=== PATIENT | female | born 1950 | race Caucasian/White ===

== ENCOUNTER → 2018-01-22 13:45 | Outpatient (CLI) | payer MEDICARE, MEDICAID, SELFPAY | PROVIDERS: PCP Student in an Organized Health Care Education/Training Program; Visit Provider Student in an Organized Health Care Education/Training Program | DX: M65.331 Trigger finger, right middle finger (principal); M11.232 Other chondrocalcinosis, left wrist | CPT/HCPCS: 20600; 20605; 99214; J1030; J1040; L3908 ==

== ENCOUNTER → 2018-03-05 14:17 | Outpatient (BNVA) | payer MEDICARE, MEDICAID, SELFPAY | PROVIDERS: PCP Student in an Organized Health Care Education/Training Program; Visit Provider Student in an Organized Health Care Education/Training Program | DX: M65.4 Radial styloid tenosynovitis [de Quervain] (principal); M65.331 Trigger finger, right middle finger; Z98.890 Other specified postprocedural states | CPT/HCPCS: 99213; 99214 ==

== ENCOUNTER 2018-03-22 08:45 | Day surgery (SDC) | payer MEDICARE, MEDICAID, SELFPAY ==
[2018-03-22 09:02] VITALS: BP 122/62; PULSE 73; RESP 18; TEMP 37.2; O2SAT 99
[2018-03-22] MEDS: Bupivacaine 0.25% Pres-Free 10 ML VIAL 20 ML (09:49)
--- NOTE | 2018-03-22 09:57 | W.PM.DSUDISC ---
Discharge Plan Disposition Patient Disposition: HOME Condition: Good Discharge Details Attending Provider: Chan Salas Primary Care Provider: Brigette Eli Home Meds and New Rx's Prescriptions: Continue gabapentin 300 MG capsule 300 mg PO TID PRNQty: 90 RF: 0 sumatriptan succinate 50 MG tablet 50 mg PO BID PRNQty: 9 RF: 5 ranitidine HCl 150 MG capsule 150 mg PO BID PRNQty: 60 RF: 6 magnesium oxide 400 MG tablet 800 mg PO BID Qty: 360 RF: 3 cholecalciferol (vitamin D3) [Vitamin D3] 1,000 UNIT capsule 2,000 unit PO DAILY Qty: 100 RF: 6 tramadol 50 MG tablet 50 mg PO PRN Qty: 15 RF: 0 cyclobenzaprine 10 MG tablet 10 mg PO Q6H PRN PRN (Reason: Spasms) Qty: 15 RF: 0 mirtazapine [Remeron] 15 MG tablet 15 mg PO HS PRNRF: 0 ibuprofen 600 MG tablet 600 mg PO TID PRNRF: 0 Discharge Instructions Stand Alone Forms: Maritza Bloom, Casie Chapman (DSU) Print Language: Sinhala Activity:: Elevate Remove Dressings/Wound Care:: 48 hours Shower/Bathe:: 48 hours Diet:: Normal Diet Discharge Orders Discharge Orders: Discharge Order (Routine); Ordered 03/22/18 Ordered By: Chan Salas DS: Diagnosis Discharge Diagnosis (1) Trigger finger, right middle finger: Status: Acute
--- NOTE | 2018-03-22 10:36 | ROE_ITS ---
Date of service: 03/22/18 Time of Service: 10:34 Operative Note DATE OF PROCEDURE: 03/22/18 PRE-OP DIAGNOSIS: Trigger Finger - Right Middle Finger POST-OP DIAGNOSIS: same PROCEDURE: Trigger Finger Release - Right Middle Finger SURGEON: Chan Salas ANESTHESIA: local PATHOLOGY: none sent COMPLICATIONS: None Patient was transported to: same day Patient's condition: stable Indications: I have seen Shauna in clinic for symptoms of a trigger finger. The catching, clicking, locking, and pain limited function. The diagnosis of trigger finger was evident. The symptoms had not responded to conservative measures. I discussed trigger finger release with the patient. I reviewed the risks of the procedure to include, but not limited to, bleeding, infection, pain , stiffness, incomplete release, damage to nerves or vessels, continued catching , recurrence. Despite these risks, the patient elected to proceed. Findings: There was a tightened A1 sumi which was released. The flexor tendons were inspected and the patient was able to move the finger without any catching, clicking, or locking. Procedure Description: Shauna was greeted in the preoperative holding area where the correct side was identified and marked. The consent was reviewed with the patient and signed. All questions were answered. Shauna was taken back to the operating room. The patient was placed into the supine position on the operating room table with the right arm on an arm board. All bony prominences were well padded. No prophylactic antibiotics were administered since this was a clean, elective hand surgical case. The right arm was then prepped with Chloraprep and draped in a standard fashion with stockinette and extremity drape. A timeout to confirm correct identity, side and site, procedure, allergies, anesthesia, and medical concerns was performed. The surgical site was marked as a longitudinal incision directly over the A1 sumi of the involved digit. This was confirmed with palpation during finger flexion. This area, overlying the metacarpal head, was then anesthetized with 1 % Lidocaine. The patient tolerated this well and once the anesthetic had setup , the procedure began. A longitudinal incision was made through skin only, approximately 1cm. The deep tissues were dissected bluntly. Once the A1 sumi and flexor tendons were identified the soft tissue including neurovascular structures were retracted medially and laterally. There were no crossing structures over the A1 sumi. The proximal edge of the sumi was identified and the sumi was incised with tenotomy scissors. There was a release of the tendons once this was fully released. The tendons were then removed from the wound and inspected. Excess synovium was resected. The tendons were then returned and the patient was asked to move the finger into deep flexion and back to extension. There was no recreation of the pre- operative symptoms. The hand was then once more inspected for any A0 sumi or area of possible constriction. The wound was then irrigated and the skin was closed with a 4-0 Nylon. This was dressed with gauze and a Conform dressing. The patient tolerated the procedure well and was returned to the Same Day Surgery area in a stable condition suffering no known complication.
== END 2018-03-22 10:10 | disposition home or self-care (01) ==
PROVIDERS: PCP Student in an Organized Health Care Education/Training Program; Visit Provider Student in an Organized Health Care Education/Training Program
PROC: (CPT 26055; principal; 2018-03-22 10:30)
DX: M65.331 Trigger finger, right middle finger (principal)
CPT/HCPCS: 26055

== ENCOUNTER → 2018-04-02 12:56 | Outpatient (BNVA) | payer MEDICARE, MEDICAID, SELFPAY | PROVIDERS: PCP Student in an Organized Health Care Education/Training Program; Referring Provider Student in an Organized Health Care Education/Training Program; Visit Provider Student in an Organized Health Care Education/Training Program | DX: Z47.89 Encounter for other orthopedic aftercare (principal); M65.331 Trigger finger, right middle finger ==

== ENCOUNTER 2018-08-08 16:43 | Outpatient (CLI) | payer MEDICARE, MEDICAID, SELFPAY ==
--- NOTE | 2018-08-08 14:45 | DI.RAD_ITS ---
SYMPTOM/DIAGNOSIS: LT LOW BACK PAIN, M25.552, WITH TENDERNESS ON EXAM, RADICULOPATHY, M54.17, LT HIP PAIN LUMBAR SPINE: AP, lateral and bilateral oblique views. There are five lumbar type vertebral bodies. There is grade I pseudospondylolisthesis of L 4 on L 5. No acute fractures or subluxations are seen. There is disc space narrowing at L 3-4, L 4-5 and L 5-S 1. Degenerative changes of the facets are seen in the lower lumbar spine. There are surgical clips in the lower abdomen and pelvis. IMPRESSION: Degenerative changes in the lumbar spine. LEFT HIP AND PELVIS: The left hip is well maintained. The bones are intact and normally mineralized. Mild degenerative changes are seen at the sacroiliac joints. The symphysis pubis is intact. Degenerative changes are seen in the lower lumbar spine. Surgical clips are seen in the pelvis. IMPRESSION: 1. Negative left hip. 2. Degenerative changes in the lumbar spine.
== END 2018-08-08 17:03 ==
PROVIDERS: PCP Student in an Organized Health Care Education/Training Program; Visit Provider Student in an Organized Health Care Education/Training Program
DX: M25.552 Pain in left hip (principal); M54.17 Radiculopathy, lumbosacral region; M54.5 Low back pain; M47.27 Other spondylosis with radiculopathy, lumbosacral region
CPT/HCPCS: 72110; 73502

== ENCOUNTER 2018-11-20 14:28 | Emergency (ER) | payer MEDICARE, MEDICAID, SELFPAY ==
[2018-11-20] VITALS (43 sets, daily range): BP systolic 102–120; BP diastolic 55–64; PULSE 66–80; RESP 10–21; TEMP 37.1; O2SAT 88–100
--- NOTE | 2018-11-20 14:46 | DI.RAD_ITS ---
SYMPTOM/DIAGNOSIS: CHEST PAIN FRONTAL AND LATERAL CHEST: Comparison is made with 03/04/15. Heart size and pulmonary vasculature are within normal limits. No focal consolidating infiltrates, effusions or pneumothoraces are identified. There is left apical scarring which appears stable. The bones appear intact. IMPRESSION: No acute pulmonary process.
--- NOTE | 2018-11-20 15:08 | ED.GENADUL_ITS ---
Discharge Plan Disposition Patient Disposition: HOME Condition: Fair Discharge Details Chief Complaint: Chest Pain Clinical Impression: Chest pain, Heart palpitations, History of atrial fibrillation Primary Care Provider: Brigette Eli ED Provider: Barbara Blount Home Meds and New Rx's Prescriptions: Continued magnesium oxide 400 mg (241.3 mg magnesium) tablet 800 mg PO BID Qty: 360 RF: 3 ranitidine HCl 150 mg capsule 150 mg PO BID Qty: 60 RF: 3 cholecalciferol (vitamin D3) [Vitamin D3] 2,000 unit Capsule RF: 0 Discharge Instructions Instructions: Chest Pain (ED), Palpitations (ED) Additional Instructions: Your work-up is reassuring today. Your history is most consistent with recurrent atrial fibrillation. 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 Please call tomorrow to schedule appointments. Please begin daily aspirin. Encourage hydration. If you develop chest pain, shortness of breath, difficulty breathing or other new/worsening symptoms please seek care urgently once again. Referrals: Brigette Eli DO [Primary Care Provider] - Discharge Data Discharge Date/Time-TO BE ENTERED AT DEPARTURE: 11/20/18 19:30 Medical Decision Making <Douglas Leblanc NP - Last Filed: 11/21/18 08:30> Patient presenting to the emergency department for chief complaint of chest pain. Patient states that this started at approximately 1 AM and she also felt rapid heart rate. Patient states that she has had episodes of this in the past and she had near syncope when trying to walk during the event. It lasted approximately 2 hours and has improved but she has had continued chest pressure. Patient states that she attempted to call the cardiology office and they referred her to the emergency department. Patient states mild chest pressure currently with some dyspnea on exertion but otherwise denies cough, fever chills, return of palpitations. Physical exam is unremarkable nondiagnostic with clear lung sounds, regular rate and rhythm cardiac exam no pedal edema. Plan to do labs, EKG. Previous records were reviewed and do show episodes of atrial fibrillation with conversion in the emergency department. I feel that there is a high suspicion of this being what occurred. Review of initial labs show negative troponin, unremarkable CBC, and CMP showing slightly elevated BUN otherwise nondiagnostic. <Pancho Comer DO - Last Filed: 11/20/18 15:26> EKG at 14: 36 Rate 70, intervals normal, sinus rhythm, no significant ST elevations or depressions, questionable Q waves in lead III. Inverted T wave in V1. No other significant abnormalities <HARSH Ware - Last Filed: 11/20/18 22:50> Care transition to myself from Rex Leblanc NP with repeat troponin pending. I discussed the symptoms further with the patient. She is currently asymptomatic. She reports that for 2 hours this morning starting 0100, she reports that she had chest pain, palpitations and lightheadedness. She reports that she has had these episodes few times a month for the past 3 years but that typically they resolve quite quickly do not last this long. She reports that after the initial 2-hour episode, she had this fairly frequently intermittently throughout the course of the morning. She has been asymptomatic since being here. Patient has a known history of atrial fibrillation reports that this feels quite similar. Patient last for Holter monitor approximately year and half ago per patient's report, reports that she last had a stress and an echo approximately 2 years ago. 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 Patient is not on any anticoagulation, she is not on any antiarrhythmic. Given the patient's history, this is likely associated with her atrial fibrillation. I would like to have the patient wear a Holter monitor but I am hesitant to place her on this here secondary to insurance constraints. Will obtain repeat troponin and reassess. Repeat troponin remains at less than 0.02. Patient and I had a discussion at length. She will follow-up with her primary care and classroom instructional aide, she will call them tomorrow to make follow-up appointment within the next week. She is given strict return precautions. Patient reports that she has been taking aspirin daily, encouraged to continue with this. All of her questions and concerns were addressed and she is in agreement this plan. HPI <Douglas Leblanc NP - Last Filed: 11/21/18 08:30> General Mode of arrival: ambulatory . Date/Time Provider Initiated Documentation: 11/20/18 14:39 . Limitations to Documentation: no limitations . Information obtained by: patient and RN notes reviewed . History of Present Illness 67 year old F presents to the emergency department with the chief complaint of Chest pain and rapid heart rate, described as severe and similar to prior episodes, with intensity rated at 10. Quality is described as sharp, and is localized to the chest and left. Patient extremity (Left arm). Patient started experiencing this hour(s) (14) and it has been constant (But improved). No relieving factors improve symptom(s), No exacerbating factors reported . Patient did receive the following treatments prior to arrival, Aspirin (81mg) Related Data Home Medications Medication Instructions Recorded Confirmed magnesium oxide 400 mg (241.3 mg 800 mg PO BID #360 tab 08/30/18 magnesium) tablet ranitidine 150 mg capsule 150 mg PO BID #60 tab-cap 08/30/18 cholecalciferol (vitamin D3) 11/20/18 [Vitamin D3] Previous Rx's Medication Instructions Recorded magnesium oxide 400 mg (241.3 mg 800 mg PO BID #360 tab 08/30/18 magnesium) tablet ranitidine 150 mg capsule 150 mg PO BID #60 tab-cap 08/30/18 Allergies Allergy/AdvReac Type Severity Reaction Status Date / Time morphine Allergy Intermediate Itching Verified 11/05/18 15:29 codeine AdvReac Intermediate Other (See Verified 11/05/18 15:29 Comment) oxycodone HCl [From Percocet] AdvReac Other (See Verified 11/05/18 15:29 Comment) General Stated Complaint: Chest Pain AJITH: 3 Review of Systems <Douglas Leblanc NP - Last Filed: 11/21/18 08:30> Constitutional Denies chills, Denies fever(s) and Denies malaise Cardiovascular Reports as per HPI, Reports chest pain, Denies chest pain with activity, Reports diaphoresis, Denies syncope, Denies irregular heart rhythm, Reports lightheadedness, Reports palpitations and Reports dyspnea Respiratory Denies cough, Denies hemoptysis and Reports dyspnea Gastrointestinal Denies abdominal pain, Reports nausea and Denies vomiting Musculoskeletal Reports tingling (left arm) Neurologic Denies syncope and Reports tingling (left arm) Psychiatric Denies anxiety Endocrine Reports palpitations [facility] <Douglas Leblanc NP - Last Filed: 11/21/18 08:30> Surgical History Arthroplasty (06/21/13) Bariatric Surgery (06/16/00) Cholecystectomy (06/16/00) Colonoscopy - MAC (04/07/17) Repair of umbilical hernia (05/31/17) Trigger Finger release (11/26/13) pannus removal (04/02/03) Social History Smoking/Tobacco Use Status: Former Tobacco Use Alcohol Intake: never Drug use: Never Substance use type: does not use Do you feel safe at home: Yes Do you feel safe in your relationship?: Yes Exam <Douglas Leblanc NP - Last Filed: 11/21/18 08:30> Const General: cooperative, healthy appearing, comfortable, no acute distress, not diaphoretic and not ill appearing Nutritional Appearance: average body habitus Orientation: alert, awake and oriented x3 Limitations: mental status not altered Neck Neck: normal visual inspection, full ROM, trachea midline, supple and no ante rior neck swelling Thyroid: thyroid normal Carotids: normal carotid upstroke and no bruits Chest Chest: normal inspection of the chest Resp Effort & Inspection: normal respiratory effort and able to speak in complete sentences Auscultation: clear to auscultation bilaterally Cardio Jugular venous pressure: no JVD Palpation: normal PMI Rate: regular rate Rhythm: regular rhythm Heart Sounds: S1 normal, S2 normal, no click, no gallops, no murmurs and no rubs Bruits: no abdominal aortic bruits and no carotid bruits Pulses: radial pulses present bilaterally 2+ and dorsalis pedis pulses present bilaterally GI Inspection: normal to inspection Palpation: soft, no aortic enlargement, no pulsatile masses and nontender Auscultation: normal bowel sounds Skin General skin exam: no rashes or lesions noted Neuro General: alert, awake, oriented x3, tone normal and moves all extremities Extrem General: normal capillary refill, no clubbing, cyanosis or edema and no pedal edema Course <Douglas Leblanc NP - Last Filed: 11/21/18 08:30> Vital Signs Temperature 37.1 C 11/20/18 14:36 Pulse 69 11/20/18 14:36 Respiratory Rate 16 11/20/18 14:36 Blood Pressure 120/62 11/20/18 14:36 Pulse Oximetry 99 11/20/18 14:36 Temperature 37.1 C 11/20/18 14:36 Temperature Source Tympanic 11/20/18 14:36 Pulse 69 11/20/18 14:36 Respiratory Rate 16 11/20/18 14:36 Respiratory Effort 11/20/18 14:44 Blood Pressure 120/62 11/20/18 14:36 Pulse Oximetry 99 11/20/18 14:36 Oxygen Delivery Method Room Air 11/20/18 14:36 Oxygen Flow Rate 0 11/20/18 14:36 Pain Level 10 11/20/18 14:36 Sign Out <Douglas Leblanc NP - Last Filed: 11/21/18 08:30> Sign Out Data: Sign Out Comment: Pending 3-hour troponin patient signed out to HARSH Auguste for any further treatment, stabilization, disposition. Last updated by Douglas Leblanc NP at 11/20/18 16:02
[2018-11-20 15:14] LABS: Abs Immature Grans 0.01 k/cumm (0.0-0.09); Absolute Basophil Count 0.04 k/cumm (0.0-0.2); Absolute Eosinophil Count 0.19 k/cumm (0.0-0.7); Absolute Lymphocyte Count 2.39 k/cumm (1.2-3.4); Absolute Neutrophil Count 3.24 k/cumm (1.2-6.7); Basophils % 0.6; Eosinophils % 2.9; HCT 40.4 % (36.0-46.0); HGB 13.6 g/dL (12.0-15.5); Immature Grans % 0.2; Lymphocytes % 36.4; Mean Corp. HGB Concentration 33.7 g/dL (32.0-36.0); Mean Corpuscular Hemoglobin 30.9 pg (27.0-33.0); Mean Corpuscular Volume 91.8 fL (80-95); Mean Platelet Volume 10.8 fL (8.0-11.0); Monocytes % 10.7; Neutrophils % 49.2; Platelet Count 180 x1000/uL (130-400); White Blood Cell Count 6.57 k/cumm (4.4-10.8)
[2018-11-20 15:39] LABS: ALT 17 U/L (12-78); AST 12 U/L (15-37); Albumin 3.4 g/dL (3.4-5.0); Alkaline Phosphatase 89 U/L (46-116); Anion Gap 7.5 mmol/L (3-11); BUN 25 mg/dL (7-18); Bilirubin, Total 0.3 mg/dL (0.2-1.0); CO2 26.5 mmol/L (21.0-32.0); CREATININE 0.94 mg/dL (0.55-1.02); Calcium 8.8 mg/dL (8.5-10.1); Chloride 104 mmol/L (98-107); Glucose 89 mg/dL (70-100); Magnesium 1.8 mg/dL (1.8-2.4); Potassium 3.8 mmol/L (3.5-5.1); Sodium 138 mmol/L (136-145); Total Protein 6.7 g/dL (6.4-8.2)
[2018-11-20 15:41] LABS: Troponin I < 0.02 ng/mL (0.00-0.06)
[2018-11-20] MEDS: Aspirin 81 MG CHEW 243 MG CH (16:03)
--- NOTE | 2018-11-20 16:18 | DI.VRAD_ITS ---
EXAM: XR Chest, 2 Views EXAM DATE/TIME: 11/20/2018 3:58 PM CLINICAL HISTORY: 67 years old, female; Chest pain; Type not specified TECHNIQUE: Imaging protocol: XR of the chest, 2 views. COMPARISON: CR CHEST 2 VIEWS PA,LAT 03/04/2015 9:18 AM FINDINGS: Lungs: Unremarkable. No consolidation. Pleural space: Unremarkable. No pleural effusion. No pneumothorax. Heart/Mediastinum: Unremarkable. No cardiomegaly. Bones/joints: Degenerative changes in the spine. IMPRESSION: No acute finding. Dictated and Authenticated by: Myriam Harrington MD. Ordering:JENNIFER Cole MD
[2018-11-20 18:06] LABS: Troponin I < 0.02 ng/mL (0.00-0.06)
== END 2018-11-20 19:30 | disposition home or self-care (01) ==
PROVIDERS: Nurse Practitioner Family; Emergency Provider Physician Assistant; PCP Student in an Organized Health Care Education/Training Program
DX: R07.9 Chest pain, unspecified (principal); R00.2 Palpitations; I48.91 Unspecified atrial fibrillation
CPT/HCPCS: 36415; 80053; 93005; 99285; 71046; 83735; 84484; 85025; 93010

== ENCOUNTER → 2018-11-29 09:59 | Outpatient (BNVA) | payer MEDICARE, MEDICAID, SELFPAY | PROVIDERS: PCP Student in an Organized Health Care Education/Training Program; Visit Provider Internal Medicine Cardiovascular Disease | DX: I48.0 Paroxysmal atrial fibrillation (principal); E66.9 Obesity, unspecified; E78.5 Hyperlipidemia, unspecified; Z86.711 Personal history of pulmonary embolism; Z98.84 Bariatric surgery status; I10 Essential (primary) hypertension | CPT/HCPCS: 99214 ==

== ENCOUNTER 2018-12-04 00:47 | Outpatient (CLI) | payer MEDICARE, MEDICAID, SELFPAY ==
--- NOTE | 2018-12-04 06:57 | DI.US_ITS ---
SYMPTOM/DIAGNOSIS: KNOWN AAA, I 71.4, F/U, NEED MEASUREMENTS ULTRASOUND ABDOMINAL AORTA: The maximal diameter of the aorta is 3.4 cm transverse distally. Calcification is noted along the wall of the aorta. No significant mural thrombus is seen. The iliac arteries appear normal in diameter. IMPRESSION: Stable abdominal aortic aneurysm measuring 3.4 cm transverse.
== END 2018-12-04 01:07 ==
PROVIDERS: PCP Student in an Organized Health Care Education/Training Program; Visit Provider Student in an Organized Health Care Education/Training Program
DX: I71.4 Abdominal aortic aneurysm, without rupture (principal)
CPT/HCPCS: 76775

== ENCOUNTER 2019-02-28 14:30 | Outpatient (CLI) | payer MEDICARE, MEDICAID, SELFPAY | END 2019-02-28 14:50 | PROVIDERS: PCP Student in an Organized Health Care Education/Training Program; Visit Provider Internal Medicine Cardiovascular Disease | DX: I48.0 Paroxysmal atrial fibrillation (principal); E66.9 Obesity, unspecified; E78.5 Hyperlipidemia, unspecified; Z86.711 Personal history of pulmonary embolism; Z98.84 Bariatric surgery status; I10 Essential (primary) hypertension; Z87.891 Personal history of nicotine dependence | CPT/HCPCS: 99213 ==

== ENCOUNTER 2020-05-12 03:27 | Outpatient (CLI) | payer MEDICARE, MEDICAID, SELFPAY ==
[2020-05-12 14:54] LABS: ALT 18 U/L (14-59); AST 15 U/L (15-37); Albumin 3.9 g/dL (3.4-5.0); Alkaline Phosphatase 83 U/L (46-116); Anion Gap 7.2 mmol/L (3-11); BUN 19 mg/dL (7-18); Bilirubin, Total 0.4 mg/dL (0.2-1.0); CO2 27.8 mmol/L (21.0-32.0); CREATININE 1.06 mg/dL (0.55-1.02); Calcium 8.5 mg/dL (8.5-10.1); Calculated LDL 108 mg/dL (<100); Chloride 107 mmol/L (98-107); Cholesterol 210 mg/dL (<200); Glucose 97 mg/dL (74-106); HDL Cholesterol 86 mg/dL (40-60); Sodium 142 mmol/L (136-145); Total Protein 6.6 g/dL (6.4-8.2); Triglyceride 82 mg/dL (<150)
[2020-05-12 15:01] LABS: TSH (W/Ref FT4) 2.22 uIU/mL (0.36-3.74)
== END 2020-05-12 03:47 ==
PROVIDERS: PCP Student in an Organized Health Care Education/Training Program; Visit Provider Student in an Organized Health Care Education/Training Program
DX: I10 Essential (primary) hypertension (principal); E66.01 Morbid (severe) obesity due to excess calories; Z79.1 Long term (current) use of non-steroidal anti-inflammatories (NSAID); Z83.3 Family history of diabetes mellitus
CPT/HCPCS: 36415; 80053; 80061; 84443

== ENCOUNTER 2020-07-17 08:54 | Outpatient (CLI) | payer MEDICARE, MEDICAID, SELFPAY ==
[2020-07-18 13:08] LABS: COVID-19 RT-PCR UVMMC Result Negative (Negative)
== END 2020-07-17 09:14 ==
PROVIDERS: PCP Student in an Organized Health Care Education/Training Program; Visit Provider Student in an Organized Health Care Education/Training Program
DX: Z20.822 Contact with and (suspected) exposure to COVID-19 (principal)
CPT/HCPCS: U0003

== ENCOUNTER 2020-08-20 02:55 | Outpatient (CLI) | payer MEDICARE, MEDICAID, SELFPAY ==
--- NOTE | 2020-08-20 07:45 | DI.US_ITS ---
EXAM: US AAA DIAGNOSTIC CLINICAL HISTORY: F/U AAA, 10mm growth per year,I71.4 COMPARISON: US US AAA diagnostic from 12/04/2018 FINDINGS: Abdominal Aorta: Proximal: 3.1 x 3.1 cm Mid: 2.3 x 2.6 cm Distal: 3.2 x 3.2 cm Iliac's: Right: 1.5 x 1.7 cm Left: 1.3 x 1.4 cm Atherosclerosis is present. IMPRESSION: 3.2 cm distal abdominal aortic aneurysm. This compares with 3.4 on the prior examination. No interv al increase in size of the abdominal aortic aneurysm. DATA REPOSITORY:
== END 2020-08-20 03:15 ==
PROVIDERS: PCP Student in an Organized Health Care Education/Training Program; Visit Provider Student in an Organized Health Care Education/Training Program
DX: I71.4 Abdominal aortic aneurysm, without rupture (principal)
CPT/HCPCS: 76775

== ENCOUNTER 2021-03-03 02:57 | Outpatient (CLI) | payer MEDICARE, MEDICAID, SELFPAY ==
[2021-03-03 12:15] LABS: Anion Gap 9.4 mmol/L (3-11); BUN 22 mg/dL (7-18); CO2 26.6 mmol/L (21.0-32.0); CREATININE 1.1 mg/dL (0.55-1.02); Calcium 8.3 mg/dL (8.5-10.1); Chloride 107 mmol/L (98-107); Glucose 96 mg/dL (74-106); Potassium 4.1 mmol/L (3.5-5.1); Sodium 143 mmol/L (136-145)
[2021-03-04 00:52] LABS: Vitamin D 25 Total 40.3 ng/mL (30-100)
== END 2021-03-03 02:58 | disposition home or self-care (01) ==
LOC: LBO 02:57
PROVIDERS: PCP Student in an Organized Health Care Education/Training Program; Visit Provider Student in an Organized Health Care Education/Training Program
DX: E66.01 Morbid (severe) obesity due to excess calories; R79.89 Other specified abnormal findings of blood chemistry
CPT/HCPCS: 36415; 80048; 82306

== ENCOUNTER 2021-04-02 00:17 | Outpatient (CLI) | payer MEDICARE, MEDICAID, SELFPAY ==
--- NOTE | 2021-04-02 06:30 | DI.US_ITS ---
Exam(s) US AAA DIAGNOSTIC EXAM: US AAA DIAGNOSTIC CLINICAL HISTORY: evaluate for change,F/U AAA,I71.4 COMPARISON: No exams were available for comparison FINDINGS: Abdominal Aorta: Proximal: 3.0 cm Mid: 2.5 cm Distal: 3.3 cm Iliacs: Right: 1.6 cm Left: 1.5 cm Calcific atherosclerotic disease is seen. IMPRESSION: Stable 3.3 centimeter distal abdominal aortic aneurysm.. DATA REPOSITORY:
== END 2021-04-02 00:37 ==
PROVIDERS: PCP Student in an Organized Health Care Education/Training Program; Visit Provider Student in an Organized Health Care Education/Training Program
DX: I71.4 Abdominal aortic aneurysm, without rupture (principal)
CPT/HCPCS: 76775

== ENCOUNTER 2021-05-07 02:05 | Outpatient (CLI) | payer MEDICARE, MEDICAID, SELFPAY ==
--- NOTE | 2021-05-07 08:15 | DI.DEXA_ITS ---
Exam(s) XR DEXA BONE DENSITY W/WO ARYA EXAM: XR DEXA BONE DENSITY W/WO ARYA CLINICAL HISTORY: evaluate osteoporosis, M81.0 TECHNIQUE: [email or web address] C densitometer COMPARISON: 2008 FINDINGS: Lateral view of the thoracic and lumbar spine shows no evidence of compression fractures. Bone mineral density measurements of the lumbar spine correspond to a total T-score of 0.2, in the n ormal range. This represents a 2.9 percent decrease in spine bone density when compared with 2008. Bone mineral density measurements of the left hip correspond to a total T-score of negative 0.4. Th e femoral neck T-score is -1.4, in the osteopenic range. This represents a 4.7 percent decrease in total hip bone density from 2008. The left forearm bone mineral density measurements correspond to a T-score of the distal 3rd of -4.8, in the osteo parotic range. The forearm was not analyzed on the previous exam. . IMPRESSION: Normal bone mineral density of the lumbar spine and left hip. Osteoporosis of the left forearm.
== END 2021-05-07 02:25 ==
PROVIDERS: PCP Student in an Organized Health Care Education/Training Program; Visit Provider Student in an Organized Health Care Education/Training Program
DX: M81.0 Age-related osteoporosis without current pathological fracture (principal); M85.88 Other specified disorders of bone density and structure, other site
CPT/HCPCS: 77080

== ENCOUNTER 2021-09-13 03:38 | Outpatient (CLI) | payer MEDICARE, MEDICAID, SELFPAY ==
[2021-09-13 13:47] LABS: Anion Gap 7.4 mmol/L (3-11); BUN 25 mg/dL (7-18); CO2 26.6 mmol/L (21.0-32.0); CREATININE 1.1 mg/dL (0.55-1.02); Calcium 8.9 mg/dL (8.5-10.1); Chloride 105 mmol/L (98-107); Glucose 220 mg/dL (74-106); Sodium 139 mmol/L (136-145)
== END 2021-09-13 03:39 | disposition home or self-care (01) ==
LOC: LBO 03:38
PROVIDERS: PCP Student in an Organized Health Care Education/Training Program; Visit Provider Student in an Organized Health Care Education/Training Program
DX: R60.0 Localized edema (principal); T50.2X5A Adverse effect of carbonic-anhydrase inhibitors, benzothiadiazides and other diuretics, initial encounter
CPT/HCPCS: 36415; 80048

== ENCOUNTER 2021-09-27 09:34 | Emergency (ER) | payer MEDICARE, MEDICAID, SELFPAY ==
[2021-09-27] VITALS (35 sets, daily range): BP systolic 104–133; BP diastolic 47–70; PULSE 61–79; RESP 8–24; TEMP 36.6; O2SAT 94–100
--- NOTE | 2021-09-27 09:30 | RT.EKG_ITS ---
APPROVED REPORT Exam: Resting ECG Reason for Exam: chest pain Patient Location: E HR:64 bpm ECG Measurements Heart Rate 64 AXIS WY 175 P 59 QRSd 93 QRS 13 QT 400 T 43 QTc 414 Conclusion Sinus rhythm...normal P axis, V-rate 60- 99 no STEMI, non-diagnostic EKG I have reviewed and interpreted ECG and agree with software generated interpretation.
[2021-09-27 10:02] LABS: Abs Immature Grans 0.01 10^3/uL (0.0-0.06); Absolute Basophil Count 0.06 10^3/uL (0.0-0.2); Absolute Lymphocyte Count 1.96 10^3/uL (1.2-3.4); Absolute Monocyte Count 0.66 10^3/uL (0.1-0.8); Absolute Neutrophil Count 4.35 10^3/uL (1.2-6.7); Basophils % 0.8; Eosinophils % 2.8; HCT 38.7 % (36.0-46.0); HGB 12.9 g/dL (11.2-15.7); Immature Grans % 0.1; Lymphocytes % 27.1; MCH 31.2 pg (27.0-33.0); MCHC 33.3 % (32.0-36.0); MCV 93.7 fL (80-95); MPV 10.7 fL (8.0-11.0); Monocytes % 9.1; Neutrophils % 60.1; Nucleated RBC 0 %; Platelet Count 181 10^3/uL (130-400); RBC 4.13 10^6/uL (3.93-5.22); RDW 13.1 % (11.7-14.6); RDW-SD 45.1 fL; WBC 7.24 10^3/uL (4.4-10.8)
[2021-09-27 10:16] LABS: ALT 19 U/L (14-59); AST 16 U/L (15-37); Albumin 3.6 g/dL (3.4-5.0); Alkaline Phosphatase 98 U/L (46-116); BUN 29 mg/dL (7-18); Bilirubin, Total 0.3 mg/dL (0.2-1.0); Chloride 104 mmol/L (98-107); Estimated GFR 54.81 (mL/min/1.73m2); Glucose 128 mg/dL (74-106); Magnesium 1.8 mg/dL (1.8-2.4); Potassium 4.1 mmol/L (3.5-5.1); Sodium 140 mmol/L (136-145); Total Protein 7.3 g/dL (6.4-8.2); Troponin I < 50 ng/L (<or=60)
[2021-09-27] MEDS: HYDROmorphone 2 MG/ML VIAL 0.5 MG IVP ×2 (10:25→11:25)
--- NOTE | 2021-09-27 11:04 | DI.CT_ITS ---
Exam(s) CT THORAX ABD/PEL CTA EXAM: CT THORAX ABD/PEL CTA CLINICAL HISTORY: chest pain, HX AAA. TECHNIQUE: Imaging Protocol: Axial CT angiography was performed with multi-slice acquisition and m ulti-planar and MIP reconstructions. CONTRAST MATERIAL: Intravenous: Omnipaque 350 Contrast volume:100 ml Oral: no COMPARISON: US PELVIS TRANSVAG from 07/29/2015 CR XR CHEST 2V PA LATERAL from 11/20/2018 US US AAA diagnostic from 12/04/2018 US US AAA DIAGNOSTIC from 04/02/2021 FINDINGS: CHEST: Pulmonary Arteries: No evidence of filling defect to suggest pulmonary emboli. Tracheobronchial tree: Patent where visualized. Mediastinum and Doris: No dominant adenopathy or fluid collection. Pulmonary parenchyma: No consolidation or dominant measurable mass. No architectural distortion. Pleura: No effusion or pneumothorax. Heart: The heart is not dilated. No coronary artery calcifications are seen. Aorta: Thoracic aorta non-dilated. Mild atherosclerotic changes. Bones: Degenerative disc changes. Hemangioma T6 ABDOMEN AND PELVIS: Abdomen: Celiac axis/mesenteric arteries: No evidence of occlusion or significant stenosis. Renal Arteries: No evidence of occlusion or significant stenosis. There is a single renal artery per fusing each kidney. Aorta: [id number] atherosclerotic changes. No evidence of occlusion or significant stenosis. No dissection. Maximal 0 diameter 3.3 cm, unchanged from prior ultrasound. Pelvis: Iliac Arteries: No evidence of occlusion or significant stenosis. Mild to moderate atherosclerotic changes. Common Femoral Arteries: No evidence of occlusion or significant stenosis. ABDOMEN: Liver: Normal density. No measurable mass. Portal, Superior Mesenteric, and Splenic Veins: Unremarkable. Gallbladder and Biliary Tract: Status post cholecystectomy. No radiodense calculus or dilation. Pancreas: Normal density, no abnormal calcifications or inflammatory process. Suture material near fundus of stomach. Spleen: Normal. Adrenals: No masses seen. Kidneys: Normal size, contour and axis. No radiodense stones or obstructive uropathy. No masses seen. Bilateral parapelvic cysts. Bowel: Sigmoid diverticulosis. No evidence of diverticulitis. No obstruction or bowel wall thickeni ng. Appendix is not seen. Peritoneal Cavity: No ascites, collection or mesenteric inflammatory response. Lymph Nodes: Within normal limits. Bones: Degenerative disc changes and facet degenerative changes greatest at L4-5 and L5-S1. Soft Tissues: Unremarkable. PELVIS: Bladder: Symmetric distention, no gross wall thickening. Reproductive Organs: Bilateral simple appearing ovarian cysts. Lymph Nodes: Within normal limits. Bones: Within normal limits. IMPRESSION: 3.3 centimeter infrarenal abdominal aortic aneurysm. No evidence of dissection or other acute abnor mality. RADIATION DOSE DELIVERED: 1,365.39mGy.cm Total DLP DATA REPOSITORY: All CT scans at this facility are submitted to the National Radiology Data Registry (NRDR) Dose Index Registry (DIR) with the [employer] (A[employer]). RADIATION OPTIMIZATION: All CT scans at this facility use at least one of these dose optimization te chniques: automated exposure control; mA and/or kV adjustment per patient size (includes targeted exa ms where dose is matched to clinical indication); or iterative reconstruction.
[2021-09-27] MEDS: Omnipaque 350 MG/ML 100 ML BTL IJ (11:16)
[2021-09-27] MEDS: HYDROmorphone 2 MG/ML VIAL 1 MG IVP (12:04)
--- NOTE | 2021-09-27 12:15 | RT.EKG_ITS ---
APPROVED REPORT Exam: Resting ECG Reason for Exam: chest pain Patient Location: E HR:68 bpm ECG Measurements Heart Rate 68 AXIS MI 172 P 148 QRSd 100 QRS -20 QT 412 T 127 QTc 440 Conclusion Sinus or ectopic atrial rhythm...P axis (-45,135) Left atrial enlargement...P, P'>60mS, <-0.15mV V1 Inferior infarct, old...Q >35mS, II III aVF Nonspecific T abnormalities, lateral leads...T <-0.10mV, I aVL V5 V6 no STEMI, non-diagnostic EKG I have reviewed and interpreted ECG and agree with software generated interpretation.
--- NOTE | 2021-09-27 12:44 | W.ED.GENAD ---
Discharge Plan Disposition Patient Disposition: HOME Condition: Improving Discharge Details Clinical Impression: Esophagitis with gastritis Primary Care Provider: Brigette Eli ED Provider: Douglas Leblanc Home Meds and New Rx's Prescriptions: New omeprazole 20 mg capsule,delayed release(DR/EC) 20 mg PO DAILY Qty: 14 0RF Continued magnesium oxide 400 mg (241.3 mg magnesium) tablet 800 mg PO BID Qty: 360 3RF Rx Instructions: replace magnesium cholecalciferol (vitamin D3) [Vitamin D3] 50 mcg (2,000 unit) capsule 2,000 unit PO DAILY Qty: 90 3RF aspirin 81 mg tablet,chewable 81 mg PO DAILY 0RF cyclobenzaprine 10 mg tablet 10 mg PO HS PRN (Reason: muscle spasm) Qty: 20 1RF Rx Instructions: Trial for muscle spasm pain furosemide 20 mg tablet See Rx Instructions PO DAILY Qty: 90 3RF Rx Instructions: 20mg daily, may add (1) tab in afternoon 2' weight gain > 5 lbs or severe edema PO daily; sumatriptan succinate 50 mg tablet See Rx Instructions PO .COMPLEX Qty: 9 3RF Rx Instructions: take 1 tab at onset of headache; if no relief may repeat 1 tab after at least 2 hrs; max = 4 tabs/24 hr PO metoprolol succinate 25 mg tablet extended release 24 hr See Rx Instructions .ROUTE .COMPLEX Qty: 90 3RF Dose Instruction: TAKE 1 TABLET BY MOUTH DAILY Rx Instructions: TAKE 1 TABLET BY MOUTH DAILY Discontinued ibuprofen 600 mg tablet 600 mg PO BID Qty: 30 1RF Rx Instructions: For anti-inflammation of arm/hip; take with food. ibuprofen 800 mg tablet 800 mg PO TID Qty: 90 3RF Discharge Instructions Instructions: Gastritis (ED) Additional Instructions: It is important that you take your medications as prescribed and please stop usage of ibuprofen as this may be contributing to your symptoms. It is recommended to take [id number] acetaminophen/Tylenol and take as directed on packaging. You are also being placed on a daily medication to reduce your stomach acid and take as directed. It will be important that you follow-up with your primary care provider for reassessment and to ensure that you are improving in symptoms. If you have any new or significant worsening of symptoms feel free to return to the emergency department for reassessment and further evaluation. Referrals: Brigette Eli, [Primary Care Provider] - 1 week (For reassessment of your epigastric pain) Discharge Data Discharge Date/Time-TO BE ENTERED AT DEPARTURE: 09/27/21 13:36 Medical Decision Making Patient presenting to the emergency department with chief complaint of chest/epigastric pain and discomfort. Patient reports that this started yesterday after attempting to swallow pill. She states since then pain is gotten worse and she has now having abdominal pain radiating into her back. Patient does state some lightheadedness when she stands up but no syncope, no diaphoresis, no vomiting. Physical exam shows exquisite tenderness to palpation of the epigastrium but no pulsatile mass, otherwise normal cardiac and respiratory exam. Patient does have history of abdominal aortic aneurysm approximately 3 cm in size. Given patient's history and significant amount of pain we will plan on performing standard cardiac work-up including CTA of thorax abdomen pelvis for evaluation of patient's AAA. Will give patient more phone pending results. Vital signs otherwise stable, patient is not tachycardic, hypo or hypertensive, and otherwise stable. Please see physician interpretation of EKG. Patient is in sinus rhythm with no signs of STEMI. . Review of labs show a unremarkable CBC, CMP does show slightly elevated BUN at 29 with a GFR of 54 and glucose of 128 otherwise nondiagnostic CMP. Troponin is less than 50. Review of CTA with radiologist shows stable AAA with no significant change in size otherwise no other acute abnormality is noted. Patient reassessed and continues to have epigastric discomfort. Will give patient more hydromorphone along with GI cocktail pending second EKG and troponin. Second EKG performed and please see physician interpretation of EKG. Patient is in sinus rhythm with no signs of acute STEMI. Second troponin is also nondetectable. Given that all of patient's symptoms started with swallowing of pill and otherwise benign work-up, I suspect gastritis versus esophagitis. Further discussed this with patient and she does state history of gastritis and has been using ibuprofen to treat pain. Discussed with patient use of Maalox and acetaminophen to help control pain and informed her that NSAIDs will worsen her symptoms. Patient placed on primary care follow-up list with preferred follow-up later this week given her history and to ensure that she is improving. After discussion of diagnosis and plan of care patient has no further needs, questions, or concerns and states clear understanding to return to the emergency department for any worsening symptoms. Medical Records Medical records reviewed: Yes I reviewed the patient's medical records. Imaging Data Radiologic Study: Imaging: CT Scan Radiologist's impression: IMPRESSION: 3.3 centimeter infrarenal abdominal aortic aneurysm. No evidence of dissection or other acute abnormality. HPI General Mode of arrival: ambulatory. Date/Time Provider Initiated Documentation: 09/27/21 09:34. Limitations to Documentation: no limitations. Information obtained by: patient. History of Present Illness 70 year old F presents to the emergency department with the chief complaint of chest /epigastric pain, described as moderate, with intensity rated at 8. Quality is described as aching and sharp, and is localized to the chest and abdomen. Patient reports radiation to back. Patient started experiencing this day(s) (1) and it has been constant. improves with No relieving factors improve symptom(s), Eating worsens symptoms . Patient notes loss of appetite and malaise; denies cough and diaphoresis. Patient did receive the following treatments prior to arrival, none Related Data Home Medications Medication Instructions Recorded Confirmed aspirin 81 mg chewable tablet 81 mg PO DAILY 11/21/18 09/27/21 sumatriptan succinate 50 mg tablet See Rx Instructions PO .COMPLEX #9 08/08/20 09/27/21 tab cholecalciferol (vitamin D3) 50 2,000 unit PO DAILY #90 cap 02/26/21 09/27/21 mcg (2,000 unit) capsule (Vitamin D3) magnesium oxide 400 mg (241.3 mg 800 mg PO BID #360 tab 02/26/21 09/27/21 magnesium) tablet metoprolol succinate 25 mg See Rx Instructions .ROUTE 07/31/21 09/27/21 tablet,extended release 24 hr .COMPLEX #90 tab cyclobenzaprine 10 mg tablet 10 mg PO HS PRN #20 tab 08/27/21 09/27/21 furosemide 20 mg tablet See Rx Instructions PO DAILY #90 08/27/21 09/27/21 tab omeprazole 20 mg capsule,delayed 20 mg PO DAILY #14 cap 09/27/21 release Previous Rx's Medication Instructions Recorded sumatriptan succinate 50 mg tablet See Rx Instructions PO .COMPLEX #9 08/08/20 tab cholecalciferol (vitamin D3) 50 2,000 unit PO DAILY #90 cap 02/26/21 mcg (2,000 unit) capsule (Vitamin D3) magnesium oxide 400 mg (241.3 mg 800 mg PO BID #360 tab 02/26/21 magnesium) tablet metoprolol succinate 25 mg See Rx Instructions .ROUTE 07/31/21 tablet,extended release 24 hr .COMPLEX #90 tab cyclobenzaprine 10 mg tablet 10 mg PO HS PRN #20 tab 08/27/21 furosemide 20 mg tablet See Rx Instructions PO DAILY #90 08/27/21 tab omeprazole 20 mg capsule,delayed 20 mg PO DAILY #14 cap 09/27/21 release Allergies Allergy/AdvReac Type Severity Reaction Status Date / Time morphine Allergy Intermediate Itching Verified 09/27/21 09:54 codeine AdvReac Intermediate muscle Verified 09/27/21 09:59 spasms oxycodone HCl [From Percocet] AdvReac Intermediate muscle Verified 09/27/21 09:59 spasms, hard on stomach General Stated Complaint: Chest Pain AJITH: 2 Review of Systems Constitutional Constitutional: Denies chills, Denies fever(s) and Denies malaise ENT Ears, Nose, Mouth, and Throat: Reports odynophagia Cardiovascular Cardiovascular: Reports as per HPI, Reports chest pain, Denies chest pain with activity, Denies syncope, Denies irregular heart rhythm, Reports lightheadedness (with standing), Denies palpitations and Denies dyspnea Respiratory Respiratory: Denies cough, Denies hemoptysis and Denies dyspnea Gastrointestinal Gastrointestinal: Denies abdominal pain, Reports bloating, Reports nausea, Reports odynophagia and Denies vomiting Neurologic Neurologic: Denies syncope Psychiatric Psychiatric: Denies anxiety Endocrine Endocrine: Denies cold intolerance, Denies heat intolerance and Denies palpitations PFSH All Active Problems (Updated 09/27/21 @ 13:32 by Douglas Leblanc NP) Esophagitis with gastritis (Acute) Piriformis syndrome of right side (Acute) Right upper extremity numbness (Acute) Pain and Tenderness, possible nerve entrapment with numbness .. 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 Acute on chronic Rt sided, 08/2021. ik Chest heaviness (Acute 07/15/16) Hyperlipidemia (Acute 02/21/13) Joint pain (Acute 02/21/13) Nephrotic syndrome (Acute 06/17/85) Palpitations (Acute 07/15/16) Transient arthropathy (Acute 02/21/13) Chest pain at rest (Acute) Awakened with heaviness, waited x hours (has had it before), but finally went to ED .. 11/20/18 Pain of left hip (Chronic 05/2018) Onset while stretching in bed, suddenly felt sharp pain ... hasn't gone away. Surprising left paraspinal tenderness along lumbar spine @ exam, 08/08/18. Vitamin D deficiency (Acute 12/23/16) rx 50,000/wk x ten wk, then 2000 IU daily TMJ (temporomandibular joint disorder) (Acute 01/25/16) Sleep disturbances (Acute 03/01/13) Seasonal allergic rhinitis (Acute 02/21/13) Pseudogout of left wrist (Acute 01/22/18) Periumbilical abdominal pain (Acute 04/14/17) ? umbilical hernia vs adhesions PAF (paroxysmal atrial fibrillation) (Chronic 05/08/15) only one confirmed episode 02/2015; ZIO patch neg; prefers not anticoagulate until A Fib recurs Osteoarthritis (Chronic 03/05/13) recurrent R thumb (h/o Catrina inj 10/2012; h/o surg L hand 06/2006) Obesity (BMI 30-39.9) (Acute 08/11/11) Muscle cramp, nocturnal (Acute 12/27/13) gabapentin 100 prn effective Morbid obesity (Acute 08/20/15) BMI 42, even after bariatric surg Migraine (Acute 02/21/13) Left foot pain (Acute 01/27/17) r/o Posteriur Tarsal Tunnel Syn; dr Velasquez, Dr. Aldana History of pulmonary embolism (Acute 01/01/16) History of bariatric surgery (Acute 05/19/00) Dr. Greene, [facility] Generalized osteoarthrosis (Chronic 02/21/13) Gastroesophageal reflux disease (Chronic 02/21/13) Arm pain, right (Acute 09/20/13) rotator cuff pain, persistent trigger finger R; neck pain; trapezious spasm; impingement syndrome Adenoma of large intestine (Acute 05/19/11) 05/2011 Kris Coffey colonoscopy, +tubular adenoma and +family h/o colon cancer (F); again adenoma 02/21/13 04/07/17 - tubulovillous adenoma, ascending colon, Dr Kaye Acute pain of left shoulder (Acute 10/18/17) No specific injury/trauma, pain with movement, abdiel ext rot/supination. Triceps tenderness. Intermittent fingertip numbness. Abdominal pain (Acute 04/22/13) not diverticulitis per CT 07/28/14; lower abd 07/2015 Abdominal aortic aneurysm 30 to 34 mm in diameter (Chronic 07/19/14) 06/2014 3.14 cm, confirmed on CT; 07/2015 3.2cm US 04/21/17 stable 3.3 cm US. 11/2018 [Stable, 3.4CM]. Nephrolithiasis (Acute 05/07/14) a. First episode - right side b. Right 3 mm ureterovesical junction stone Morbid obesity (Chronic) a. Gastric bypass 1999 b. Multiple nutritional deficiencies, on supplements. c. S/p pannus excision H/O surgical procedure (Chronic) a. Gastric bypass 1999 b. Pannus excision c. Excision of Samson neuroma d. Cholecystectomy e. appendectomy f. right oophorectomy g. Hemorrhoidectomy Hypertension (Chronic) Osteoarthrosis, hand (Chronic) History of tobacco use (Chronic) a. quit in 1998, after roughly 30 pack years GERD (gastroesophageal reflux disease) (Chronic) Reactive airway disease (Chronic) a. worse in the spring Migraines (Chronic) Pain in joint, shoulder region (Chronic) a. rotator cuff pain Diverticulosis (Chronic) a. No diverticulitis Spondylolisthesis of lumbosacral region (Chronic) A. L4-5 B. L5-S1 Latest XR (07/2018) states pseudospondylolisthesis, no acute Fx/Sublux. Monitoring pain. DJD, spine (Chronic) Reconfirmed on 07/2018 XR. Osteoporosis (Chronic) Ca and Vit D suppl. Bisphosphonate Hx TBD. De Quervain's tenosynovitis, right (Acute) Trigger finger, right middle finger (Acute) Surgical History Arthroplasty (06/21/13) R thumb Dreisbach Bariatric Surgery (06/16/00) Brenda-En-Y gastroplasty with cholecystectomy, KARISHMA Juárez Cholecystectomy (06/16/00) KARISHMA Vo, along with Bariatric procedure Colonoscopy - MAC (04/07/17) pannus removal (04/02/03) [facility], 3 yr after bariatric surg Repair of umbilical hernia (05/31/17) Dr Kaye Trigger Finger release (11/26/13) A-1 sumi Rt ring finger Family History Father Lung cancer Mother Colon cancer Social History Smoking/Tobacco Use Status: Former Tobacco Use Quit Date: 06/19/98 Smoking risk assessment performed?: Yes Alcohol Intake: never Drug use: Never Substance use type: does not use Caregiver/Support person: No Household members: spouse and children Number of Children: 5 Communication Needs: None Current gender identity: female What is your relationship status?: Panel score (0-1 are the most socially isolated patients): 1 What type of physical activity do you participate in: sedentary lifestyle Duration: < 15 minutes/day Frequency: 3-4 times per week Seatbelt use: always Do you feel safe at home: Yes Do you feel safe in your relationship?: Yes Exam Const General: cooperative, healthy appearing, comfortable, no acute distress, not diaphoretic and not ill appearing Nutritional Appearance: average body habitus Orientation: alert, awake and oriented x3 Limitations: mental status not altered Neck Neck: normal visual inspection, full ROM, trachea midline, supple and no anterior neck swelling Carotids: normal carotid upstroke and no bruits Resp Effort & Inspection: normal respiratory effort and able to speak in complete sentences Auscultation: clear to auscultation bilaterally Cardio Jugular venous pressure: no JVD Palpation: normal PMI Rate: regular rate Rhythm: regular rhythm Heart Sounds: S1 normal, S2 normal, no click, no gallops, no murmurs and no rubs Bruits: no abdominal aortic bruits and no carotid bruits Pulses: radial pulses present bilaterally 2+ GI Palpation: soft, no aortic enlargement, no pulsatile masses and tender in the epigastrum Auscultation: normal bowel sounds Skin General skin exam: no rashes or lesions noted Neuro General: patient alert, patient awake, patient oriented x3, tone normal and moves all extremities Course Vital Signs Vital signs: Vital Signs Pulse 62 09/27/21 09:43 Respiratory Rate 15 09/27/21 09:43 Blood Pressure 129/64 09/27/21 09:43 Pulse Oximetry 100 09/27/21 09:43 Temperature 36.6 C 09/27/21 09:47 Temperature Source Temporal Artery Scan 09/27/21 09:47 Pulse 72 09/27/21 11:47 Pulse 73 09/27/21 11:47 Respiratory Rate 16 09/27/21 11:47 Respiratory Effort Non-Labored 09/27/21 09:59 Respiratory Depth Normal 09/27/21 09:59 Respiratory Pattern Normal 09/27/21 09:59 Blood Pressure 133/69 09/27/21 11:47 Blood Pressure Mean 84 09/27/21 11:47 Blood Pressure Position Supine 09/27/21 09:47 Pulse Oximetry 97 09/27/21 11:47 Oxygen Delivery Method Room Air 09/27/21 09:47 Oxygen Flow Rate 0 09/27/21 09:47 Pain Level 9 09/27/21 12:04 Lab/Test Results Lab/Test Results: Laboratory Tests Range/Units 09/27/21 09/27/21 09:53 09:53 WBC (4.4-10.8) 10^3/uL 7.24 RBC (3.93-5.22) 10^6/uL 4.13 Hgb (11.2-15.7) g/dL 12.9 Hct (36.0-46.0) % 38.7 MCV (80-95) fL 93.7 MCH (27.0-33.0) pg 31.2 MCHC (32.0-36.0) % 33.3 RDW (11.7-14.6) % 13.1 Plt Count (130-400) 10^3/uL 181 MPV (8.0-11.0) fL 10.7 Immature Gran % 0.1 Neutrophils % 60.1 Lymphocytes % 27.1 Monocytes % 9.1 Eosinophils % 2.8 Basophils % 0.8 Nucleated RBC % % 0 Absolute Neutrophils (1.2-6.7) 10^3/uL 4.35 Absolute Lymphocytes (1.2-3.4) 10^3/uL 1.96 Absolute Monocytes (0.1-0.8) 10^3/uL 0.66 Absolute Eosinophils (0.0-0.7) 10^3/uL 0.20 Absolute Basophils (0.0-0.2) 10^3/uL 0.06 Sodium (136-145) mmol/L 140 Potassium (3.5-5.1) mmol/L 4.1 Chloride (98-107) mmol/L 104 Carbon Dioxide (21.0-32.0) mmol/L 29.0 Anion Gap (3-11) mmol/L 7.0 BUN (7-18) mg/dL 29 H Creatinine (0.55-1.02) mg/dL 1.0 Estimated GFR/1.73 m2 (mL/min/1.73m2) 54.81 Glucose (74-106) mg/dL 128 H Calcium (8.5-10.1) mg/dL 9.0 Magnesium (1.8-2.4) mg/dL 1.8 Total Bilirubin (0.2-1.0) mg/dL 0.3 AST (15-37) U/L 16 ALT (14-59) U/L 19 Alkaline Phosphatase (46-116) U/L 98 Troponin I (<or=60) ng/L < 50 Total Protein (6.4-8.2) g/dL 7.3 Albumin (3.4-5.0) g/dL 3.6
--- NOTE | 2021-09-27 12:45 | RT.EKG_ITS ---
APPROVED REPORT Exam: Resting ECG Reason for Exam: chest pain Patient Location: E HR:70 bpm ECG Measurements Heart Rate 70 AXIS PA 173 P 56 QRSd 95 QRS -7 QT 411 T 34 QTc 443 Conclusion Sinus rhythm...normal P axis, V-rate 60- 99 Probable left atrial enlargement...P >50mS, <-0.10mV V1 no STEMI, non-diagnostic EKG I have reviewed and interpreted ECG and agree with software generated interpretation.
[2021-09-27 13:12] LABS: Troponin I < 50 ng/L (<or=60)
--- NOTE | 2021-09-27 14:06 | NUR.NOTE ---
referral for PCP needed to f/u ED visit.within 1 week
== END 2021-09-27 13:36 | disposition home or self-care (01) ==
PROVIDERS: Emergency Provider Nurse Practitioner Family; PCP Student in an Organized Health Care Education/Training Program
DX: K20.90 Esophagitis, unspecified without bleeding (principal); K29.00 Acute gastritis without bleeding; R07.9 Chest pain, unspecified; I71.4 Abdominal aortic aneurysm, without rupture
CPT/HCPCS: 36415; 74177; 80053; 93005; 96374; 96376; 99285; 83735; 84484; 85025; 93010; 99284; J3490

== ENCOUNTER → 2021-10-06 01:36 | Outpatient (CLI) | payer MEDICARE, MEDICAID, SELFPAY ==
--- NOTE | 2021-10-06 12:52 | DI.MAMMO_ITS ---
Exam(s) MAMMO SCREENING EXAM: MAMMO SCREENING CLINICAL HISTORY: screening, z12.39 TECHNIQUE: Mammograms were interpreted according to the usual protocol including computer analysis w [employer] CAD system, tomosynthesis and C-view imaging. COMPARISON: FINDINGS: The breasts are of moderate density with fairly symmetrical distribution of fibroglandular tissue. N o dominant mass or clumped microcalcification is identified in either breast. Current examination is compared with previous examinations including February 2017 and there has been no gross interval ch oscar in appearance in comparison with prior studies. IMPRESSION: No specific evidence of malignancy at this time. Routine screening examinations are suggested at yea rly intervals in this age group according to the ACS ACR guidelines. BI-RADS Category 1 - Negative Breast Density - Category B - Scattered areas of fibroglandular density
== END ==
PROVIDERS: PCP Student in an Organized Health Care Education/Training Program; Visit Provider Student in an Organized Health Care Education/Training Program
DX: Z12.31 Encounter for screening mammogram for malignant neoplasm of breast (principal)
CPT/HCPCS: 77063; 77067

== ENCOUNTER 2021-10-18 02:52 | Outpatient (CLI) | payer MEDICARE, MEDICAID, SELFPAY | END 2021-10-18 02:53 | disposition home or self-care (01) | LOC: RT 02:52 | PROVIDERS: PCP Student in an Organized Health Care Education/Training Program; Visit Provider Student in an Organized Health Care Education/Training Program ==

== ENCOUNTER → 2021-10-19 09:47 | Outpatient (BNVA) | payer MEDICARE, MEDICAID, SELFPAY | PROVIDERS: PCP Student in an Organized Health Care Education/Training Program; Referring Provider Student in an Organized Health Care Education/Training Program; Visit Provider Surgery | DX: L98.9 Disorder of the skin and subcutaneous tissue, unspecified (principal); D22.5 Melanocytic nevi of trunk | CPT/HCPCS: 11406; 99214 ==

== ENCOUNTER 2021-10-19 11:16 | Outpatient (REF) | payer MEDICARE, MEDICAID, SELFPAY ==
--- NOTE | 2021-10-19 10:25 | SKI_PTH ---
PATIENT: Shauna Loja LOC: [facility] U#:[id number] AGE/SX: 70/F ROOM: RE10/19/[address]: HARSH Martinez : 1950 BED: DIS: 10/19/2021 SPEC #: [id number] RECD: 10/19/21 14:48 STATUS: ADRIANA REJade #: [id number] BRIANNE: 10/19/21 10:[address]: Emilia Bowles DEPT: Surgical Specimen RECD BY: Morgan Hairston ENTERED: 10/19/21 14:49 SP TYPE: ODILIA RODAS DR: Shauna Florian MD Tissues: 1 - SKIN BIOPSY(SHAVE/PUNCH) 2 - SKIN BIOPSY(SHAVE/PUNCH) Procedures: SKIN LEVEL 4 Comments: [id number]
== END 2021-10-19 11:17 | disposition home or self-care (01) ==
LOC: LBN 11:16
PROVIDERS: PCP Student in an Organized Health Care Education/Training Program; Visit Provider Physical Therapy Assistant
DX: L98.8 Other specified disorders of the skin and subcutaneous tissue (principal)
CPT/HCPCS: 88305

== ENCOUNTER 2021-10-22 02:02 | Outpatient (CLI) | payer MEDICARE, MEDICAID, SELFPAY | END 2021-10-22 02:03 | disposition home or self-care (01) | PROVIDERS: PCP Student in an Organized Health Care Education/Training Program; Visit Provider Student in an Organized Health Care Education/Training Program ==

== ENCOUNTER → 2021-10-25 09:51 | Outpatient (BNVA) | payer MEDICARE, MEDICAID, SELFPAY | PROVIDERS: PCP Student in an Organized Health Care Education/Training Program; Referring Provider Student in an Organized Health Care Education/Training Program; Visit Provider Nurse Practitioner Adult Health | DX: G56.01 Carpal tunnel syndrome, right upper limb (principal) | CPT/HCPCS: 95886; 95909; 99203; 99214 ==

== ENCOUNTER 2021-10-26 02:17 | Outpatient (CLI) | payer MEDICARE, MEDICAID, SELFPAY ==
--- NOTE | 2021-11-01 15:53 | W.PFT ---
Date of service: 10/27/21 Time of Service: 00:52 Pulmonary Function Test Result Indications: CHARMAINE Overnight oximetry Time analyzed: 02:37 Minutes under 88%: 0.7 HOLLIE: 8.4 Note: Insufficient time of analyzed data to assess for nocturnal oxygen needs or to make considerations about sleep apnea, pulmonary or cardiac disease. Karyn Forrest MD Pulmonary Medicine
== END 2021-10-26 02:18 | disposition home or self-care (01) ==
PROVIDERS: PCP Student in an Organized Health Care Education/Training Program; Visit Provider Student in an Organized Health Care Education/Training Program
DX: G47.30 Sleep apnea, unspecified (principal)
CPT/HCPCS: 94762

== ENCOUNTER → 2021-10-28 14:15 | Outpatient (BNVA) | payer MEDICARE, MEDICAID, SELFPAY | PROVIDERS: PCP Student in an Organized Health Care Education/Training Program; Referring Provider Student in an Organized Health Care Education/Training Program; Visit Provider Physical Therapy Assistant | DX: Z48.02 Encounter for removal of sutures (principal) ==

== ENCOUNTER → 2021-11-16 01:48 | Outpatient (CLI) | payer MEDICARE, MEDICAID, SELFPAY ==
--- NOTE | 2021-11-16 06:45 | DI.MRI_ITS ---
Exam(s) MR CERVICAL SPINE WO EXAM: MR CERVICAL SPINE WO CLINICAL HISTORY: right neck, arm, hand pain, abnL EMG,M54.12,CERVICAL RADICULOPATHY TECHNIQUE: Multiplanar multisequence MRI of the cervical spine was performed without intravenous con trast. COMPARISON: CR CERV SP.WITH OBL OR FLEX/EXT from 02/13/2017 FINDINGS: CERVICOMEDULLARY JUNCTION: Intact with no evidence of cerebellar tonsillar ectopia. No obvious abnor mality of the odontoid process. No evidence of Chiari 1 malformation. CERVICAL SPINAL CORD: There is no abnormal signal in the cervical spinal cord and no evidence of foca l cord atrophy nor focal cord swelling. OSSEOUS:There are no fractures nor listhesis. There is straightening of the cervical spine curvature . In addition, there benign-appearing intraosseous hemangiomas in the C7 and C5 vertebral bodies. INDIVIDUAL LEVELS: C2-3: No disc herniation nor central canal stenosis. No foraminal stenosis. No facet arthropathy. C3-4: This level exhibits moderate disc space narrowing. There is a left-sided disc-Luschka joint os teophyte evident on left side at this level causing an element of left-sided foraminal stenosis.There is also some facet arthropathy at this level, more so on the left side. Central canal dimensions ar e lower normal. Some degenerative changes noted in both facet joints. This is more prominent on the left side. Lesser amount of foraminal stenosis noted on the right side. C4-5: This level exhibits advanced disc space narrowing. There is central subligamentous annular bulg ing at this level. No prominent disc herniation. There is facet arthropathy at this level more prom inent on the right side. There is mild bilateral foraminal stenosis. Indentation of the anterior th ecal sac noted but no prominent central canal stenosis evident C5-6: This level exhibits chronic advanced disc space narrowing. There is annular bulging with a sup erimposed right paracentral sys disc protrusion which extends posteriorly 2 millimeters and is approx imately 4 millimeters wide. This indents the right paracentral aspect of the thecal sac. Mild centr al canal stenosis noted at this level. AP measurement of the canal at this level is 8 millimeters. There is mild degenerative change in both facets at this level. There does not appear to be prominen t foraminal stenosis on either side at this level C6-7: This level also exhibits advanced chronic disc space narrowing. There is mild annular bulging but no prominent disc protrusion at this level. Mild facet arthropathy. No central canal stenosis. Also no significant foraminal stenosis at this level. C7-T1: This level also exhibits advanced disc space narrowing. No significant focal disc herniation. No central canal stenosis. No foraminal stenosis. Facet joints at this level exhibit mild-moderat e degenerative changes. No listhesis evident. IMPRESSION: 1. Chronic multilevel degenerative disc disease. At C5-6 level there is a small right paracentral di sc protrusion superimposed upon annular bulging, this extending posteriorly 2 millimeters and approxi mately 4 millimeters wide, indenting the anterior thecal sac at this level with mild central canal st enosis. There does not appear to be prominent foraminal stenosis on either side at this level. 2. Mild bilateral foraminal stenosis at C4-5 level. 3. There is moderate multilevel facet arthropathy as described above. Benign-appearing bone lesions in the C5 and C7 vertebral bodies have the appearance of benign intraos seous hemangiomas. DATA REPOSITORY:
== END ==
PROVIDERS: PCP Student in an Organized Health Care Education/Training Program; Visit Provider Nurse Practitioner Adult Health
DX: M54.12 Radiculopathy, cervical region (principal); M50.222 Other cervical disc displacement at C5-C6 level; M50.321 Other cervical disc degeneration at C4-C5 level; M50.323 Other cervical disc degeneration at C6-C7 level
CPT/HCPCS: 72141

== ENCOUNTER 2021-11-27 09:27 | Emergency (ER) | payer MEDICARE, MEDICAID, SELFPAY ==
[2021-11-27 09:31] VITALS: BP 129/63; PULSE 67; RESP 16; TEMP 36.6; O2SAT 98
--- NOTE | 2021-11-27 09:45 | DI.RAD_ITS ---
Exam(s) XR TIB/FIB RT EXAM: XR TIB/FIB RT CLINICAL HISTORY: pain. TECHNIQUE: 2D digital imaging was performed. Two views. COMPARISON: No exams were available for comparison FINDINGS: BONES: Osteopenic. No acute fracture is present. No bony destructive lesion is seen. Visualized port ion of knee and ankle joints are unremarkable. Joints: Joint spaces well maintained. Chondrocalcinosis at the knee. SOFT TISSUE: Mild swelling. IMPRESSION: No acute abnormality. DATA REPOSITORY: RADIATION DOSE DELIVERED:
--- NOTE | 2021-11-27 09:45 | DI.RAD_ITS ---
Exam(s) XR FOOT RT COMPLETE EXAM: XR FOOT RT COMPLETE CLINICAL HISTORY: pain. TECHNIQUE: 2D digital imaging was performed. Three views. COMPARISON: CR RIGHT FOOT COMPLETE from 11/27/2012 FINDINGS: BONES: Heel spur. Bones osteopenic. No acute fracture is present. No bony destructive lesion is see n. JOINTS: No dislocation present. SOFT TISSUE: Normal. IMPRESSION: No acute abnormality. DATA REPOSITORY: RADIATION DOSE DELIVERED:
--- NOTE | 2021-11-27 09:53 | ED.GENADUL_ITS ---
Discharge Plan Disposition Patient Disposition: HOME Condition: Stable Discharge Details Clinical Impression: Pain in right leg Primary Care Provider: Brigette Eli ED Provider: Ryan Calderon Home Meds and New Rx's Prescriptions: Continued magnesium oxide 400 mg (241.3 mg magnesium) tablet 800 mg PO BID Qty: 360 3RF Rx Instructions: replace magnesium cholecalciferol (vitamin D3) [Vitamin D3] 50 mcg (2,000 unit) capsule 2,000 unit PO DAILY Qty: 90 3RF celecoxib 100 mg capsule 100 mg PO BID Qty: 20 1RF Rx Instructions: Trial for inflammation, pain. WITH FOOD. famotidine [Heartburn Relief (famotidine)] 20 mg tablet 20 mg PO BID Qty: 60 1RF Rx Instructions: Trial for gastric pain aspirin 81 mg tablet,chewable 81 mg PO DAILY cyclobenzaprine 10 mg tablet 10 mg PO HS PRN (Reason: muscle spasm) Qty: 20 1RF Rx Instructions: Trial for muscle spasm pain furosemide 20 mg tablet See Rx Instructions PO DAILY Qty: 90 3RF Rx Instructions: 20mg daily, may add (1) tab in afternoon 2' weight gain > 5 lbs or severe edema PO daily; sumatriptan succinate 50 mg tablet See Rx Instructions PO .COMPLEX Qty: 9 3RF Rx Instructions: take 1 tab at onset of headache; if no relief may repeat 1 tab after at least 2 hrs; max = 4 tabs/24 hr PO metoprolol succinate 25 mg tablet extended release 24 hr See Rx Instructions .ROUTE .COMPLEX Qty: 90 3RF Dose Instruction: TAKE 1 TABLET BY MOUTH DAILY Rx Instructions: TAKE 1 TABLET BY MOUTH DAILY Discharge Instructions Additional Instructions: Your xrays did not show any broken bones or significant abnormalities at this time continue to use tylenol as needed follow dosing instructions on packaging follow up with your primary care provider within 1 week if pain continues if you feel more ill, have severe worsening pain or fevers return to the emergency department Medical Decision Making 70 yo female comes in with right foot pain. She states she has had pain in her feet and ankles for years but for the past day her right foot has been hurting more. SHe states it started when waking up yesterday. She denies any known injuries or falls. She denies fevers, chills, rashes. She appears well and localizes the pain to the lateral foot and mid medial tibia. She has no swelling on exam, no calf tenderness, full rom of knee and ankle and normal sensation and cap refill. No warmth. Suspect arthritis but given her pain will xray to evaluate for possible stress fractures. xrays negative other than soft tissue swelling. No calf tenderness and tenderness is anterior tibia and lateral foot so doubt dvt. Suspect sprain vs p ossibly arthritis. Will have her use a walking boot as needed and continue as needed tylenol and advised to f/u with pcp and return precautions given Differential Diagnosis Differential Diagnosis: arthritis, sprain, fracture Imaging Data Radiologic Study: Attestation: I personally reviewed and interpreted this imaging study as follows: Imaging: X-Ray Radiologist's impression: PROCEDURE INFORMATION: Exam: XR Right Tibia and Fibula Exam date and time: 11/27/2021 10:11 AM Age: 70 years old Clinical indication: Pain; Lower leg; Right TECHNIQUE: Imaging protocol: XR Right tibia and fibula. Views: 2 views. COMPARISON: No relevant images were readily available for comparison purposes. FINDINGS: Bones/joints: No acute fracture or dislocation. Soft tissues: Soft tissue swelling. IMPRESSION: Soft tissue swelling without acute bony findings. Thank you for allowing us to participate in the care of your patient. Dictated and Authenticated by: Alexis Cruz DO 11/27/2021 10:30 AM Eastern Time ([place] & [place]) Radiologic Study #2: Attestation: I personally reviewed and interpreted this imaging study as follows: Imaging: X-Ray Radiologist's impression: PROCEDURE INFORMATION: Exam: XR Right Foot Exam date and time: 11/27/2021 10:13 AM Age: 70 years old Clinical indication: Pain; Lower leg; Right TECHNIQUE: Imaging protocol: XR Right foot. Views: 3 or more views. COMPARISON: CR XR TIB/FIB RT 11/27/2021 10:11 AM FINDINGS: Bones/joints: No acute fracture or dislocation. Calcaneal enthesophyte. Soft tissues: Soft tissue swelling. IMPRESSION: Soft tissue swelling without acute bony findings. HPI General Mode of arrival: wheelchair . Date/Time Provider Initiated Documentation: 11/27/21 09:34 . Limitations to Documentation: no limitations . Information obtained by: patient . History of Present Illness 70 year old F presents to the emergency department with the chief complaint of right foot pain, described as moderate, Quality is described as aching, and it has been constant. Rest improves symptom(s), Movement worsens symptoms . Patient notes no other symptoms.. Patient did receive the following treatments prior to arrival, other (tylenol last night and denies any reactions with this medicine) Related Data Home Medications Medication Instructions Recorded Confirmed aspirin 81 mg chewable tablet 81 mg PO DAILY 11/21/18 11/27/21 sumatriptan succinate 50 mg tablet See Rx Instructions PO .COMPLEX #9 08/08/20 11/27/21 tabs cholecalciferol (vitamin D3) 50 2,000 unit PO DAILY #90 caps 02/26/21 11/27/21 mcg (2,000 unit) capsule (Vitamin D3) magnesium oxide 400 mg (241.3 mg 800 mg PO BID #360 tabs 02/26/21 11/27/21 magnesium) tablet metoprolol succinate 25 mg See Rx Instructions .Route 07/31/21 11/27/21 tablet,extended release 24 hr .COMPLEX #90 tabs cyclobenzaprine 10 mg tablet 10 mg PO HS PRN muscle spasm #20 08/27/21 11/27/21 tabs furosemide 20 mg tablet See Rx Instructions PO DAILY #90 08/27/21 11/27/21 tabs celecoxib 100 mg capsule 100 mg PO BID #20 caps 10/02/21 11/27/21 famotidine 20 mg tablet (Heartburn 20 mg PO BID #60 tabs 10/02/21 11/27/21 Relief (famotidine)) Previous Rx's Medication Instructions Recorded sumatriptan succinate 50 mg tablet See Rx Instructions PO .COMPLEX #9 08/08/20 tabs cholecalciferol (vitamin D3) 50 2,000 unit PO DAILY #90 caps 02/26/21 mcg (2,000 unit) capsule (Vitamin D3) magnesium oxide 400 mg (241.3 mg 800 mg PO BID #360 tabs 02/26/21 magnesium) tablet metoprolol succinate 25 mg See Rx Instructions .Route 07/31/21 tablet,extended release 24 hr .COMPLEX #90 tabs cyclobenzaprine 10 mg tablet 10 mg PO HS PRN muscle spasm #20 08/27/21 tabs furosemide 20 mg tablet See Rx Instructions PO DAILY #90 08/27/21 tabs celecoxib 100 mg capsule 100 mg PO BID #20 caps 10/02/21 famotidine 20 mg tablet (Heartburn 20 mg PO BID #60 tabs 10/02/21 Relief (famotidine)) Allergies Allergy/AdvReac Type Severity Reaction Status Date / Time morphine Allergy Intermediate Itching Verified 11/27/21 09:35 codeine AdvReac Intermediate muscle Verified 11/27/21 09:35 spasms oxycodone HCl [From Percocet] AdvReac Intermediate muscle Verified 11/27/21 09:35 spasms, hard on stomach General Stated Complaint: Orthopedic AJITH: 4 Review of Systems All systems reviewed & are unremarkable except as noted in HPI and below Constitutional Constitutional: Denies chills and Denies fever(s) Cardiovascular Cardiovascular: Denies chest pain and Denies dyspnea Respiratory Respiratory: Denies cough and Denies dyspnea Gastrointestinal Gastrointestinal: Denies abdominal pain, Denies nausea and Denies vomiting Genitourinary Genitourinary: Denies dysuria Integumentary/Breasts Skin/Breast: Denies rash PFSH All Active Problems (Updated 11/27/21 @ 10:52 by Ryan Calderon MD) Pain in right leg (Acute) Right hand paresthesia (Acute) Right arm pain (Acute) Cervical radiculopathy (Acute) Skin lesion of back (Acute) mid-back, pruritic .. indented/suspicious.. Chest pain at rest (Acute) Awakened with heaviness, waited x hours (has had it before), but finally went to ED .. 11/20/18 PAF (paroxysmal atrial fibrillation) (Chronic 05/08/15) only one confirmed episode 02/2015; ZIO patch neg; prefers not anticoagulate until A Fib recurs Morbid obesity (Acute 08/20/15) BMI 42, even after bariatric surg History of pulmonary embolism (Acute 01/01/16) Adenoma of large intestine (Acute 05/19/11) 05/2011 [facility] colonoscopy, +tubular adenoma and +family h/o colon cancer (F); again adenoma 02/21/13 04/07/17 - tubulovillous adenoma, ascending colon, Dr Kaye Abdominal aortic aneurysm 30 to 34 mm in diameter (Chronic 07/19/14) 06/2014 3.14 cm, confirmed on CT; 07/2015 3.2cm US 04/21/17 stable 3.3 cm US. 11/2018 [Stable, 3.4CM]. Reactive airway disease (Chronic) a. worse in the spring Medical History Abdominal pain (04/22/13) not diverticulitis per CT 07/28/14; lower abd 07/2015 Acute pain of left shoulder (10/18/17) No specific injury/trauma, pain with movement, abdiel ext rot/supination. Triceps tenderness. Intermittent fingertip numbness. Arm pain, right (09/20/13) rotator cuff pain, persistent trigger finger R; neck pain; trapezious spasm; impingement syndrome At risk for osteoporosis Smoking > 10 yrs, Prednisone (high-dose), PPI, Menopause @ 34yo. (Hx blood clots.. heparin, 1998, near ) Chest heaviness (07/15/16) De Quervain's tenosynovitis, right Diverticulosis a. No diverticulitis DJD, spine Reconfirmed on 07/2018 XR. Esophagitis with gastritis Generalized osteoarthrosis (02/21/13) GERD (gastroesophageal reflux disease) History of tobacco use a. quit in 1998, after roughly 30 pack years Hydronephrosis (05/07/14) Hyperlipidemia (02/21/13) Hypertension Left foot pain (01/27/17) r/o Posteriur Tarsal Tunnel Syn; dr Velasquez, Dr. Aldana Leg edema Lumbar radiculopathy Long Hx ... Acute on chronic Rt sided, 08/2021. ik Migraine (02/21/13) Morbid obesity a. Gastric bypass 1999 b. Multiple nutritional deficiencies, on supplements. c. S/p pannus excision Muscle cramp, nocturnal (12/27/13) gabapentin 100 prn effective Nephrolithiasis (05/07/14) a. First episode - right side b. 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 Bisphosphonate Hx TBD. Pain in joint, shoulder region a. rotator cuff pain Pain of left hip (05/2018) Onset while stretching in bed, suddenly felt sharp pain ... hasn't gone away. Surprising left paraspinal tenderness along lumbar spine @ exam, 08/08/18. Palpitations (07/15/16) Periumbilical abdominal pain (04/14/17) ? umbilical hernia vs adhesions Piriformis syndrome of right side Pseudogout of left wrist (01/22/18) Pyelonephritis (05/07/14) 1. secondary to obstruction Right upper extremity numbness Pain and Tenderness, possible nerve entrapment with numbness .. 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 L4-5 B. L5-S1 Latest XR (07/2018) states pseudospondylolisthesis, no acute Fx/Sublux. Monitoring pain. TMJ (temporomandibular joint disorder) (01/25/16) Trigger finger, right middle finger (01/22/18) Vision loss, right eye Vitamin D deficiency (12/23/16) rx 50,000/wk x ten wk, then 2000 IU daily Surgical History Arthroplasty (06/21/13) Cheri Palomo Bariatric Surgery (06/16/00) Brenda-En-Y gastroplasty with cholecystectomy, Dr. Ami Greene, [facility] Cholecystectomy (06/16/00) Dr Greene, [facility], along with Bariatric procedure Colonoscopy - MAC (04/07/17) H/O surgical procedure a. Gastric bypass 1999 b. Pannus excision c. Excision of Samson neuroma d. Cholecystectomy e. appendectomy f. right oophorectomy g. Hemorrhoidectomy History of bariatric surgery (05/19/00) Dr. Greene, [facility] pannus removal (04/02/03) [facility], 3 yr after bariatric surg Repair of umbilical hernia (05/31/17) Dr Kaye S/P bariatric surgery (06/16/00) [facility], pre surg wt 311 lbs Trigger Finger release (11/26/13) A-1 sumi Rt ring finger Family History Father Lung cancer Mother Colon cancer Social History Smoking/Tobacco Use Status: Former Tobacco Use Quit Date: 06/19/98 Smoking risk assessment performed?: Yes Alcohol Intake: never Drug use: Never Substance use type: does not use Caregiver/Support person: No Household members: spouse and children Number of Children: 5 Communication Needs: None Current gender identity: female What is your relationship status?: Panel score (0-1 are the most socially isolated patients): 1 What type of physical activity do you participate in: sedentary lifestyle Duration: < 15 minutes/day Frequency: 3-4 times per week Seatbelt use: always Do you feel safe at home: Yes Do you feel safe in your relationship?: Yes Exam Const General: no acute distress Orientation: alert HENMT Head: normal to inspection Ears: external ears normal General nose exam: external nose normal Mouth: moist mucous membranes Eyes General: appearance normal, both eyes and all related structures Neck Neck: normal visual inspection Resp Effort & Inspection: normal respiratory effort and able to speak in complete sentences Cardio Rate: regular rate Skin General skin exam: no rashes or lesions noted Neuro General: patient alert and patient oriented x3 Extrem General: normal to inspection, full ROM and capillary refill normal Psych Mental Status: mental status grossly normal Course Vital Signs Vital signs: Vital Signs Temperature 36.6 C 11/27/21 09:31 Pulse 67 11/27/21 09:31 Respiratory Rate 16 11/27/21 09:31 Blood Pressure 129/63 11/27/21 09:31 Pulse Oximetry 98 11/27/21 09:31 Temperature 36.6 C 11/27/21 09:31 Pulse 67 11/27/21 09:31 Respiratory Rate 16 11/27/21 09:31 Respiratory Effort 11/27/21 09:37 Blood Pressure 129/63 11/27/21 09:31 Pulse Oximetry 98 11/27/21 09:31 Oxygen Delivery Method Room Air 11/27/21 09:31 Oxygen Flow Rate 0 11/27/21 09:31 Pain Level 9 11/27/21 09:37
--- NOTE | 2021-11-27 10:29 | DI.VRAD_ITS ---
PROCEDURE INFORMATION: Exam: XR Right Foot Exam date and time: 11/27/2021 10:13 AM Age: 70 years old Clinical indication: Pain; Lower leg; Right TECHNIQUE: Imaging protocol: XR Right foot. Views: 3 or more views. COMPARISON: CR XR TIB/FIB RT 11/27/2021 10:11 AM FINDINGS: Bones/joints: No acute fracture or dislocation. Calcaneal enthesophyte. Soft tissues: Soft tissue swelling. IMPRESSION: Soft tissue swelling without acute bony findings. Dictated and Authenticated by: Alexis Cruz MD. Ordering:DELORES Davis MD
--- NOTE | 2021-11-27 10:30 | DI.VRAD_ITS ---
PROCEDURE INFORMATION: Exam: XR Right Tibia and Fibula Exam date and time: 11/27/2021 10:11 AM Age: 70 years old Clinical indication: Pain; Lower leg; Right TECHNIQUE: Imaging protocol: XR Right tibia and fibula. Views: 2 views. COMPARISON: No relevant images were readily available for comparison purposes. FINDINGS: Bones/joints: No acute fracture or dislocation. Soft tissues: Soft tissue swelling. IMPRESSION: Soft tissue swelling without acute bony findings. Dictated and Authenticated by: Alexis Cruz MD. Ordering:DELORES Davis MD
[2021-11-27 11:34] VITALS: BP 129/63; PULSE 67; RESP 16; TEMP 36.6; O2SAT 98
== END 2021-11-27 11:32 | disposition home or self-care (01) ==
PROVIDERS: Emergency Provider Emergency Medicine; PCP Student in an Organized Health Care Education/Training Program
DX: M79.604 Pain in right leg (principal); I10 Essential (primary) hypertension
CPT/HCPCS: 99283; 73590; 73630; 99282

== ENCOUNTER 2021-12-03 20:34 | Inpatient (IN) | payer MEDICARE, MEDICAID, SELFPAY ==
--- NOTE | 2021-12-03 20:30 | RT.EKG_ITS ---
APPROVED REPORT Exam: Resting ECG Reason for Exam: Diaphoresis, Pain, Hx of Afib, AAA Patient Location: E HR:82 bpm ECG Measurements Heart Rate 82 AXIS OR 153 P 39 QRSd 103 QRS -2 QT 374 T 61 QTc 438 Conclusion Sinus rhythm...normal P axis, V-rate 60- 99 Probable left atrial enlargement...P >50mS, <-0.10mV V1. Sinus. Normal axis. No STEMI. I have reviewed and interpreted ECG and agree with software generated interpretation.
[2021-12-03 20:44] VITALS: BP 156/78; PULSE 75; RESP 18; TEMP 36.3; O2SAT 98
--- NOTE | 2021-12-03 20:57 | ED.GENADUL_ITS ---
Discharge Plan Disposition Patient Disposition: [facility] INPATIENT Condition: Stable Discharge Details Clinical Impression: Pulmonary emboli, Diverticulitis, Gastritis Admit Date/Time: 12/04/21 00:42 Admit Provider: Dustin Frank Attending Provider: Dustin Frank Primary Care Provider: Brigette Eli ED Provider: Ryan Calderon Discharge Data Discharge Date/Time-TO BE ENTERED AT DEPARTURE: 12/04/21 02:05 Medical Decision Making <Hiral Hernandez NP - Last Filed: 12/04/21 16:36> 70-year-old female presents to the ER with chief complaint of 10 out of 10 chest pain which began approximately an hour and a half ago while she was driving from [place] she reports pressure shortness of breath radiates down into her mid epigastrium. She is diaphoretic upon arrival. Vital signs are stable. She does have a past medical history of a 3.3 cm infrarenal abdominal aortic aneurysm, paroxysmal atrial fibrillation, morbid obesity, history of pulmonary embolism in 2016, reactive airway disease. She did not take aspirin this morning. Cardiac work-up ordered including serial troponins, lipase, PT, D-dimer, proBNP, 324 mg aspirin, EKG was reviewed by Melly Ramos ER attending, no STEMI old EKG available for review. Please see her official report. Differential diagnosis includes but not limited to CAD, AZ, NSTEMI, PE, AAA dissection, bowel obstruction, Due to patient's history of PE, 3.3 cm infrarenal abdominal aortic aneurysm, and chest pain will consider Chest and Abd CTA. 2204: Staff having difficulty obtaining IV access. Blood draw lab at bedside for blood draw. CTA chest abdomen pelvis ordered pending labs. 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 Breathing is eupneic. 2257: 20-gauge started by Ayala WEST CBC shows no leukocytosis, hemoglobin hematocrit within normal limits, D-dimer 1620, CMP shows BUN 24 creatinine 1.0 GFR is 34 point Glucose 119 initial troponin within normal limits, proBNP slightly elevated at 396 lipase within normal limits. 2239: Informed by staff registered nurse patient is complaining of pain. She is having generalized tenderness to all 4 quadrants of her abdomen. Fentanyl Zofran ordered. Patient remained hemodynamically stable. Awaiting official radiology report of CT. Medical Records Medical records reviewed: Yes I reviewed the patient's medical records. Lab Data Lab results reviewed: Yes I reviewed the patient's lab results. Labs: Laboratory Tests Range/Units 12/03/21 12/03/21 12/03/21 22:00 22:00 22:00 WBC (4.4-10.8) 10^3/uL RBC (3.93-5.22) 10^6/uL Hgb (11.2-15.7) g/dL Hct (36.0-46.0) % MCV (80-95) fL MCH (27.0-33.0) pg MCHC (32.0-36.0) % RDW (11.7-14.6) % Plt Count (130-400) 10^3/uL MPV (8.0-11.0) fL Immature Gran % Neutrophils % Lymphocytes % Monocytes % Eosinophils % Basophils % Nucleated RBC % (0.0-0.3) % Absolute Neutrophils (1.2-6.7) 10^3/uL Absolute Lymphocytes (1.2-3.4) 10^3/uL Absolute Monocytes (0.1-0.8) 10^3/uL Absolute Eosinophils (0.0-0.7) 10^3/uL Absolute Basophils (0.0-0.2) 10^3/uL PT (9.3-11.0) sec 9.9 INR (0.9-1.1) 1.0 D-Dimer (<500) ng/mlFEU 1620 H Sodium (136-145) mmol/L 142 Potassium (3.5-5.1) mmol/L 4.4 Chloride (98-107) mmol/L 106 Carbon Dioxide (21.0-32.0) mmol/L 28.4 Anion Gap (3-11) mmol/L 7.6 BUN (7-18) mg/dL 24 H Creatinine (0.55-1.02) mg/dL 1.0 Estimated GFR/1.73 m2 (mL/min/1.73m2) 54.81 Glucose (74-106) mg/dL 119 H Calcium (8.5-10.1) mg/dL 9.1 Magnesium (1.8-2.4) mg/dL 1.8 Total Bilirubin (0.2-1.0) mg/dL 0.4 AST (15-37) U/L 17 ALT (14-59) U/L 16 Alkaline Phosphatase (46-116) U/L 91 Troponin I (<or=60) ng/L < 50 NT-Pro-B Natriuret Pep (<300) pg/mL 396 H Total Protein (6.4-8.2) g/dL 7.6 Albumin (3.4-5.0) g/dL 3.5 Lipase (73-393) U/L 87 Range/Units 12/03/21 12/04/21 22:00 00:14 WBC (4.4-10.8) 10^3/uL 7.36 RBC (3.93-5.22) 10^6/uL 4.24 Hgb (11.2-15.7) g/dL 12.9 Hct (36.0-46.0) % 38.4 MCV (80-95) fL 91 MCH (27.0-33.0) pg 30.4 MCHC (32.0-36.0) % 33.6 RDW (11.7-14.6) % 12.2 Plt Count (130-400) 10^3/uL 222 MPV (8.0-11.0) fL 10.6 Immature Gran % 0.3 Neutrophils % 57.9 Lymphocytes % 32.2 Monocytes % 9.2 Eosinophils % 0.1 Basophils % 0.3 Nucleated RBC % (0.0-0.3) % 0.0 Absolute Neutrophils (1.2-6.7) 10^3/uL 4.26 Absolute Lymphocytes (1.2-3.4) 10^3/uL 2.37 Absolute Monocytes (0.1-0.8) 10^3/uL 0.68 Absolute Eosinophils (0.0-0.7) 10^3/uL 0.01 Absolute Basophils (0.0-0.2) 10^3/uL 0.02 PT (9.3-11.0) sec INR (0.9-1.1) D-Dimer (<500) ng/mlFEU Sodium (136-145) mmol/L Potassium (3.5-5.1) mmol/L Chloride (98-107) mmol/L Carbon Dioxide (21.0-32.0) mmol/L Anion Gap (3-11) mmol/L BUN (7-18) mg/dL Creatinine (0.55-1.02) mg/dL Estimated GFR/1.73 m2 (mL/min/1.73m2) Glucose (74-106) mg/dL Calcium (8.5-10.1) mg/dL Magnesium (1.8-2.4) mg/dL Total Bilirubin (0.2-1.0) mg/dL AST (15-37) U/L ALT (14-59) U/L Alkaline Phosphatase (46-116) U/L Troponin I (<or=60) ng/L < 50 NT-Pro-B Natriuret Pep (<300) pg/mL Total Protein (6.4-8.2) g/dL Albumin (3.4-5.0) g/dL Lipase (73-393) U/L <Ryan Calderon MD - Last Filed: 12/04/21 00:45> 70-year-old female presents to the ER with chief complaint of 10 out of 10 chest pain which began approximately an hour and a half ago [place] [facility] [place] she reports pressure shortness of breath radiates down into her mid epigastrium. She is diaphoretic upon arrival. Vital signs are stable. She does have a past medical history of a 3.3 cm infrarenal abdominal aortic aneurysm, paroxysmal atrial fibrillation, morbid obesity, history of pulmonary embolism in 2016, reactive airway disease. She did not take aspirin this morning. Cardiac work-up ordered including serial troponins, lipase, PT, D-dimer, proBNP, 324 mg aspirin, EKG was reviewed by Melly Ramos ER attending, no STEMI old EKG available for review. Please see her official report. Differential diagnosis includes but not limited to CAD, AZ, NSTEMI, PE, AAA dissection, bowel obstruction, Due to patient's history of PE, 3.3 cm infrarenal abdominal aortic aneurysm, and chest pain will consider Chest and Abd CTA. 2204: Staff having difficulty obtaining IV access. Blood draw lab at bedside for blood draw. CTA chest abdomen pelvis ordered pending labs. 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 Breathing is eupneic. 2257: 20-gauge started by Ayala WEST CBC shows no leukocytosis, hemoglobin hematocrit within normal limits, D-dimer 1620, CMP shows BUN 24 creatinine 1.0 GFR is 34 point Glucose 119 initial troponin within normal limits, proBNP slightly elevated at 396 lipase within normal limits. 2239: Informed by staff registered nurse patient is complaining of pain. She is having generalized tenderness to all 4 quadrants of her abdomen. Fentanyl Zofran ordered. Patient remained hemodynamically stable. Awaiting official radiology report of CT. CT shows small PE and did not have this on prior CT earlier this year along with gastritis and diveriticulitis. Patient still has epigastric tenderness and doesn't feel well enough to go home. Ordered zosyn, protonix and lovenox, discussed with Dr. Frank who will admit Imaging Data Radiologic Study: Attestation: I personally reviewed and interpreted this imaging study as follows: Imaging: CT Scan Radiologist's impression: IMPRESSION: 1. There is heterogeneous attenuation of the pulmonary parenchyma, consistent with air trapping from underlying small airways disease. 2. There are bilateral mild lower lobe atelectatic changes present. 3. There is a small pericardial effusion present. 4. There has been a gastric stapling and bypass. The gastric wall is thickened. There is soft tissue stranding adjacent to the stomach. There is perigastric fluid present. Acute gastritis cannot be excluded. 5. Small pulmonary emboli. Consider previous chronic pulmonary emboli versus acute non occluding pulmonary emboli. 6. Moderate diverticulosis is present in the sigmoid and descending colon.There is a segment of mild wall thickening at the junction of the sigmoid and descending colon, with associated mild inflammatory changes within the mesentery, consistent in appearance with acute mild diverticulitis. No evidence abscess or free air to suggest perforation. As an underlying colonic malignancy cannot be entirely excluded, a follow-up examination after a course of treatment is recommended if clinically warranted. HPI <Hiral Hernandez NP - Last Filed: 12/04/21 16:36> General Mode of arrival: wheelchair . Date/Time Provider Initiated Documentation: 12/03/21 20:36 . Limitations to Documentation: no limitations . Information obtained by: patient, RN notes reviewed and old records reviewed . HPI Narrative: 70-year-old female presents to the ER with chief complaint of 10 out of 10 chest pain which began approximately an hour and a half ago while she was driving from [place] she reports pressure shortness of breath radiates down into her mid epigastrium. She is diaphoretic upon arrival. Vital signs are stable. She does have a past medical history of a 3.3 cm infrarenal abdominal aortic aneurysm, paroxysmal atrial fibrillation, morbid obesity, history of pulmonary embolism in 2016, reactive airway disease. She did not take aspirin this morning. Related Data Home Medications Medication Instructions Recorded Confirmed aspirin 81 mg chewable tablet 81 mg PO DAILY 11/21/18 12/03/21 sumatriptan succinate 50 mg tablet See Rx Instructions PO .COMPLEX #9 08/08/20 12/03/21 tabs cholecalciferol (vitamin D3) 50 2,000 unit PO DAILY #90 caps 02/26/21 12/03/21 mcg (2,000 unit) capsule (Vitamin D3) magnesium oxide 400 mg (241.3 mg 800 mg PO BID #360 tabs 02/26/21 12/03/21 magnesium) tablet furosemide 20 mg tablet See Rx Instructions PO DAILY #90 08/27/21 12/03/21 tabs celecoxib 100 mg capsule 100 mg PO BID #20 caps 10/02/21 12/03/21 famotidine 20 mg tablet (Heartburn 20 mg PO BID #60 tabs 10/02/21 12/03/21 Relief (famotidine)) gabapentin 300 mg capsule 300 mg PO QHS #30 caps 11/30/21 12/03/21 prednisone 20 mg tablet 40 mg PO DAILY #20 tabs 11/30/21 12/03/21 tramadol 50 mg tablet 50 mg PO Q8H severe pain #10 tabs 11/30/21 12/03/21 metoprolol succinate 25 mg 25 mg PO DAILY 12/03/21 12/03/21 tablet,extended release 24 hr Previous Rx's Medication Instructions Recorded sumatriptan succinate 50 mg tablet See Rx Instructions PO .COMPLEX #9 08/08/20 tabs cholecalciferol (vitamin D3) 50 2,000 unit PO DAILY #90 caps 02/26/21 mcg (2,000 unit) capsule (Vitamin D3) magnesium oxide 400 mg (241.3 mg 800 mg PO BID #360 tabs 02/26/21 magnesium) tablet furosemide 20 mg tablet See Rx Instructions PO DAILY #90 08/27/21 tabs celecoxib 100 mg capsule 100 mg PO BID #20 caps 10/02/21 famotidine 20 mg tablet (Heartburn 20 mg PO BID #60 tabs 10/02/21 Relief (famotidine)) gabapentin 300 mg capsule 300 mg PO QHS #30 caps 11/30/21 prednisone 20 mg tablet 40 mg PO DAILY #20 tabs 11/30/21 tramadol 50 mg tablet 50 mg PO Q8H severe pain #10 tabs 11/30/21 Allergies Allergy/AdvReac Type Severity Reaction Status Date / Time morphine Allergy Intermediate Itching Verified 12/03/21 22:07 codeine AdvReac Intermediate muscle Verified 12/03/21 22:07 spasms oxycodone HCl [From Percocet] AdvReac Intermediate muscle Verified 12/03/21 22:07 spasms, hard on stomach General AJITH: 2 Review of Systems <Hiral Hernandez NP - Last Filed: 12/04/21 16:36> All systems reviewed & are unremarkable except as noted in HPI and below Constitutional Constitutional: Reports excessive sweating Cardiovascular Cardiovascular: Reports chest pain, Reports chest pain at rest and Reports dyspnea Respiratory Respiratory: Denies cough, Reports dyspnea, Denies stridor and Denies wheezing Gastrointestinal Gastrointestinal: Reports abdominal pain, Reports nausea and Denies vomiting Endocrine Endocrine: Reports excessive sweating Allergic/Immunologic Allergic/Immunologic: Denies wheezing PFSH <Hiral Hernandez NP - Last Filed: 12/04/21 16:36> All Active Problems (Updated 12/04/21 @ 15:38 by Atiya Mcdonald NP) Discharge planning issues (Acute) DVT prophylaxis (Acute) Pulmonary emboli (Chronic) Diverticulitis (Chronic) Gastritis (Acute) Right foot pain (Acute) instep is excruciating ,, cannot flatten Fasciitis (Acute) Tendonitis (Acute) Pain in right leg (Acute) Right hand paresthesia (Acute) Right arm pain (Acute) Cervical radiculopathy (Acute) Skin lesion of back (Acute) mid-back, pruritic .. indented/suspicious.. Chest pain at rest (Acute) Awakened with heaviness, waited x hours (has had it before), but finally went to ED .. 11/20/18 PAF (paroxysmal atrial fibrillation) (Chronic 05/08/15) only one confirmed episode 02/2015; ZIO patch neg; prefers not anticoagulate until A Fib recurs Morbid obesity (Acute 08/20/15) BMI 42, even after bariatric surg History of pulmonary embolism (Acute 01/01/16) Adenoma of large intestine (Acute 05/19/11) 05/2011 Kris Coffey colonoscopy, +tubular adenoma and +family h/o colon cancer (F); again adenoma 02/21/13 04/07/17 - tubulovillous adenoma, ascending colon, Dr Kaye Abdominal aortic aneurysm 30 to 34 mm in diameter (Chronic 07/19/14) 06/2014 3.14 cm, confirmed on CT; 07/2015 3.2cm US 04/21/17 stable 3.3 cm US. 11/2018 [Stable, 3.4CM]. Reactive airway disease (Chronic) a. worse in the spring Medical History Abdominal pain (04/22/13) not diverticulitis per CT 07/28/14; lower abd 07/2015 Acute pain of left shoulder (10/18/17) No specific injury/trauma, pain with movement, abdiel ext rot/supination. Triceps tenderness. Intermittent fingertip numbness. Arm pain, right (09/20/13) rotator cuff pain, persistent trigger finger R; neck pain; trapezious spasm; impingement syndrome At risk for osteoporosis Smoking > 10 yrs, Prednisone (high-dose), PPI, Menopause @ 34yo. (Hx blood clots.. heparin, 1998, near ) Chest heaviness (07/15/16) De Quervain's tenosynovitis, right Diverticulosis a. No diverticulitis DJD, spine Reconfirmed on 07/2018 XR. Esophagitis with gastritis Generalized osteoarthrosis (02/21/13) GERD (gastroesophageal reflux disease) History of tobacco use a. quit in 1998, after roughly 30 pack years Hydronephrosis (05/07/14) Hyperlipidemia (02/21/13) Hypertension Left foot pain (01/27/17) r/o Posteriur Tarsal Tunnel Syn; dr Velasquez, Dr. Aldana Leg edema Lumbar radiculopathy Long Hx ... Acute on chronic Rt sided, 08/2021. ik Migraine (02/21/13) Morbid obesity a. Gastric bypass 1999 b. Multiple nutritional deficiencies, on supplements. c. S/p pannus excision Muscle cramp, nocturnal (12/27/13) gabapentin 100 prn effective Nephrolithiasis (05/07/14) a. First episode - right side b. 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 Bisphosphonate Hx TBD. Pain in joint, shoulder region a. rotator cuff pain Pain of left hip (05/2018) Onset while stretching in bed, suddenly felt sharp pain ... hasn't gone away. Surprising left paraspinal tenderness along lumbar spine @ exam, 08/08/18. Palpitations (07/15/16) Periumbilical abdominal pain (04/14/17) ? umbilical hernia vs adhesions Piriformis syndrome of right side Pseudogout of left wrist (01/22/18) Pyelonephritis (05/07/14) 1. secondary to obstruction Right upper extremity numbness Pain and Tenderness, possible nerve entrapment with numbness .. 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 L4-5 B. L5-S1 Latest XR (07/2018) states pseudospondylolisthesis, no acute Fx/Sublux. Monitoring pain. TMJ (temporomandibular joint disorder) (01/25/16) Trigger finger, right middle finger (01/22/18) Vision loss, right eye Vitamin D deficiency (12/23/16) rx 50,000/wk x ten wk, then 2000 IU daily Surgical History Arthroplasty (06/21/13) R thumb [place]wey Bariatric Surgery (06/16/00) Brenda-En-Y gastroplasty with cholecystectomy, Dr. Ami Greene, [facility] Cholecystectomy (06/16/00) Dr Greene, [facility], along with Bariatric procedure Colonoscopy - MAC (04/07/17) H/O surgical procedure a. Gastric bypass 2000 b. Pannus excision c. Excision of Samson neuroma d. Cholecystectomy e. appendectomy f. right oophorectomy g. Hemorrhoidectomy History of bariatric surgery (05/19/00) Dr. Greene, [facility] pannus removal (04/02/03) [facility], 3 yr after bariatric surg Repair of umbilical hernia (05/31/17) Dr Kaye S/P bariatric surgery (06/16/00) [facility], pre surg wt 311 lbs Trigger Finger release (11/26/13) A-1 sumi Rt ring finger Family History Father Lung cancer Mother Colon cancer Social History Smoking/Tobacco Use Status: Former Tobacco Use Quit Date: 06/19/98 Smoking risk assessment performed?: Yes Alcohol Intake: never Drug use: Never Substance use type: does not use Caregiver/Support person: No Household members: spouse and children Number of Children: 5 Communication Needs: None Current gender identity: female What is your relationship status?: Panel score (0-1 are the most socially isolated patients): 1 What type of physical activity do you participate in: sedentary lifestyle Duration: < 15 minutes/day Frequency: 3-4 times per week Seatbelt use: always Do you feel safe at home: Yes Do you feel safe in your relationship?: Yes Exam <Hiral Hernandez NP - Last Filed: 12/04/21 16:36> Narrative Exam Narrative: Constitutional: Alert and oriented x3. Appears stated age. Obese body habitus. Patient appears to be in distress. Tachypneic upon arrival complaining of 10 out of 10 chest and abdominal pain which began acutely approximately 1 hour ago. Head: Normocephalic, no trauma. Eyes: Pupils PERRL, Red reflex noted, EOM's intact. Eyelids symmetrical without lesions, discharge, or swelling. ENT: Bilateral TM's WNL, External ear normal to inspection, no mastoid TTP, swelling, or erythema, Nasal turbinates WNL, no nasal discharge. Normal dentition, Posterior pharynx WNL, no exudate. Chest: RRR, Normal S1, S2, distal pulses intact. Resp: Lungs clear to auscultation bilaterally, no wheezes, rales, or rhonchi. Abdomen: Questionably distended, generalized tenderness all 4 quadrants, worse midepigastrium Musculoskeletal: Unable to assess gait, 5/5 strength to all four extremities. Skin: No suspicious rashes or lesions. Capillary refill less than 2 sec. Neurologic: Cranial nerves II-XII intact. Alert and oriented x 3. Motor: No deficits noted. Hematologic/Lymphatic: No ecchymosis, no lymphadenopathy. Sign Out <Hiral Hernandez NP - Last Filed: 12/04/21 16:36> Sign Out Data: Sign Out Comment: 70-year-old female presents with 10 out of 10 chest pain midepigastric abdominal pain which began an hour and a half prior to arrival while driving back from [place]. Patient has a past medical history of PE, 3.3 cm infrarenal AAA, obesity, proximal A. fib. Initial EKG and troponin within normal limits. Serial troponin due now, CTA chest abdomen pelvis ordered which is being read and is pending at this time. Patient did require 50 mcg of fentanyl and 4 of Zofran. She has generalized tenderness over all abdomen. Vital signs are stable. D-dimer elevated at 1600, proBNP slightly elevated at 336, Signed out pending CT result, repeat Trop and re-eval Last updated by Hiral Hernandez NP at 12/04/21 00:15
--- NOTE | 2021-12-03 21:39 | DI.CT_ITS ---
Exam(s) CT THORAX ABD/PEL CTA EXAM: CT THORAX ABD/PEL CTA CLINICAL HISTORY: R/O AAA, PE. Chest Pain Abdominal pain/swelling. TECHNIQUE: Imaging Protocol: Axial computed tomography images with coronal and sagittal reformatted images were created and reviewed CONTRAST MATERIAL: Intravenous: Omnipaque 350 Contrast volume:100 ml Oral: no COMPARISON: CT CT THORAX ABD/PEL CTA from 09/27/2021 FINDINGS: CHEST: Pulmonary arteries: No evidence of emboli. Tracheobronchial tree: Patent where visualized. Mediastinum and Doris: No dominant adenopathy or fluid collection. Pulmonary parenchyma: Expiratory changes. No consolidation or dominant measurable mass. Pleura: No effusion or pneumothorax. Lymph nodes: Within normal limits. Aorta: Thoracic portion non-dilated. Mild atherosclerotic changes. Heart: Mildly enlarged. Trace pericardial effusion. Bones: Hemangioma T6. Degenerative disc changes. No compression fractures. ABDOMEN: Liver: Normal density. No measurable mass. Gallbladder and biliary tract: Status post cholecystectomy. No radiodense calculus or dilation. Pancreas: Normal density, no abnormal calcifications or inflammatory process. Spleen: Normal. Kidneys: The bilateral cysts. Normal size, contour and axis. No radiodense stones or obstructive uro phill. No masses seen. Adrenal glands: No masses seen. Aorta: 3.5 centimeter infrarenal aneurysm question slight enlargement from prior where it was measure d at 3.3 cm. Lymph nodes: Within normal limits. Soft tissues: Unremarkable. Stomach and small bowel: Gastric bypass with suture material at stomach. Stomach not well evaluated due to under distension. There is wall thickening of the body of the stomach with some surrounding s tranding in the fat. There is no evidence of perforation. No evidence of obstruction. Soft tissues: Postsurgical changes in the anterior abdominal wall. PELVIS: Bladder: Symmetric distention, no gross wall thickening. Bowel: Colon shows diverticulosis but no evidence of diverticulitis. Bones: Degenerative disc changes and facet degenerative changes greatest at L4-5 and L5-S1. Reproductive organs: Stable appearance of ovaries with some small cysts. Iliac arteries show atheros clerotic change but no significant narrowing or evidence of aneurysm. IMPRESSION: No evidence of pulmonary emboli or aortic dissection. Small Pericardial effusion. 3.5 centimeter infrarenal abdominal aortic aneurysm. Prior gastric bypass surgery. Wall thickening of the body of the stomach with surrounding inflammati on. No abscess or perforation. RADIATION DOSE DELIVERED: 1,346.71mGy.cm Total DLP DATA REPOSITORY: All CT scans at this facility are submitted to the National Radiology Data Registry (NRDR) Dose Index Registry (DIR) with the [employer] (A[employer]). RADIATION OPTIMIZATION: All CT scans at this facility use at least one of these dose optimization te chniques: automated exposure control; mA and/or kV adjustment per patient size (includes targeted exa ms where dose is matched to clinical indication); or iterative reconstruction.
[2021-12-03] MEDS: Normal Saline Flush 10 ML SYR IVP (21:40)
[2021-12-03] MEDS: Aspirin 81 MG CHEW 324 MG CH (21:40)
[2021-12-03 22:16] LABS: Abs Immature Grans 0.02 10^3/uL (0.0-0.06); Absolute Basophil Count 0.02 10^3/uL (0.0-0.2); Absolute Eosinophil Count 0.01 10^3/uL (0.0-0.7); Absolute Lymphocyte Count 2.37 10^3/uL (1.2-3.4); Absolute Monocyte Count 0.68 10^3/uL (0.1-0.8); Absolute Neutrophil Count 4.26 10^3/uL (1.2-6.7); Basophils % 0.3; Eosinophils % 0.1; HCT 38.4 % (36.0-46.0); HGB 12.9 g/dL (11.2-15.7); Immature Grans % 0.3; Lymphocytes % 32.2; MCH 30.4 pg (27.0-33.0); MCHC 33.6 % (32.0-36.0); MCV 91 fL (80-95); MPV 10.6 fL (8.0-11.0); Monocytes % 9.2; Neutrophils % 57.9; Platelet Count 222 10^3/uL (130-400); RBC 4.24 10^6/uL (3.93-5.22); RDW 12.2 % (11.7-14.6); RDW-SD 40.2 fL; WBC 7.36 10^3/uL (4.4-10.8)
[2021-12-03 22:23] LABS: Prothrombin Time 9.9 sec (9.3-11.0)
[2021-12-03 22:30] LABS: ALT 16 U/L (14-59); AST 17 U/L (15-37); Albumin 3.5 g/dL (3.4-5.0); Alkaline Phosphatase 91 U/L (46-116); Anion Gap 7.6 mmol/L (3-11); BUN 24 mg/dL (7-18); Bilirubin, Total 0.4 mg/dL (0.2-1.0); CO2 28.4 mmol/L (21.0-32.0); Calcium 9.1 mg/dL (8.5-10.1); Chloride 106 mmol/L (98-107); Estimated GFR 54.81 (mL/min/1.73m2); Glucose 119 mg/dL (74-106); Magnesium 1.8 mg/dL (1.8-2.4); Potassium 4.4 mmol/L (3.5-5.1); Sodium 142 mmol/L (136-145); Total Protein 7.6 g/dL (6.4-8.2); Troponin I < 50 ng/L (<or=60)
[2021-12-03 22:33] LABS: Lipase 87 U/L (73-393); NT-proBNP 396 pg/mL (<300)
[2021-12-03 22:45] LABS: D-Dimer 1620 ng/mlFEU (<500)
[2021-12-03] MEDS: Omnipaque 350 MG/ML 100 ML BTL IJ (22:48)
[2021-12-03] MEDS: Ondansetron 4 MG/2 ML VIAL IVP (23:40)
[2021-12-04] VITALS (10 sets, daily range): BP systolic 96–109; BP diastolic 61–74; PULSE 73–84; RESP 14–24; TEMP 35.5–37.9; O2SAT 93–98
[2021-12-04] MEDS: fentaNYL 100 MCG/2 ML VIAL 50 MCG IVP ×5 (00:04→11:01)
--- NOTE | 2021-12-04 00:28 | DI.VRAD_ITS ---
Addendum created by Yeyo Garcia MD on 12/04/2021 12:35:25 AM EDT: THIS REPORT CONTAINS FINDINGS THAT MAY BE CRITICAL TO PATIENT CARE. The findings were verbally communicated via telephone conference with Dr. Calderon at 12:35 AM EDT on 12/04/2021. The findings were acknowledged and understood. Initial report created on 12/04/2021 12:27:42 AM EDT: I PROCEDURE INFORMATION: Exam: CTA Chest With Contrast CTA Abdomen and Pelvis With Contrast Exam date and time: 12/03/2021 10:53 PM Age: 70 years old Clinical indication: Chest pressure; Generalized; Prior surgery; Surgery date: 6+ months; Surgery type: Cholecystectomy, bariatric surgery, pannus removal, hernia repair; Patient HX: R/O aaa, pe. Chest pain abdominal pain/swelling TECHNIQUE: Imaging protocol: Computed tomographic angiography of the chest with contrast. Computed tomographic angiography of the abdomen and pelvis with contrast. 3D rendering (Not supervised by radiologist): MIP and/or 3D reconstructed images were created by the technologist. Radiation optimization: All CT scans at this facility use at least one of these dose optimization techniques: automated exposure control; mA and/or kV adjustment per patient size (includes targeted exams where dose is matched to clinical indication); or iterative reconstruction. Contrast material: OMNIPAQUE 350; Contrast volume: 100 ml; Contrast route: INTRAVENOUS (IV); COMPARISON: CT THORAX ABD/PEL CTA 09/27/2021 11:04 AM FINDINGS: VASCULATURE: Pulmonary arteries: The pulmonary arteries are not enlarged. Possible tiny filling defects within the right lower lobe and left lower lobe pulmonary arteries best demonstrated on axial image 30 series 5, image 26 series 5 and coronal image 76 series 7 and image 74 series 7. These are small and very subtle. Aorta: There is a new is small dilatation of the infrarenal abdominal aorta measuring approximately 3.5 cm. There is ectasia of the common iliac arteries bilaterally. There is mild atherosclerosis of the aorta and iliac arteries. No evidence of dissection leakage or rupture. Celiac trunk and mesenteric arteries: No occlusion or significant stenosis. Renal arteries: No occlusion or significant stenosis. Right iliac arteries: No occlusion or significant stenosis. Mild atherosclerosis. Left iliac arteries: No occlusion or significant stenosis. Mild atherosclerosis. CHEST: Thyroid: There is calcification the right thyroid lobe. Lungs: There is heterogeneous attenuation of the pulmonary parenchyma, consistent with air trapping from underlying small airways disease. There are bilateral mild lower lobe atelectatic changes present. Pleural spaces: There is no evidence of pneumothorax. There are no pleural effusions present. Heart: There is mild atherosclerotic calcification of the coronary arteries. There is a small pericardial effusion present. The right ventricular to left ventricular ratio is normal at 0.8. No evidence of reflux of contrast into the inferior vena cava or hepatic veins to suggest right heart strain or pulmonary hypertension. ABDOMEN AND PELVIS: Liver: 1 cm low-attenuation lesion at the dome of the liver likely representing a small hepatic cyst. The liver otherwise shows no evidence of masses. Liver is in the upper limits of normal in size. Inhomogeneous enhancement of the portal vein may represent admixing of opacified and non-opacified blood. Thrombus cannot be excluded. Gallbladder and bile ducts: There has been a cholecystectomy. There is mild intrahepatic and extrahepatic biliary dilatation. Pancreas: Mild pancreatic atrophy present. This involves predominantly the body and tail of the pancreas. Inhomogeneous No mass. No ductal dilation. Spleen: Small amount of perisplenic ascites present. No splenomegaly. Adrenal glands: Unremarkable. No mass. Kidneys and ureters: Large bilateral peripelvic cysts present. Bilateral simple appearing renal cortical cysts present.. No solid mass. No hydronephrosis. Stomach and bowel: There has been a gastric stapling and bypass. The gastric wall is thickened. There is soft tissue stranding adjacent to the stomach. There is perigastric fluid present. Acute gastritis cannot be excluded. Moderate diverticulosis is present in the sigmoid and descending colon.There is a segment of mild wall thickening at the junction of the sigmoid and descending colon, with associated mild inflammatory changes within the mesentery, consistent in appearance with acute mild diverticulitis. No evidence abscess or free air to suggest perforation. As an underlying colonic malignancy cannot be entirely excluded, a follow-up examination after a course of treatment is recommended if clinically warranted. Appendix: There has been an appendectomy. Intraperitoneal space: Moderate amount of fluid seen within the upper abdomen. Urinary bladder: There is nonspecific bladder wall thickening. This may be related to incomplete bladder filling. Reproductive: The uterus is normal. The ovaries are normal. Lymph nodes: Unremarkable. No enlarged lymph nodes. Bones/joints: The skeletal structures and soft tissues show no evidence of fracture or other acute processes. Soft tissues: The soft tissues of the extrathoracic region are unremarkable. IMPRESSION: 1. There is heterogeneous attenuation of the pulmonary parenchyma, consistent with air trapping from underlying small airways disease. 2. There are bilateral mild lower lobe atelectatic changes present. 3. There is a small pericardial effusion present. 4. There has been a gastric stapling and bypass. The gastric wall is thickened. There is soft tissue stranding adjacent to the stomach. There is perigastric fluid present. Acute gastritis cannot be excluded. 5. Small pulmonary emboli. Consider previous chronic pulmonary emboli versus acute non occluding pulmonary emboli. 6. Moderate diverticulosis is present in the sigmoid and descending colon.There is a segment of mild wall thickening at the junction of the sigmoid and descending colon, with associated mild inflammatory changes within the mesentery, consistent in appearance with acute mild diverticulitis. No evidence abscess or free air to suggest perforation. As an underlying colonic malignancy cannot be entirely excluded, a follow-up examination after a course of treatment is recommended if clinically warranted. Dictated and Authenticated by: Yeyo Garcia MD. Ordering:ANNABEL Blackman MD
[2021-12-04 00:38] LABS: Troponin I < 50 ng/L (<or=60)
[2021-12-04] MEDS: Enoxaparin 120 MG/0.8 ML SYR SC ×2 (01:34→11:46)
[2021-12-04] MEDS: Pantoprazole 40 MG VIAL IVP ×2 (01:36→07:48)
[2021-12-04 02:05] LABS: Source Nasal/Nares
[2021-12-04] MEDS: Normal Saline Flush 10 ML SYR IVP ×6 (02:20→21:13)
[2021-12-04] MEDS: PIPERACILLIN/TAZO 4.5 GM in Normal Saline 100 ML IVPB ×4 (02:29→19:56)
--- NOTE | 2021-12-04 02:41 | W.PM.HP.N ---
Date of service: 12/04/21 Time of Service: 02:41 Assessment and Plan Assessment and plan (1) Pulmonary emboli: Status: Chronic Assessment and plan: Previous history of emboli no longer on anticoagulation. Current findings may be small, acute and nonoccluding emboli vs residual chronic emboli. Lovenox therapeutic dose given in ED. Decision will be made after discussing with patient whether further AC will continue. (2) Diverticulitis: Status: Chronic Assessment and plan: Zosyn initiated in the ED and will be continued. Zofran prn for nausea. Fentanyl prn is working well currently for pain. (3) Gastritis: Status: Acute Assessment and plan: Pt states she was taking protonix routinely until she ran out 1 week ago. Protonix IV 40mg daily; first dose given in ED. (4) PAF (paroxysmal atrial fibrillation): Status: Chronic Assessment and plan: On metoprolol for rate control. ASA daily. Chart states she chose no anticoagulation unless afib recurs. Monitor on telemetry. (5) Hyperlipidemia: Assessment and plan: Currently not on a lipid lowering agent. (6) Hypertension: Assessment and plan: On metoprolol BP currently controlled. Monitor. History of Present Illness History of Present Illness Chief Complaint: Chest pain radiating into epigastrium Narrative: This is a 70 yo female with a PMH of PAF, pulmonary embolism (2016), 3.3 cm infrarenal AAA, morbid obesity, allergic rhinitis. She presented to the ED with c/o chest pain that radiated into the epigastric area, rated 10/10. She was driving at the time. Upon arrival she was noted to be diaphoretic. Vital signs noted to be stable. EKG showed o STEMI. Lab with normal WBC, HGB, lytes, creatinine. D-dimer 1620. NTProBNP 396; normal when age adjusted. Lipase normal. Troponin neg x2. Noted to have diffuse abd tenderness. Fentanyl and Zofran administered. CT chest/abd pelvis: small pulmonary emboli (chronic in known previous emboli vs acute non-occluding). GI findings suggestive of gastritis. Moderate diverticulosis as well as mild inflammatory changes in the mesentery consistent with acute mild diverticulitis. (Underlying colonic malignancy cannot be entirely excluded so f/u exam after course of treatment recommended). Zosyn initiated in the ED. IV Protonix initiated. Review of Systems All systems reviewed & are unremarkable except as noted in HPI and below PFSH All Active Problems (Updated 12/04/21 @ 00:45 by Ryan Calderon MD) Pulmonary emboli (Chronic) Diverticulitis (Chronic) Gastritis (Acute) Right foot pain (Acute) instep is excruciating ,, cannot flatten Fasciitis (Acute) Tendonitis (Acute) Pain in right leg (Acute) Right hand paresthesia (Acute) Right arm pain (Acute) Cervical radiculopathy (Acute) Skin lesion of back (Acute) mid-back, pruritic .. indented/suspicious.. Chest pain at rest (Acute) Awakened with heaviness, waited x hours (has had it before), but finally went to ED .. 11/20/18 PAF (paroxysmal atrial fibrillation) (Chronic 05/08/15) only one confirmed episode 02/2015; ZIO patch neg; prefers not anticoagulate until A Fib recurs Morbid obesity (Acute 08/20/15) BMI 42, even after bariatric surg History of pulmonary embolism (Acute 01/01/16) Adenoma of large intestine (Acute 05/19/11) 05/2011 [facility] colonoscopy, +tubular adenoma and +family h/o colon cancer (F); again adenoma 02/21/13 04/07/17 - tubulovillous adenoma, ascending colon, Dr Kaye Abdominal aortic aneurysm 30 to 34 mm in diameter (Chronic 07/19/14) 06/2014 3.14 cm, confirmed on CT; 07/2015 3.2cm US 04/21/17 stable 3.3 cm US. 11/2018 [Stable, 3.4CM]. Reactive airway disease (Chronic) a. worse in the spring Medical History Abdominal pain (04/22/13) not diverticulitis per CT 07/28/14; lower abd 07/2015 Acute pain of left shoulder (10/18/17) No specific injury/trauma, pain with movement, abdiel ext rot/supination. Triceps tenderness. Intermittent fingertip numbness. Arm pain, right (09/20/13) rotator cuff pain, persistent trigger finger R; neck pain; trapezious spasm; impingement syndrome At risk for osteoporosis Smoking > 10 yrs, Prednisone (high-dose), PPI, Menopause @ 34yo. (Hx blood clots.. heparin, 1998, near ) Chest heaviness (07/15/16) De Quervain's tenosynovitis, right Diverticulosis a. No diverticulitis DJD, spine Reconfirmed on 07/2018 XR. Esophagitis with gastritis Generalized osteoarthrosis (02/21/13) GERD (gastroesophageal reflux disease) History of tobacco use a. quit in 1998, after roughly 30 pack years Hydronephrosis (05/07/14) Hyperlipidemia (02/21/13) Hypertension Left foot pain (01/27/17) r/o Posteriur Tarsal Tunnel Syn; dr Velasquez, Dr. Aldana Leg edema Lumbar radiculopathy Long Hx ... Acute on chronic Rt sided, 08/2021. ik Migraine (02/21/13) Morbid obesity a. Gastric bypass 1999 b. Multiple nutritional deficiencies, on supplements. c. S/p pannus excision Muscle cramp, nocturnal (12/27/13) gabapentin 100 prn effective Nephrolithiasis (05/07/14) a. First episode - right side b. 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 Bisphosphonate Hx TBD. Pain in joint, shoulder region a. rotator cuff pain Pain of left hip (05/2018) Onset while stretching in bed, suddenly felt sharp pain ... hasn't gone away. Surprising left paraspinal tenderness along lumbar spine @ exam, 08/08/18. Palpitations (07/15/16) Periumbilical abdominal pain (04/14/17) ? umbilical hernia vs adhesions Piriformis syndrome of right side Pseudogout of left wrist (01/22/18) Pyelonephritis (05/07/14) 1. secondary to obstruction Right upper extremity numbness Pain and Tenderness, possible nerve entrapment with numbness .. 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 L4-5 B. L5-S1 Latest XR (07/2018) states pseudospondylolisthesis, no acute Fx/Sublux. Monitoring pain. TMJ (temporomandibular joint disorder) (01/25/16) Trigger finger, right middle finger (01/22/18) Vision loss, right eye Vitamin D deficiency (12/23/16) rx 50,000/wk x ten wk, then 2000 IU daily Surgical History Arthroplasty (06/21/13) Cheri Palomo Bariatric Surgery (06/16/00) Brenda-En-Y gastroplasty with cholecystectomy, Dr. Ami Greene, [facility] Cholecystectomy (06/16/00) Dr Greene, [facility], along with Bariatric procedure Colonoscopy - MAC (04/07/17) H/O surgical procedure a. Gastric bypass 1999 b. Pannus excision c. Excision of Samson neuroma d. Cholecystectomy e. appendectomy f. right oophorectomy g. Hemorrhoidectomy History of bariatric surgery (05/19/00) Dr. Greene, [facility] pannus removal (04/02/03) [facility], 3 yr after bariatric surg Repair of umbilical hernia (05/31/17) Dr Kaye S/P bariatric surgery (06/16/00) [facility], pre surg wt 311 lbs Trigger Finger release (11/26/13) A-1 sumi Rt ring finger Family History Father Lung cancer Mother Colon cancer Social History Smoking/Tobacco Use Status: Former Tobacco Use Quit Date: 06/19/98 Smoking risk assessment performed?: Yes Alcohol Intake: never Drug use: Never Substance use type: does not use Caregiver/Support person: No Household members: spouse and children Number of Children: 5 Communication Needs: None Current gender identity: female What is your relationship status?: Panel score (0-1 are the most socially isolated patients): 1 What type of physical activity do you participate in: sedentary lifestyle Duration: < 15 minutes/day Frequency: 3-4 times per week Seatbelt use: always Do you feel safe at home: Yes Do you feel safe in your relationship?: Yes Meds Allergies and Home Medications Allergies Allergy/AdvReac Type Severity Reaction Status Date / Time morphine Allergy Intermediate Itching Verified 12/03/21 22:07 codeine AdvReac Intermediate muscle Verified 12/03/21 22:07 spasms oxycodone HCl [From Percocet] AdvReac Intermediate muscle Verified 12/03/21 22:07 spasms, hard on stomach Home Medications Medication Instructions Recorded Confirmed Type aspirin 81 mg chewable tablet 81 mg PO DAILY 11/21/18 12/03/21 History sumatriptan succinate 50 mg tablet See Rx Instructions PO .COMPLEX #9 08/08/20 12/03/21 Rx tabs cholecalciferol (vitamin D3) 50 2,000 unit PO DAILY #90 caps 02/26/21 12/03/21 Rx mcg (2,000 unit) capsule (Vitamin D3) magnesium oxide 400 mg (241.3 mg 800 mg PO BID #360 tabs 02/26/21 12/03/21 Rx magnesium) tablet furosemide 20 mg tablet See Rx Instructions PO DAILY #90 08/27/21 12/03/21 Rx tabs celecoxib 100 mg capsule 100 mg PO BID #20 caps 10/02/21 12/03/21 Rx famotidine 20 mg tablet (Heartburn 20 mg PO BID #60 tabs 10/02/21 12/03/21 Rx Relief (famotidine)) gabapentin 300 mg capsule 300 mg PO QHS #30 caps 11/30/21 12/03/21 Rx prednisone 20 mg tablet 40 mg PO DAILY #20 tabs 11/30/21 12/03/21 Rx tramadol 50 mg tablet 50 mg PO Q8H severe pain #10 tabs 11/30/21 12/03/21 Rx metoprolol succinate 25 mg 25 mg PO DAILY 12/03/21 12/03/21 History tablet,extended release 24 hr Exam Narrative Exam Narrative: Pleasant 70 yo female that appears her stated age. Const General: cooperative and no acute distress Nutritional Appearance: obese Orientation: alert and oriented x3 Eyes General: appearance normal, both eyes and all related structures Sclera: sclerae normal Resp Effort & Inspection: normal respiratory effort Auscultation: clear to auscultation bilaterally Cardio Rate: regular rate Rhythm: regular rhythm Heart Sounds: S1 normal and S2 normal GI Inspection: obesity Palpation: soft and tender in the epigastrum and periumbilically Skin General skin exam: no rashes or lesions noted Extrem General: no pedal edema and no calf tenderness Psych Appearance: grossly normal Mental Status: mental status grossly normal Speech and Movement: speech and movement normal Mood: congruent mood Affect: normal affect Results Labs Result diagrams: 12/03/21 22:00 12/03/21 22:00 Labs: Laboratory Results - last 24 hr 12/03/21 12/03/21 12/03/21 22:00 22:00 22:00 WBC RBC Hgb Hct MCV MCH MCHC RDW Plt Count MPV Immature Gran % Neutrophils % Lymphocytes % Monocytes % Eosinophils % Basophils % Nucleated RBC % Absolute Neutrophils Absolute Lymphocytes Absolute Monocytes Absolute Eosinophils Absolute Basophils PT 9.9 INR 1.0 D-Dimer 1620 H Sodium 142 Potassium 4.4 Chloride 106 Carbon Dioxide 28.4 Anion Gap 7.6 BUN 24 H Creatinine 1.0 Estimated GFR/1.73 m2 54.81 Glucose 119 H Calcium 9.1 Magnesium 1.8 Total Bilirubin 0.4 AST 17 ALT 16 Alkaline Phosphatase 91 Troponin I < 50 NT-Pro-B Natriuret Pep 396 H Total Protein 7.6 Albumin 3.5 Lipase 87 COVID-19 Source 12/03/21 12/04/21 12/04/21 22:00 00:14 01:56 WBC 7.36 RBC 4.24 Hgb 12.9 Hct 38.4 MCV 91 MCH 30.4 MCHC 33.6 RDW 12.2 Plt Count 222 MPV 10.6 Immature Gran % 0.3 Neutrophils % 57.9 Lymphocytes % 32.2 Monocytes % 9.2 Eosinophils % 0.1 Basophils % 0.3 Nucleated RBC % 0.0 Absolute Neutrophils 4.26 Absolute Lymphocytes 2.37 Absolute Monocytes 0.68 Absolute Eosinophils 0.01 Absolute Basophils 0.02 PT INR D-Dimer Sodium Potassium Chloride Carbon Dioxide Anion Gap BUN Creatinine Estimated GFR/1.73 m2 Glucose Calcium Magnesium Total Bilirubin AST ALT Alkaline Phosphatase Troponin I < 50 NT-Pro-B Natriuret Pep Total Protein Albumin Lipase COVID-19 Source Nasal/Nares Last Vital Signs Temp 36.3 C L 12/03/21 20:44 Pulse 75 12/03/21 20:44 Resp 18 06/17/22 20:44 BP 156/78 H 12/03/21 20:44 Pulse Ox 98 12/03/21 20:44
[2021-12-04 02:58] LABS: COVID-19 PCR Negative (Negative)
[2021-12-04] MEDS: Gabapentin 300 MG CAP PO ×2 (03:02→21:13)
[2021-12-04 06:30] LABS: Anion Gap 10.7 mmol/L (3-11); BUN 23 mg/dL (7-18); CO2 25.3 mmol/L (21.0-32.0); Calcium 8.6 mg/dL (8.5-10.1); Chloride 107 mmol/L (98-107); Estimated GFR 54.81 (mL/min/1.73m2); Glucose 135 mg/dL (74-106); Potassium 3.7 mmol/L (3.5-5.1); Sodium 143 mmol/L (136-145)
[2021-12-04] MEDS: Cholecalciferol (Vitamin D3) 1,000 UNIT TAB 2000 UNITS PO (07:48)
[2021-12-04] MEDS: Furosemide 20 MG TAB PO (07:48)
[2021-12-04] MEDS: Aspirin 81 MG CHEW PO (07:48)
[2021-12-04] MEDS: Metoprolol CR 25 MG TABCR PO (07:48)
[2021-12-04] MEDS: Magnesium Oxide 400 MG TAB 800 MG PO ×2 (07:48→19:55)
[2021-12-04] MEDS: Acetaminophen 325 MG TAB 650 MG PO ×3 (11:47→19:56)
[2021-12-04] MEDS: Ketorolac 15 MG/ML VIAL IVP (11:47)
--- NOTE | 2021-12-04 12:31 | W.PM.PROGNOT ---
Date of Service Date of service: 12/04/21 Time of Service: 12:31 Assessment and Plan Assessment and plan (1) Pulmonary emboli: Status: Chronic Assessment and plan: Previous history of emboli no longer on anticoagulation. Lovenox therapeutic dosing. patient will need anticoagulation (2) Diverticulitis: Status: Chronic Assessment and plan: continue zosyn day 2/7 will downstep to augmentin at discharge tolerating a regular diet (3) Gastritis: Status: Acute Assessment and plan: Pt states she was taking protonix routinely until she ran out 1 week ago. cotinue protonix daily (4) PAF (paroxysmal atrial fibrillation): Status: Chronic Assessment and plan: On metoprolol for rate control. ASA daily. Monitor on telemetry. (5) Hyperlipidemia: Assessment and plan: Currently not on a lipid lowering agent. (6) Hypertension: Assessment and plan: On metoprolol BP currently controlled. Monitor. (7) DVT prophylaxis: Status: Acute Assessment and plan: fully anticoagulated (8) Discharge planning issues: Status: Acute Assessment and plan: plan to discharge to home tomorrow. no services anticipated discussed with DR Reyna Subjective Subjective Patient reports: no new complaints, pain is less, tolerating liquids well, tolerating a regular diet, voiding w/o difficulty and afebrile; denies shortness of breath Exam Const General: cooperative, comfortable, no acute distress and ill appearing Nutritional Appearance: obese Orientation: alert, awake and oriented x3 HENMT Head: normal to inspection, normocephalic and atraumatic Mouth: oral mucosae normal Chest Chest: normal inspection of the chest Resp Effort & Inspection: normal respiratory effort Auscultation: clear to auscultation bilaterally Cardio Rate: regular rate Rhythm: regular rhythm GI Inspection: normal to inspection and obesity Palpation: soft and no guarding Skin General skin exam: no rashes or lesions noted Neuro General: patient alert, patient awake, patient oriented x3 and no focal motor deficits Extrem General: normal to inspection, full ROM and no pedal edema Objective Last Vital Signs Temp 36.5 C 12/04/21 11:45 Pulse 73 12/04/21 11:45 Resp 21 12/04/21 11:45 BP 98/62 L 12/04/21 11:45 Pulse Ox 94 12/04/21 11:45 Laboratory Results - last 24 hr 0612/03/21 12/03/21 22:00 22:00 22:00 WBC RBC Hgb Hct MCV MCH MCHC RDW Plt Count MPV Immature Gran % Neutrophils % Lymphocytes % Monocytes % Eosinophils % Basophils % Nucleated RBC % Absolute Neutrophils Absolute Lymphocytes Absolute Monocytes Absolute Eosinophils Absolute Basophils PT 9.9 INR 1.0 D-Dimer 1620 H Sodium 142 Potassium 4.4 Chloride 106 Carbon Dioxide 28.4 Anion Gap 7.6 BUN 24 H Creatinine 1.0 Estimated GFR/1.73 m2 54.81 Glucose 119 H Calcium 9.1 Magnesium 1.8 Total Bilirubin 0.4 AST 17 ALT 16 Alkaline Phosphatase 91 Troponin I < 50 NT-Pro-B Natriuret Pep 396 H Total Protein 7.6 Albumin 3.5 Lipase 87 COVID-19 Source SARS-CoV-2 (PCR) 12/03/21 12/04/21 12/04/21 22:00 00:14 01:56 WBC 7.36 RBC 4.24 Hgb 12.9 Hct 38.4 MCV 91 MCH 30.4 MCHC 33.6 RDW 12.2 Plt Count 222 MPV 10.6 Immature Gran % 0.3 Neutrophils % 57.9 Lymphocytes % 32.2 Monocytes % 9.2 Eosinophils % 0.1 Basophils % 0.3 Nucleated RBC % 0.0 Absolute Neutrophils 4.26 Absolute Lymphocytes 2.37 Absolute Monocytes 0.68 Absolute Eosinophils 0.01 Absolute Basophils 0.02 PT INR D-Dimer Sodium Potassium Chloride Carbon Dioxide Anion Gap BUN Creatinine Estimated GFR/1.73 m2 Glucose Calcium Magnesium Total Bilirubin AST ALT Alkaline Phosphatase Troponin I < 50 NT-Pro-B Natriuret Pep Total Protein Albumin Lipase COVID-19 Source Nasal/Nares SARS-CoV-2 (PCR) Negative 12/04/21 05:48 WBC RBC Hgb Hct MCV MCH MCHC RDW Plt Count MPV Immature Gran % Neutrophils % Lymphocytes % Monocytes % Eosinophils % Basophils % Nucleated RBC % Absolute Neutrophils Absolute Lymphocytes Absolute Monocytes Absolute Eosinophils Absolute Basophils PT INR D-Dimer Sodium 143 Potassium 3.7 Chloride 107 Carbon Dioxide 25.3 Anion Gap 10.7 BUN 23 H Creatinine 1.0 Estimated GFR/1.73 m2 54.81 Glucose 135 H Calcium 8.6 Magnesium Total Bilirubin AST ALT Alkaline Phosphatase Troponin I NT-Pro-B Natriuret Pep Total Protein Albumin Lipase COVID-19 Source SARS-CoV-2 (PCR)
--- NOTE | 2021-12-04 13:27 | INITIAL_ITS ---
- If Service Date Differs Date of service: 12/04/21 Time of Service: 13:27 Care Management Initial Assess REASON FOR HOSPITALIZATION:: Diverticulitis, pulmonary embolism PAST MEDICAL HISTORY/PAST SURGICAL HISTORY:: All Active Problems. Pulmonary emboli (Chronic). Diverticulitis (Chronic). Gastritis (Acute). Right foot pain (Acute). instep is excruciating ,, cannot flatten. Fasciitis (Acute). Tendonitis (Acute). Pain in right leg (Acute). Right hand paresthesia (Acute). Right arm pain (Acute). Cervical radiculopathy (Acute). Skin lesion of back (Acute). mid-back, pruritic .. indented/suspicious.. Chest pain at rest (Acute). Awakened with heaviness, waited x hours (has had it before), but finally went to ED .. 11/20/18. PAF (paroxysmal atrial fibrillation) (Chronic 05/08/15). only one confirmed episode 02/2015; ZIO patch neg; prefers not anticoagulate until A Fib recurs. Morbid obesity (Acute 08/20/15). BMI 42, even after bariatric surg. History of pulmonary embolism (Acute 01/01/16). Adenoma of large intestine (Acute 05/19/11). 05/2011 Kris Coffey colonoscopy, +tubular adenoma and +family h/o colon cancer (F); again adenoma 02/21/13. 04/07/17 - tubulovillous adenoma, ascending colon, Dr Kaye. Abdominal aortic aneurysm 30 to 34 mm in diameter (Chronic 07/19/14). 06/2014 3.14 cm, confirmed on CT; 07/2015 3.2cm US. 04/21/17 stable 3.3 cm US. 11/2018 [Stable, 3.4CM]. Reactive airway disease (Chronic). a. worse in the spring. Medical History. Abdominal pain (04/22/13). not diverticulitis per CT 07/28/14; lower abd 07/2015. Acute pain of left shoulder (10/18/17). No specific injury/trauma, pain with movement, abdiel ext rot/supination. Triceps tenderness. Intermittent fingertip numbness. Arm pain, right (09/20/13). rotator cuff pain, persistent trigger finger R; neck pain; trapezious spasm; impingement syndrome. At risk for osteoporosis. Smoking > 10 yrs, Prednisone (high-dose), PPI, Menopause @ 34yo. (Hx blood clots.. heparin, 1998, near ). Chest heaviness (07/15/16). De Quervain's tenosynovitis, right. Diverticulosis. a. No diverticulitis. DJD, spine. Reconfirmed on 07/2018 XR. Esophagitis with gastritis. Generalized osteoarthrosis (02/21/13). GERD (gastroesophageal reflux disease). History of tobacco use. a. quit in 1998, after roughly 30 pack years. Hydronephrosis (05/07/14). Hyperlipidemia (02/21/13). Hypertension. Left foot pain (01/27/17). r/o Posteriur Tarsal Tunnel Syn; dr Velasquez, Dr. Aldana. Leg edema. Lumbar radiculopathy. Long Hx ... Acute on chronic Rt sided, 08/2021. ik. Migraine (02/21/13). Morbid obesity. a. Gastric bypass 1999. b. Multiple nutritional deficiencies, on supplements. c. S/p pannus excision. Muscle cramp, nocturnal (12/27/13). gabapentin 100 prn effective. Nephrolithiasis (05/07/14). a. First episode - right side. b. Right 3 mm ureterovesical junction stone. Nephrotic syndrome (06/17/85). Obesity (BMI 30- 39.9) (08/11/11). Osteoarthritis (03/05/13). recurrent R thumb (h/o Catrina inj 10/2012; h/o surg L hand 06/2006). Osteoarthrosis, hand. Osteoporosis. Ca and Vit D suppl. Bisphosphonate Hx TBD. Pain in joint, shoulder region. a. rotator cuff pain. Pain of left hip (05/2018). Onset while stretching in bed, suddenly felt sharp pain ... hasn't gone away. Surprising left paraspinal tenderness along lumbar spine @ exam, 08/08/18. Palpitations (07/15/16). Periumbilical abdominal pain (04/14/17). ? umbilical hernia vs adhesions. Piriformis syndrome of right side. Pseudogout of left wrist (01/22/18). Pyelonephritis (05/07/14). 1. secondary to obstruction. Right upper extremity numbness. Pain and Tenderness, possible nerve entrapment with numbness .. 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 Right upper limb pain. Pain and Tenderness, possible nerve entrapment with numbness .. 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 Seasonal allergic rhinitis (02/21/13). Sleep disturbances (03/01/13). Spondylolisthesis of lumbosacral region. A. L4-5 B. L5-S1 Latest XR (07/2018) states pseudospondylolisthesis, no acute Fx/Sublux. Monitoring pain. TMJ (temporomandibular joint disorder) (01/25/16). Trigger finger, right middle fin neil (01/22/18). Vision loss, right eye. Vitamin D deficiency (12/23/16). rx 50,000/wk x ten wk, then 2000 IU daily. Surgical History. Arthroplasty (06/21/13). [facility]. Bariatric Surgery (06/16/00). Brenda-En-Y gastroplasty with cholecystectomy, Dr. Ami Greene [facility]. Cholecystectomy (06/16/00). Dr Greene, [facility], along with Bariatric procedure. Colonoscopy - MAC (04/07/17). H/O surgical procedure. a. Gastric bypass 1999. b. Pannus excision. c. Excision of Samson neuroma. d. Cholecystectomy. e. appendectomy. f. right oophorectomy. g. Hemorrhoidectomy. History of bariatric surgery (05/19/00). Dr. Greene, [facility]. pannus removal (04/02/03). [facility], 3 yr after bariatric surg. Repair of umbilical hernia (05/31/17). Dr Kaye. S/P bariatric surgery (06/16/00). [facility], pre surg wt 311 lbs. Trigger Finger release (11/26/13). A-1 sumi Rt ring finger PREVIOUS FUNCTIONAL STATUS/SOCIAL/FAMILY SUPPORTS:: Shauna lives in [facility] with her , Jose. They have four adult children, who are local and supportive. 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 She has been disabled since 1995. She is indepedent at baseline. CURRENT FUNCTIONAL STATUS:: Shauna was sitting up in bed when CM met with her. Her daughter was in the room visiting. Shauna stated that she is not feeling well today. She stated that per provider, she may be ready to discharge tomorrow, if she is feeling better. Per report, she is currently on IV abx, and will change to oral abx upon discharge. She is on room air, and is being transitioned to oral pain medication. CM will continue to follow. ADVANCE DIRECTIVES:: Not on file. Has patient been provided with info about the portal/API?: Yes Did the patient sign up for the portal?: No CODE STATUS:: Full Code INSURANCE COVERAGE / FINANCIAL ISSUES:: [facility]/ [facility] CURRENT HOME/COMMUNITY SERVICES/EQUIPMENT:: No current services or equipment. PRIMARY CARE PHYSICIAN:: Brigette Eli POTENTIAL DISCHARGE NEEDS:: Evaluations for further needs, follow up appointments. PATIENT/FAMILY EDUCATION NEEDS:: Review discharge instructions and limitations, discussion of self care needs including ask me three. ANTICIPATED BARRIERS TO DISCHARGE:: None identified. TRANSPORTATION:: Via private vehicle by family. PLAN:: Anticipate Shauna will return home once medically cleared. Her family will drive her home via private vehicle. She will follow up with her PCP and discharge plan of care. CM will continue to follow.
[2021-12-04] MEDS: SUMAtriptan 50 MG TAB PO (14:33)
[2021-12-04] MEDS: Ondansetron 4 MG/2 ML VIAL IVP (16:48)
[2021-12-04] MEDS: Apixaban 5 MG TAB 10 MG PO (19:55)
[2021-12-05] VITALS (17 sets, daily range): BP systolic 91–116; BP diastolic 58–73; PULSE 61–178; RESP 16–21; TEMP 37.4–39.3; O2SAT 92–98; BMI 40.8
[2021-12-05] MEDS: Normal Saline Flush 10 ML SYR IVP ×6 (02:39→21:13)
[2021-12-05] MEDS: PIPERACILLIN/TAZO 4.5 GM in Normal Saline 100 ML IVPB ×3 (02:40→15:30)
[2021-12-05] MEDS: Acetaminophen 325 MG TAB 650 MG PO ×2 (04:43→15:53)
[2021-12-05] MEDS: Polyethylene Glycol 3350 17 GM PACKET PO (06:13)
[2021-12-05 07:02] LABS: Abs Immature Grans 0.07 10^3/uL (0.0-0.06); Absolute Basophil Count 0.05 10^3/uL (0.0-0.2); Absolute Eosinophil Count 0.04 10^3/uL (0.0-0.7); Absolute Lymphocyte Count 1.41 10^3/uL (1.2-3.4); Absolute Monocyte Count 1.06 10^3/uL (0.1-0.8); Basophils % 0.4; Eosinophils % 0.3; HCT 35.6 % (36.0-46.0); HGB 11.9 g/dL (11.2-15.7); Immature Grans % 0.5; Lymphocytes % 10.6; MCH 30.1 pg (27.0-33.0); MCHC 33.4 % (32.0-36.0); MCV 90 fL (80-95); MPV 10.4 fL (8.0-11.0); Neutrophils % 80.2; Platelet Count 195 10^3/uL (130-400); RBC 3.95 10^6/uL (3.93-5.22); RDW 12.3 % (11.7-14.6); RDW-SD 40.5 fL; WBC 13.31 10^3/uL (4.4-10.8)
[2021-12-05 07:05] LABS: Absolute Neutrophil Count 10.67 10^3/uL (1.2-6.7)
[2021-12-05 07:22] LABS: ALT 94 U/L (14-59); AST 81 U/L (15-37); Albumin 2.6 g/dL (3.4-5.0); Alkaline Phosphatase 96 U/L (46-116); Anion Gap 12.6 mmol/L (3-11); BUN 24 mg/dL (7-18); Bilirubin, Total 0.9 mg/dL (0.2-1.0); CO2 23.4 mmol/L (21.0-32.0); CREATININE 1.2 mg/dL (0.55-1.02); Calcium 8.4 mg/dL (8.5-10.1); Chloride 105 mmol/L (98-107); Estimated GFR 44.41 (mL/min/1.73m2); Glucose 163 mg/dL (74-106); Potassium 3.1 mmol/L (3.5-5.1); Sodium 141 mmol/L (136-145); Total Protein 6.3 g/dL (6.4-8.2)
[2021-12-05 08:03] LABS: Lab Add On Test DONE
[2021-12-05 08:11] LABS: Magnesium 1.7 mg/dL (1.8-2.4)
[2021-12-05] MEDS: Potassium Chloride 20 MEQ TABCR 40 MEQ PO (08:58)
[2021-12-05] MEDS: Metoprolol CR 25 MG TABCR PO (08:58)
[2021-12-05] MEDS: Magnesium Oxide 400 MG TAB 800 MG PO ×2 (08:58→19:51)
[2021-12-05] MEDS: Apixaban 5 MG TAB 10 MG PO ×2 (08:59→19:52)
[2021-12-05] MEDS: Pantoprazole 40 MG VIAL IVP (08:59)
[2021-12-05] MEDS: Furosemide 20 MG TAB PO (08:59)
[2021-12-05] MEDS: Cholecalciferol (Vitamin D3) 1,000 UNIT TAB 2000 UNITS PO (08:59)
--- NOTE | 2021-12-05 09:42 | W.PM.PROGNOT ---
Date of Service Date of service: 12/05/21 Time of Service: 09:42 Assessment and Plan Assessment and plan (1) Pulmonary emboli: Status: Ruled-out Assessment and plan: Previous history of emboli no longer on anticoagulation. eliquis started (2) Diverticulitis: Status: Ruled-out Assessment and plan: continue zosyn day 3/7 will downstep to augmentin at discharge, pharmacy to check dosing. is tolerating a regular diet but has ongoing abdominal pain fever overnight with elevated transaminitis today. should obtain blood cultures add hepatitis panel, crp (3) Gastritis: Status: Acute Assessment and plan: Pt states she was taking protonix routinely until she ran out 1 week ago. cotinue protonix daily (4) PAF (paroxysmal atrial fibrillation): Status: Chronic Assessment and plan: On metoprolol for rate control. ASA daily. Monitor on telemetry. (5) Hyperlipidemia: Assessment and plan: Currently not on a lipid lowering agent. (6) Hypertension: Assessment and plan: On metoprolol BP currently controlled. Monitor. (7) DVT prophylaxis: Status: Acute Assessment and plan: fully anticoagulated (8) Discharge planning issues: Status: Acute Assessment and plan: plan to discharge to home tomorrow. no services anticipated discussed with DR Reyna Subjective Subjective Patient reports: still having pain, voiding w/o difficulty and fever (max temp overnight 39.3) Exam Const General: cooperative, frail appearing and ill appearing acutely Nutritional Appearance: obese Orientation: alert, awake and oriented x3 HENMT Head: normal to inspection, normocephalic and atraumatic Mouth: oral mucosae normal Chest Chest: normal inspection of the chest Resp Effort & Inspection: normal respiratory effort Auscultation: clear to auscultation bilaterally Cardio Rate: regular rate Rhythm: regular rhythm GI Inspection: normal to inspection and obesity Palpation: soft, no guarding and tender in the epigastrum, in the LUQ and in the RUQ Auscultation: normal bowel sounds Skin General skin exam: no rashes or lesions noted Neuro General: patient alert, patient awake, patient oriented x3 and no focal motor deficits Extrem General: normal to inspection, full ROM and no pedal edema Objective Last Vital Signs Temp 37.7 C H 12/05/21 07:50 Pulse 94 H 12/05/21 07:50 Resp 21 12/05/21 07:50 BP 107/68 12/05/21 07:50 Pulse Ox 94 12/05/21 07:50 Laboratory Results - last 24 hr 12/05/21 12/05/21 12/05/21 06:44 06:44 06:44 WBC 13.31 H RBC 3.95 Hgb 11.9 Hct 35.6 L MCV 90 MCH 30.1 MCHC 33.4 RDW 12.3 Plt Count 195 MPV 10.4 Immature Gran % 0.5 Neutrophils % 80.2 Lymphocytes % 10.6 Monocytes % 8.0 Eosinophils % 0.3 Basophils % 0.4 Nucleated RBC % 0.0 Absolute Neutrophils 10.67 H Absolute Lymphocytes 1.41 Absolute Monocytes 1.06 H Absolute Eosinophils 0.04 Absolute Basophils 0.05 Sodium 141 Potassium 3.1 L Chloride 105 Carbon Dioxide 23.4 Anion Gap 12.6 H BUN 24 H Creatinine 1.2 H Estimated GFR/1.73 m2 44.41 Glucose 163 H Calcium 8.4 L Magnesium Total Bilirubin 0.9 AST 81 H ALT 94 H Alkaline Phosphatase 96 Total Protein 6.3 L Albumin 2.6 L Add-On Test Request DONE 12/05/21 06:44 WBC RBC Hgb Hct MCV MCH MCHC RDW Plt Count MPV Immature Gran % Neutrophils % Lymphocytes % Monocytes % Eosinophils % Basophils % Nucleated RBC % Absolute Neutrophils Absolute Lymphocytes Absolute Monocytes Absolute Eosinophils Absolute Basophils Sodium Potassium Chloride Carbon Dioxide Anion Gap BUN Creatinine Estimated GFR/1.73 m2 Glucose Calcium Magnesium 1.7 L Total Bilirubin AST ALT Alkaline Phosphatase Total Protein Albumin Add-On Test Request
[2021-12-05] MEDS: Normal Saline 1,000 ML 75 ML IV (10:36)
[2021-12-05] MEDS: Magnesium Oxide 400 MG TAB PO (10:37)
[2021-12-05 10:56] LABS: INR 1.3 (0.9-1.1); Prothrombin Time 12.6 sec (9.3-11.0)
[2021-12-05 11:03] LABS: Lipase 63 U/L (73-393); Potassium 3.5 mmol/L (3.5-5.1)
[2021-12-05 11:16] LABS: C-Reactive Protein > 25.00 mg/dL (0.0-0.3)
--- NOTE | 2021-12-05 20:18 | W.SURGCON ---
Date of service: 12/05/21 Time of Service: 20:15 Assessment and Plan Assessment and plan (1) Obstruction concurrent with and due to internal hernia of abdomen: Status: Acute Assessment and plan: 70-year-old woman with history of Brenda-en-Y gastric bypass almost 25 years ago with acute and sudden onset of abdominal pain that has slowly worsened and she now has peritoneal signs in the epigastrium on physical exam. I am concerned about an internal hernia through Frost's defect. The patient is not overtly toxic in appearance but her white count has gone up, her creatinine is climbing, her pain is slowly worsening and her abdominal exam is extremely concerning. Part of the differential diagnosis includes a gastroenteritis as well as gastritis and/or marginal ulcer disease because she is off of her PPI. Typically marginal ulcers could cause subjective pain but not such significant objective pain on examination that is consistent with peritoneal inflammation. The patient's clinical exam warrants immediate operative exploration. Delayed diagnosis of the internal hernia as well as other possible etiologies of the bariatric surgical patient also carries significant morbidity and urgent surgical exploration is crucial. Unfortunately the patient has been started on Eliquis for the possibility of pulmonary emboli seen on the CTA. This does give her increased risk for bleeding. The patient understands this increased risk but also understands the emergent indication for the procedure. She signed consent for blood transfusion as needed and is crossmatched for 2 units. Overall plan/recommendations: Diagnostic laparoscopy, possible EGD, possible bowel resection The patient is currently on steroids which can also cause surgical complications. The patient understands the risks, but also be indications and the need for urgent surgical exploration History of Present Illness Narrative: I was asked to see the patient in consultation to rule out ascending cholangitis in a patient who is reportedly hypotensive and having significant abdominal pain. The patient is a 70-year-old woman who reports 2 days of severe abdominal pain. She says she has never had pain like this ever before in her life. It was sudden onset on Monday evening while she was simply changing sheets on the bed. It has not gotten better and has actually worsened slowly during this time. She describes it as constant and all over her upper abdomen. It does not move and it does not radiate. She has not vomited but says that she felt close to it multiple times. She says her abdomen got very bloated and distended. She had not passed gas for couple of days but today she says she has had 2 bowel movements. She does take omeprazole, 20 mg every day. She ran out of omeprazole 1 week ago because of issues at the pharmacy. She does not think this is related. She has a history of Brenda-en-Y gastric bypass. This was about 22-25 years ago and done open. Since then she has had a panniculectomy, appendectomy, cholecystectomy as well as a umbilical/ventral hernia repair with mesh. She has a history of PE/DVT but is not currently on any blood thinning medications. She continues to be morbidly obese and has a stable AAA. She denies active smoking but smoked extensively in the past. She denies a history of marginal ulcers and says that she is compliant with staying off of caffeine and avoids soda. Consults Consult date: 12/05/21 PFSH All Active Problems (Updated 12/05/21 @ 21:20 by Jose Jacobs MD) Obstruction concurrent with and due to internal hernia of abdomen (Acute) Discharge planning issues (Acute) DVT prophylaxis (Acute) Pulmonary emboli (Chronic) Diverticulitis (Chronic) Gastritis (Acute) Right foot pain (Acute) instep is excruciating ,, cannot flatten Fasciitis (Acute) Tendonitis (Acute) Pain in right leg (Acute) Right hand paresthesia (Acute) Right arm pain (Acute) Cervical radiculopathy (Acute) Skin lesion of back (Acute) mid-back, pruritic .. indented/suspicious.. Chest pain at rest (Acute) Awakened with heaviness, waited x hours (has had it before), but finally went to ED .. 11/20/18 PAF (paroxysmal atrial fibrillation) (Chronic 05/08/15) only one confirmed episode 02/2015; ZIO patch neg; prefers not anticoagulate until A Fib recurs Morbid obesity (Acute 08/20/15) BMI 42, even after bariatric surg History of pulmonary embolism (Acute 01/01/16) Adenoma of large intestine (Acute 05/19/11) 05/2011 [facility] colonoscopy, +tubular adenoma and +family h/o colon cancer (F); again adenoma 02/21/13 04/07/17 - tubulovillous adenoma, ascending colon, Dr Kaye Abdominal aortic aneurysm 30 to 34 mm in diameter (Chronic 07/19/14) 06/2014 3.14 cm, confirmed on CT; 07/2015 3.2cm US 04/21/17 stable 3.3 cm US. 11/2018 [Stable, 3.4CM]. Reactive airway disease (Chronic) a. worse in the spring Medical History Abdominal pain (04/22/13) not diverticulitis per CT 07/28/14; lower abd 07/2015 Acute pain of left shoulder (10/18/17) No specific injury/trauma, pain with movement, abdiel ext rot/supination. Triceps tenderness. Intermittent fingertip numbness. Arm pain, right (09/20/13) rotator cuff pain, persistent trigger finger R; neck pain; trapezious spasm; impingement syndrome At risk for osteoporosis Smoking > 10 yrs, Prednisone (high-dose), PPI, Menopause @ 34yo. (Hx blood clots.. heparin, 1998, near ) Chest heaviness (07/15/16) De Quervain's tenosynovitis, right Diverticulosis a. No diverticulitis DJD, spine Reconfirmed on 07/2018 XR. Esophagitis with gastritis Generalized osteoarthrosis (02/21/13) GERD (gastroesophageal reflux disease) History of tobacco use a. quit in 1998, after roughly 30 pack years Hydronephrosis (05/07/14) Hyperlipidemia (02/21/13) Hypertension Left foot pain (01/27/17) r/o Posteriur Tarsal Tunnel Syn; dr Velasquez, Dr. Aldana Leg edema Lumbar radiculopathy Long Hx ... Acute on chronic Rt sided, 08/2021. ik Migraine (02/21/13) Morbid obesity a. Gastric bypass 1999 b. Multiple nutritional deficiencies, on supplements. c. S/p pannus excision Muscle cramp, nocturnal (12/27/13) gabapentin 100 prn effective Nephrolithiasis (05/07/14) a. First episode - right side b. 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 Bisphosphonate Hx TBD. Pain in joint, shoulder region a. rotator cuff pain Pain of left hip (05/2018) Onset while stretching in bed, suddenly felt sharp pain ... hasn't gone away. Surprising left paraspinal tenderness along lumbar spine @ exam, 08/08/18. Palpitations (07/15/16) Periumbilical abdominal pain (04/14/17) ? umbilical hernia vs adhesions Piriformis syndrome of right side Pseudogout of left wrist (01/22/18) Pyelonephritis (05/07/14) 1. secondary to obstruction Right upper extremity numbness Pain and Tenderness, possible nerve entrapment with numbness .. 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 L4-5 B. L5-S1 Latest XR (07/2018) states pseudospondylolisthesis, no acute Fx/Sublux. Monitoring pain. TMJ (temporomandibular joint disorder) (01/25/16) Trigger finger, right middle finger (01/22/18) Vision loss, right eye Vitamin D deficiency (12/23/16) rx 50,000/wk x ten wk, then 2000 IU daily Surgical History Arthroplasty (06/21/13) [facility] Palomo Bariatric Surgery (06/16/00) Brenda-En-Y gastroplasty with cholecystectomy, Dr. Ami Greene, [facility] Cholecystectomy (06/16/00) Dr Greene [facility], along with Bariatric procedure Colonoscopy - MAC (04/07/17) H/O surgical procedure a. Gastric bypass 1999 b. Pannus excision c. Excision of Samson neuroma d. Cholecystectomy e. appendectomy f. right oophorectomy g. Hemorrhoidectomy History of bariatric surgery (05/19/00) Dr. Greene, [facility] pannus removal (04/02/03) [facility], 3 yr after bariatric surg Repair of umbilical hernia (05/31/17) Dr Kaye S/P bariatric surgery (06/16/00) [facility], pre surg wt 311 lbs Trigger Finger release (11/26/13) A-1 sumi Rt ring finger Family History Father Lung cancer Mother Colon cancer Social History Smoking/Tobacco Use Status: Former Tobacco Use Quit Date: 06/19/98 Smoking risk assessment performed?: Yes Alcohol Intake: never Drug use: Never Substance use type: does not use Caregiver/Support person: No Household members: spouse and children Number of Children: 5 Communication Needs: None Current gender identity: female What is your relationship status?: Panel score (0-1 are the most socially isolated patients): 1 What type of physical activity do you participate in: sedentary lifestyle Duration: < 15 minutes/day Frequency: 3-4 times per week Seatbelt use: always Do you feel safe at home: Yes Do you feel safe in your relationship?: Yes Exam Narrative Exam Narrative: General: Nontoxic and interactive but uncomfortable Neuro: Alert and oriented x3 Psych: Appropriate mood and affect, good insight and understanding into her condition Abdomen: Soft, obese, mildly distended, peritoneal signs in the bilateral upper quadrants with tap tenderness present. The bilateral lower quadrants are nontender. Results Last Vital Signs Temp 99.3 F 12/05/21 19:40 Pulse 79 12/05/21 19:40 Resp 20 12/05/21 19:40 BP 91/58 L 12/05/21 19:40 Pulse Ox 95 12/05/21 19:40 Labs Result diagrams: 12/05/21 06:44 12/05/21 10:20 Labs: Laboratory Results - last 24 hr 12/05/21 12/05/21 12/05/21 06:44 06:44 06:44 WBC 13.31 H RBC 3.95 Hgb 11.9 Hct 35.6 L MCV 90 MCH 30.1 MCHC 33.4 RDW 12.3 Plt Count 195 MPV 10.4 Immature Gran % 0.5 Neutrophils % 80.2 Lymphocytes % 10.6 Monocytes % 8.0 Eosinophils % 0.3 Basophils % 0.4 Nucleated RBC % 0.0 Absolute Neutrophils 10.67 H Absolute Lymphocytes 1.41 Absolute Monocytes 1.06 H Absolute Eosinophils 0.04 Absolute Basophils 0.05 PT INR Sodium 141 Potassium 3.1 L Chloride 105 Carbon Dioxide 23.4 Anion Gap 12.6 H BUN 24 H Creatinine 1.2 H Estimated GFR/1.73 m2 44.41 Glucose 163 H Calcium 8.4 L Magnesium Total Bilirubin 0.9 Conjugated Bilirubin AST 81 H ALT 94 H Alkaline Phosphatase 96 C-Reactive Protein Total Protein 6.3 L Albumin 2.6 L Lipase Add-On Test Request DONE 12/05/21 12/05/21 12/05/21 06:44 09:38 10:20 WBC RBC Hgb Hct MCV MCH MCHC RDW Plt Count MPV Immature Gran % Neutrophils % Lymphocytes % Monocytes % Eosinophils % Basophils % Nucleated RBC % Absolute Neutrophils Absolute Lymphocytes Absolute Monocytes Absolute Eosinophils Absolute Basophils PT INR Sodium Potassium Cancelled Chloride Carbon Dioxide Anion Gap BUN Creatinine Estimated GFR/1.73 m2 Glucose Calcium Magnesium 1.7 L Total Bilirubin Cancelled Conjugated Bilirubin Cancelled AST Cancelled ALT Cancelled Alkaline Phosphatase Cancelled C-Reactive Protein Total Protein Cancelled Albumin Cancelled Lipase Add-On Test Request 12/05/21 12/05/21 12/05/21 10:20 10:20 10:20 WBC RBC Hgb Hct MCV MCH MCHC RDW Plt Count MPV Immature Gran % Neutrophils % Lymphocytes % Monocytes % Eosinophils % Basophils % Nucleated RBC % Absolute Neutrophils Absolute Lymphocytes Absolute Monocytes Absolute Eosinophils Absolute Basophils PT 12.6 H INR 1.3 H Sodium Potassium 3.5 Chloride Carbon Dioxide Anion Gap BUN Creatinine Estimated GFR/1.73 m2 Glucose Calcium Magnesium Total Bilirubin Conjugated Bilirubin AST ALT Alkaline Phosphatase C-Reactive Protein Cancelled > 25.00 H Total Protein Albumin Lipase 63 Add-On Test Request
--- NOTE | 2021-12-05 21:10 | W.ANESPRE ---
General Info Date of Service Date Performed: 12/05/21 Height: 5 ft 7 in Weight: 118.5 kg Body Mass Index (BMI): 40.8 Surgical Procedure: Operation Date: 12/05/21 23:55 Proposed Procedure Side Surgeon p Exploratory Laparoscopy Jose Jacobs MD Meds Allergies and Home Medications Allergies Allergy/AdvReac Type Severity Reaction Status Date / Time morphine Allergy Intermediate Itching Verified 12/03/21 22:07 codeine AdvReac Intermediate muscle Verified 12/03/21 22:07 spasms oxycodone HCl [From Percocet] AdvReac Intermediate muscle Verified 12/03/21 22:07 spasms, hard on stomach Home Medication Medication Instructions Recorded aspirin 81 mg chewable tablet 81 mg PO DAILY 11/21/18 sumatriptan succinate 50 mg tablet See Rx Instructions PO .COMPLEX #9 08/08/20 tabs cholecalciferol (vitamin D3) 50 2,000 unit PO DAILY #90 caps 02/26/21 mcg (2,000 unit) capsule (Vitamin D3) magnesium oxide 400 mg (241.3 mg 800 mg PO BID #360 tabs 02/26/21 magnesium) tablet furosemide 20 mg tablet See Rx Instructions PO DAILY #90 08/27/21 tabs celecoxib 100 mg capsule 100 mg PO BID #20 caps 10/02/21 famotidine 20 mg tablet (Heartburn 20 mg PO BID #60 tabs 10/02/21 Relief (famotidine)) gabapentin 300 mg capsule 300 mg PO QHS #30 caps 11/30/21 prednisone 20 mg tablet 40 mg PO DAILY #20 tabs 11/30/21 tramadol 50 mg tablet 50 mg PO Q8H severe pain #10 tabs 11/30/21 metoprolol succinate 25 mg 25 mg PO DAILY 12/03/21 tablet,extended release 24 hr Current Visit Medications: Current Medications Generic Name Dose Route Start Last Admin Trade Name Freq PRN Reason Stop Dose Admin Acetaminophen 650 mg 12/05/21 04:33 12/05/21 15:53 Acetaminophen 325 Mg Tab PO 650 mg Q6H PRN PRN Administration Apixaban 10 mg 12/04/21 20:00 12/05/21 19:52 Apixaban 5 Mg Tab PO 12/11/21 08:31 10 mg BID REINIER Administration Cholecalciferol 2,000 units 12/04/21 08:30 12/05/21 08:59 Cholecalciferol (Vitamin D3) 1,000 Unit Tab PO 2,000 units DAILY REINIER Administration Dimethicone/Zinc Oxide 0 gm 12/04/21 00:42 Marco Protect Cream 142 Gm Tube TP PRN PRN Furosemide 20 mg 12/04/21 02:16 Furosemide 20 Mg Tab PO DAILY PRN PRN Gabapentin 300 mg 12/04/21 02:00 12/04/21 21:13 Gabapentin 300 Mg Cap PO 300 mg HS REINIER Administration Sodium Chloride 500 mls @ 0 mls/hr 12/03/21 20:53 Saline 500ml Bag IV PRN PRN As Directed Sodium Chloride 1,000 mls @ 75 mls/hr 12/05/21 09:45 12/05/21 10:36 Saline 1000ml Bag IV 12/05/21 23:04 75 mls/hr INFUSION REINIER Administration Meropenem 1 gm/ Sodium 100 mls @ 200 mls/hr 12/05/21 18:00 Chloride IVPB Q8H REINIER Protocol IV Miscellaneous Supplies 1 each 12/03/21 21:00 Iv Access IV DIRECTED REINIER Magnesium Oxide 800 mg 12/04/21 08:30 12/05/21 19:51 Magnesium Oxide 400 Mg Tab PO 800 mg BID REINIER Administration Metoprolol Succinate 25 mg 12/04/21 08:30 12/05/21 08:58 Metoprolol Cr 25 Mg Tabcr PO 25 mg DAILY REINIER Administration Mometasone Furoate 0 gm 12/04/21 08:30 12/05/21 09:02 Mometasone Nasal 17 Gm Btl NS 2 spray DAILY REINIER Administration Ondansetron HCl 4 mg 12/04/21 00:53 12/04/21 16:48 Ondansetron 4 Mg/2 Ml Vial IVP 4 mg Q4H PRN PRN Administration Pantoprazole Sodium 40 mg 12/04/21 08:30 12/05/21 08:59 Pantoprazole 40 Mg Vial IVP 40 mg DAILY REINIER Administration Polyethylene Glycol 17 gm 12/04/21 00:47 12/05/21 06:13 Polyethylene Glycol 3350 17 Gm Packet PO 17 gm DAILY PRN PRN Administration Constipation Sodium Chloride 0 ml 12/03/21 20:53 12/05/21 15:31 Normal Saline Flush 10 Ml Syr IVP 10 ml PRN PRN Administration Sumatriptan Succinate 0 mg 12/04/21 01:00 12/04/21 14:33 Sumatriptan 50 Mg Tab PO 50 mg PRN PRN Administration Tramadol HCl 50 mg 12/04/21 00:44 Tramadol 50 Mg Tab PO Q6H PRN PRN PFSH Active Problems Active Problems: Problem Status Onset Code Discharge planning issues Z02.9 DVT prophylaxis Z29.9 Pulmonary emboli I26.99 Diverticulitis K57.92 Gastritis K29.70 Right foot pain M79.671 Fasciitis M72.9 Tendonitis M77.9 Pain in right leg M79.604 Right hand paresthesia R20.2 Right arm pain M79.601 Cervical radiculopathy M54.12 Skin lesion of back L98.9 Chest pain at rest R07.9 PAF (paroxysmal atrial fibrillation) 05/08/15 I48.0 Morbid obesity 08/20/15 E66.01 History of pulmonary embolism 01/01/16 Z86.711 Adenoma of large intestine 05/19/11 D12.6 Abdominal aortic aneurysm 30 to 34 mm in diameter 07/19/14 I71.4 Reactive airway disease J45.909 Medical History Medical History Abdominal pain (04/22/13) not diverticulitis per CT 07/28/14; lower abd 07/2015 Acute pain of left shoulder (10/18/17) No specific injury/trauma, pain with movement, abdiel ext rot/supination. Triceps tenderness. Intermittent fingertip numbness. Arm pain, right (09/20/13) rotator cuff pain, persistent trigger finger R; neck pain; trapezious spasm; impingement syndrome At risk for osteoporosis Smoking > 10 yrs, Prednisone (high-dose), PPI, Menopause @ 34yo. (Hx blood clots.. heparin, 1998, near ) Chest heaviness (07/15/16) De Quervain's tenosynovitis, right Diverticulosis a. No diverticulitis DJD, spine Reconfirmed on 07/2018 XR. Esophagitis with gastritis Generalized osteoarthrosis (02/21/13) GERD (gastroesophageal reflux disease) History of tobacco use a. quit in 1998, after roughly 30 pack years Hydronephrosis (05/07/14) Hyperlipidemia (02/21/13) Hypertension Left foot pain (01/27/17) r/o Posteriur Tarsal Tunnel Syn; dr Velasquez, Dr. Aldana Leg edema Lumbar radiculopathy Long Hx ... Acute on chronic Rt sided, 08/2021. ik Migraine (02/21/13) Morbid obesity a. Gastric bypass 1999 b. Multiple nutritional deficiencies, on supplements. c. S/p pannus excision Muscle cramp, nocturnal (12/27/13) gabapentin 100 prn effective Nephrolithiasis (05/07/14) a. First episode - right side b. 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 Bisphosphonate Hx TBD. Pain in joint, shoulder region a. rotator cuff pain Pain of left hip (05/2018) Onset while stretching in bed, suddenly felt sharp pain ... hasn't gone away. Surprising left paraspinal tenderness along lumbar spine @ exam, 08/08/18. Palpitations (07/15/16) Periumbilical abdominal pain (04/14/17) ? umbilical hernia vs adhesions Piriformis syndrome of right side Pseudogout of left wrist (01/22/18) Pyelonephritis (05/07/14) 1. secondary to obstruction Right upper extremity numbness Pain and Tenderness, possible nerve entrapment with numbness .. 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 L4-5 B. L5-S1 Latest XR (07/2018) states pseudospondylolisthesis, no acute Fx/Sublux. Monitoring pain. TMJ (temporomandibular joint disorder) (01/25/16) Trigger finger, right middle finger (01/22/18) Vision loss, right eye Vitamin D deficiency (12/23/16) rx 50,000/wk x ten wk, then 2000 IU daily Surgical History Surgical History Arthroplasty (06/21/13) [facility] Palomo Bariatric Surgery (06/16/00) Brenda-En-Y gastroplasty with cholecystectomy, Dr. Ami Greene, [facility] Cholecystectomy (06/16/00) Dr Greene, [facility], along with Bariatric procedure Colonoscopy - MAC (04/07/17) H/O surgical procedure a. Gastric bypass 1999 b. Pannus excision c. Excision of Samson neuroma d. Cholecystectomy e. appendectomy f. right oophorectomy g. Hemorrhoidectomy History of bariatric surgery (05/19/00) Dr. Greene, [facility] pannus removal (04/02/03) [facility], 3 yr after bariatric surg Repair of umbilical hernia (05/31/17) Dr Kaye S/P bariatric surgery (06/16/00) [facility], pre surg wt 311 lbs Trigger Finger release (11/26/13) A-1 sumi Rt ring finger Tobacco Smoking/Tobacco Use Status: Former Tobacco Use Alcohol Alcohol Intake: never Substance Use Substance use: Never Substance use type: does not use Vital Signs and Lab Results Vital Signs Most Recent Vital Signs in EMR: Most Recent Vital Signs Temp Pulse Resp BP Pulse Ox 37.4 C 79 20 110/62 95 12/05/21 19:40 12/05/21 19:40 12/05/21 19:40 12/05/21 21:07 12/05/21 19:40 Lab Results Result Diagrams: 12/05/21 06:44 12/05/21 10:20 Blood Type / Crossmatch: Patient ABO/Rh Pending 12/05/21 Crossmatch See Detail 12/05/21 Complete Blood Count: White Blood Count 13.31 10^3/uL (4.4-10.8) H 12/05/21 06:44 Red Blood Count 3.95 10^6/uL (3.93-5.22) 12/05/21 06:44 Hemoglobin 11.9 g/dL (11.2-15.7) 12/05/21 06:44 Hematocrit 35.6 % (36.0-46.0) L 12/05/21 06:44 Platelet Count 195 10^3/uL (130-400) 12/05/21 06:44 Complete Metabolic Panel: Sodium Level 141 mmol/L (136-145) 12/05/21 06:44 Potassium Level 3.5 mmol/L (3.5-5.1) 12/05/21 10:20 Chloride Level 105 mmol/L (98-107) 12/05/21 06:44 Carbon Dioxide Level 23.4 mmol/L (21.0-32.0) 12/05/21 06:44 Blood Urea Nitrogen 24 mg/dL (7-18) H 12/05/21 06:44 Creatinine 1.2 mg/dL (0.55-1.02) H 12/05/21 06:44 Estimated GFR/1.73 m2 44.41 (mL/min/1.73m2) 12/05/21 06:44 Magnesium Level 1.7 mg/dL (1.8-2.4) L 12/05/21 06:44 Calcium Level 8.4 mg/dL (8.5-10.1) L 12/05/21 06:44 Albumin 2.6 g/dL (3.4-5.0) L 12/05/21 06:44 Glucose Level 163 mg/dL (74-106) H 12/05/21 06:44 C-Reactive Protein > 25.00 mg/dL (0.0-0.3) H 12/05/21 10:20 Liver Function Panel: Alanine Aminotransferase (ALT/SGPT) 94 U/L (14-59) H 12/05/21 06:44 Aspartate Amino Transf (AST/SGOT) 81 U/L (15-37) H 12/05/21 06:44 Coagulation Panel: INR International Normalized Ratio 1.3 (0.9-1.1) H 12/05/21 10:20 Prothrombin Time 12.6 sec (9.3-11.0) H 12/05/21 10:20 D-Dimer 1620 ng/mlFEU (<500) H 12/03/21 22:00 Cardiac Panel: Troponin I < 50 ng/L (<or=60) 12/04/21 GW-Ucp-[id number]-Type Natriuretic Peptide 396 pg/mL (<300) H 12/03/21 Arterial Blood Gas: No Data to Display Venous Blood Gas: No Data to Display Pancreas Panel: Lipase 63 U/L (73-393) 12/05/21 10:20 Thyroid Panel: No Data to Display Infectious Disease: Coronavirus (COVID-19)(PCR) Negative (Negative) 12/04/21 01:56 Coronavirus 2019 Source Nasal/Nares 12/04/21 01:56 Hepatitis B Surface Antigen Pending 12/05/21 10:20 Hepatitis C Antibody Pending 12/05/21 10:20 Blood Cultures: No Data to Display Toxicology Panel: No Data to Display Imaging and Studies Imaging and Studies Study information below may be from another EMR and interpreted by another provider. Please see original notes in EMR for more complete details. EKG Summary: Conclusion Sinus rhythm...normal P axis, V-rate 60- 99 Probable left atrial enlargement...P >50mS, <-0.10mV V1. Sinus. Normal axis. No STEMI. Stress Test Summary: Impressions: Normal perfusion by [id number] Sestamibi Imaging. Summary: 1. Myocardial perfusion imaging: There is a moderate sized, moderately intense, fixed defect involving the inferior wall(s). This resolves with attenuation correction. C/W diaphragmatic artifact. 2. The calculated left ventricular ejection fraction after stress: 71%. Echocardiogram Summary: SUMMARY: Normal biventricular size and function. No valvular dysfunction. No pericardial effusion. Pulmonary Function Summary: Time analyzed: 02:37 Minutes under 88%: 0.7 HOLLIE: 8.4 Note: Insufficient time of analyzed data to assess for nocturnal oxygen needs or to make considerations about sleep apnea, pulmonary or cardiac disease. Anesthesia Assessment and Plan Anesthesia History Personal History: No History of Anesthesia Complications Family History: No Family History of Anesthesia Complications Exercise Tolerance Exercise Tolerance: Metabolic Equivalents>4 Pertinent Negatives Pertinent Negatives: No History of CVA/TIA Cardiac & Pulmonary Exam Cardiac Exam: Normal S1/S2 Heart Sounds Pulmonary Exam: Clear Bilateral Breath Sounds Implantable Cardiac Device Does patient have a Pacemaker or an ICD?: No Airway Exam Known Difficult Airway: No Mallampati Class: 2 Mouth Opening: Normal (> 3cm) Thyromental Distance: Greater than 3 cm Neck Range of Motion: Full ROM Neck Circumference: Normal Teeth Condition: Removable Dentures/Plates Upper and Edentulous ASA Classification ASA Score: ASA 3 Emergency Case?: Yes NPO Status NPO Status: Full Stomach (Also prior gastric bypass) Anesthesia Plan Resuscitation Status: Full Code Anesthesia Technique: General Anesthesia Airway Planned: Endotracheal Tube Monitors Used: Standard Monitors Preoperative Comments:: Emergent per General Surgeon. Patient last dose elequis this evening. 50% of dinner eaten around 1700. Sips with pills around 2100. Significant GERD. Plan RSI glide intubation.
[2021-12-05] MEDS: MEROPENEM 1 GM in Normal Saline 100 ML IVPB (21:13)
[2021-12-05] MEDS: Gabapentin 300 MG CAP PO (21:14)
--- NOTE | 2021-12-05 23:26 | NUR.NOTE ---
partial plate removed and placed in denture cup in pt room at the bedside in Room 230. Son Keith updated that pt would be going to the or tonight. Nursing Note:
[2021-12-06] VITALS (16 sets, daily range): BP systolic 101–119; BP diastolic 46–73; PULSE 64–85; RESP 14–27; TEMP 36.2–37.2; O2SAT 90–96
[2021-12-06] MEDS: Lactated Ringers 1,000 ML 30 ML IV ×2 (00:13→16:01)
--- NOTE | 2021-12-06 02:01 | W.PM.OP ---
Date of service: 12/06/21 Time of Service: 02:01 Operative Note Operative Note PRE-OP DIAGNOSIS: peritonitis, internal hernia POST-OP DIAGNOSIS: other (Perforated marginal ulcer) PROCEDURE: Diagnostic laparoscopy, EGD, laparoscopic washout and drain placement SURGEON: Jose Jacobs Refer to Anesthesia Record ESTIMATED BLOOD LOSS: 10 COMPLICATIONS: None Indications: 70-year-old woman with acute onset of abdominal pain 48 hours prior. Found to have peritonitis at consultation and surgical exploration was recommended. Findings: Intra-abdominal purulent fluid as well as visible peritonitis. Omentum densely adhered to the transverse colon and left upper quadrant gastrojejunostomy. Omentum was taken down exposing a large cavity containing fluid from a perforated viscus. Once drained, no further fluid was found to be leaking. Presumed perforated ulcer spontaneously sealed by omentum. EGD confirmed a marginal ulceration at the gastrojejunostomy. There was no evidence of ongoing perforation and it was nicely sealed. 19 [place] drain left in the cavity. Procedure Description: Written consent was obtained from the patient who was in agreement with the risks, potential benefits and the indications for the procedure. She was taken to the operating room and laid supine on the operating table and anesthesia was administered which she tolerated well. A Hernandez catheter was placed. She was already on antibiotics. (Meropenem) She is fully anticoagulated. The abdomen was prepped and draped in standard fashion and a timeout was performed. When we are all in agreement I started the procedure. In the right upper quadrant, away from the clinical site of her most intense pain, a Veress needle was used to insufflate the abdomen. An Optiview 5 mm trocar was used to enter the abdominal cavity. 2 other trochars were placed along the right lateral sidewall under direct visualization. Upon entering the abdominal cavity, purulent fluid is noted in both upper quadrants and omentum was densely adhered to the transverse colon and the anterior abdominal wall. Visible peritonitis was also seen but no obvious source. The source was presumed to be underneath the densely adhered omentum which had a very reactive and inflamed appearance to it. I carefully examined all of the mid bowel and distal bowel as well as the ascending and descending colons as well as the pelvis. All of the bowel in those regions appeared completely normal, noninflamed and there was no internal hernia. I was able to lift up a large flap of omentum and was able to visualize at least the anterior portion of the transverse colon and this also appeared normal. On the superior portion, I made a window into the lesser sac through the omentum and in this region found evidence of perforation with free fluid and purulence as well as inflamed omentum. A contaminated fluid did not have the appearance of nadeen stool and was not bilious. It did have a hemorrhagic appearance to it. Using a laparoscopic irrigation and suction device I carefully irrigated and looked around for an obvious hole and was not able to find any. However, I was unable to actually directly visualize the stomach or the gastrojejunostomy. Fearing that I might dislodge the naturally-sealed omental plug, I elected to perform an EGD knowing that I would not be able to visualize the duodenum. I scrubbed out and performed upper endoscopy. The proximal and mid and distal esophagus were all normal in appearance. The patient has a moderate?size type I sliding hiatal hernia. Directly beneath this the gastrojejunostomy was visualized easily and along the medial aspect of it was a nadeen ulceration consistent with a perforated marginal ulcer that had been sealed. There is no bubbling seen on the laparoscope nor was there any evidence of air was leaking out from the ulcer. I advanced deep into the jejunum and found the jejunojejunostomy which appeared normal. Bilious contents were encountered, and no evidence of any issue upstream from there. I then removed the endoscope. I scrubbed back in and verified hemostasis using a LigaSure. Because of the widespread contamination I washed out all 4 quadrants copiously and then suctioned the fluid out. I left a 19 [place] drain curled up in the omental cavity were the perforation had been contained. The 5 mm trocar sites were removed. The counts were correct. The patient tolerated the procedure well. Despite being fully anticoagulated, hemostasis was excellent. She was thus woken up and taken to the PACU in hemodynamically stable condition.
[2021-12-06] MEDS: fentaNYL 100 MCG/2 ML VIAL IVP ×2 (02:44→02:51)
--- NOTE | 2021-12-06 03:26 | W.ANESPOSTOP ---
Postoperative Evaluation Date, Time and Location Date Performed: 12/06/21 Time Performed: 03:26 Patient Location: Med/Surg Vital Signs Most Recent Imported Vital Signs: Most Recent Vital Signs Temp Pulse Resp BP Pulse Ox 36.7 C 80 20 111/65 95 12/06/21 02:58 12/06/21 02:58 12/06/21 02:58 12/06/21 02:58 12/06/21 02:58 Pain Score Most Recent Pain Score: Most Recent Pain Score Pain Level [Bilateral Abdomen] 8 12/04/21 07:37 Pain Level 0 12/06/21 02:58 Assessment Mental Status: Awake (Alert & Oriented to Patient Baseline) Airway and Respiratory Function: Patent airway with normal (patient baseline) respiratory exam Cardiovascular Function: Hemodynamically Stable Hydration Status: Adequately Hydrated Nausea & Vomiting: No Nausea or Vomiting Pain: Pain is tolerable per patient Peripheral Nerve Block: Patient did not receive a nerve block
[2021-12-06] MEDS: MEROPENEM 1 GM in Normal Saline 100 ML IVPB ×3 (03:34→20:00)
[2021-12-06] MEDS: Acetaminophen 500 MG TAB 1000 MG PO ×3 (03:57→17:24)
[2021-12-06] MEDS: Sucralfate 1 GM TAB PO ×4 (03:58→20:01)
[2021-12-06] MEDS: Normal Saline Flush 10 ML SYR IVP ×3 (04:49→20:00)
[2021-12-06] MEDS: Normal Saline 500 ML IV (04:50)
[2021-12-06 06:25] LABS: Abs Immature Grans 0.09 10^3/uL (0.0-0.06); Absolute Basophil Count 0.03 10^3/uL (0.0-0.2); Absolute Lymphocyte Count 0.93 10^3/uL (1.2-3.4); Absolute Monocyte Count 0.94 10^3/uL (0.1-0.8); Absolute Neutrophil Count 12.77 10^3/uL (1.2-6.7); Basophils % 0.2; HCT 34.5 % (36.0-46.0); HGB 11.4 g/dL (11.2-15.7); Immature Grans % 0.6; Lymphocytes % 6.3; MCH 29.9 pg (27.0-33.0); MCV 91 fL (80-95); MPV 10.4 fL (8.0-11.0); Monocytes % 6.4; Neutrophils % 86.5; Platelet Count 187 10^3/uL (130-400); RBC 3.81 10^6/uL (3.93-5.22); RDW 12.5 % (11.7-14.6); RDW-SD 41.1 fL; WBC 14.76 10^3/uL (4.4-10.8)
[2021-12-06 06:43] LABS: ALT 54 U/L (14-59); AST 20 U/L (15-37); Albumin 2.2 g/dL (3.4-5.0); Alkaline Phosphatase 87 U/L (46-116); Anion Gap 7.2 mmol/L (3-11); BUN 22 mg/dL (7-18); Bilirubin, Total 0.4 mg/dL (0.2-1.0); CO2 25.8 mmol/L (21.0-32.0); CREATININE 0.9 mg/dL (0.55-1.02); Calcium 8.3 mg/dL (8.5-10.1); Chloride 103 mmol/L (98-107); Glucose 162 mg/dL (74-106); Potassium 3.4 mmol/L (3.5-5.1); Sodium 136 mmol/L (136-145)
[2021-12-06] MEDS: Pantoprazole 40 MG VIAL IVP ×2 (07:44→19:59)
[2021-12-06] MEDS: MAGNESIUM SULFATE 8.12 MEQ, MULTIVITAMIN 10 ML, THIAMINE 100 MG, FOLIC ACID 1 MG in Nor... 168.867 MG IV (07:44)
[2021-12-06] MEDS: Metoprolol CR 25 MG TABCR PO (07:45)
[2021-12-06] MEDS: Magnesium Oxide 400 MG TAB 800 MG PO (07:45)
[2021-12-06] MEDS: Cholecalciferol (Vitamin D3) 1,000 UNIT TAB 2000 UNITS PO (07:45)
--- NOTE | 2021-12-06 10:26 | PGE_ITS ---
Date of Service Date of service: 12/06/21 Time of Service: 10:26 Assessment and Plan Assessment and plan (1) Perforated abdominal viscus: Status: Acute Assessment and plan: POD #1 status post laparoscopic washout and placement of drain for treatment of perforated marginal ulcer of gastrojejunostomy. I will asked surgery to take over primary management in this case since this is a primary surgical problem. We will continue to follow on a medical consult basis as needed for her other medical issues. (2) Peritonitis: Status: Acute Assessment and plan: Secondary to perforation of marginal ulcer of gastro jejunostomy anastamosis. Continue meropenem. Professional time spent interviewing and examining patient, discussion of goals of care with hospital team (care management, nursing and consulting professionals) was 20 minutes. (3) PAF (paroxysmal atrial fibrillation): Status: Chronic Assessment and plan: Patient has remote history of PAF. Not chronically anticoagulated. Patient was put on Eliquis for questionable bilateral small peripheral pulmonary emboli which was not confirmed on a second reading by our in-house radiologist. During this hospitalization she has had a brief run of PSVT for which was asymptomatic. This was associated with her acute peritonitis. Rhythm overnight has remained sinus rhythm to sinus tachycardia with no runs of PSVT or PAF. At this point I am going to discontinue telemetry monitoring. In light of her recent laparotomy and gastric ulcer perforation she should remain off anticoagulation at this point. We will provide SCD to her legs for DVT prophylaxis. (4) DVT prophylaxis: Status: Acute Assessment and plan: SCD and ROB julian. (5) Discharge planning issues: Status: Acute Assessment and plan: Once she recovers from her operative repair of her gastrojejunal marginal ulcer she may or may not need further rehabilitation in a SNF. We will get physical therapy to work with her in house to evaluate and treat her for generalized weakness secondary to her acute illness. Subjective Subjective Interval history since last seen: Patient is postop day #1 laparoscopic Washout and drain placement for peritonitis secondary to perforated marginal ulceration of gastrojejunal anastam osis of prior gastric bypass. Patient is feeling markedly better. Pain is under much improved control. She is passing flatus but no bowel movements yet. She is tolerating ice chips and popsicles. Exam Narrative Exam Narrative: Clinic sitting up in a chair talking with her family on the phone. She is alert and oriented x3. Lungs are clear to auscultation Heart is regular rate and rhythm Abdomen is slightly distended but softer with no peritoneal signs. Bowel sounds are hypoactive. KIERSTEN drain on the right side is draining sanguinous fluid. Objective Last Vital Signs Temp 36.4 C L 12/06/21 08:14 Pulse 67 12/06/21 08:14 Resp 17 12/06/21 08:14 BP 119/57 L 12/06/21 08:14 Pulse Ox 90 L 12/06/21 08:14 Laboratory Results - last 24 hr 12/05/21 12/05/21 12/05/21 10:20 10:20 10:20 WBC RBC Hgb Hct MCV MCH MCHC RDW Plt Count MPV Immature Gran % Neutrophils % Lymphocytes % Monocytes % Eosinophils % Basophils % Nucleated RBC % Absolute Neutrophils Absolute Lymphocytes Absolute Monocytes Absolute Eosinophils Absolute Basophils PT 12.6 H INR 1.3 H Sodium Potassium Cancelled Chloride Carbon Dioxide Anion Gap BUN Creatinine Estimated GFR/1.73 m2 Glucose Calcium Total Bilirubin AST ALT Alkaline Phosphatase C-Reactive Protein Cancelled Total Protein Albumin Lipase Patient ABO/Rh Antibody Screen Crossmatch 12/05/21 12/05/21 12/06/21 10:20 23:08 05:57 WBC RBC Hgb Hct MCV MCH MCHC RDW Plt Count MPV Immature Gran % Neutrophils % Lymphocytes % Monocytes % Eosinophils % Basophils % Nucleated RBC % Absolute Neutrophils Absolute Lymphocytes Absolute Monocytes Absolute Eosinophils Absolute Basophils PT INR Sodium 136 Potassium 3.5 3.4 L Chloride 103 Carbon Dioxide 25.8 Anion Gap 7.2 BUN 22 H Creatinine 0.9 Estimated GFR/1.73 m2 >= 60.00 Glucose 162 H Calcium 8.3 L Total Bilirubin 0.4 AST 20 ALT 54 Alkaline Phosphatase 87 C-Reactive Protein > 25.00 H Total Protein 6.0 L Albumin 2.2 L Lipase 63 Patient ABO/Rh A Positive Antibody Screen NEGATIVE Crossmatch See Detail 12/06/21 05:57 WBC 14.76 H RBC 3.81 L Hgb 11.4 Hct 34.5 L MCV 91 MCH 29.9 MCHC 33.0 RDW 12.5 Plt Count 187 MPV 10.4 Immature Gran % 0.6 Neutrophils % 86.5 Lymphocytes % 6.3 Monocytes % 6.4 Eosinophils % 0.0 Basophils % 0.2 Nucleated RBC % 0.0 Absolute Neutrophils 12.77 H Absolute Lymphocytes 0.93 L Absolute Monocytes 0.94 H Absolute Eosinophils 0.00 Absolute Basophils 0.03 PT INR Sodium Potassium Chloride Carbon Dioxide Anion Gap BUN Creatinine Estimated GFR/1.73 m2 Glucose Calcium Total Bilirubin AST ALT Alkaline Phosphatase C-Reactive Protein Total Protein Albumin Lipase Patient ABO/Rh Antibody Screen Crossmatch
--- NOTE | 2021-12-06 11:21 | W.PM.PROGNOT ---
Date of Service Date of service: 12/06/21 Time of Service: 11:30 Assessment and Plan Assessment and plan (1) Peritonitis: Status: Acute Assessment and plan: PPOD #1 s/p diagnostic laparoscopy, EGD and laparoscopic washout and drain placement. Patient is feeling significantly improved postoperatively. N.p.o. Encourage activities out of bed including sitting in the chair and ambulation. Continue IV antifungals Continue IV meropenem KIERSTEN drain has black-colored drainage. This is very thin consistency, which most likely represents remaining fluid from washout. We will continue to monitor closely. -Patient seen and examined agree with above. -Patient has been on prednisone and NSAIDs for chronic different musculoskeletal pain issues and most recently plantar fasciitis. -She has had a gastric bypass with B1 anastomosis which is a ulcerogenic procedure. -What is coming out of her KIERSTEN is old blood. She was fully anticoagulated with Eliquis at the time of her surgery. -Patient told me she was on prednisone for glomerularnephritis. But after reading Dr. 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 She is currently on IV Protonix 40 mg twice daily and Carafate every 6. -Her last colonoscopy was in 2017 and she did have a tubulovillous adenoma. She has never had a follow-up colonoscopy. And this will need to be addressed within 6 weeks time. 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 And she is on prednisone for this. Patient is a very poor historian and it is difficult to get a good history on her. I am going to reach out to Dr. Eli This is the only history that I could find that mentions pulmonary embolus. I think the PE may have occurred after her gastric bypass surgery in 1999 at [facility]. These records would not be available. Cardiology Office Visit Mazin Littlejohn M.D. DATE OF ADMIT:? ? 02/28/19 Assessment & Plan (1) PAF (paroxysmal atrial fibrillation): ? ? ? 67-year-old woman with severe obesity, status post gastric bypass surgery, hyperlipidemia, hypertension and is here for pulmonary embolism.? Initial diagnosis of paroxysmal atrial fibrillation in 02/2015, not anticoagulated.? Follow-up EKG monitoring showed no recurrence of atrial fibrillation but brief SVT spells.? Repeat Holter 03/2016 with similar results.? She continues doing well overall and is currently not interested to repeat diagnostic evaluations for occasional palpitations.? Based on her description it could be atrial fibrillation or narrow complex regular SVT.? In view of her negative stress test in 2017, it is unlikely that her chest discomfort represents significant coronary disease.? Remains uninterested to switch to oral anticoagulations or try other meds. Continue current other medications.? Recommended follow-up in 6 months, she would like [place] [facility] [place] ?Total time spent 15 minutes, more than 50% of time discussing therapeutic options for atrial fibrillation and apnea. An hour is spent reviewing her chart today -CT with oral contrast on postop day #3. To make sure there is no further leak from the stomach and to see if there is any communication between the stomach and the colon. Patient does have a history of tubulovillous adenoma of the ascending colon in 2017. She has not had a follow-up colonoscopy. At least this was not done in the [employer] system. Patient is a very poor historian. (2) Perforated abdominal viscus: Status: Acute Subjective Subjective Interval history since last seen: Patient reports that she is feeling significantly better this morning postoperatively. She states her pain is currently well controlled. She denies any nausea or vomiting. Exam Const General: cooperative and comfortable Orientation: alert and oriented x3 Resp Effort & Inspection: normal respiratory effort, no audible wheezes and no cough GI Inspection: normal to inspection Palpation: soft, no guarding and tender Other: KIERSTEN drain in place-thin, watery black drainage noted. Surgical sites are dressed. Some shadowing noted on the dressings. Objective Last Vital Signs Temp 36.4 C L 12/06/21 08:14 Pulse 67 12/06/21 08:14 Resp 17 12/06/21 08:14 BP 119/57 L 12/06/21 08:14 Pulse Ox 90 L 12/06/21 08:14 Laboratory Results - last 24 hr 12/05/21 12/06/21 12/06/21 23:08 05:57 05:57 WBC 14.76 H RBC 3.81 L Hgb 11.4 Hct 34.5 L MCV 91 MCH 29.9 MCHC 33.0 RDW 12.5 Plt Count 187 MPV 10.4 Immature Gran % 0.6 Neutrophils % 86.5 Lymphocytes % 6.3 Monocytes % 6.4 Eosinophils % 0.0 Basophils % 0.2 Nucleated RBC % 0.0 Absolute Neutrophils 12.77 H Absolute Lymphocytes 0.93 L Absolute Monocytes 0.94 H Absolute Eosinophils 0.00 Absolute Basophils 0.03 Sodium 136 Potassium 3.4 L Chloride 103 Carbon Dioxide 25.8 Anion Gap 7.2 BUN 22 H Creatinine 0.9 Estimated GFR/1.73 m2 >= 60.00 Glucose 162 H Calcium 8.3 L Total Bilirubin 0.4 AST 20 ALT 54 Alkaline Phosphatase 87 Total Protein 6.0 L Albumin 2.2 L Patient ABO/Rh A Positive Antibody Screen NEGATIVE Crossmatch See Detail
[2021-12-06 11:27] LABS: Hepatitis A Antibody IgM Negative (Negative); Hepatitis B Core Antibody Negative (Negative); Hepatitis B surface Ag Negative (Negative); Hepatitis C Ab w Rflx HCV PCR Negative (Negative)
--- NOTE | 2021-12-06 17:35 | CMPROGNOTE_ITS ---
- If Service Date Differs Date of service: 12/06/21 Time of Service: 17:35 Care Management Progress Note S/O: Shauna was sitting up in a chair when CM met with her. She had family in the room visiting. Per report, she was taken to the OR last night for a perforated ulcer. Her care has been transitioned to the surgical team. Per report, she is encouraged to ambulate post surgically, and is on IV antifungals. She has a KIERSTEN drain in place. CM discussed HH services, and she is agreeable to having support at home upon discharge. She will be closely monitored post operatively. CM will continue to follow. A: Shauna is a 70 year old female admitted to [facility] on 12/04/21 with diverticulitis, PE. P: Shuana was taken to the OR last night and is being closely monitored post surgically. She will return home once she is medically cleared with new orders for HH RN. She will be driven home via private vehicle by family. She will follow up with her PCP and discharge plan of care. CM will continue to follow.
[2021-12-06] MEDS: Gabapentin 300 MG CAP PO (21:16)
[2021-12-07 03:05] VITALS: BP 114/64; PULSE 71; RESP 17; TEMP 36.1; O2SAT 95
[2021-12-07] MEDS: MEROPENEM 1 GM in Normal Saline 100 ML IVPB ×3 (04:00→19:30)
[2021-12-07] MEDS: Metoprolol CR 25 MG TABCR PO (08:11)
[2021-12-07] MEDS: Pantoprazole 40 MG VIAL IVP ×2 (08:11→19:30)
[2021-12-07] MEDS: Sucralfate 1 GM TAB PO ×3 (08:11→19:30)
[2021-12-07 08:16] VITALS: BP 113/73; PULSE 74; RESP 16; TEMP 36; O2SAT 95
--- NOTE | 2021-12-07 08:38 | CMPROGNOTE_ITS ---
- If Service Date Differs Date of service: 12/07/21 Time of Service: 08:38 Care Management Progress Note S/O: Shauna was sitting up in her chair when CM met with her. She is alert, oriented and easy to engage in conversation. She is reportedly feeling better and denies abdominal pain, other than slight left abdominal soreness. Shauna is 1 day s/p diagnostic laparoscopy, EGD and lap washout and drain placement. She is on IV Fluconozole and Meropenem. She is agreeable to New [facility] RN services following discharge, if needed. A: Shauna is a 70 year old female admitted to [facility] on 12/04/21 with diverticulitis, PE. P: Shauna is being closely monitored post surgically, she is 1 day s/p diagnostic laparoscopy, EGD and lap washout and drain placement. She will return home once she is medically cleared with new orders for RN. She will be driven home via private vehicle by family. She will follow up with her PCP and discharge plan of care. CM will continue to follow.
[2021-12-07 09:11] LABS: Anion Gap 6.7 mmol/L (3-11); BUN 19 mg/dL (7-18); CO2 28.3 mmol/L (21.0-32.0); CREATININE 0.9 mg/dL (0.55-1.02); Calcium 8.9 mg/dL (8.5-10.1); Chloride 104 mmol/L (98-107); Glucose 123 mg/dL (74-106); Magnesium 1.8 mg/dL (1.8-2.4); Potassium 3.9 mmol/L (3.5-5.1); Sodium 139 mmol/L (136-145)
--- NOTE | 2021-12-07 09:27 | W.PM.PROGNOT ---
Date of Service Date of service: 12/07/21 Time of Service: 08:01 Assessment and Plan Assessment and plan (1) Peritonitis: Status: Acute Assessment and plan: POD #1 s/p diagnostic laparoscopy, EGD and laparoscopic washout and drain placement. Patient expresses feeling improvement in her symptoms. independent with transfers OOB Will trial clear liquid diet today Encourage activities out of bed including sitting in the chair and ambulation. Continue IV antifungals Continue IV meropenem KIERSTEN drain has what appears to be old blood in the bulb. Same this evening pt seen and examined. agree w/ above tolerating clears and would like to try food. d/c mujica (2) Perforated abdominal viscus: Status: Acute Subjective Subjective Interval history since last seen: Arrive with patient transferring OOB. She states she is feeling even better now that the mujica has been d/c. She states she is getting cleaned up before breakfast. She denies any abdominal pain, nausea or vomiting. Exam Resp Effort & Inspection: normal respiratory effort, no audible wheezes and no cough GI Other: KIERSTEN drain in place- With dark red/brown sanginous drainage in bulb. Objective Last Vital Signs Temp 36 C L 12/07/21 08:16 Pulse 74 12/07/21 08:16 Resp 16 12/07/21 08:16 BP 113/73 12/07/21 08:16 Pulse Ox 95 12/07/21 08:16 Laboratory Results - last 24 hr 12/05/21 12/07/21 10:20 08:40 Sodium 139 Potassium 3.9 Chloride 104 Carbon Dioxide 28.3 Anion Gap 6.7 BUN 19 H Creatinine 0.9 Estimated GFR/1.73 m2 >= 60.00 Glucose 123 H Calcium 8.9 Magnesium 1.8 Hepatitis A IgM Ab Negative Hep Bs Antigen Negative Hep B Core Total Ab Negative Hepatitis C Antibody Negative
[2021-12-07] MEDS: Acetaminophen 500 MG TAB 1000 MG PO ×2 (10:17→17:10)
[2021-12-07 11:23] VITALS: BP 107/71; PULSE 63; RESP 17; TEMP 36.3; O2SAT 98
[2021-12-07] MEDS: Normal Saline Flush 10 ML SYR IVP ×2 (11:47→19:30)
[2021-12-07] MEDS: SUMAtriptan 50 MG TAB PO (14:48)
[2021-12-07 15:02] VITALS: BP 113/67; PULSE 84; RESP 17; TEMP 36; O2SAT 99
[2021-12-07 19:15] VITALS: BP 106/71; PULSE 72; RESP 17; TEMP 36.5; O2SAT 97
[2021-12-07] MEDS: Gabapentin 300 MG CAP PO (21:40)
[2021-12-07 23:00] VITALS: BP 101/65; PULSE 72; RESP 17; TEMP 36; O2SAT 96
[2021-12-08 03:20] VITALS: BP 102/69; PULSE 73; RESP 17; TEMP 36.1; O2SAT 95
[2021-12-08] MEDS: MEROPENEM 1 GM in Normal Saline 100 ML IVPB ×3 (03:47→20:22)
[2021-12-08 06:41] LABS: Abs Immature Grans 0.05 10^3/uL (0.0-0.06); Absolute Basophil Count 0.01 10^3/uL (0.0-0.2); Absolute Eosinophil Count 0.29 10^3/uL (0.0-0.7); Absolute Lymphocyte Count 2.16 10^3/uL (1.2-3.4); Absolute Monocyte Count 0.63 10^3/uL (0.1-0.8); Absolute Neutrophil Count 4.97 10^3/uL (1.2-6.7); Basophils % 0.1; Eosinophils % 3.6; HCT 33.2 % (36.0-46.0); HGB 10.8 g/dL (11.2-15.7); Immature Grans % 0.6; Lymphocytes % 26.6; MCH 29.8 pg (27.0-33.0); MCHC 32.5 % (32.0-36.0); MCV 92 fL (80-95); MPV 10.8 fL (8.0-11.0); Monocytes % 7.8; Neutrophils % 61.3; Platelet Count 233 10^3/uL (130-400); RBC 3.63 10^6/uL (3.93-5.22); RDW 12.6 % (11.7-14.6); RDW-SD 41.9 fL; WBC 8.11 10^3/uL (4.4-10.8)
[2021-12-08 07:00] LABS: Anion Gap 4.3 mmol/L (3-11); BUN 20 mg/dL (7-18); C-Reactive Protein 10.52 mg/dL (0.0-0.3); CO2 30.7 mmol/L (21.0-32.0); CREATININE 0.9 mg/dL (0.55-1.02); Calcium 8.6 mg/dL (8.5-10.1); Chloride 105 mmol/L (98-107); Glucose 100 mg/dL (74-106); Magnesium 1.7 mg/dL (1.8-2.4); Potassium 3.4 mmol/L (3.5-5.1); Sodium 140 mmol/L (136-145)
[2021-12-08] MEDS: Metoprolol CR 25 MG TABCR PO (07:44)
[2021-12-08] MEDS: Sucralfate 1 GM TAB PO ×3 (07:44→20:14)
[2021-12-08] MEDS: Polyethylene Glycol 3350 17 GM PACKET PO (07:44)
[2021-12-08 08:33] VITALS: BP 96/61; PULSE 83; RESP 17; TEMP 36.2; O2SAT 98
--- NOTE | 2021-12-08 08:47 | CMPROGNOTE_ITS ---
- If Service Date Differs Date of service: 12/08/21 Time of Service: 08:47 Care Management Progress Note S/O: Shauna is day #2 s/p diagnostic laparoscopy, EGD and lap washout and drain placement. She is on IV Fluconozole and Meropenem. She is agreeable to New [facility] RN services following discharge, if needed. Shauna c/o bruising and soreness in her right Arm, approx. 2 in. below a lab draw site. No obvious bleeding, swelling or warmth. CM notified RN Coordinator. A: Shauna is a 70 year old female admitted to [facility] on 12/04/21 with diverticulitis, PE. P: Shauna is being closely monitored post surgically, she is 1 day s/p diagnostic laparoscopy, EGD and lap washout and drain placement. She will return home once she is medically cleared with new orders for RN. She will be driven home via private vehicle by family. She will follow up with her PCP and discharge plan of care. CM will continue to follow.
[2021-12-08] MEDS: Normal Saline Flush 10 ML SYR IVP ×3 (09:18→20:15)
[2021-12-08] MEDS: Pantoprazole 40 MG VIAL IVP ×2 (09:18→20:15)
[2021-12-08] MEDS: Acetaminophen 500 MG TAB 1000 MG PO ×2 (10:58→18:07)
[2021-12-08 11:38] VITALS: BP 91/61; PULSE 69; RESP 18; TEMP 36.6; O2SAT 99
--- NOTE | 2021-12-08 12:57 | W.PM.PROGNOT ---
Date of Service Date of service: 12/08/21 Time of Service: 12:57 Assessment and Plan Assessment and plan (1) Peritonitis: Status: Acute Assessment and plan: POD #2 s/p diagnostic laparoscopy, EGD and laparoscopic washout and drain placement. Patient expresses feeling improvement in her symptoms. independent with transfers OOB Tolerating post-op diet Encouraged activities out of bed including sitting in the chair and ambulation. Continue IV antifungals Continue IV meropenem KIERSTEN drain has what appears to be old blood in the bulb. (2) Perforated abdominal viscus: Status: Acute Subjective Subjective Interval history since last seen: Arrived with patient sitting up in the chair. She reports she is feeling very well and denies having any abdominal pain. She states this is fully resolved. She denies any nausea, vomiting, fevers chills or night sweats. She states she has been able to get cleaned up and do activities within her room without assistance. Exam Const General: cooperative, healthy appearing and comfortable Orientation: alert and oriented x3 Resp Effort & Inspection: normal respiratory effort, no audible wheezes and no cough GI Inspection: normal to inspection and non-distended Palpation: soft, no guarding and tender Objective Last Vital Signs Temp 36.6 C 12/08/21 11:38 Pulse 69 12/08/21 11:38 Resp 18 12/08/21 11:38 BP 91/61 L 12/08/21 11:38 Pulse Ox 99 12/08/21 11:38 Laboratory Results - last 24 hr 12/08/21 12/08/21 06:00 06:00 WBC 8.11 RBC 3.63 L Hgb 10.8 L Hct 33.2 L MCV 92 MCH 29.8 MCHC 32.5 RDW 12.6 Plt Count 233 MPV 10.8 Immature Gran % 0.6 Neutrophils % 61.3 Lymphocytes % 26.6 Monocytes % 7.8 Eosinophils % 3.6 Basophils % 0.1 Nucleated RBC % 0.0 Absolute Neutrophils 4.97 Absolute Lymphocytes 2.16 Absolute Monocytes 0.63 Absolute Eosinophils 0.29 Absolute Basophils 0.01 Sodium 140 Potassium 3.4 L Chloride 105 Carbon Dioxide 30.7 Anion Gap 4.3 BUN 20 H Creatinine 0.9 Estimated GFR/1.73 m2 >= 60.00 Glucose 100 Calcium 8.6 Magnesium 1.7 L C-Reactive Protein 10.52 H
[2021-12-08 14:47] VITALS: BP 103/64; PULSE 68; RESP 19; TEMP 36.5; O2SAT 98
[2021-12-08] MEDS: MAGNESIUM SULFATE 2 GM/50 ML BAG IVPB (18:07)
[2021-12-08 19:25] VITALS: BP 109/62; PULSE 61; RESP 18; TEMP 36.8; O2SAT 94
[2021-12-08] MEDS: Gabapentin 300 MG CAP PO (21:31)
[2021-12-08 22:47] VITALS: BP 100/65; PULSE 69; RESP 18; TEMP 36.4; O2SAT 100
[2021-12-09] MEDS: Acetaminophen 500 MG TAB 1000 MG PO ×2 (03:01→09:16)
[2021-12-09] MEDS: Normal Saline Flush 10 ML SYR IVP ×3 (03:02→08:40)
[2021-12-09] MEDS: Sucralfate 1 GM TAB PO ×2 (03:02→08:40)
[2021-12-09] MEDS: MEROPENEM 1 GM in Normal Saline 100 ML IVPB ×2 (03:03→11:37)
[2021-12-09 03:12] VITALS: BP 111/61; PULSE 70; RESP 17; TEMP 36.5; O2SAT 95
[2021-12-09 06:20] LABS: Abs Immature Grans 0.05 10^3/uL (0.0-0.06); Absolute Basophil Count 0.05 10^3/uL (0.0-0.2); Absolute Eosinophil Count 0.41 10^3/uL (0.0-0.7); Absolute Lymphocyte Count 2.17 10^3/uL (1.2-3.4); Absolute Monocyte Count 0.77 10^3/uL (0.1-0.8); Absolute Neutrophil Count 2.97 10^3/uL (1.2-6.7); Basophils % 0.8; Eosinophils % 6.4; HCT 30.6 % (36.0-46.0); HGB 10.3 g/dL (11.2-15.7); Immature Grans % 0.8; Lymphocytes % 33.8; MCH 30.4 pg (27.0-33.0); MCHC 33.7 % (32.0-36.0); MCV 90 fL (80-95); MPV 10.5 fL (8.0-11.0); Neutrophils % 46.2; Platelet Count 211 10^3/uL (130-400); RBC 3.39 10^6/uL (3.93-5.22); RDW 12.8 % (11.7-14.6); RDW-SD 42.3 fL; WBC 6.42 10^3/uL (4.4-10.8)
[2021-12-09 06:40] LABS: C-Reactive Protein 4.97 mg/dL (0.0-0.3)
[2021-12-09 07:45] VITALS: BP 123/68; PULSE 66; RESP 18; TEMP 36.2; O2SAT 97
--- NOTE | 2021-12-09 07:46 | CHAPLAIN ---
Shauna had two visitors (daughters?) with her when I stopped in. They were assisting her with paperwork. Shauna asked me for more pillows, so I got those. Shauna seemed very well attended to by her visitors.
[2021-12-09] MEDS: Polyethylene Glycol 3350 17 GM PACKET PO (08:39)
[2021-12-09] MEDS: Pantoprazole 40 MG VIAL IVP (08:39)
[2021-12-09] MEDS: Metoprolol CR 25 MG TABCR PO (08:40)
--- NOTE | 2021-12-09 09:03 | PDOC.HHF2F ---
Home Health Certification Home Health Certification: 1. Encounter Date and Reason I certify that Shauna Loja was seen by Gia Huynh on 12/09/21 and that I had a [id number] encounter with this patient that meets the physician face to face encounter requirements. 2. Clinical Findings Supporting Skilled Need and Homebound Status I certify that home health services are medically necessary, include either intermittent group home and/or physical/speech therapy, and that this patient is homebound in that absences from the home require considerable and taxing effort and are infrequent or of short duration, or are attributable to the need to receive medical care. [X] (a) Attached documentation from encounter provides clinical findings supporting skilled need and homebound status (including what assistance patient requires to leave the home). The encounter with the patient was in whole, or in part, for the following medical condition, which is the primary reason for home health care: Diverticulitis, Pulmonary Embolism Residential: for drain care Physical Therapy: Speech Therapy: Homebound:yes 3. Certification and Authentication I certify that I composed the above information based on my clinical judgement relating to this patient's medical condition and, if applicable, clinical findings communicated to me by the NPP or inpatient physician who performed the Home Health Referral. All further orders will be obtained through [facility] (Community Based Physician - PCP)
--- NOTE | 2021-12-09 09:11 | CMDISCH_ITS ---
- If Service Date Differs Date of service: 12/09/21 Time of Service: 09:11 LACE Index Scoring Tool - Questions: Length of Stay (in days): 3 Acuity (Admit via E.D.?): Yes E.D. Visits: 1 - Answers: Total Score: 7 Risk of Readmission: Low Risk Care Management Discharge Reason for Hospitalization: Diverticulitis, pulmonary embolism Discharge Plan: Discharge home with PO ABX and New [facility] RN services for drain management. Shauna transported via private vehicle with family. RX's were transmitted to [facility]. Shauna will follow up with the Surgical Clinic on 12/13/21 @3605, as scheduled. Shauna is also planning on following up with her PCP on 12/31/21, as previously scheduled. Patient/Family Education Needs: Review discharge instructions, limitations, medications and plan to follow up with community providers. Ask Me Three. Services Needed at Discharge: Home Health Care Services ([facility] RN, CM notified [facility] and faxed [id number])
--- NOTE | 2021-12-09 09:11 | W.PM.PROGNOT ---
Date of Service Date of service: 12/09/21 Time of Service: 09:11 Assessment and Plan Assessment and plan (1) Peritonitis: Status: Acute Assessment and plan: POD #3 s/p diagnostic laparoscopy, EGD and laparoscopic washout and drain placement. Patient reports her abdominal pain has completely resolved. She is very eager to be discharged home. independent with transfers OOB Tolerating post-op diet Encouraged activities out of bed including sitting in the chair and ambulation. Continue IV antifungals Continue IV meropenem KIERSTEN drain has what appears to be old blood in the bulb. Discharge home later today with home health services for KIERSTEN drain management. Patient seen and examined. Agree with above. She will go home with her drain in place. Discharged home on Augmentin for total of 7 days. We discussed wound care diet activity and warning signs. She will follow-up with Irena in clinic next Monday. She will have home health for drain. She needs to stay on a PPI lifelong and Carafate for 12 weeks. All of patient's questions are answered today. If she has any increased pain, vomiting, fever or chills, etc., return to ED. See discharge summary (2) Perforated abdominal viscus: Status: Acute Subjective Subjective Interval history since last seen: Arrived with patient eating breakfast this morning. She denies any abdominal pain, nausea or vomiting. She expressed that she is very eager to be discharged home today. She denies any fevers, chills or night sweats. Exam Const General: cooperative, healthy appearing and comfortable Orientation: alert and oriented x3 Resp Effort & Inspection: normal respiratory effort, no audible wheezes and no cough GI Palpation: soft, no guarding and nontender Other: KIERSTEN drain- Dark brown, liquid drainage. Old blood appearence Dressings in place over wounds. Objective Last Vital Signs Temp 36.2 C L 12/09/21 07:45 Pulse 66 12/09/21 07:45 Resp 18 12/09/21 07:45 BP 123/68 12/09/21 07:45 Pulse Ox 97 12/09/21 07:45 Laboratory Results - last 24 hr 12/09/21 12/09/21 06:06 06:06 WBC 6.42 RBC 3.39 L Hgb 10.3 L Hct 30.6 L MCV 90 MCH 30.4 MCHC 33.7 D RDW 12.8 Plt Count 211 MPV 10.5 Immature Gran % 0.8 Neutrophils % 46.2 Lymphocytes % 33.8 Monocytes % 12.0 Eosinophils % 6.4 Basophils % 0.8 Nucleated RBC % 0.0 Absolute Neutrophils 2.97 Absolute Lymphocytes 2.17 Absolute Monocytes 0.77 Absolute Eosinophils 0.41 Absolute Basophils 0.05 C-Reactive Protein 4.97 H
--- NOTE | 2021-12-09 09:13 | DSE_ITS ---
Date of service: 12/09/21 Time of Service: 09:14 DS: Diagnosis Discharge Diagnosis (1) Peritonitis: Status: Acute (2) Perforated abdominal viscus: Status: Acute Discharge Plan Disposition Patient Disposition: HOME Condition: Stable Discharge Details Reason For Visit: perforated abdominal viscus Admit Date/Time: 12/06/21 10:00 Admit Provider: Dustin Frank Attending Provider: Cheri Osborn Primary Care Provider: Brigette Eli Hospital Course Hospital Course: 71-year-old female with a history of gastritis, paroxysmal atrial fibrillation was admitted for further evaluation of chest pain which is radiating into her epigastrium. Patient started having peritonitis and was evaluated by general surgery. It was determined that patient required further evaluation through diagnostic laparoscopy. Patient underwent diagnostic laparoscopy, EGD and laparoscopic washout and drain placement for question of perforated viscus. Patient was treated with IV antifungals and meropenem. Patient's pain was well controlled postoperatively. Patient was slowly progressed onto postop diet and advanced as tolerated. She did not have any nausea or vomiting postoperatively. KIERSTEN drain remains in place and has been draining dark old blood appearing material. Patient has not had any fevers, chills or night sweats. Patient will be discharged on p.o. antibiotics. Patient will be discharged home with home health services for drain management. She will need to follow-up on Thursday 12/[address] Osborn. Home Meds and New Rx's Prescriptions: New amoxicillin-pot clavulanate [Augmentin] 500-125 mg tablet 1 tab PO BID 10 Days Qty: 20 0RF Bio-K plus 50 billion cell capsule,delayed release(DR/EC) 1 cap PO DAILY Qty: 30 0RF Continued magnesium oxide 400 mg (241.3 mg magnesium) tablet 800 mg PO BID Qty: 360 3RF Rx Instructions: replace magnesium cholecalciferol (vitamin D3) [Vitamin D3] 50 mcg (2,000 unit) capsule 2,000 unit PO DAILY Qty: 90 3RF celecoxib 100 mg capsule 100 mg PO BID Qty: 20 1RF Label Comments: Pt has been only using HSPRN instead of BID, states Provider aware 12/03/21 CJ Rx Instructions: Trial for inflammation, pain. WITH FOOD. famotidine [Heartburn Relief (famotidine)] 20 mg tablet 20 mg PO BID Qty: 60 1RF Label Comments: Has been having issues with pharmacy 12/03/21 Rx Instructions: Trial for gastric pain furosemide 20 mg tablet See Rx Instructions PO DAILY Qty: 90 3RF Rx Instructions: 20mg daily, may add (1) tab in afternoon 2' weight gain > 5 lbs or severe edema PO daily; tramadol 50 mg tablet 50 mg PO Q8H MDD 150mg Qty: 10 0RF Rx Instructions: Trial for leg pain; may take 2nd tab if pain continues after on hour gabapentin 300 mg capsule 300 mg PO QHS Qty: 30 1RF sumatriptan succinate 50 mg tablet See Rx Instructions PO .COMPLEX Qty: 9 3RF Rx Instructions: take 1 tab at onset of headache; if no relief may repeat 1 tab after at least 2 hrs; max = 4 tabs/24 hr PO metoprolol succinate 25 mg tablet extended release 24 hr 25 mg PO DAILY Discontinued aspirin 81 mg tablet,chewable 81 mg PO DAILY Label Comments: Pt hasn't been taking, is planning to restart prednisone 20 mg tablet 40 mg PO DAILY Qty: 20 0RF Rx Instructions: Trial x 5 days (may need to repeat) Discharge Instructions Stand Alone Forms: Nursing Discharge Form Referrals: Cheri Osborn MD [ [facility] STAFF PHYSICIAN] - 12/13/21 11:45 am Activity:: Activity as Tolerated Equipment/Supplies:: No Equipment Needed Diet:: Normal Diet DS: Summary Time Spent with Patient providing and/or coordinating discharge services: Less than 30 minutes Status at Discharge Functional status at discharge: independent ambulation Overall status at discharge: patient is back to baseline Mental Status: mental status grossly normal Speech and Movement: speech and movement normal Mood: congruent mood Affect: normal affect Exam Psych Mental Status: mental status grossly normal Speech and Movement: speech and movement normal Mood: congruent mood Affect: normal affect DS: Data Vitals/I&O Vitals and I&O: Vital Signs Temperature 36.2 C L 12/09/21 07:45 Temperature Source Tympanic 12/09/21 07:45 Pulse 66 12/09/21 07:45 Pulse Rhythm Regular 12/09/21 08:44 Respiratory Rate 18 12/09/21 07:45 Respiratory Effort 12/09/21 08:44 Respiratory Depth Normal 12/09/21 08:44 Respiratory Pattern Normal 12/09/21 08:44 Blood Pressure 123/68 12/09/21 07:45 Blood Pressure Position Supine 12/03/21 20:44 Pulse Oximetry 97 12/09/21 07:45 Respiratory End-tidal CO2 17 12/06/21 02:58 Oxygen Delivery Method Room Air 12/09/21 07:45 Oxygen Flow Rate 0 12/09/21 07:45 Pain Level 0 12/09/21 07:45 Comment 12/08/21 11:38 Intake & Output 12/08/21 12/09/21 12/09/21 18:59 06:59 18:59 Intake Total 900 / 1150 250 / 1150 Output Total 55 / 115 60 / 115 Balance 845 / 1035 190 / 1035 Weight 122.8 kg Intake: IV 300 / 550 250 / 550 Oral 600 / 600 Output: Drainage 55 / 115 60 / 115 Right Mid Abdomen 55 / 115 60 / 115 Other: Comment pT uses the bathroom independently. pt voiding independently Stool Size Moderate Stool Characteristics Soft Formed Voiding Methods Toilet Toilet Data Completed and Pending Labs on day of discharge: Labs from last 24 hours 12/09/21 12/09/21 06:06 06:06 WBC 6.42 RBC 3.39 L Hgb 10.3 L Hct 30.6 L MCV 90 MCH 30.4 MCHC 33.7 D RDW 12.8 Plt Count 211 MPV 10.5 Immature Gran % 0.8 Neutrophils % 46.2 Lymphocytes % 33.8 Monocytes % 12.0 Eosinophils % 6.4 Basophils % 0.8 Nucleated RBC % 0.0 Absolute Neutrophils 2.97 Absolute Lymphocytes 2.17 Absolute Monocytes 0.77 Absolute Eosinophils 0.41 Absolute Basophils 0.05 C-Reactive Protein 4.97 H Preliminary micro results at discharge 12/05/21 10:30 Blood Culture - Preliminary Blood NO GROWTH 72 HOURS 12/05/21 10:20 Blood Culture - Preliminary Blood NO GROWTH 72 HOURS PFSH All Active Problems (Updated 12/06/21 @ 10:39 by Jeremy Reyna MD) Peritonitis (Acute) Perforated abdominal viscus (Acute) Discharge planning issues (Acute) DVT prophylaxis (Acute) Gastritis (Acute) Right foot pain (Acute) instep is excruciating ,, cannot flatten Fasciitis (Acute) Tendonitis (Acute) Pain in right leg (Acute) Right hand paresthesia (Acute) Right arm pain (Acute) Cervical radiculopathy (Acute) Skin lesion of back (Acute) mid-back, pruritic .. indented/suspicious.. Chest pain at rest (Acute) Awakened with heaviness, waited x hours (has had it before), but finally went to ED .. 11/20/18 PAF (paroxysmal atrial fibrillation) (Chronic 05/08/15) only one confirmed episode 02/2015; ZIO patch neg; prefers not anticoagulate until A Fib recurs Morbid obesity (Acute 08/20/15) BMI 42, even after bariatric surg History of pulmonary embolism (Acute 01/01/16) Adenoma of large intestine (Acute 05/19/11) 05/2011 Kris Coffey colonoscopy, +tubular adenoma and +family h/o colon cancer (F); again adenoma 02/21/13 04/07/17 - tubulovillous adenoma, ascending colon, Dr Kaye Abdominal aortic aneurysm 30 to 34 mm in diameter (Chronic 07/19/14) 06/2014 3.14 cm, confirmed on CT; 07/2015 3.2cm US 04/21/17 stable 3.3 cm US. 11/2018 [Stable, 3.4CM]. Reactive airway disease (Chronic) a. worse in the spring Medical History Abdominal pain (04/22/13) not diverticulitis per CT 07/28/14; lower abd 07/2015 Acute pain of left shoulder (10/18/17) No specific injury/trauma, pain with movement, abdiel ext rot/supination. Triceps tenderness. Intermittent fingertip numbness. Arm pain, right (09/20/13) rotator cuff pain, persistent trigger finger R; neck pain; trapezious spasm; impingement syndrome At risk for osteoporosis Smoking > 10 yrs, Prednisone (high-dose), PPI, Menopause @ 34yo. (Hx blood clots.. heparin, 1998, near ) Chest heaviness (07/15/16) De Quervain's tenosynovitis, right Diverticulosis a. No diverticulitis DJD, spine Reconfirmed on 07/2018 XR. Esophagitis with gastritis Generalized osteoarthrosis (02/21/13) GERD (gastroesophageal reflux disease) History of tobacco use a. quit in 1998, after roughly 30 pack years Hydronephrosis (05/07/14) Hyperlipidemia (02/21/13) Hypertension Left foot pain (01/27/17) r/o Posteriur Tarsal Tunnel Syn; dr Velasquez, Dr. Aldana Leg edema Lumbar radiculopathy Long Hx ... Acute on chronic Rt sided, 08/2021. ik Migraine (02/21/13) Morbid obesity a. Gastric bypass 1999 b. Multiple nutritional deficiencies, on supplements. c. S/p pannus excision Muscle cramp, nocturnal (12/27/13) gabapentin 100 prn effective Nephrolithiasis (05/07/14) a. First episode - right side b. 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 Bisphosphonate Hx TBD. Pain in joint, shoulder region a. rotator cuff pain Pain of left hip (05/2018) Onset while stretching in bed, suddenly felt sharp pain ... hasn't gone away. Surprising left paraspinal tenderness along lumbar spine @ exam, 08/08/18. Palpitations (07/15/16) Periumbilical abdominal pain (04/14/17) ? umbilical hernia vs adhesions Piriformis syndrome of right side Pseudogout of left wrist (01/22/18) Pyelonephritis (05/07/14) 1. secondary to obstruction Right upper extremity numbness Pain and Tenderness, possible nerve entrapment with numbness .. 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 L4-5 B. L5-S1 Latest XR (07/2018) states pseudospondylolisthesis, no acute Fx/Sublux. Monitoring pain. TMJ (temporomandibular joint disorder) (01/25/16) Trigger finger, right middle finger (01/22/18) Vision loss, right eye Vitamin D deficiency (12/23/16) rx 50,000/wk x ten wk, then 2000 IU daily Surgical History Arthroplasty (06/21/13) [facility]ri Palomo Bariatric Surgery (06/16/00) Brenda-En-Y gastroplasty with cholecystectomy, Dr. Ami Greene, [facility] Cholecystectomy (06/16/00) Dr Greene, [facility], along with Bariatric procedure Colonoscopy - MAC (04/07/17) H/O surgical procedure a. Gastric bypass 1999 b. Pannus excision c. Excision of Samson neuroma d. Cholecystectomy e. appendectomy f. right oophorectomy g. Hemorrhoidectomy History of bariatric surgery (05/19/00) Dr. Greene, [place] pannus removal (04/02/03) [facility], 3 yr after bariatric surg Repair of umbilical hernia (05/31/17) Dr Kaye S/P bariatric surgery (06/16/00) [facility], pre surg wt 311 lbs Trigger Finger release (11/26/13) A-1 sumi Rt ring finger Family History Father Lung cancer Mother Colon cancer Social History Smoking/Tobacco Use Status: Former Tobacco Use Quit Date: 06/19/98 Smoking risk assessment performed?: Yes Alcohol Intake: never Drug use: Never Substance use type: does not use Caregiver/Support person: No Household members: spouse and children Number of Children: 5 Communication Needs: None Current gender identity: female What is your relationship status?: Panel score (0-1 are the most socially isolated patients): 1 What type of physical activity do you participate in: sedentary lifestyle Duration: < 15 minutes/day Frequency: 3-4 times per week Seatbelt use: always Do you feel safe at home: Yes Do you feel safe in your relationship?: Yes
[2021-12-09 11:16] VITALS: BP 100/63; PULSE 65; RESP 19; TEMP 36.5; O2SAT 98
== END 2021-12-09 14:05 | disposition home or self-care (01) | DRG 380 ==
LOC: ER 12-04 00:45 → MS 12-04 05:42
PROVIDERS: Internal Medicine; Nurse Practitioner Acute Care; Registered Nurse Emergency; Student in an Organized Health Care Education/Training Program; Surgery; Admitting Provider Family Medicine; Emergency Provider Emergency Medicine; PCP Student in an Organized Health Care Education/Training Program; Visit Provider Surgery
PROC: (CPT 49320; principal; 2021-12-05 23:55)
DX: K28.5 Chronic or unspecified gastrojejunal ulcer with perforation (principal); K65.0 Generalized (acute) peritonitis; Z68.41 Body mass index [BMI] 40.0-44.9, adult; K29.00 Acute gastritis without bleeding; E78.5 Hyperlipidemia, unspecified; I10 Essential (primary) hypertension; M72.2 Plantar fascial fibromatosis; I71.4 Abdominal aortic aneurysm, without rupture; I48.0 Paroxysmal atrial fibrillation; E66.01 Morbid (severe) obesity due to excess calories; M54.12 Radiculopathy, cervical region; M79.671 Pain in right foot; M79.604 Pain in right leg; R20.2 Paresthesia of skin; J45.909 Unspecified asthma, uncomplicated; Z86.010 Personal history of colon polyps; Z80.0 Family history of malignant neoplasm of digestive organs; Z87.891 Personal history of nicotine dependence; Z98.84 Bariatric surgery status; Z79.899 Other long term (current) drug therapy; Z86.711 Personal history of pulmonary embolism; Z86.718 Personal history of other venous thrombosis and embolism; K44.9 Diaphragmatic hernia without obstruction or gangrene
CPT/HCPCS: 49084; 43235; 49320; 36410; 36415; 71275; 80048; 80053; 80076; 83690; 86704; 86709; 86803; 86850; 86900; 86901; 86920; 87040; 87340; 87635; 93005; 99223; 74174; 83735; 83880; 84132; 84484; 85025; 85379; 85610; 86140; 93010; 99232; 99233; J1100; J1450; J1650; J1885; J2370; J2405; J2543; J2704; J3010; J3490

== ENCOUNTER → 2021-12-13 11:35 | Outpatient (BNVA) | payer MEDICARE, MEDICAID, SELFPAY | PROVIDERS: PCP Student in an Organized Health Care Education/Training Program; Referring Provider Student in an Organized Health Care Education/Training Program; Visit Provider Surgery | DX: K25.5 Chronic or unspecified gastric ulcer with perforation (principal); D62 Acute posthemorrhagic anemia; D12.6 Benign neoplasm of colon, unspecified; I48.0 Paroxysmal atrial fibrillation; K57.90 Diverticulosis of intestine, part unspecified, without perforation or abscess without bleeding ==

== ENCOUNTER 2021-12-20 05:39 | Emergency (ER) | payer MEDICARE, MEDICAID, SELFPAY ==
[2021-12-20 05:52] VITALS: BP 156/74; PULSE 76; RESP 16; TEMP 36.6; O2SAT 97
--- NOTE | 2021-12-20 05:54 | ED.GENADUL_ITS ---
Discharge Plan Disposition Patient Disposition: HOME Condition: Improving Discharge Details Clinical Impression: Sciatica Primary Care Provider: Brigette Eli ED Provider: Dustin Morrison Home Meds and New Rx's Prescriptions: New lidocaine [Lidoderm] 5 % adhesive patch,medicated 1 patch topical DAILY Qty: 5 0RF Rx Instructions: leave on most painful area for up to 12 hrs cyclobenzaprine 10 mg tablet 10 mg PO ONCE PRN (Reason: muscle spasm) Qty: 5 0RF Rx Instructions: once daily prn No Action magnesium oxide 400 mg (241.3 mg magnesium) tablet 800 mg PO BID Qty: 360 3RF Rx Instructions: replace magnesium cholecalciferol (vitamin D3) [Vitamin D3] 50 mcg (2,000 unit) capsule 2,000 unit PO DAILY Qty: 90 3RF celecoxib 100 mg capsule 100 mg PO BID Qty: 20 1RF Label Comments: Pt has been only using HSPRN instead of BID, states Provider aware 12/03/21 CJ Rx Instructions: Trial for inflammation, pain. WITH FOOD. famotidine [Heartburn Relief (famotidine)] 20 mg tablet 20 mg PO BID Qty: 60 1RF Label Comments: Has been having issues with pharmacy 12/03/21 Rx Instructions: Trial for gastric pain furosemide 20 mg tablet See Rx Instructions PO DAILY Qty: 90 3RF Rx Instructions: 20mg daily, may add (1) tab in afternoon 2' weight gain > 5 lbs or severe edema PO daily; tramadol 50 mg tablet 50 mg PO Q8H MDD 150mg Qty: 10 0RF Rx Instructions: Trial for leg pain; may take 2nd tab if pain continues after on hour gabapentin 300 mg capsule 300 mg PO QHS Qty: 30 1RF sumatriptan succinate 50 mg tablet See Rx Instructions PO .COMPLEX Qty: 9 3RF Rx Instructions: take 1 tab at onset of headache; if no relief may repeat 1 tab after at least 2 hrs; max = 4 tabs/24 hr PO metoprolol succinate 25 mg tablet extended release 24 hr 25 mg PO DAILY Bio-K plus 50 billion cell capsule,delayed release(DR/EC) 1 cap PO DAILY Qty: 30 0RF Discharge Instructions Instructions: Sciatica (ED) Additional Instructions: Please take medications as prescribed. Ice and heat as needed. Please return to the emergency department you have any worsening symptoms specifically falls weakness numbness bowel or bladder issues or other neurologic symptomatology. Medical Decision Making 71-year-old female history of recurrent lower back pain presents with atraumatic left low back pain radiating down left leg, no midline spinal tenderness, patient is ambulatory, full strength and sensation lower extremities, no bowel or bladder issues. Hemodynamically stable. Afebrile nontoxic no surgical spinal history. Clinical exam and history consistent with sciatica. Low suspicion for kidney stone UTI pyelonephritis intra-abdominal infection or vascular complication. Trial of analgesia anti-inflammatory and muscle relaxant. Will perform UA. Disposition pending reassessment of symptomatology 8: 03 some improvement after meds. Ambulatory. Given strict return precautions home care instructions. Family is here to pick her up HPI General Date/Time Provider Initiated Documentation: 12/20/21 05:42 . HPI Narrative: 71-year-old female presents with atraumatic left low back pain rating down the left leg since last night. Denies bowel or bladder issues. Denies falls. Denies history of spinal surgery. Related Data Home Medications Medication Instructions Recorded Confirmed cholecalciferol (vitamin D3) 50 2,000 unit PO DAILY #90 caps 02/26/21 12/20/21 mcg (2,000 unit) capsule (Vitamin D3) magnesium oxide 400 mg (241.3 mg 800 mg PO BID #360 tabs 02/26/21 12/20/21 magnesium) tablet furosemide 20 mg tablet See Rx Instructions PO DAILY #90 08/27/21 12/20/21 tabs celecoxib 100 mg capsule 100 mg PO BID #20 caps 10/02/21 12/20/21 famotidine 20 mg tablet (Heartburn 20 mg PO BID #60 tabs 10/02/21 12/20/21 Relief (famotidine)) gabapentin 300 mg capsule 300 mg PO QHS #30 caps 11/30/21 12/20/21 tramadol 50 mg tablet 50 mg PO Q8H severe pain #10 tabs 11/30/21 12/20/21 metoprolol succinate 25 mg 25 mg PO DAILY 12/03/21 12/20/21 tablet,extended release 24 hr L. acidophilus,casei,rhamnosus 50 1 cap PO DAILY #30 caps 12/09/21 12/20/21 billion cell capsule,delayed release (Bio-K plus) sumatriptan succinate 50 mg tablet See Rx Instructions PO .COMPLEX #9 22 12/20/21 tabs cyclobenzaprine 10 mg tablet 10 mg PO ONCE PRN muscle spasm #5 12/20/21 tabs lidocaine 5 % topical patch 1 patch topical DAILY #5 ea 12/20/21 (Lidoderm) Previous Rx's Medication Instructions Recorded cholecalciferol (vitamin D3) 50 2,000 unit PO DAILY #90 caps 02/26/21 mcg (2,000 unit) capsule (Vitamin D3) magnesium oxide 400 mg (241.3 mg 800 mg PO BID #360 tabs 02/26/21 magnesium) tablet furosemide 20 mg tablet See Rx Instructions PO DAILY #90 08/27/21 tabs celecoxib 100 mg capsule 100 mg PO BID #20 caps 10/02/21 famotidine 20 mg tablet (Heartburn 20 mg PO BID #60 tabs 10/02/21 Relief (famotidine)) gabapentin 300 mg capsule 300 mg PO QHS #30 caps 11/30/21 tramadol 50 mg tablet 50 mg PO Q8H severe pain #10 tabs 11/30/21 L. acidophilus,casei,rhamnosus 50 1 cap PO DAILY #30 caps 12/09/21 billion cell capsule,delayed release (Bio-K plus) sumatriptan succinate 50 mg tablet See Rx Instructions PO .COMPLEX #9 12/17/21 tabs cyclobenzaprine 10 mg tablet 10 mg PO ONCE PRN muscle spasm #5 12/20/21 tabs lidocaine 5 % topical patch 1 patch topical DAILY #5 ea 12/20/21 (Lidoderm) Allergies Allergy/AdvReac Type Severity Reaction Status Date / Time morphine Allergy Intermediate Itching Verified 12/20/21 05:55 codeine AdvReac Intermediate muscle Verified 12/20/21 05:55 spasms oxycodone HCl [From Percocet] AdvReac Intermediate muscle Verified 12/20/21 05:55 spasms, hard on stomach General AJITH: 2 Review of Systems Narrative: Review of Systems Constitutional: negative Eyes: negative ENT: negative Cardiovascular: negative Respiratory: negative Gastrointestinal: negative : negative Musculoskeletal: Back pain Skin: negative Neurologic: negative Psych: negative PFSH All Active Problems (Updated 12/20/21 @ 08:03 by Dustin Morrison MD) Sciatica (Acute) Anemia (Chronic) Acute on chronic blood loss anemia (Acute) Perforated gastric ulcer (Acute) Gastritis (Acute) Right foot pain (Acute) instep is excruciating ,, cannot flatten Fasciitis (Acute) Tendonitis (Acute) Pain in right leg (Acute) Right hand paresthesia (Acute) Right arm pain (Acute) Cervical radiculopathy (Acute) Skin lesion of back (Acute) mid-back, pruritic .. indented/suspicious.. Chest pain at rest (Acute) Awakened with heaviness, waited x hours (has had it before), but finally went to ED .. 11/20/18 PAF (paroxysmal atrial fibrillation) (Chronic 05/08/15) only one confirmed episode 02/2015; ZIO patch neg; prefers not anticoagulate until A Fib recurs Morbid obesity (Acute 08/20/15) BMI 42, even after bariatric surg History of pulmonary embolism (Acute 01/01/16) Adenoma of large intestine (Acute 05/19/11) 05/2011 Kris Coffey colonoscopy, +tubular adenoma and +family h/o colon cancer (F); again adenoma 02/21/13 04/07/17 - tubulovillous adenoma, ascending colon, Dr Kaye Abdominal aortic aneurysm 30 to 34 mm in diameter (Chronic 07/19/14) 06/2014 3.14 cm, confirmed on CT; 07/2015 3.2cm US 04/21/17 stable 3.3 cm US. 11/2018 [Stable, 3.4CM]. Reactive airway disease (Chronic) a. worse in the spring Medical History Abdominal pain (04/22/13) not diverticulitis per CT 07/28/14; lower abd 07/2015 Acute pain of left shoulder (10/18/17) No specific injury/trauma, pain with movement, abdiel ext rot/supination. Triceps tenderness. Intermittent fingertip numbness. Arm pain, right (09/20/13) rotator cuff pain, persistent trigger finger R; neck pain; trapezious spasm; impingement syndrome At risk for osteoporosis Smoking > 10 yrs, Prednisone (high-dose), PPI, Menopause @ 34yo. (Hx blood clots.. heparin, 1998, near ) Chest heaviness (07/15/16) De Quervain's tenosynovitis, right Diverticulosis a. No diverticulitis DJD, spine Reconfirmed on 07/2018 XR. Esophagitis with gastritis Generalized osteoarthrosis (02/21/13) GERD (gastroesophageal reflux disease) History of tobacco use a. quit in 1998, after roughly 30 pack years Hydronephrosis (05/07/14) Hyperlipidemia (02/21/13) Hypertension Left foot pain (01/27/17) r/o Posteriur Tarsal Tunnel Syn; dr Velasquez, Dr. Aldana Leg edema Lumbar radiculopathy Long Hx ... Acute on chronic Rt sided, 08/2021. ik Migraine (02/21/13) Morbid obesity a. Gastric bypass 1999 b. Multiple nutritional deficiencies, on supplements. c. S/p pannus excision Muscle cramp, nocturnal (12/27/13) gabapentin 100 prn effective Nephrolithiasis (05/07/14) a. First episode - right side b. 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 Bisphosphonate Hx TBD. Pain in joint, shoulder region a. rotator cuff pain Pain of left hip (05/2018) Onset while stretching in bed, suddenly felt sharp pain ... hasn't gone away. Surprising left paraspinal tenderness along lumbar spine @ exam, 08/08/18. Palpitations (07/15/16) Periumbilical abdominal pain (04/14/17) ? umbilical hernia vs adhesions Piriformis syndrome of right side Pseudogout of left wrist (01/22/18) Pyelonephritis (05/07/14) 1. secondary to obstruction Right upper extremity numbness Pain and Tenderness, possible nerve entrapment with numbness .. 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 L4-5 B. L5-S1 Latest XR (07/2018) states pseudospondylolisthesis, no acute Fx/Sublux. Monitoring pain. TMJ (temporomandibular joint disorder) (01/25/16) Trigger finger, right middle finger (01/22/18) Vision loss, right eye Vitamin D deficiency (12/23/16) rx 50,000/wk x ten wk, then 2000 IU daily Surgical History Arthroplasty (06/21/13) [facility] Palomo Bariatric Surgery (06/16/00) Brenda-En-Y gastroplasty with cholecystectomy, Dr. Ami Greene, [facility] Cholecystectomy (06/16/00) Dr Greene, [facility], along with Bariatric procedure Colonoscopy - MAC (04/07/17) H/O surgical procedure a. Gastric bypass 1999 b. Pannus excision c. Excision of Samson neuroma d. Cholecystectomy e. appendectomy f. right oophorectomy g. Hemorrhoidectomy History of bariatric surgery (05/19/00) Dr. Greene, [place] pannus removal (04/02/03) [facility], 3 yr after bariatric surg Repair of umbilical hernia (05/31/17) Dr Kaye S/P bariatric surgery (06/16/00) [facility], pre surg wt 311 lbs Trigger Finger release (11/26/13) A-1 sumi Rt ring finger Family History Father Lung cancer Mother Colon cancer Social History Smoking/Tobacco Use Status: Former Tobacco Use Quit Date: 06/19/98 Smoking risk assessment performed?: Yes Alcohol Intake: never Drug use: Never Substance use type: does not use Caregiver/Support person: No Household members: spouse and children Number of Children: 5 Communication Needs: None Current gender identity: female What is your relationship status?: Panel score (0-1 are the most socially isolated patients): 1 What type of physical activity do you participate in: sedentary lifestyle Duration: < 15 minutes/day Frequency: 3-4 times per week Seatbelt use: always Do you feel safe at home: Yes Do you feel safe in your relationship?: Yes Exam Narrative Exam Narrative: Physical Examination General: alert, awake, cooperative, resting comfortably, no acute distress HEENT: normocephalic, atraumatic; PERRL, EOM intact, conjunctiva normal; no nasal discharge; moist mucous membranes, oral and pharyngeal mucosa normal, tolerating secretions Neck: supple, trachea midline; full ROM Chest: normal to inspection Respiratory: normal respiratory effort, speaking in full sentences, clear to auscultation, no wheezing, rales or rhonchi Cardiac: regular rate, regular rhythm, S1S2 intact, no murmurs rubs or gallops GI: abdomen soft, non-tender, non-distended; no palpable mass or hepatosplenomegaly Back: No midline spinal tenderness, crepitus or deformity Skin: no lesions, rashes or trauma appreciated Neuro: AAOx3, normal speech, moving all extremities; full strength and sensation upper and lower extremities. Ambulatory Extremities: Able to stand and ambulate without issue, no evidence of trauma Psych: Appropriate mood and affect
[2021-12-20 05:56] LABS: Bilirubin Negative (Negative); Blood Trace-intact (Negative); Clarity Sl Cloudy (Clear); Glucose Negative (Negative); Ketones Negative (Negative); Leukocyte Esterase Small (Negative); Nitrite Negative (Negative); Urobilinogen 0.2 EU/dL (Up TO 0.2); pH 6.5 (5-8)
[2021-12-20] MEDS: Cyclobenzaprine 10 MG TAB PO (06:05)
[2021-12-20] MEDS: Lidocaine 5% Patch 1 PATCH TP (06:05)
[2021-12-20] MEDS: Ketorolac 15 MG/ML VIAL IM (06:06)
[2021-12-20 06:07] LABS: Bacteria Few HPF (Negative); C & S Indicated? No/Sq. Contamination; Casts Negative LPF (Negative); Crystals Negative HPF (Negative); Epithelial Cells Moderate HPF (Negative); Mucus Trace (Negative); RBC 0-2 HPF (0-2)
[2021-12-20] MEDS: Dexamethasone 10 MG/ML VIAL IM (07:16)
[2021-12-20] MEDS: LORazepam 1 MG TAB PO (07:17)
[2021-12-20 08:40] VITALS: PULSE 93; RESP 18; O2SAT 99
== END 2021-12-20 08:43 | disposition home or self-care (01) ==
PROVIDERS: Emergency Provider Emergency Medicine; PCP Student in an Organized Health Care Education/Training Program
DX: M54.42 Lumbago with sciatica, left side (principal); I10 Essential (primary) hypertension; Z87.891 Personal history of nicotine dependence
CPT/HCPCS: 96372; 99284; 81003; 81015; J1100; J1885

== ENCOUNTER → 2021-12-21 14:12 | Outpatient (BNVA) | payer MEDICARE, MEDICAID, SELFPAY | PROVIDERS: PCP Student in an Organized Health Care Education/Training Program; Referring Provider Student in an Organized Health Care Education/Training Program; Visit Provider Surgery | DX: Z48.815 Encounter for surgical aftercare following surgery on the digestive system (principal) ==

== ENCOUNTER → 2021-12-22 11:20 | Outpatient (BNVA) | payer MEDICARE, MEDICAID, SELFPAY | PROVIDERS: PCP Student in an Organized Health Care Education/Training Program; Referring Provider Student in an Organized Health Care Education/Training Program; Visit Provider Psychiatry & Neurology Neurology | DX: M79.601 Pain in right arm (principal); R20.2 Paresthesia of skin; M54.32 Sciatica, left side; I10 Essential (primary) hypertension | CPT/HCPCS: 99213 ==

== ENCOUNTER → 2021-12-23 02:00 | Outpatient (CLI) | payer MEDICARE, MEDICAID, SELFPAY ==
--- NOTE | 2021-12-23 07:30 | DI.CT_ITS ---
Exam(s) CT ABDOMEN PELVIS W EXAM: CT ABDOMEN PELVIS W CLINICAL HISTORY: f/u from perforated ulcer,ACUTE ON CHRONIC ANEMIA,K25.5. TECHNIQUE: Imaging Protocol: Axial computed tomography images with coronal and sagittal reformatted images were created and reviewed CONTRAST MATERIAL: Intravenous: Omnipaque 100cc Oral: None COMPARISON: CT CT THORAX ABD/PEL CTA from 12/03/2021 FINDINGS: VISUALIZED LUNG BASES: No nodules nor pleural effusions evident. There is a pericardial effusion aga in noted, similar size. Maximum thickness approximately 11 millimeters. ABDOMEN: There has been interval surgery and placement of what appear to be Tiffany drains. There is a small fl uid collection anterior to the blank drains measuring 2.7 x 1.7 cm. There is evidence of previous ba riatric surgery. The Brenda limb but is retro colic. No obstruction of the Brenda limb nor more distal bowel obstruction at this time. No free air. LIVER: Small benign cyst noted in the upper aspect of the right hepatic lobe, as previously evident. GALLBLADDER/BILIARY: Is not seen and presumed to be surgically absent. CBD is not dilated. PANCREAS: No evidence of pancreatic mass nor dilatation of the pancreatic duct. SPLEEN: Spleen is not enlarged. No obvious intrasplenic lesions. Splenic and portal veins are paten t. There is no thrombosis of the superior mesenteric vein in this patient has had prior bariatric lopez rgery. ADRENALS: There are no significant adrenal masses. KIDNEYS:Cysts again noted in both kidneys. On the left side there appears to be extrarenal pelvis ve rsus or parapelvic cysts.. ABDOMINAL AORTA: Fusiform infrarenal abdominal aortic aneurysm again noted which exhibits external di ameter 4 cm, unchanged. Mild arterial megaly of both common iliac arteries. LYMPH NODES:There is no retroperitoneal nor paraaortic adenopathy. ABDOMINAL WALL: Anterior abdominal hernia mesh. No active anterior abdominal hernia at this time. GI: There is no evidence of bowel obstruction, free air, nor abscess. PELVIS: GI: No evidence of appendicitis.Sigmoid diverticuli. No obvious acute diverticulitis. No free fluid in the aspect of the pelvis. LYMPH NODES: There is no intrapelvic nor inguinal adenopathy. REPRODUCTIVE: Uterus unremarkable. Both ovaries are again noted be slightly prominent for this age g roup. There right ovary is slightly larger than the left. It measures 3.5 by 3.1 cm. No extraovari an adnexal masses. No free fluid in the pelvis. URINARY BLADDER: No calculi nor obvious masses evident OSSEOUS: Degenerative anterolisthesis L4 upon L5 and disc space narrowing at this level noted, simila r to previous. No fractures. No significant osseous lesions. IMPRESSION: 1. Compared to the CT scan of 12/03/2021 there is again evidence of prior bariatric surgery with no e vidence of obstruction of the Brenda limb nor more distal small bowel obstruction. Blank drains are no w noted. There is no abnormal fluid collection in the pelvis. In the anterior aspect of the abdomen there is a small collection anterior to the tiffany drain measuring 2.7 x 1.7 cm. Possibly an abscess . There is no free intraperitoneal air. 2. Pericardial effusion again noted. Thickness is 11 millimeter. Requires appropriate follow-up. 3. Gallbladder surgically absent. The biliary tree is not dilated. 4. Bilateral kidney cysts. On the left side there is what is either a prominent extrarenal pelvis ve rsus or parapelvic cysts. Difficult to differentiate on a single run study. Unchanged 4 cm abdominal aortic aneurysm. Sigmoid diverticulosis. No obvious acute diverticulitis. Somewhat prominent ovaries for this age group again noted. Right ovary measures 35 x 31 millimeters. Left ovary is slightly smaller. Other findings as above RADIATION DOSE DELIVERED: 1,448.08mGy.cm Total DLP DATA REPOSITORY: All CT scans at this facility are submitted to the National Radiology Data Registry (NRDR) Dose Index Registry (DIR) with the [employer] ([employer]). RADIATION OPTIMIZATION: All CT scans at this facility use at least one of these dose optimization te chniques: automated exposure control; mA and/or kV adjustment per patient size (includes targeted exa ms where dose is matched to clinical indication); or iterative reconstruction.
[2021-12-23] MEDS: Breeza Beverage 473 ML BTL PO (09:02)
[2021-12-23] MEDS: Omnipaque 350 MG/ML 100 ML BTL IJ (10:26)
== END ==
PROVIDERS: PCP Student in an Organized Health Care Education/Training Program; Visit Provider Surgery
DX: D62 Acute posthemorrhagic anemia (principal); K25.5 Chronic or unspecified gastric ulcer with perforation; I31.3 Pericardial effusion (noninflammatory); N28.1 Cyst of kidney, acquired; I71.4 Abdominal aortic aneurysm, without rupture; K57.30 Diverticulosis of large intestine without perforation or abscess without bleeding; Z90.49 Acquired absence of other specified parts of digestive tract
CPT/HCPCS: 74177; J3490

== ENCOUNTER → 2021-12-24 11:41 | Outpatient (BNVA) | payer MEDICARE, MEDICAID, SELFPAY | PROVIDERS: PCP Student in an Organized Health Care Education/Training Program; Referring Provider Student in an Organized Health Care Education/Training Program; Visit Provider Physical Therapy Assistant | DX: Z48.815 Encounter for surgical aftercare following surgery on the digestive system (principal) | CPT/HCPCS: 99212 ==

== ENCOUNTER 2021-12-27 16:32 | Outpatient (CLI) | payer MEDICARE, MEDICAID, SELFPAY ==
[2021-12-27 12:49] LABS: Abs Immature Grans 0.03 10^3/uL (0.0-0.06); Absolute Basophil Count 0.05 10^3/uL (0.0-0.2); Absolute Eosinophil Count 0.14 10^3/uL (0.0-0.7); Absolute Lymphocyte Count 1.63 10^3/uL (1.2-3.4); Absolute Monocyte Count 0.96 10^3/uL (0.1-0.8); Absolute Neutrophil Count 6.38 10^3/uL (1.2-6.7); Basophils % 0.5; Eosinophils % 1.5; HCT 35.8 % (36.0-46.0); HGB 11.7 g/dL (11.2-15.7); Immature Grans % 0.3; Lymphocytes % 17.7; MCH 29.8 pg (27.0-33.0); MCHC 32.7 % (32.0-36.0); MCV 91 fL (80-95); MPV 10.2 fL (8.0-11.0); Monocytes % 10.4; Neutrophils % 69.6; Platelet Count 228 10^3/uL (130-400); RBC 3.93 10^6/uL (3.93-5.22); RDW 12.5 % (11.7-14.6); RDW-SD 41.3 fL; WBC 9.19 10^3/uL (4.4-10.8)
[2021-12-27 13:20] LABS: ALT 15 U/L (14-59); AST 11 U/L (15-37); Albumin 3.1 g/dL (3.4-5.0); Alkaline Phosphatase 90 U/L (46-116); Anion Gap 8.5 mmol/L (3-11); BUN 15 mg/dL (7-18); Bilirubin, Total 0.5 mg/dL (0.2-1.0); CO2 30.5 mmol/L (21.0-32.0); CREATININE 0.9 mg/dL (0.55-1.02); Calcium 8.7 mg/dL (8.5-10.1); Calculated LDL 135 mg/dL (<100); Chloride 100 mmol/L (98-107); Cholesterol 217 mg/dL (<200); Ferritin 244 ng/mL (8-252); Glucose 104 mg/dL (74-106); HDL Cholesterol 66 mg/dL (40-60); Potassium 3.8 mmol/L (3.5-5.1); Sodium 139 mmol/L (136-145); TSH (W/Ref FT4) 0.29 uIU/mL (0.36-3.74); Total Protein 7.1 g/dL (6.4-8.2); Triglyceride 81 mg/dL (<150)
[2021-12-27 13:21] LABS: Iron 26 ug/dL (50-170); Total Iron Binding Capacity 259 ug/dL (250-450); Transferrin Sat 10 % (15-50)
[2021-12-27 13:45] LABS: FREE T4 1.26 ng/dL (0.76-1.46)
[2021-12-27 14:11] LABS: Vitamin D 25 Total 50.3 ng/mL (30-100)
== END 2021-12-27 16:33 | disposition home or self-care (01) ==
LOC: LBO 16:34
PROVIDERS: PCP Student in an Organized Health Care Education/Training Program; Visit Provider Surgery
DX: M81.0 Age-related osteoporosis without current pathological fracture (principal); R20.2 Paresthesia of skin; D62 Acute posthemorrhagic anemia; K25.5 Chronic or unspecified gastric ulcer with perforation; I71.4 Abdominal aortic aneurysm, without rupture; I10 Essential (primary) hypertension; E78.5 Hyperlipidemia, unspecified
CPT/HCPCS: 36415; 80053; 80061; 82306; 85027; 99214; 82728; 83540; 83550; 84439; 84443; 85025; 86140

== ENCOUNTER 2021-12-29 09:52 | Emergency (ER) | payer MEDICARE, MEDICAID, SELFPAY ==
--- NOTE | 2021-12-29 10:00 | RT.EKG_ITS ---
APPROVED REPORT Exam: Resting ECG Reason for Exam: chest pain Patient Location: E HR:78 bpm ECG Measurements Heart Rate [address] 152 P 59 QRSd 96 QRS -11 QT 368 T 35 QTc 419 Conclusion Sinus rhythm...normal P axis, V-rate 60- 99 Pyhysician: no stemi
[2021-12-29 10:03] VITALS: BP 117/53; PULSE 93; RESP 21; TEMP 36.5; O2SAT 99
--- NOTE | 2021-12-29 10:07 | DI.CT_ITS ---
Exam(s) CT CHEST PE ABD PELVIS W EXAM: CT CHEST PE ABD PELVIS W CLINICAL HISTORY: right chest/back pain, abd drain, AAA. TECHNIQUE: Imaging Protocol: Axial CT angiography was performed with multi-slice acquisition and m ulti-planar and/or 3D reconstructions. CONTRAST MATERIAL: Intravenous: Omnipaque 350 Contrast volume:100 ml Oral: None COMPARISON: CT CT ABDOMEN PELVIS W from 12/23/2021 FINDINGS: CHEST: PULMONARY ARTERIES: There are thin linear intraluminal filling defects on the right side right lower lobe and right middle lobe vessels. Possibly thin strand like emboli versus webs from prior emboli. No vessel cutoff sign. LUNGS: Mild infiltrate in both lung bases. Tiny amount of pleural fluid.. There are no large pleura l effusions. MEDIASTINUM: There is no hilar nor mediastinal adenopathy. Visualized thyroid unremarkable. CARDIAC: Heart size normal. There is a small pericardial effusion with 8-9 millimeter thickness.Jackson nguyễn of the thoracic aorta is within normal limits. OSSEOUS: Intraosseous hemangiomas noted in the thoracic vertebral bodies. No lytic osseous lesions.. ABDOMEN: There is a right sided percutaneous Shashi drain in place. No ascites. No abscess. LIVER: Small cyst in the superior aspect of the right hepatic lobe. No other significant focal hepat ic findings. GALLBLADDER/BILIARY: Gallbladder is surgically absent. CBD is not dilated. PANCREAS: No evidence of pancreatic mass nor dilatation of the pancreatic duct. SPLEEN: Spleen is not enlarged. There are no intrasplenic lesions. Splenic and portal veins are bingham nt. ADRENALS: There are no significant adrenal masses. KIDNEYS:There is an exophytic cyst off the superior pole of the left kidney. There is also a cyst on the medial aspect of the right kidney measuring 2.8 x 2.8 cm. Parapelvic cysts in the left kidney n oted. No calculi nor hydronephrosis. No solid renal masses. ABDOMINAL AORTA: Fusiform infrarenal abdominal aortic aneurysm with maximum external diameter 4 cm ag ain noted. Arterial megaly continues into the common iliac arteries which both exhibit diameters of 1.5 cm LYMPH NODES: There is no retroperitoneal or para-aortic adenopathy. ABDOMINAL WALL/GI: No evidence of significant anterior abdominal wall hernia. No bowel obstruction. Evidence of previous bariatric surgery. No bowel obstruction PELVIS: LYMPH NODES: There is no intrapelvic nor inguinal adenopathy. GI: Appendix is surgically absent.There is sigmoid diverticuli but no evidence of diverticulitis. URINARY BLADDER: No calculi nor masses evident REPRODUCTIVE: Uterus is surgically absent. Both ovaries are slightly generous size for this age grou p measuring up to 4.3 cm. No ominous ovarian masses evident. OSSEOUS: No significant osseous lesions. IMPRESSION: 1. Thin web-like filling defects in right pulmonary arteries right lower lobe and right middle lobe, either thin strand like acute emboli or webs from prior emboli. There is some mild infiltrate in the lung bases. Tiny pleural effusions. 2. Small pericardial effusion. 3. Right percutaneous plate drain in the abdomen. Evidence of prior Brenda bariatric surgery. 4. Benign renal cysts. No solid renal masses. 5. Abdominal aortic aneurysm 4 cm diameter again noted. Previous appendectomy, cholecystectomy, and hysterectomy. However, both ovaries are still in and fela ears slightly generous in size for this age group. No free fluid. RADIATION DOSE DELIVERED: 2,296.85mGy.cm Total DLP DATA REPOSITORY: All CT scans at this facility are submitted to the National Radiology Data Registry (NRDR) Dose Index Registry (DIR) with the [employer] ([employer]). RADIATION OPTIMIZATION: All CT scans at this facility use at least one of these dose optimization te chniques: automated exposure control; mA and/or kV adjustment per patient size (includes targeted exa ms where dose is matched to clinical indication); or iterative reconstruction.
--- NOTE | 2021-12-29 10:33 | ED.GENADUL_ITS ---
Discharge Plan Disposition Patient Disposition: HOME Condition: Good Discharge Details Clinical Impression: Pulmonary embolism, Right-sided chest pain Primary Care Provider: Brigette Eli ED Provider: Pancho Comer Home Meds and New Rx's Prescriptions: New rivaroxaban 15 mg tablet 15 mg PO BID 21 Days Qty: 42 0RF Rx Instructions: must administer with evening meal lidocaine [Lidoderm] 5 % adhesive patch,medicated 1 patch Topical Q24H Qty: 15 0RF No Action magnesium oxide 400 mg (241.3 mg magnesium) tablet 800 mg PO BID Qty: 360 3RF Rx Instructions: replace magnesium cholecalciferol (vitamin D3) [Vitamin D3] 50 mcg (2,000 unit) capsule 2,000 unit PO DAILY Qty: 90 3RF celecoxib 100 mg capsule 100 mg PO BID Qty: 20 1RF Label Comments: Pt has been only using HSPRN instead of BID, states Provider aware 12/03/21 Rx Instructions: Trial for inflammation, pain. WITH FOOD. famotidine [Heartburn Relief (famotidine)] 20 mg tablet 20 mg PO BID Qty: 60 1RF Label Comments: Has been having issues with pharmacy 12/03/21 Rx Instructions: Trial for gastric pain amoxicillin-pot clavulanate 875-125 mg tablet 1 tab PO BID Qty: 14 0RF furosemide 20 mg tablet See Rx Instructions PO DAILY Qty: 90 3RF Rx Instructions: 20mg daily, may add (1) tab in afternoon 2' weight gain > 5 lbs or severe edema PO daily; tramadol 50 mg tablet 50 mg PO Q8H MDD 150mg Qty: 10 0RF Rx Instructions: Trial for leg pain; may take 2nd tab if pain continues after on hour gabapentin 300 mg capsule 300 mg PO QHS Qty: 30 1RF sumatriptan succinate 50 mg tablet See Rx Instructions PO .COMPLEX Qty: 9 3RF Rx Instructions: take 1 tab at onset of headache; if no relief may repeat 1 tab after at least 2 hrs; max = 4 tabs/24 hr PO lidocaine [Lidoderm] 5 % adhesive patch,medicated 1 patch topical DAILY Qty: 15 1RF Rx Instructions: leave on most painful area for up to 12 hrs metoprolol succinate 25 mg tablet extended release 24 hr 25 mg PO DAILY Bio-K plus 50 billion cell capsule,delayed release(DR/EC) 1 cap PO DAILY Qty: 30 0RF cyclobenzaprine 10 mg tablet 10 mg PO ONCE PRN (Reason: muscle spasm) Qty: 5 0RF Rx Instructions: once daily prn Discharge Instructions Instructions: Chest Pain (ED), Pulmonary Embolism (ED) Additional Instructions: At this time there is concern that you may have a very small pulmonary embolus/blood clot in your right lungs. Because of this and your history of blood clots and your recent surgical procedure recommend that you take the anticoagulant as directed. Take 1 pill twice daily as prescribed. Please follow-up closely with your primary care provider next week for reassessment and discussion of continuation of anticoagulant. Please use a heating pad on your back to help with the muscle spasm. Please take Tylenol as needed for pain. Please stop taking Celebrex/celecoxib as this can cause bleeding in your stomach. If you notice any worsening of your symptoms, or any new symptoms such as vomiting, diarrhea, fever, chills, shortness of breath, chest pain, numbness, weakness, or fainting , please return immediately to the emergency department for reevaluation. Please follow up with your primary care provider as soon as possible for reassessment and reevaluation. As always, it was a pleasure participating in your medical care today. Referrals: Brigette Eli DO [Primary Care Provider] - Medical Decision Making 71-year-old female with a past medical history of paroxysmal A. fib not on blood thinners, previous pulmonary embolism not on blood thinners, AAA, gastritis with recent suspected viscus/gastric ulcer perforation 3 weeks ago. She was admitted at that time and started on meropenem and IV antifungals. She progressed well, KIERSTEN drain remained in place at time of discharge. She has been doing very well until about 2 to 3 days ago where she again developed right back and shoulder pain which radiated to the epigastrium. She also developed fevers, mild pain and swelling in her right arm, and mild achiness in her left lower extremity. She continues to have slow very mild steady discharge into her KIERSTEN drain, without any significant change. Color of the discharge is greenish. She denies any blood. She denies any lower abdominal pain. She does admit to a m ild cough, and states that it hurts when she agrees in the right back. She denies any syncope. She admits to nausea but no vomiting. She states she has been able to continue to tolerate p.o. liquids. She denies any other complaints at this time. No other modifying factors. Physical exam demonstrates tenderness on percussion of the right chest, mild splinting on exam. No evidence of pneumothorax. Small trace pleural effusion on bedside ultrasound, B-lines and mild consolidation in the right lower and middle lobe of the lungs. Left lung unremarkable. Limited bedside ultrasound of the right upper and left lower extremities demonstrate no clear evidence of blood clot. Differential includes PE, pneumonia, redemonstration of intra- abdominal abscess after previous perforation. EKG is unremarkable. Cardiac etiology less likely but potential. We will evaluate for these, give Ofirmev for her pain and fever, gently rehydrate, get a CT scan to evaluate for this and reassess. 3:20 PM On reassessment patient feels slightly better. Laboratory work-up demonstrates negative troponin, EKG benign. No white count or bandemia. D-dimer is notably elevated at 3000. Electrolytes stable, renal function good, proBNP minimally elevated at 413. COVID flu and RSV are negative. CT scan of the chest demonstrates a thin weblike filling defect in the right pulmonary arteries in the right lower lobe and right middle lobe. This was also where the slight B- lines were noted on bedside ultrasound. I did contact surgery and discussed the case with Dr. Soto. He states that anticoagulation would not be contraindicated in this scenario for the patient with a KIERSTEN drain. She continues to otherwise demonstrate a notably benign abdomen, and no signs of peritoneal abdomen whatsoever. We are still pending ultrasound of the right upper extremity and left lower extremity. 3:19 PM Ultrasound negative for acute process for the upper and lower extremity. Suspect to with her notable risk of previous PEs, recent surgery and procedure, likelihood of potential PE now, it would be beneficial to anticoagulate the patient. We will start the patient on rivaroxaban, 50 mg twice daily for 21 d ays. Recommend close follow-up with her primary care provider next week for reassessment and further discussion of continued anticoagulation management if indicated. We will give Lidoderm patch, and prescription for home use. We will give a dose of rivaroxaban here prior to discharge. At this time the patient remains notably stable. Initial and delta troponins are negative. Vital signs notably stable. No evidence of hemodynamic instability requiring admission or tPA. Patient is appropriate for discharge at this time clinically. I have extensively reviewed the treatment plan and discharge instructions with the patient. I have addressed all patient concerns at this time. The patient was made aware of what symptoms to monitor for that would warrant a return to the emergency department. Discussed the plan with the patient, they demonstrate verbal understanding and agreement with our assessment and plan at this time. The documentation in this chart was dictated using [employer] dictation software. Please excuse any dictation errors. FINDINGS: CHEST: PULMONARY ARTERIES: There are thin linear intraluminal filling defects on the right side right lower lobe and right middle lobe vessels. Possibly thin strand like emboli versus webs from prior emboli. No vessel cutoff sign. LUNGS: Mild infiltrate in both lung bases. Tiny amount of pleural fluid.. There are no large pleural effusions. MEDIASTINUM: There is no hilar nor mediastinal adenopathy. Visualized thyroid unremarkable. CARDIAC: Heart size normal. There is a small pericardial effusion with 8-9 millimeter thickness.Caliber of the thoracic aorta is within normal limits. OSSEOUS: Intraosseous hemangiomas noted in the thoracic vertebral bodies. No lytic osseous lesions.. ABDOMEN: There is a right sided percutaneous Shashi drain in place. No ascites. No abscess. LIVER: Small cyst in the superior aspect of the right hepatic lobe. No other significant focal hepatic findings. GALLBLADDER/BILIARY: Gallbladder is surgically absent. CBD is not dilated. PANCREAS: No evidence of pancreatic mass nor dilatation of the pancreatic duct. SPLEEN: Spleen is not enlarged. There are no intrasplenic lesions. Splenic and portal veins are patent. ADRENALS: There are no significant adrenal masses. KIDNEYS:There is an exophytic cyst off the superior pole of the left kidney. There is also a cyst on the medial aspect of the right kidney measuring 2.8 x 2.8 cm. Parapelvic cysts in the left kidney noted. No calculi nor hydronephrosis. No solid renal masses. ABDOMINAL AORTA: Fusiform infrarenal abdominal aortic aneurysm with maximum external diameter 4 cm again noted. Arterial megaly continues into the common iliac arteries which both exhibit diameters of 1.5 cm LYMPH NODES: There is no retroperitoneal or para-aortic adenopathy. ABDOMINAL WALL/GI: No evidence of significant anterior abdominal wall hernia. No bowel obstruction. Evidence of previous bariatric surgery. No bowel obstruction PELVIS: LYMPH NODES: There is no intrapelvic nor inguinal adenopathy. GI: Appendix is surgically absent.There is sigmoid diverticuli but no evidence of diverticulitis. URINARY BLADDER: No calculi nor masses evident REPRODUCTIVE: Uterus is surgically absent. Both ovaries are slightly generous size for this age group measuring up to 4.3 cm. No ominous ovarian masses evident. OSSEOUS: No significant osseous lesions. IMPRESSION: 1. Thin web-like filling defects in right pulmonary arteries right lower lobe and right middle lobe, either thin strand like acute emboli or webs from prior emboli. There is some mild infiltrate in the lung bases. Tiny pleural effusions. 2. Small pericardial effusion. 3. Right percutaneous plate drain in the abdomen. Evidence of prior Brenda bariat gale surgery. 4. Benign renal cysts. No solid renal masses. 5. Abdominal aortic aneurysm 4 cm diameter again noted. Previous appendectomy, cholecystectomy, and hysterectomy. However, both ovaries are still in and appears slightly generous in size for this age group. No free fluid. FINDINGS: Basilic vein: Patent. Normal color-flow and normal compression and augmentation properties. Brachial vein(s):Patent. Normal color flow. Normal compression and augmentation properties. Cephalic vein:Patent. Normal color flow. Normal compression and augmentation properties. Axillary vein: Patent. Normal color flow. Normal compression and augmentation properties. Visualized subclavian vein: Patent. No obvious intraluminal thrombus. IMPRESSION: 1. No evidence of venous thrombosis in the right upper extremity. FINDINGS: There is no evidence of intraluminal thrombus and there is normal compression and augmentation demonstrated within the common femoral vein, femoral vein, and popliteal vein. In the ipsilateral calf the interrogated veins also exhibit normal compression/ augmentation properties. The ipsilateral saphenofemoral junction is patent. At the level the popliteal vein there is a nonocclusive peripheral intraluminal calcification measuring 4 by 1.5 millimeters. This is either calcification in a valve are chronic clot or combination there of. There is no obstruction of flow at this level. IMPRESSION: 1. No evidence of acute DVT in the left lower extremity. 2. Nonobstructive 4 x 1.5 millimeter popliteal vein mural base calcification, e ither calcified valve, calcified prior nonacute clot, or a combination there of. HPI General Date/Time Provider Initiated Documentation: 12/29/21 10:07 . HPI Narrative: 71-year-old female with a past medical history of paroxysmal A. fib not on blood thinners, previous pulmonary embolism not on blood thinners, AAA, gastritis with recent suspected viscus/gastric ulcer perforation 3 weeks ago. She was admitted at that time and started on meropenem and IV antifungals. She progressed well, KIERSTEN drain remained in place at time of discharge. She has been doing very well until about 2 to 3 days ago where she again developed right back and shoulder pain which radiated to the epigastrium. She also developed fevers, mild pain and swelling in her right arm, and mild achiness in her left lower extremity. She continues to have slow very mild steady discharge into her KIERSTEN drain, without any significant change. Color of the discharge is greenish. She denies any blood. She denies any lower abdominal pain. She does admit to a mild cough, and states that it hurts when she agrees in the right back. She denies any syncope. She admits to nausea but no vomiting. She states she has been able to continue to tolerate p.o. liquids. She denies any other complaints at this time. No other modifying factors. Related Data Home Medications Medication Instructions Recorded Confirmed cholecalciferol (vitamin D3) 50 2,000 unit PO DAILY #90 caps 02/26/21 12/29/21 mcg (2,000 unit) capsule (Vitamin D3) magnesium oxide 400 mg (241.3 mg 800 mg PO BID #360 tabs 02/26/21 12/29/21 magnesium) tablet furosemide 20 mg tablet See Rx Instructions PO DAILY #90 08/27/21 12/29/21 tabs celecoxib 100 mg capsule 100 mg PO BID #20 caps 10/02/21 12/29/21 famotidine 20 mg tablet (Heartburn 20 mg PO BID #60 tabs 10/02/21 12/29/21 Relief (famotidine)) gabapentin 300 mg capsule 300 mg PO QHS #30 caps 11/30/21 12/29/21 tramadol 50 mg tablet 50 mg PO Q8H severe pain #10 tabs 11/30/21 12/29/21 metoprolol succinate 25 mg 25 mg PO DAILY 12/03/21 12/29/21 tablet,extended release 24 hr L. acidophilus,casei,rhamnosus 50 1 cap PO DAILY #30 caps 12/09/21 12/29/21 billion cell capsule,delayed release (Bio-K plus) sumatriptan succinate 50 mg tablet See Rx Instructions PO .COMPLEX #9 12/17/21 12/29/21 tabs cyclobenzaprine 10 mg tablet 10 mg PO ONCE PRN muscle spasm #5 12/20/21 12/29/21 tabs lidocaine 5 % topical patch 1 patch topical DAILY #15 ea 12/23/21 12/29/21 (Lidoderm) amoxicillin 875 mg-potassium 1 tab PO BID #14 tabs 12/27/21 12/29/21 clavulanate 125 mg tablet lidocaine 5 % topical patch 1 patch topical Q24H #15 ea 12/29/21 (Lidoderm) rivaroxaban 15 mg tablet 15 mg PO BID 21 days #42 tabs 12/29/21 Previous Rx's Medication Instructions Recorded cholecalciferol (vitamin D3) 50 2,000 unit PO DAILY #90 caps 02/26/21 mcg (2,000 unit) capsule (Vitamin D3) magnesium oxide 400 mg (241.3 mg 800 mg PO BID #360 tabs 02/26/21 magnesium) tablet furosemide 20 mg tablet See Rx Instructions PO DAILY #90 08/27/21 tabs celecoxib 100 mg capsule 100 mg PO BID #20 caps 10/02/21 famotidine 20 mg tablet (Heartburn 20 mg PO BID #60 tabs 10/02/21 Relief (famotidine)) gabapentin 300 mg capsule 300 mg PO QHS #30 caps 11/30/21 tramadol 50 mg tablet 50 mg PO Q8H severe pain #10 tabs 11/30/21 L. acidophilus,casei,rhamnosus 50 1 cap PO DAILY #30 caps 12/09/21 billion cell capsule,delayed release (Bio-K plus) sumatriptan succinate 50 mg tablet See Rx Instructions PO .COMPLEX #9 12/17/21 tabs cyclobenzaprine 10 mg tablet 10 mg PO ONCE PRN muscle spasm #5 12/20/21 tabs lidocaine 5 % topical patch 1 patch topical DAILY #15 ea 12/23/21 (Lidoderm) amoxicillin 875 mg-potassium 1 tab PO BID #14 tabs 12/27/21 clavulanate 125 mg tablet lidocaine 5 % topical patch 1 patch topical Q24H #15 ea 12/29/21 (Lidoderm) rivaroxaban 15 mg tablet 15 mg PO BID 21 days #42 tabs 12/29/21 Allergies Allergy/AdvReac Type Severity Reaction Status Date / Time morphine Allergy Intermediate Itching Verified 12/29/21 10:09 codeine AdvReac Intermediate muscle Verified 12/29/21 10:09 spasms oxycodone HCl [From Percocet] AdvReac Intermediate muscle Verified 12/29/21 10:09 spasms, hard on stomach General Stated Complaint: [employer] AJITH: 3 Review of Systems All systems reviewed & are unremarkable except as noted in HPI and below PFSH All Active Problems (Updated 12/29/21 @ 15:11 by Pancho Comer DO) Pulmonary embolism (Chronic) Right-sided chest pain (Acute) Abscess (Acute) Sciatica (Acute) Anemia (Chronic) Acute on chronic blood loss anemia (Acute) Perforated gastric ulcer (Acute) Gastritis (Acute) Right foot pain (Acute) instep is excruciating ,, cannot flatten Fasciitis (Acute) Tendonitis (Acute) Right hand paresthesia (Acute) Right arm pain (Acute) Cervical radiculopathy (Acute) Skin lesion of back (Acute) mid-back, pruritic .. indented/suspicious.. Chest pain at rest (Acute) Awakened with heaviness, waited x hours (has had it before), but finally went to ED .. 11/20/18 PAF (paroxysmal atrial fibrillation) (Chronic 05/08/15) only one confirmed episode 02/2015; ZIO patch neg; prefers not anticoagulate until A Fib recurs Morbid obesity (Acute 08/20/15) BMI 42, even after bariatric surg History of pulmonary embolism (Acute 01/01/16) Adenoma of large intestine (Acute 05/19/11) 05/2011 Kris Coffey colonoscopy, +tubular adenoma and +family h/o colon cancer (F); again adenoma 02/21/13 04/07/17 - tubulovillous adenoma, ascending colon, Dr Kaye Abdominal aortic aneurysm 30 to 34 mm in diameter (Chronic 07/19/14) 06/2014 3.14 cm, confirmed on CT; 07/2015 3.2cm US 04/21/17 stable 3.3 cm US. 11/2018 [Stable, 3.4CM]. Reactive airway disease (Chronic) a. worse in the spring Medical History Abdominal pain (04/22/13) not diverticulitis per CT 07/28/14; lower abd 07/2015 Acute pain of left shoulder (10/18/17) No specific injury/trauma, pain with movement, abdiel ext rot/supination. Triceps tenderness. Intermittent fingertip numbness. Arm pain, right (09/20/13) rotator cuff pain, persistent trigger finger R; neck pain; trapezious spasm; impingement syndrome At risk for osteoporosis Smoking > 10 yrs, Prednisone (high-dose), PPI, Menopause @ 34yo. (Hx blood clots.. heparin, 1998, near ) Chest heaviness (07/15/16) De Quervain's tenosynovitis, right Diverticulosis a. No diverticulitis DJD, spine Reconfirmed on 07/2018 XR. Esophagitis with gastritis Generalized osteoarthrosis (02/21/13) GERD (gastroesophageal reflux disease) History of tobacco use a. quit in 1998, after roughly 30 pack years Hydronephrosis (05/07/14) Hyperlipidemia (02/21/13) Hypertension Left foot pain (01/27/17) r/o Posteriur Tarsal Tunnel Syn; dr Velasquez, Dr. Aldana Leg edema Lumbar radiculopathy Long Hx ... Acute on chronic Rt sided, 08/2021. ik Migraine (02/21/13) Morbid obesity a. Gastric bypass 1999 b. Multiple nutritional deficiencies, on supplements. c. S/p pannus excision Muscle cramp, nocturnal (12/27/13) gabapentin 100 prn effective Nephrolithiasis (05/07/14) a. First episode - right side b. 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 Bisphosphonate Hx TBD. Pain in joint, shoulder region a. rotator cuff pain Pain of left hip (05/2018) Onset while stretching in bed, suddenly felt sharp pain ... hasn't gone away. Surprising left paraspinal tenderness along lumbar spine @ exam, 08/08/18. Palpitations (07/15/16) Periumbilical abdominal pain (04/14/17) ? umbilical hernia vs adhesions Piriformis syndrome of right side Pseudogout of left wrist (01/22/18) Pyelonephritis (05/07/14) 1. secondary to obstruction Right upper extremity numbness Pain and Tenderness, possible nerve entrapment with numbness .. 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 L4-5 B. L5-S1 Latest XR (07/2018) states pseudospondylolisthesis, no acute Fx/Sublux. Monitoring pain. TMJ (temporomandibular joint disorder) (01/25/16) Trigger finger, right middle finger (01/22/18) Vision loss, right eye Vitamin D deficiency (12/23/16) rx 50,000/wk x ten wk, then 2000 IU daily Surgical History Arthroplasty (06/21/13) Cheri Palomo Bariatric Surgery (06/16/00) Brenda-En-Y gastroplasty with cholecystectomy, Dr. Ami Greene, [facility] Cholecystectomy (06/16/00) Dr Greene [facility], along with Bariatric procedure Colonoscopy - MAC (04/07/17) H/O surgical procedure a. Gastric bypass 1999 b. Pannus excision c. Excision of Samson neuroma d. Cholecystectomy e. appendectomy f. right oophorectomy g. Hemorrhoidectomy History of bariatric surgery (05/19/00) Dr. Greene, [facility] pannus removal (04/02/03) [facility], 3 yr after bariatric surg Repair of umbilical hernia (05/31/17) Dr Kaye S/P bariatric surgery (06/16/00) [facility], pre surg wt 311 lbs Trigger Finger release (11/26/13) A-1 sumi Rt ring finger Family History Father Lung cancer Mother Colon cancer Social History Smoking/Tobacco Use Status: Former Tobacco Use Quit Date: 06/19/98 Smoking risk assessment performed?: Yes Alcohol Intake: never Drug use: Never Substance use type: does not use Caregiver/Support person: No Household members: spouse and children Number of Children: 5 Communication Needs: None Current gender identity: female What is your relationship status?: Panel score (0-1 are the most socially isolated patients): 1 What type of physical activity do you participate in: sedentary lifestyle Duration: < 15 minutes/day Frequency: 3-4 times per week Seatbelt use: always Do you feel safe at home: Yes Do you feel safe in your relationship?: Yes Exam Narrative Exam Narrative: 1.Const: Well-nourished, Well-developed, appearing stated age 2.Eyes: PERRL, no conjunctival injection, and symmetrical lids. 3.ENT: Atraumatic external nose and ears. Moist MM. Neck: Symmetric, trachea midline, No thyromegaly. 4.CVS: +S1/S2, No murmurs or gallops. Peripheral pulses 2+ and equal in all extremities. Brisk capillary refill in all extremities. 5.RESP: Mild splinting on the right-hand side when the patient breathes, no wheezes or rhonchi's. Slightly diminished breath sounds on the right. Difficult to auscultate any crackles or rails. Mild tenderness on percussion of the right chest. No evidence of pneumothorax on bedside ultrasound. There is evidence of notable B-lines and questionable mild consolidation in the right lower and midlung ruby. Trace pleural effusion on bedside ultrasound. 6.GI: Soft, Nontender/Nondistended, No hepatosplenomegaly. No guarding or rebound. No evidence of peritonitis. KIERSTEN drain is in place, no severe redness or signs of cellulitis. No tenderness around the KIERSTEN drain. Small amount of discharge present in the KIERSTEN bulb. 7.MSK: Normocephalic/Atraumatic, Extremities w/o deformity. A very small amount of swelling on the right hand. Mild achiness throughout the entirety of the right upper extremity. No nadeen edema though. Limited bedside ultrasound shows no clear evidence of DVT in the arm. Right calf and right leg are nontender. Left calf and left leg is mildly tender with movement and palpation. No clear evidence of large DVT in the femoral vein. 8.Skin: Warm, Dry. Please see musculoskeletal 9.Neuro: cath lab radiology technician II-XII grossly intact. Sensation grossly intact, no focal neurologic deficits. 10.Psych: (AAO) x3. Appropriate mood and affect Course Vital Signs Vital signs: Vital Signs Temperature 36.5 C 12/29/21 10:03 Pulse 93 H 12/29/21 10:03 Respiratory Rate 21 12/29/21 10:03 Blood Pressure 117/53 L 12/29/21 10:03 Pulse Oximetry 99 12/29/21 10:03 Temperature 36.5 C 12/29/21 10:03 Temperature Source Temporal Artery Scan 12/29/21 10:03 Pulse 93 H 12/29/21 10:03 Respiratory Rate 21 12/29/21 10:03 Respiratory Effort 12/29/21 10:08 Blood Pressure 117/53 L 12/29/21 10:03 Blood Pressure Position Supine 12/29/21 10:03 Pulse Oximetry 99 12/29/21 10:03 Oxygen Delivery Method Room Air 12/29/21 10:03 Oxygen Flow Rate 0 12/29/21 10:03 Pain Level 10 12/29/21 10:03 Lab/Test Results Lab/Test Results: 12/29/21 10:08 Blood Blood Culture - Pending 12/29/21 10:08 Blood Blood Culture - Pending Procedures EJ/Peripheral Line Arm R: Time Out Performed: Yes Skin Cleansed in Sterile Fashion: Yes Size (gauge): 18 Patient Tolerated Procedure: well and no complications Additional Comments: Candidate vein examined with linear array probe - confirmed collapsibility, lack of pulsatility, and proper anatomic location. Using aseptic technique, IV catheter inserted with flash of blood noted, flow of venous blood confirmed. Flushes easily and without pain. No hematoma or complications noted. IV secured. Patient tolerated well.
[2021-12-29 11:04] VITALS: RESP 17
[2021-12-29 11:04] LABS: Lactate 0.9 mmol/L (0.6-1.4)
[2021-12-29] MEDS: ACETAMINOPHEN 1,000 MG/100 ML BTL 400 MG IVPB (11:04)
[2021-12-29 11:05] LABS: Abs Immature Grans 0.06 10^3/uL (0.0-0.06); Absolute Basophil Count 0.05 10^3/uL (0.0-0.2); Absolute Eosinophil Count 0.02 10^3/uL (0.0-0.7); Absolute Lymphocyte Count 1.27 10^3/uL (1.2-3.4); Absolute Monocyte Count 1.39 10^3/uL (0.1-0.8); Absolute Neutrophil Count 7.59 10^3/uL (1.2-6.7); Basophils % 0.5; Eosinophils % 0.2; HCT 33.2 % (36.0-46.0); HGB 11.3 g/dL (11.2-15.7); Immature Grans % 0.6; Lymphocytes % 12.2; MCV 88 fL (80-95); MPV 10.4 fL (8.0-11.0); Monocytes % 13.4; Neutrophils % 73.1; Platelet Count 192 10^3/uL (130-400); RBC 3.77 10^6/uL (3.93-5.22); RDW 12.8 % (11.7-14.6); RDW-SD 40.9 fL; WBC 10.38 10^3/uL (4.4-10.8)
[2021-12-29 11:08] LABS: COVID-19 PCR Negative (Negative); Influenza A PCR Negative (Negative); Influenza B PCR Negative (Negative); RSV PCR Negative (Negative)
[2021-12-29] MEDS: Normal Saline 500 ML IV (11:23)
[2021-12-29 11:29] LABS: ALT 11 U/L (14-59); AST 12 U/L (15-37); Albumin 2.6 g/dL (3.4-5.0); Alkaline Phosphatase 81 U/L (46-116); Anion Gap 7.5 mmol/L (3-11); BUN 14 mg/dL (7-18); Bilirubin, Total 0.8 mg/dL (0.2-1.0); CO2 27.5 mmol/L (21.0-32.0); CREATININE 0.9 mg/dL (0.55-1.02); Calcium 8.6 mg/dL (8.5-10.1); Chloride 98 mmol/L (98-107); Glucose 133 mg/dL (74-106); INR 1.1 (0.9-1.1); NT-proBNP 413 pg/mL (<300); PTT Activated 26.5 sec (21.0-27.5); Potassium 4.2 mmol/L (3.5-5.1); Prothrombin Time 11.1 sec (9.3-11.0); Sodium 133 mmol/L (136-145); Total Protein 6.9 g/dL (6.4-8.2); Troponin I < 50 ng/L (<or=60)
[2021-12-29 11:41] LABS: D-Dimer 3012 ng/mlFEU (<500)
[2021-12-29] MEDS: Omnipaque 350 MG/ML 100 ML BTL IJ (13:17)
[2021-12-29] MEDS: Normal Saline Flush 10 ML SYR IVP (13:19)
--- NOTE | 2021-12-29 13:45 | DI.US_ITS ---
Exam(s) US LOWER EXTREMITY VENOUS LT EXAM: US LOWER EXTREMITY VENOUS LT CLINICAL HISTORY: hx clots, recent surgery, elevated dimer, r/o clot TECHNIQUE: Grayscale, color, and doppler imaging of the deep venous system of the lower extremity w as performed. COMPARISON: No exams were available for comparison FINDINGS: There is no evidence of intraluminal thrombus and there is normal compression and augmentation demons trated within the common femoral vein, femoral vein, and popliteal vein. In the ipsilateral calf the interrogated veins also exhibit normal compression/ augmentation properti es. The ipsilateral saphenofemoral junction is patent. At the level the popliteal vein there is a nonocclusive peripheral intraluminal calcification measuri ng 4 by 1.5 millimeters. This is either calcification in a valve are chronic clot or combination the re of. There is no obstruction of flow at this level. IMPRESSION: 1. No evidence of acute DVT in the left lower extremity. 2. Nonobstructive 4 x 1.5 millimeter popliteal vein mural base calcification, either calcified valve , calcified prior nonacute clot, or a combination there of. DATA REPOSITORY:
--- NOTE | 2021-12-29 13:45 | DI.US_ITS ---
Exam(s) US UPPER EXTREMITY VENOUS RT EXAM: US UPPER EXTREMITY VENOUS RT CLINICAL HISTORY: hx clots, recent surgery, elevated dimer, r/o clot TECHNIQUE: GRAYSCALE, COLOR, DOPPLER IMAGING OF THE VENOUS SYSTEM OF THE UPPER EXTREMITY-RIGHT COMPARISON: US US LOWER EXTREMITY VENOUS LT from 12/29/2021 FINDINGS: Basilic vein: Patent. Normal color-flow and normal compression and augmentation properties. Brachial vein(s):Patent. Normal color flow. Normal compression and augmentation properties. Cephalic vein:Patent. Normal color flow. Normal compression and augmentation properties. Axillary vein: Patent. Normal color flow. Normal compression and augmentation properties. Visualized subclavian vein: Patent. No obvious intraluminal thrombus. IMPRESSION: 1. No evidence of venous thrombosis in the right upper extremity. DATA REPOSITORY:
[2021-12-29 14:32] LABS: Troponin I < 50 ng/L (<or=60)
[2021-12-29 15:16] VITALS: BP 113/77; PULSE 82; TEMP 36.5; O2SAT 97
[2021-12-29] MEDS: Lidocaine 5% Patch 1 PATCH TP (15:18)
[2021-12-29] MEDS: Rivaroxaban 15 MG TABLET PO (15:19)
--- NOTE | 2021-12-29 15:23 | NUR.NOTE ---
Nursing Note: Referral faxed to PCP for PE re-assessment;for next week.
== END 2021-12-29 15:25 | disposition home or self-care (01) ==
PROVIDERS: Emergency Provider Student in an Organized Health Care Education/Training Program; PCP Student in an Organized Health Care Education/Training Program
DX: I26.99 Other pulmonary embolism without acute cor pulmonale (principal); I10 Essential (primary) hypertension; Z87.891 Personal history of nicotine dependence; M79.662 Pain in left lower leg; M79.89 Other specified soft tissue disorders; M25.511 Pain in right shoulder
CPT/HCPCS: 36415; 71275; 74177; 80053; 87040; 87077; 87637; 93005; 96361; 96374; 99285; 83605; 83880; 84484; 85025; 85379; 85610; 85730; 93010; 93971; J0131; J3490

== ENCOUNTER 2021-12-30 11:09 | Inpatient (IN) | payer MEDICARE, MEDICAID, SELFPAY ==
[2021-12-30] VITALS (42 sets, daily range): BP systolic 87–135; BP diastolic 50–68; PULSE 75–85; RESP 16–28; TEMP 35.7–38.3; O2SAT 95–98
--- NOTE | 2021-12-30 | DI.US_ITS ---
Exam(s) US LOWER EXTREMITY VENOUS RT EXAM: US LOWER EXTREMITY VENOUS RT CLINICAL HISTORY: question of DVT/PE TECHNIQUE: Right lower extremity venous ultrasound performed using grayscale, color-flow, and spectr al Doppler analysis. COMPARISON: No exams were available for comparison FINDINGS: There is hypoechoic thrombus seen ascending from the mid right peroneal vein proximally into the popl iteal and mid and distal femoral veins. The thrombus extends 4.4 cm from the saphenofemoral junction . The posterior tibial veins are patent. The saphenofemoral junction is unremarkable. There is no evidence of a Cohen cyst. The soft tissues are unremarkable. IMPRESSION: 1. Examination positive for right lower extremity deep venous thrombus. 2. Results of this exam have been verbally communicated with provider. DATA REPOSITORY:
--- NOTE | 2021-12-30 11:15 | RT.EKG_ITS ---
APPROVED REPORT Exam: Resting ECG Reason for Exam: chest pain fever Patient Location: E HR:81 bpm ECG Measurements Heart Rate 81 AXIS AR 162 P 60 QRSd 97 QRS -9 QT 366 T 42 QTc 424 Conclusion Sinus rhythm...normal P axis, V-rate 60- 99. Sinus. No STEMI. I have reviewed and interpreted ECG and agree with software generated interpretation.
[2021-12-30] MEDS: Normal Saline 500 ML IV (11:40)
[2021-12-30 12:02] LABS: Abs Immature Grans 0.04 10^3/uL (0.0-0.06); Absolute Basophil Count 0.04 10^3/uL (0.0-0.2); Absolute Eosinophil Count 0.05 10^3/uL (0.0-0.7); Absolute Monocyte Count 1.19 10^3/uL (0.1-0.8); Basophils % 0.4; Eosinophils % 0.5; HCT 31.6 % (36.0-46.0); HGB 10.4 g/dL (11.2-15.7); Immature Grans % 0.4; MCH 29.5 pg (27.0-33.0); MCHC 32.9 % (32.0-36.0); MCV 90 fL (80-95); MPV 10.4 fL (8.0-11.0); Monocytes % 11.9; Neutrophils % 70.8; Platelet Count 187 10^3/uL (130-400); RBC 3.53 10^6/uL (3.93-5.22); RDW 12.6 % (11.7-14.6); RDW-SD 41.2 fL; WBC 10.02 10^3/uL (4.4-10.8)
[2021-12-30 12:03] LABS: Lactate 0.7 mmol/L (0.6-1.4)
--- NOTE | 2021-12-30 12:06 | DI.RAD_ITS ---
Exam(s) XR PORTABLE CHEST AP EXAM: XR PORTABLE CHEST AP CLINICAL HISTORY: fever TECHNIQUE: 2D digital imaging was performed of the chest. One image was obtained. An AP view was ob tained. COMPARISON: CR XR CHEST 2V PA LATERAL from 11/20/2018 FINDINGS: MEDIASTINUM: Normal. HEART: Normal. PULMONARY VASCULATURE: Normal. LUNGS: Faint opacities are seen in the lower lobes bilaterally. PLEURAL SPACE: No pleural effusion or pneumothorax. BONE:Within normal limits for the patient's age. OTHER FINDINGS:Normal. IMPRESSION: Bilateral basilar opacities. These are nonspecific. Pneumonia, edema or atelectasis should be consi dered. Please correlate clinically. DATA REPOSITORY: RADIATION DOSE DELIVERED:
[2021-12-30 12:22] LABS: ALT 10 U/L (14-59); AST 8 U/L (15-37); Albumin 2.3 g/dL (3.4-5.0); Alkaline Phosphatase 80 U/L (46-116); BUN 18 mg/dL (7-18); Bilirubin, Total 0.4 mg/dL (0.2-1.0); Calcium 8.5 mg/dL (8.5-10.1); Chloride 100 mmol/L (98-107); Estimated GFR 54.66 (mL/min/1.73m2); Glucose 112 mg/dL (74-106); Potassium 3.7 mmol/L (3.5-5.1); Sodium 136 mmol/L (136-145); Total Protein 6.5 g/dL (6.4-8.2); Troponin I < 50 ng/L (<or=60)
--- NOTE | 2021-12-30 13:01 | ED.GENADUL_ITS ---
Discharge Plan Disposition Patient Disposition: [facility] INPATIENT Condition: Serious Discharge Details Chief Complaint: GenMedical Clinical Impression: History of pulmonary embolism, Pneumonia Admit Date/Time: 12/30/21 13:03 Admit Provider: Tj Segundo Attending Provider: Tj Segundo Primary Care Provider: Brigette Eli ED Provider: Joan Newton Discharge Data Discharge Date/Time-TO BE ENTERED AT DEPARTURE: 12/30/21 14:36 Medical Decision Making Reviewed patient's CT chest abdomen and pelvis from yesterday Evidence of bilateral interstitial opacities, likely consistent with pneumonia, repeat x-ray with likely pneumonia COVID-negative possible pe, on xarelto, no hypoxia, no oxygen dependency, likely pneumonia given cough, fever, pain Started on cefepime, Vanco, and Levaquin secondary to recent hospitalization and current Augmentin use secondary to recent KIERSTEN drain placement with perforated viscus Patient agreeable to admission at this time for IV antibiotics Case discussed with admitting hospitalist, Dr. Shah agreeable to admission IV fluids administered Mild lactic acidosis no asthma exacerbation given that clear that metoprolol ER evaluated really resuscitated for symptoms of inhaler he radiology I think the most patient exacerbated Medical Records Medical records reviewed: Yes I reviewed the patient's medical records. Lab Data Lab results reviewed: Yes I reviewed the patient's lab results. HPI General Date/Time Provider Initiated Documentation: 12/30/21 11:15 . HPI Narrative: This 71-year-old female with right chest wall pain for the past 3 days presents status post being discharged yesterday with reported PE per current pain and shortness of breath. Denies any calf pain or swelling. Reports chills, headache, fever, body aches. T-max 101 at home. Worsening pain in her back reportedly. Denies stiff neck. Denies history of similar symptoms in the past. Single dose of Xarelto, was unable to fill her prescription secondary to insurance prerequisite. Denies any recent tick bites. Denies any history of IV drug abuse. Reports she started coughing today. Describes the pain as sharp. She reports pleuritic pain. Denies radiation. Related Data Home Medications Medication Instructions Recorded Confirmed cholecalciferol (vitamin D3) 50 2,000 unit PO DAILY #90 caps 02/26/21 12/30/21 mcg (2,000 unit) capsule (Vitamin D3) magnesium oxide 400 mg (241.3 mg 800 mg PO BID #360 tabs 02/26/21 12/30/21 magnesium) tablet furosemide 20 mg tablet See Rx Instructions PO DAILY #90 08/27/21 12/30/21 tabs celecoxib 100 mg capsule 100 mg PO BID #20 caps 10/02/21 12/30/21 famotidine 20 mg tablet (Heartburn 20 mg PO BID #60 tabs 10/02/21 12/30/21 Relief (famotidine)) gabapentin 300 mg capsule 300 mg PO QHS #30 caps 11/30/21 12/30/21 tramadol 50 mg tablet 50 mg PO Q8H severe pain #10 tabs 11/30/21 12/30/21 metoprolol succinate 25 mg 25 mg PO DAILY 12/03/21 12/30/21 tablet,extended release 24 hr L. acidophilus,casei,rhamnosus 50 1 cap PO DAILY #30 caps 12/09/21 12/30/21 billion cell capsule,delayed release (Bio-K plus) sumatriptan succinate 50 mg tablet See Rx Instructions PO .COMPLEX #9 12/17/21 12/30/21 tabs cyclobenzaprine 10 mg tablet 10 mg PO ONCE PRN muscle spasm #5 12/20/21 12/30/21 tabs lidocaine 5 % topical patch 1 patch topical DAILY #15 ea 12/23/21 12/30/21 (Lidoderm) amoxicillin 875 mg-potassium 1 tab PO BID #14 tabs 12/27/21 12/30/21 clavulanate 125 mg tablet rivaroxaban 15 mg tablet 15 mg PO BID 21 days #42 tabs 12/29/21 12/30/21 Previous Rx's Medication Instructions Recorded cholecalciferol (vitamin D3) 50 2,000 unit PO DAILY #90 caps 02/26/21 mcg (2,000 unit) capsule (Vitamin D3) magnesium oxide 400 mg (241.3 mg 800 mg PO BID #360 tabs 02/26/21 magnesium) tablet furosemide 20 mg tablet See Rx Instructions PO DAILY #90 08/27/21 tabs celecoxib 100 mg capsule 100 mg PO BID #20 caps 10/02/21 famotidine 20 mg tablet (Heartburn 20 mg PO BID #60 tabs 10/02/21 Relief (famotidine)) gabapentin 300 mg capsule 300 mg PO QHS #30 caps 11/30/21 tramadol 50 mg tablet 50 mg PO Q8H severe pain #10 tabs 11/30/21 L. acidophilus,casei,rhamnosus 50 1 cap PO DAILY #30 caps 12/09/21 billion cell capsule,delayed release (Bio-K plus) sumatriptan succinate 50 mg tablet See Rx Instructions PO .COMPLEX #9 12/17/21 tabs cyclobenzaprine 10 mg tablet 10 mg PO ONCE PRN muscle spasm #5 12/20/21 tabs lidocaine 5 % topical patch 1 patch topical DAILY #15 ea 12/23/21 (Lidoderm) amoxicillin 875 mg-potassium 1 tab PO BID #14 tabs 12/27/21 clavulanate 125 mg tablet rivaroxaban 15 mg tablet 15 mg PO BID 21 days #42 tabs 12/29/21 Allergies Allergy/AdvReac Type Severity Reaction Status Date / Time morphine Allergy Intermediate Itching Verified 12/30/21 12:24 codeine AdvReac Intermediate muscle Verified 12/30/21 12:24 spasms oxycodone HCl [From Percocet] AdvReac Intermediate muscle Verified 12/30/21 12:24 spasms, hard on stomach General Stated Complaint: GenMedical AJITH: 3 Review of Systems All systems reviewed & are unremarkable except as noted in HPI and below PFSH All Active Problems (Updated 12/31/21 @ 20:17 by HARSH Stewart) Pleuritic chest pain (Acute) Diffuse pain in right upper extremity (Acute) Right leg DVT (Acute) Discharge planning issues (Acute) DVT prophylaxis (Acute) Pneumonia (Acute) Sepsis (Acute) Pulmonary embolism (Chronic) Right-sided chest pain (Acute) Abscess (Acute) Sciatica (Acute) Anemia (Chronic) Acute on chronic blood loss anemia (Acute) Perforated gastric ulcer (Acute) Gastritis (Acute) Right foot pain (Acute) instep is excruciating ,, cannot flatten Fasciitis (Acute) Tendonitis (Acute) Right hand paresthesia (Acute) Right arm pain (Acute) Cervical radiculopathy (Acute) Skin lesion of back (Acute) mid-back, pruritic .. indented/suspicious.. Chest pain at rest (Acute) Awakened with heaviness, waited x hours (has had it before), but finally went to ED .. 11/20/18 PAF (paroxysmal atrial fibrillation) (Chronic 05/08/15) only one confirmed episode 02/2015; ZIO patch neg; prefers not anticoagulate until A Fib recurs Morbid obesity (Acute 08/20/15) BMI 42, even after bariatric surg History of pulmonary embolism (Acute 01/01/16) Adenoma of large intestine (Acute 05/19/11) 05/2011 Kris Coffey colonoscopy, +tubular adenoma and +family h/o colon cancer (F); again adenoma 02/21/13 04/07/17 - tubulovillous adenoma, ascending colon, Dr Kaye Abdominal aortic aneurysm 30 to 34 mm in diameter (Chronic 07/19/14) 06/2014 3.14 cm, confirmed on CT; 07/2015 3.2cm US 04/21/17 stable 3.3 cm US. 11/2018 [Stable, 3.4CM]. Reactive airway disease (Chronic) a. worse in the spring Medical History Abdominal pain (04/22/13) not diverticulitis per CT 07/28/14; lower abd 07/2015 Acute pain of left shoulder (10/18/17) No specific injury/trauma, pain with movement, abdiel ext rot/supination. Triceps tenderness. Intermittent fingertip numbness. Arm pain, right (09/20/13) rotator cuff pain, persistent trigger finger R; neck pain; trapezious spasm; impingement syndrome At risk for osteoporosis Smoking > 10 yrs, Prednisone (high-dose), PPI, Menopause @ 34yo. (Hx blood clots.. heparin, 1998, near ) Chest heaviness (07/15/16) De Quervain's tenosynovitis, right Diverticulosis a. No diverticulitis DJD, spine Reconfirmed on 07/2018 XR. Esophagitis with gastritis Generalized osteoarthrosis (02/21/13) GERD (gastroesophageal reflux disease) History of tobacco use a. quit in 1998, after roughly 30 pack years Hydronephrosis (05/07/14) Hyperlipidemia (02/21/13) Hypertension Left foot pain (01/27/17) r/o Posteriur Tarsal Tunnel Syn; dr Velasquez, Dr. Aldana Leg edema Lumbar radiculopathy Long Hx ... Acute on chronic Rt sided, 08/2021. ik Migraine (02/21/13) Morbid obesity a. Gastric bypass 1999 b. Multiple nutritional deficiencies, on supplements. c. S/p pannus excision Muscle cramp, nocturnal (12/27/13) gabapentin 100 prn effective Nephrolithiasis (05/07/14) a. First episode - right side b. 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 Bisphosphonate Hx TBD. Pain in joint, shoulder region a. rotator cuff pain Pain of left hip (05/2018) Onset while stretching in bed, suddenly felt sharp pain ... hasn't gone away. Surprising left paraspinal tenderness along lumbar spine @ exam, 08/08/18. Palpitations (07/15/16) Periumbilical abdominal pain (04/14/17) ? umbilical hernia vs adhesions Piriformis syndrome of right side Pseudogout of left wrist (01/22/18) Pyelonephritis (05/07/14) 1. secondary to obstruction Right upper extremity numbness Pain and Tenderness, possible nerve entrapment with numbness .. 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 L4-5 B. L5-S1 Latest XR (07/2018) states pseudospondylolisthesis, no acute Fx/Sublux. Monitoring pain. TMJ (temporomandibular joint disorder) (01/25/16) Trigger finger, right middle finger (01/22/18) Vision loss, right eye Vitamin D deficiency (12/23/16) rx 50,000/wk x ten wk, then 2000 IU daily Surgical History Arthroplasty (06/21/13) R thumb Dreisbach Bariatric Surgery (06/16/00) Brenda-En-Y gastroplasty with cholecystectomy, Dr. Ami Greene, [facility] Cholecystectomy (06/16/00) [facility]MA Vo, along with Bariatric procedure Colonoscopy - MAC (04/07/17) H/O surgical procedure a. Gastric bypass 1999 b. Pannus excision c. Excision of Samson neuroma d. Cholecystectomy e. appendectomy f. right oophorectomy g. Hemorrhoidectomy History of bariatric surgery (05/19/00) Dr. Greene, [facility] pannus removal (04/02/03) [facility], 3 yr after bariatric surg Repair of umbilical hernia (05/31/17) Dr Kaye S/P bariatric surgery (06/16/00) [facility], pre surg wt 311 lbs Trigger Finger release (11/26/13) A-1 sumi Rt ring finger Family History Father Lung cancer Mother Colon cancer Social History Smoking/Tobacco Use Status: Former Tobacco Use Quit Date: 06/19/98 Smoking risk assessment performed?: Yes Alcohol Intake: never Drug use: Never Substance use type: does not use Caregiver/Support person: No Household members: spouse and children Number of Children: 5 Communication Needs: None Current gender identity: female What is your relationship status?: Panel score (0-1 are the most socially isolated patients): 1 What type of physical activity do you participate in: sedentary lifestyle Duration: < 15 minutes/day Frequency: 3-4 times per week Seatbelt use: always Do you feel safe at home: Yes Do you feel safe in your relationship?: Yes Exam Const General: cooperative and ill appearing HENAK Head: normal to inspection Mouth: oral mucosae normal Neck Other: No meningismus Resp Effort & Inspection: able to speak in complete sentences and cough Auscultation: wheezes Other: Tachypneic Cardio Rhythm: regular rhythm GI Other: KIERSTEN drain in place, nontender abdominal exam, no erythema, no CVA tenderness Skin General skin exam: no rashes or lesions noted Neuro General: patient alert and patient oriented x3 Extrem Other: Distal pulses in tact, noSwelling or tenderness Course Vital Signs Vital signs: Vital Signs Temperature 38.3 C H 12/30/21 11:13 Pulse 83 12/30/21 11:13 Respiratory Rate 28 H 12/30/21 11:13 Blood Pressure 135/55 L 12/30/21 11:13 Pulse Oximetry 98 12/30/21 11:13 Temperature 38.3 C H 12/30/21 11:44 Temperature Source Skin 12/30/21 11:13 Pulse 78 12/30/21 12:16 Pulse 82 12/30/21 12:20 Respiratory Rate 20 12/30/21 12:20 Respiratory Effort 12/30/21 12:19 Blood Pressure 99/51 L 12/30/21 12:01 Blood Pressure Mean 57 12/30/21 12:16 Pulse Oximetry 97 12/30/21 12:20 Oxygen Delivery Method Room Air 12/30/21 11:13 Oxygen Flow Rate 0 12/30/21 11:13 Pain Level 10 12/30/21 11:44 Comment 12/30/21 11:13 Lab/Test Results Lab/Test Results: 12/30/21 11:24 Blood Blood Culture - Pending 12/30/21 11:24 Blood Blood Culture - Pending Laboratory Tests Range/Units 12/30/21 12/30/21 12/30/21 11:58 11:58 11:58 WBC (4.4-10.8) 10^3/uL 10.02 RBC (3.93-5.22) 10^6/uL 3.53 L Hgb (11.2-15.7) g/dL 10.4 L Hct (36.0-46.0) % 31.6 L MCV (80-95) fL 90 MCH (27.0-33.0) pg 29.5 MCHC (32.0-36.0) % 32.9 RDW (11.7-14.6) % 12.6 Plt Count (130-400) 10^3/uL 187 MPV (8.0-11.0) fL 10.4 Immature Gran % 0.4 Neutrophils % 70.8 Lymphocytes % 16.0 Monocytes % 11.9 Eosinophils % 0.5 Basophils % 0.4 Nucleated RBC % (0.0-0.3) % 0.0 Absolute Neutrophils (1.2-6.7) 10^3/uL 7.10 H Absolute Lymphocytes (1.2-3.4) 10^3/uL 1.60 Absolute Monocytes (0.1-0.8) 10^3/uL 1.19 H Absolute Eosinophils (0.0-0.7) 10^3/uL 0.05 Absolute Basophils (0.0-0.2) 10^3/uL 0.04 VBG Lactate (0.6-1.4) mmol/L 0.7 Sodium (136-145) mmol/L 136 Potassium (3.5-5.1) mmol/L 3.7 Chloride (98-107) mmol/L 100 Carbon Dioxide (21.0-32.0) mmol/L 29.0 Anion Gap (3-11) mmol/L 7.0 BUN (7-18) mg/dL 18 Creatinine (0.55-1.02) mg/dL 1.0 Estimated GFR/1.73 m2 (mL/min/1.73m2) 54.66 Glucose (74-106) mg/dL 112 H Calcium (8.5-10.1) mg/dL 8.5 Total Bilirubin (0.2-1.0) mg/dL 0.4 AST (15-37) U/L 8 L ALT (14-59) U/L 10 L Alkaline Phosphatase (46-116) U/L 80 Troponin I (<or=60) ng/L < 50 Total Protein (6.4-8.2) g/dL 6.5 Albumin (3.4-5.0) g/dL 2.3 L
[2021-12-30 13:14] LABS: Bilirubin Negative (Negative); Blood Small (Negative); Clarity Clear (Clear); Glucose Negative (Negative); Ketones Trace mg/dL (Negative); Leukocyte Esterase Negative (Negative); Nitrite Negative (Negative); Urobilinogen 0.2 EU/dL (Up TO 0.2); pH 5.5 (5-8)
--- NOTE | 2021-12-30 13:14 | HPE_ITS ---
Date of service: 12/30/21 Time of Service: 17:55 Assessment and Plan Assessment and plan (1) Pulmonary embolism: Status: Chronic Assessment and plan: Due to RLE DVT, which is extensive, and present on admission. Treat with heparin gtt while ruling out GI bleeding. Monitor on tele. Obtain echo. (2) Sepsis: Status: Acute Assessment and plan: Due to PNA, present on admission. Tx with vancomcyn, cefepime, flagyl - can likely d/c flagyl if C.Diff negative. (3) Right leg DVT: Status: Acute Assessment and plan: As above (4) Pneumonia: Status: Acute Assessment and plan: As above (5) Anemia: Status: Chronic Assessment and plan: Hemoccult pending. Low threshold to stop heparin gtt. (6) Perforated gastric ulcer: Status: Acute Assessment and plan: 3 weeks ago. S/p endoscopy. Change H2 yazan to PPI. Add carafate. Monitor for GI bleeding. Low threshold to stop anticoagulation. General surgery consulted. (7) Diffuse pain in right upper extremity: Status: Acute Assessment and plan: XR RUE ordered. Also consider gout. (8) Pleuritic chest pain: Status: Acute Assessment and plan: Treat with tylenol, lidocaine patches, tramadol. consider fentanyl prn. Encourage IS/acapella. (9) DVT prophylaxis: Status: Acute Assessment and plan: On therapeutic heparin gtt (10) Discharge planning issues: Status: Acute Assessment and plan: Full code as verified by my conversation with the patient. History of Present Illness History of Present Illness Chief Complaint: Sent in for an evaluation by home health nursing Narrative: Ms Loja is a 71 year old female with PMHx of prior PEs, paroxysmal Afib, previously on anticoagulation, gastritis, who is s/p Brenda-en-Y, with a recent admission for perforated viscous (ulcer of gastrojejunostomy) and acute peritonitis (s/p diagnostic laparoscopy, EGD, washout and drain placement on 12/06/[address] Jacobs and who was seen in our ED yesterday for right upper chest pain and shortness of breath, was diagnosed with a PE and a question of pneumonia, discharged home on xarelto and continuation of augmentin, who returned to [facility] ED today tachypneic, febrile, c/o cough and SOB. She states that her R-sided chest pain woke her up from sleep. She also reports back spasms and RUE pain, wrist all the way up to the shoulder, and she has erythema of her R wrist without any injury. This has been going on x 5 days. Negative for COVID-19 both yesterday and today. CXR today is c/w bilateral infiltrates. The patient was started on vancomycin, cefepime, and levofloxacin in the ED, as well as IVF as her BPs were borderline low (90/40 by home health, 99/51 in ER, now up to 119/54). Hospitalist admission was requested. Imaging of the abdomen yesterday did not reveal any acute surgical issues. General surgery feels it is safe to anticoagulate the patient. She was not able to afford xarelto prescribed to her yesterday and had not had any since yesterday. Reports dark diarrhea (not black). No nausea or abdominal pain, but poor appetite. Dr Huynh did remove her KIERSTEN drain today. Her abdominal imaging yesterday did not reveal any new collections concerning for an abscess. Review of Systems All systems reviewed & are unremarkable except as noted in HPI and below PFSH All Active Problems (Updated 12/30/21 @ 19:09 by Alexandria Shah MD) Pleuritic chest pain (Acute) Diffuse pain in right upper extremity (Acute) Right leg DVT (Acute) Discharge planning issues (Acute) DVT prophylaxis (Acute) Pneumonia (Acute) Sepsis (Acute) Pulmonary embolism (Chronic) Right-sided chest pain (Acute) Abscess (Acute) Sciatica (Acute) Anemia (Chronic) Acute on chronic blood loss anemia (Acute) Perforated gastric ulcer (Acute) Gastritis (Acute) Right foot pain (Acute) instep is excruciating ,, cannot flatten Fasciitis (Acute) Tendonitis (Acute) Right hand paresthesia (Acute) Right arm pain (Acute) Cervical radiculopathy (Acute) Skin lesion of back (Acute) mid-back, pruritic .. indented/suspicious.. Chest pain at rest (Acute) Awakened with heaviness, waited x hours (has had it before), but finally went to ED .. 11/20/18 PAF (paroxysmal atrial fibrillation) (Chronic 05/08/15) only one confirmed episode 02/2015; ZIO patch neg; prefers not anticoagulate until A Fib recurs Morbid obesity (Acute 08/20/15) BMI 42, even after bariatric surg History of pulmonary embolism (Acute 01/01/16) Adenoma of large intestine (Acute 05/19/11) 05/2011 Kris Coffey colonoscopy, +tubular adenoma and +family h/o colon cancer (F); again adenoma 02/21/13 04/07/17 - tubulovillous adenoma, ascending colon, Dr Kaye Abdominal aortic aneurysm 30 to 34 mm in diameter (Chronic 07/19/14) 06/2014 3.14 cm, confirmed on CT; 07/2015 3.2cm US 04/21/17 stable 3.3 cm US. 11/2018 [Stable, 3.4CM]. Reactive airway disease (Chronic) a. worse in the spring Medical History Abdominal pain (04/22/13) not diverticulitis per CT 07/28/14; lower abd 07/2015 Acute pain of left shoulder (10/18/17) No specific injury/trauma, pain with movement, abdiel ext rot/supination. Triceps tenderness. Intermittent fingertip numbness. Arm pain, right (09/20/13) rotator cuff pain, persistent trigger finger R; neck pain; trapezious spasm; impingement syndrome At risk for osteoporosis Smoking > 10 yrs, Prednisone (high-dose), PPI, Menopause @ 34yo. (Hx blood clots.. heparin, 1998, near ) Chest heaviness (07/15/16) De Quervain's tenosynovitis, right Diverticulosis a. No diverticulitis DJD, spine Reconfirmed on 07/2018 XR. Esophagitis with gastritis Generalized osteoarthrosis (02/21/13) GERD (gastroesophageal reflux disease) History of tobacco use a. quit in 1998, after roughly 30 pack years Hydronephrosis (05/07/14) Hyperlipidemia (02/21/13) Hypertension Left foot pain (01/27/17) r/o Posteriur Tarsal Tunnel Syn; dr Velasquez, Dr. Aldana Leg edema Lumbar radiculopathy Long Hx ... Acute on chronic Rt sided, 08/2021. ik Migraine (02/21/13) Morbid obesity a. Gastric bypass 1999 b. Multiple nutritional deficiencies, on supplements. c. S/p pannus excision Muscle cramp, nocturnal (12/27/13) gabapentin 100 prn effective Nephrolithiasis (05/07/14) a. First episode - right side b. 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 Bisphosphonate Hx TBD. Pain in joint, shoulder region a. rotator cuff pain Pain of left hip (05/2018) Onset while stretching in bed, suddenly felt sharp pain ... hasn't gone away. Surprising left paraspinal tenderness along lumbar spine @ exam, 08/08/18. Palpitations (07/15/16) Periumbilical abdominal pain (04/14/17) ? umbilical hernia vs adhesions Piriformis syndrome of right side Pseudogout of left wrist (01/22/18) Pyelonephritis (05/07/14) 1. secondary to obstruction Right upper extremity numbness Pain and Tenderness, possible nerve entrapment with numbness .. 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 L4-5 B. L5-S1 Latest XR (07/2018) states pseudospondylolisthesis, no acute Fx/Sublux. Monitoring pain. TMJ (temporomandibular joint disorder) (01/25/16) Trigger finger, right middle finger (01/22/18) Vision loss, right eye Vitamin D deficiency (12/23/16) rx 50,000/wk x ten wk, then 2000 IU daily Surgical History Arthroplasty (06/21/13) R thumb Dreisbach Bariatric Surgery (06/16/00) Brenda-En-Y gastroplasty with [facility]olecyst[facility], [facility] Cholecystectomy (06/16/00) Dr Greene, [facility], along with Bariatric procedure Colonoscopy - MAC (04/07/17) H/O surgical procedure a. Gastric bypass 2000 b. Pannus excision c. Excision of Samson neuroma d. Cholecystectomy e. appendectomy f. right oophorectomy g. Hemorrhoidectomy History of bariatric surgery (05/19/00) Dr. Greene, [facility] pannus removal (04/02/03) [facility], 3 yr after bariatric surg Repair of umbilical hernia (05/31/17) Dr Kaye S/P bariatric surgery (06/16/00) [facility], pre surg wt 311 lbs Trigger Finger release (11/26/13) A-1 sumi Rt ring finger Family History Father Lung cancer Mother Colon cancer Social History Smoking/Tobacco Use Status: Former Tobacco Use Quit Date: 06/19/98 Smoking risk assessment performed?: Yes Alcohol Intake: never Drug use: Never Substance use type: does not use Caregiver/Support person: No Household members: spouse and children Number of Children: 5 Communication Needs: None Current gender identity: female What is your relationship status?: Panel score (0-1 are the most socially isolated patients): 1 What type of physical activity do you participate in: sedentary lifestyle Duration: < 15 minutes/day Frequency: 3-4 times per week Seatbelt use: always Do you feel safe at home: Yes Do you feel safe in your relationship?: Yes Meds Allergies and Home Medications Allergies Allergy/AdvReac Type Severity Reaction Status Date / Time morphine Allergy Intermediate Itching Verified 12/30/21 12:24 codeine AdvReac Intermediate muscle Verified 12/30/21 12:24 spasms oxycodone HCl [From Percocet] AdvReac Intermediate muscle Verified 12/30/21 12:24 spasms, hard on stomach Home Medications Medication Instructions Recorded Confirmed Type cholecalciferol (vitamin D3) 50 2,000 unit PO DAILY #90 caps 02/26/21 12/30/21 Rx mcg (2,000 unit) capsule (Vitamin D3) magnesium oxide 400 mg (241.3 mg 800 mg PO BID #360 tabs 02/26/21 12/30/21 Rx magnesium) tablet furosemide 20 mg tablet See Rx Instructions PO DAILY #90 08/27/21 12/30/21 Rx tabs celecoxib 100 mg capsule 100 mg PO BID #20 caps 10/02/21 12/30/21 Rx famotidine 20 mg tablet (Heartburn 20 mg PO BID #60 tabs 10/02/21 12/30/21 Rx Relief (famotidine)) gabapentin 300 mg capsule 300 mg PO QHS #30 caps 11/30/21 12/30/21 Rx tramadol 50 mg tablet 50 mg PO Q8H severe pain #10 tabs 11/30/21 12/30/21 Rx metoprolol succinate 25 mg 25 mg PO DAILY 12/03/21 12/30/21 History tablet,extended release 24 hr L. acidophilus,casei,rhamnosus 50 1 cap PO DAILY #30 caps 12/09/21 12/30/21 Rx billion cell capsule,delayed release (Bio-K plus) sumatriptan succinate 50 mg tablet See Rx Instructions PO .COMPLEX #9 12/17/21 12/30/21 Rx tabs cyclobenzaprine 10 mg tablet 10 mg PO ONCE PRN muscle spasm #5 12/20/21 12/30/21 Rx tabs lidocaine 5 % topical patch 1 patch topical DAILY #15 ea 12/23/21 12/30/21 Rx (Lidoderm) amoxicillin 875 mg-potassium 1 tab PO BID #14 tabs 12/27/21 12/30/21 Rx clavulanate 125 mg tablet rivaroxaban 15 mg tablet 15 mg PO BID 21 days #42 tabs 12/29/21 12/30/21 Rx Exam Narrative Exam Narrative: General: Pleasant elderly female who appears uncomfortable, A&Ox3, NAD Neurological: A&Ox3, no focal deficits Psychiatric: Appropriate speech pattern/content Skin: RLQ drain site is covered with a bandaid. Trochar sites healing nicely. HEENT: Atraumatic, normocephalic, EOMI, MMM, clear oropharynx, no submandibular or cervical lymphadenopathy, no goiter or JVD Cardiovascular: RRR, nom/r/g Lungs: Crackles R lung base Gastrointestinal: soft, nontender, nondistended; see skin exam above Genitourinary: deferred Extremities: trace edema BLEs; RUE Results Imaging Additional studies: CXR: Bilateral basilar opacities.? These are nonspecific.? Pneumonia, edema or atelectasis should be considered.? Please correlate clinically.? EKG: NSR, HR 81, no acute ischemia US RLE: 1. Examination positive for right lower extremity deep venous thrombus. Labs Result diagrams: 12/30/21 18:12 12/30/21 11:58 Labs: Laboratory Results - last 24 hr 12/30/21 12/30/21 12/30/21 11:58 11:58 11:58 WBC 10.02 RBC 3.53 L Hgb 10.4 L Hct 31.6 L MCV 90 MCH 29.5 MCHC 32.9 RDW 12.6 Plt Count 187 MPV 10.4 Immature Gran % 0.4 Neutrophils % 70.8 Lymphocytes % 16.0 Monocytes % 11.9 Eosinophils % 0.5 Basophils % 0.4 Nucleated RBC % 0.0 Absolute Neutrophils 7.10 H Absolute Lymphocytes 1.60 Absolute Monocytes 1.19 H Absolute Eosinophils 0.05 Absolute Basophils 0.04 VBG Lactate 0.7 Sodium 136 Potassium 3.7 Chloride 100 Carbon Dioxide 29.0 Anion Gap 7.0 BUN 18 Creatinine 1.0 Estimated GFR/1.73 m2 54.66 Glucose 112 H Calcium 8.5 Total Bilirubin 0.4 AST 8 L ALT 10 L Alkaline Phosphatase 80 Troponin I < 50 Total Protein 6.5 Albumin 2.3 L Last Vital Signs Temp 38.3 C H 12/30/21 11:44 Pulse 78 12/30/21 12:16 Resp 20 12/30/21 12:20 BP 99/51 L 12/30/21 12:01 Pulse Ox 97 12/30/21 12:20
[2021-12-30] MEDS: levoFLOXacin 750 MG/150 ML BAG 100 MG IVPB (13:23)
[2021-12-30 13:24] LABS: Bacteria Negative HPF (Negative); C & S Indicated? No; Casts Negative LPF (Negative); Crystals Negative HPF (Negative); Epithelial Cells Few HPF (Negative); Mucus Negative (Negative); WBC Negative HPF (0-5)
[2021-12-30] MEDS: CEFEPIME 2 GM in Normal Saline 100 ML IVPB (13:24)
[2021-12-30 13:39] LABS: COVID-19 PCR Negative (Negative); Influenza A PCR Negative (Negative); Influenza B PCR Negative (Negative); RSV PCR Negative (Negative)
[2021-12-30 13:41] LABS: Source Nasopharynx
[2021-12-30 13:48] LABS: Procalcitonin 0.1 ng/mL
[2021-12-30] MEDS: Lactated Ringers 1,000 ML 150 ML IV (14:20)
--- NOTE | 2021-12-30 14:31 | SCONE_ITS ---
Date of service: 12/30/21 Time of Service: 13:00 Assessment and Plan Assessment and plan (1) Pneumonia: Status: Acute Assessment and plan: Patient has been running a low-grade temp She has no white count or left shift X-ray suggest atelectasis versus pneumonia. Possible PE on CT scan She is currently on Levaquin. She had been on Augmentin started December 27. (2) Pulmonary embolism: Status: Chronic Assessment and plan: - She is stable for anticoagulation from surgical standpoint. I did remove the drain today. (3) Right-sided chest pain: Status: Acute (4) Acute on chronic blood loss anemia: Status: Acute Assessment and plan: - Patient has chronic anemia. She did have gastric bypass. She is not on iron at home (5) Perforated gastric ulcer: Status: Acute Assessment and plan: - She needs to stay on a PPI lifelong (6) PAF (paroxysmal atrial fibrillation): Status: Chronic (7) Morbid obesity: Status: Acute (8) Reactive airway disease: Status: Chronic History of Present Illness Narrative: Shauna is in the ER today complaining of shortness of breath. She was in the ER on 12/29 complaining of shortness of breath. She had a CT of the chest that shows possibly emboli. Her history of PE is mixed. Patient is a very poor historian. It is unclear if she truly has had a PE in the past. She has had a gastric bypass. She has a history of A. fib. She is in normal sinus today. She had ultrasounds of her right arm and bilateral lower extremities that were normal/did not show any clot. She denies coughing up any mucus. She states she was been running a temperature at home. She was discharged from the hospital on 12/09. She had what was presumed to be a perforated gastric ulcer. She had a diagnostic laparoscopy but at that time the area had sealed over. She had an irrigation and a drain placement. She was discharged home with the drain in place. She had a lot of liquefied hematoma draining for quite some time. She had a CT on 12/23 that showed possible abscess and followed up with me in the office on . At that time she had some grayish seropurulent fluid. I did obtain a CBC which did not show white count or left shift. She was not running a temperature. She was not tachycardic. I did put her on Augmentin. She said she has been taking the antibiotics since Monday. She denies any diarrhea. Today on exam the drain still contains some grayish fluid. She is producing less than 10 cc in 24 hours. I did just remove the drain today. She had a CT of the abdomen pelvis on 12/29 that I did review. On the CT on 12/23, there is a question of a developing abscess. This does not appear to be the case on the CT from 12/29. She has no white count on her CBC today. She was low running a low- grade temp when she initially came into the emergency room. [facility] All Active Problems (Updated 12/30/21 @ 13:33 by Alexandria Shah MD) Discharge planning issues (Acute) DVT prophylaxis (Acute) Pneumonia (Acute) Sepsis (Acute) Pulmonary embolism (Chronic) Right-sided chest pain (Acute) Abscess (Acute) Sciatica (Acute) Anemia (Chronic) Acute on chronic blood loss anemia (Acute) Perforated gastric ulcer (Acute) Gastritis (Acute) Right foot pain (Acute) instep is excruciating ,, cannot flatten Fasciitis (Acute) Tendonitis (Acute) Right hand paresthesia (Acute) Right arm pain (Acute) Cervical radiculopathy (Acute) Skin lesion of back (Acute) mid-back, pruritic .. indented/suspicious.. Chest pain at rest (Acute) Awakened with heaviness, waited x hours (has had it before), but finally went to ED .. 11/20/18 PAF (paroxysmal atrial fibrillation) (Chronic 05/08/15) only one confirmed episode 02/2015; ZIO patch neg; prefers not anticoagulate until A Fib recurs Morbid obesity (Acute 08/20/15) BMI 42, even after bariatric surg History of pulmonary embolism (Acute 01/01/16) Adenoma of large intestine (Acute 05/19/11) 05/2011 Kris Coffey colonoscopy, +tubular adenoma and +family h/o colon cancer (F); again adenoma 02/21/13 04/07/17 - tubulovillous adenoma, ascending colon, Dr Kaye Abdominal aortic aneurysm 30 to 34 mm in diameter (Chronic 07/19/14) 06/2014 3.14 cm, confirmed on CT; 07/2015 3.2cm US 04/21/17 stable 3.3 cm US. 11/2018 [Stable, 3.4CM]. Reactive airway disease (Chronic) a. worse in the spring Medical History Abdominal pain (04/22/13) not diverticulitis per CT 07/28/14; lower abd 07/2015 Acute pain of left shoulder (10/18/17) No specific injury/trauma, pain with movement, abdiel ext rot/supination. Triceps tenderness. Intermittent fingertip numbness. Arm pain, right (09/20/13) rotator cuff pain, persistent trigger finger R; neck pain; trapezious spasm; impingement syndrome At risk for osteoporosis Smoking > 10 yrs, Prednisone (high-dose), PPI, Menopause @ 34yo. (Hx blood clots.. heparin, 1998, near ) Chest heaviness (07/15/16) De Quervain's tenosynovitis, right Diverticulosis a. No diverticulitis DJD, spine Reconfirmed on 07/2018 XR. Esophagitis with gastritis Generalized osteoarthrosis (02/21/13) GERD (gastroesophageal reflux disease) History of tobacco use a. quit in 1998, after roughly 30 pack years Hydronephrosis (05/07/14) Hyperlipidemia (02/21/13) Hypertension Left foot pain (01/27/17) r/o Posteriur Tarsal Tunnel Syn; dr Velasquez, Dr. Aldana Leg edema Lumbar radiculopathy Long Hx ... Acute on chronic Rt sided, 08/2021. ik Migraine (02/21/13) Morbid obesity a. Gastric bypass 1999 b. Multiple nutritional deficiencies, on supplements. c. S/p pannus excision Muscle cramp, nocturnal (12/27/13) gabapentin 100 prn effective Nephrolithiasis (05/07/14) a. First episode - right side b. 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 Bisphosphonate Hx TBD. Pain in joint, shoulder region a. rotator cuff pain Pain of left hip (05/2018) Onset while stretching in bed, suddenly felt sharp pain ... hasn't gone away. Surprising left paraspinal tenderness along lumbar spine @ exam, 08/08/18. Palpitations (07/15/16) Periumbilical abdominal pain (04/14/17) ? umbilical hernia vs adhesions Piriformis syndrome of right side Pseudogout of left wrist (01/22/18) Pyelonephritis (05/07/14) 1. secondary to obstruction Right upper extremity numbness Pain and Tenderness, possible nerve entrapment with numbness .. 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 L4-5 B. L5-S1 Latest XR (07/2018) states pseudospondylolisthesis, no acute Fx/Sublux. Monitoring pain. TMJ (temporomandibular joint disorder) (01/25/16) Trigger finger, right middle finger (01/22/18) Vision loss, right eye Vitamin D deficiency (12/23/16) rx 50,000/wk x ten wk, then 2000 IU daily Surgical History Arthroplasty (06/21/13) Cheri Palomo Bariatric Surgery (06/16/00) Brenda-En-Y gastroplasty with cholecystectomy, Dr. Ami Greene [facility] Cholecystectomy (06/16/00) Dr Greene [facility], along with Bariatric procedure Colonoscopy - MAC (04/07/17) H/O surgical procedure a. Gastric bypass 1999 b. Pannus excision c. Excision of Samson neuroma d. Cholecystectomy e. appendectomy f. right oophorectomy g. Hemorrhoidectomy History of bariatric surgery (05/19/00) Dr. Greene, [facility] pannus removal (04/02/03) [facility], 3 yr after bariatric surg Repair of umbilical hernia (05/31/17) Dr Kaye S/P bariatric surgery (06/16/00) [facility], pre surg wt 311 lbs Trigger Finger release (11/26/13) A-1 sumi Rt ring finger Family History Father Lung cancer Mother Colon cancer Social History Smoking/Tobacco Use Status: Former Tobacco Use Quit Date: 06/19/98 Smoking risk assessment performed?: Yes Alcohol Intake: never Drug use: Never Substance use type: does not use Caregiver/Support person: No Household members: spouse and children Number of Children: 5 Communication Needs: None Current gender identity: female What is your relationship status?: Panel score (0-1 are the most socially isolated patients): 1 What type of physical activity do you participate in: sedentary lifestyle Duration: < 15 minutes/day Frequency: 3-4 times per week Seatbelt use: always Do you feel safe at home: Yes Do you feel safe in your relationship?: Yes Results Last Vital Signs Temp 36.5 C 12/30/21 14:24 Pulse 79 12/30/21 14:01 Resp 23 12/30/21 14:01 BP 102/57 L 12/30/21 14:01 Pulse Ox 97 12/30/21 14:01 Labs Result diagrams: 12/30/21 11:58 12/30/21 11:58 Labs: Laboratory Results - last 24 hr 12/30/21 12/30/21 12/30/21 11:58 11:58 11:58 WBC 10.02 RBC 3.53 L Hgb 10.4 L Hct 31.6 L MCV 90 MCH 29.5 MCHC 32.9 RDW 12.6 Plt Count 187 MPV 10.4 Immature Gran % 0.4 Neutrophils % 70.8 Lymphocytes % 16.0 Monocytes % 11.9 Eosinophils % 0.5 Basophils % 0.4 Nucleated RBC % 0.0 Absolute Neutrophils 7.10 H Absolute Lymphocytes 1.60 Absolute Monocytes 1.19 H Absolute Eosinophils 0.05 Absolute Basophils 0.04 VBG Lactate 0.7 Sodium 136 Potassium 3.7 Chloride 100 Carbon Dioxide 29.0 Anion Gap 7.0 BUN 18 Creatinine 1.0 Estimated GFR/1.73 m2 54.66 Glucose 112 H Calcium 8.5 Total Bilirubin 0.4 AST 8 L ALT 10 L Alkaline Phosphatase 80 Troponin I < 50 Total Protein 6.5 Albumin 2.3 L Procalcitonin Urine Color Urine Clarity Urine pH Ur Specific [place] Urine Protein Urine Ketones Urine Blood Urine Nitrite Urine Bilirubin Urine Urobilinogen Ur Leukocyte Esterase Urine RBC Urine WBC Ur Epithelial Cells Urine Crystals Urine Bacteria Urine Casts Urine Mucus Ur Culture Indicated? Urine Glucose COVID-19 Source SARS-CoV-2 (PCR) Influenza Type A (PCR) Influenza Type B (PCR) RSV (PCR) 12/30/21 12/30/21 12/30/21 11:58 12:40 12:50 WBC RBC Hgb Hct MCV MCH MCHC RDW Plt Count MPV Immature Gran % Neutrophils % Lymphocytes % Monocytes % Eosinophils % Basophils % Nucleated RBC % Absolute Neutrophils Absolute Lymphocytes Absolute Monocytes Absolute Eosinophils Absolute Basophils VBG Lactate Sodium Potassium Chloride Carbon Dioxide Anion Gap BUN Creatinine Estimated GFR/1.73 m2 Glucose Calcium Total Bilirubin AST ALT Alkaline Phosphatase Troponin I Total Protein Albumin Procalcitonin 0.1 Urine Color Yellow Urine Clarity Clear Urine pH 5.5 Ur Specific [place] 1.020 Urine Protein Negative Urine Ketones Trace H Urine Blood Small H Urine Nitrite Negative Urine Bilirubin Negative Urine Urobilinogen 0.2 Ur Leukocyte Esterase Negative Urine RBC 3-5 H Urine WBC Negative Ur Epithelial Cells Few Urine Crystals Negative Urine Bacteria Negative Urine Casts Negative Urine Mucus Negative Ur Culture Indicated? No Urine Glucose Negative COVID-19 Source Nasopharynx SARS-CoV-2 (PCR) Negative Influenza Type A (PCR) Negative Influenza Type B (PCR) Negative RSV (PCR) Negative
[2021-12-30] MEDS: Acetaminophen 325 MG TAB PO (16:02)
[2021-12-30] MEDS: Normal Saline Flush 10 ML SYR IVP (16:04)
[2021-12-30] MEDS: metroNIDAZOLE 500 MG/100 ML BAG 100 MG IVPB ×2 (16:04→23:05)
[2021-12-30 16:22] LABS: Troponin I < 50 ng/L (<or=60)
[2021-12-30] MEDS: VANCOMYCIN/WATER (PEG) 2 GM/400 ML BAG IV (17:20)
[2021-12-30 17:31] LABS: PTT Activated 32.6 sec (21.0-27.5)
[2021-12-30] MEDS: Pantoprazole 40 MG VIAL IVP (17:34)
[2021-12-30 18:16] LABS: HCT 29.9 % (36.0-46.0); HGB 9.8 g/dL (11.2-15.7)
[2021-12-30] MEDS: Cyclobenzaprine 10 MG TAB PO (18:43)
--- NOTE | 2021-12-30 19:30 | DI.RAD_ITS ---
Exam(s) XR WRIST RT COMPLETE EXAM: XR WRIST RT COMPLETE CLINICAL HISTORY: WRIST PAIN. TECHNIQUE: 2D digital imaging was performed of the right wrist. Three views were obtained. PA, lat eral and oblique views were obtained. COMPARISON: No exams were available for comparison FINDINGS: BONES: No acute fracture is present. There is collapse of the trapezium which may be posttraumatic, p ostsurgical or related to AVN. There is osteopenia. JOINTS: The carpal bones are normally aligned. Degenerative changes are seen in the wrist. SOFT TISSUE: Chondrocalcinosis is present. IMPRESSION: No acute fracture or dislocation. DATA REPOSITORY: RADIATION DOSE DELIVERED:
[2021-12-30] MEDS: traMADol 50 MG TAB PO (19:40)
[2021-12-30] MEDS: Pantoprazole 40 MG TABCR PO (19:41)
[2021-12-30 20:10] LABS: Lab Add On Test DONE
--- NOTE | 2021-12-30 20:49 | DI.VRAD_ITS ---
PROCEDURE INFORMATION: Exam: XR Right Wrist Exam date and time: 12/30/2021 19:57 Age: 71 years old Clinical indication: Pain; Wrist; Right TECHNIQUE: Imaging protocol: Radiologic exam of the Right wrist. Views: 3 or more views. COMPARISON: US UPPER EXTREMITY VENOUS RT 12/29/2021 14:29 FINDINGS: Bones/joints: The bones are demineralized. Chronic appearing collapse of the trapezium suggesting posttraumatic deformity and or AVN. Alternatively could reflect partial resection. Degenerative changes in the wrist. No acute fracture or subluxation. Soft tissues: Chondrocalcinosis. Benign calcifications in the soft tissues. IMPRESSION: 1. No acute bony pathology. 2. Chronic findings as described. Dictated and Authenticated by: Kelsy Franco MD. Ordering:TESS Huerta MD
[2021-12-30 21:02] LABS: Uric Acid 3.7 mg/dL (2.6-6.0)
[2021-12-30] MEDS: Gabapentin 300 MG CAP PO (23:05)
[2021-12-30] MEDS: Sucralfate 1 GM TAB PO (23:05)
[2021-12-31] VITALS (12 sets, daily range): BP systolic 98–120; BP diastolic 66–84; PULSE 72–84; RESP 18–22; TEMP 36.4–38; O2SAT 94–98
[2021-12-31] MEDS: CEFEPIME 2 GM in Normal Saline 100 ML IVPB ×3 (00:10→17:27)
[2021-12-31 01:09] LABS: PTT Activated 74.3 sec (21.0-27.5)
[2021-12-31] MEDS: Lactated Ringers 1,000 ML 150 ML IV ×3 (01:32→19:36)
[2021-12-31] MEDS: Cyclobenzaprine 10 MG TAB PO ×2 (01:57→16:32)
[2021-12-31] MEDS: traMADol 50 MG TAB PO ×3 (03:37→19:35)
[2021-12-31] MEDS: metroNIDAZOLE 500 MG/100 ML BAG 100 MG IVPB ×2 (06:30→13:43)
[2021-12-31 07:02] LABS: Abs Immature Grans 0.03 10^3/uL (0.0-0.06); Absolute Basophil Count 0.06 10^3/uL (0.0-0.2); Absolute Eosinophil Count 0.16 10^3/uL (0.0-0.7); Absolute Lymphocyte Count 1.64 10^3/uL (1.2-3.4); Basophils % 0.7; Eosinophils % 1.9; HCT 28.2 % (36.0-46.0); HGB 9.1 g/dL (11.2-15.7); Immature Grans % 0.4; Lymphocytes % 19.8; MCHC 32.3 % (32.0-36.0); MCV 90 fL (80-95); MPV 11.2 fL (8.0-11.0); Monocytes % 10.9; Neutrophils % 66.3; Platelet Count 157 10^3/uL (130-400); RBC 3.14 10^6/uL (3.93-5.22); RDW 12.8 % (11.7-14.6); RDW-SD 41.7 fL; WBC 8.29 10^3/uL (4.4-10.8)
[2021-12-31 07:20] LABS: PTT Activated 49.6 sec (21.0-27.5)
[2021-12-31 07:24] LABS: Iron 15 ug/dL (50-170); Total Iron Binding Capacity 161 ug/dL (250-450); Transferrin Sat 9 % (15-50)
[2021-12-31 07:36] LABS: D-Dimer 2045 ng/mlFEU (<500)
[2021-12-31 07:52] LABS: Anion Gap 7.8 mmol/L (3-11); BUN 15 mg/dL (7-18); CO2 27.2 mmol/L (21.0-32.0); CREATININE 0.8 mg/dL (0.55-1.02); Chloride 102 mmol/L (98-107); Ferritin 386 ng/mL (8-252); Folate 16.1 ng/mL (8.6-20.0); Glucose 96 mg/dL (74-106); Magnesium 1.5 mg/dL (1.8-2.4); Potassium 3.7 mmol/L (3.5-5.1); Sodium 137 mmol/L (136-145); Vitamin B12 358 pg/mL (193-986)
[2021-12-31 08:17] LABS: C-Reactive Protein > 25.00 mg/dL (0.0-0.3)
[2021-12-31] MEDS: Acetaminophen 325 MG TAB PO ×3 (08:37→19:46)
[2021-12-31] MEDS: Pantoprazole 40 MG VIAL IVP (08:37)
[2021-12-31] MEDS: Lidocaine 5% Patch 1 PATCH TP (08:38)
[2021-12-31] MEDS: Sucralfate 1 GM TAB PO ×4 (08:38→22:26)
[2021-12-31] MEDS: Cholecalciferol (Vitamin D3) 1,000 UNIT TAB 2000 UNITS PO (08:38)
[2021-12-31] MEDS: Metoprolol CR 25 MG TABCR PO (08:38)
[2021-12-31] MEDS: Pantoprazole 40 MG TABCR PO ×2 (08:38→19:35)
[2021-12-31] MEDS: VANCOMYCIN/WATER (PEG) 1.25 GM/250 ML BAG IV ×2 (08:39→20:08)
[2021-12-31] MEDS: Normal Saline Flush 10 ML SYR IVP ×4 (08:47→16:33)
[2021-12-31] MEDS: Cyanocobalamin 1000 MCG/ML VIAL IM/SC (10:06)
[2021-12-31] MEDS: fentaNYL 100 MCG/2 ML VIAL 50 MCG IVP ×2 (10:29→16:33)
--- NOTE | 2021-12-31 10:34 | PT.INIE ---
Date of service: 12/31/21 Time of Service: 10:34 PT Notes Visit Reasons: Sepsis Due to Pneumonia Physical Therapy Inpatient Initial Evaluation Date: 12/31/2021 Referring Doctor: Alexandria Shah MD PT Orders: PT CONSULT: Limited ability Precautions: Fall. Standard. Activity as tolerated. Patient Profile/Admitting Diagnosis: Shauna is a 71-year-old female who presented to the ED on 12/29/2021 due to recurrent right upper back and shoulder pain that radiated to her upper abdominal area, fever, mild pain and swelling in the right arm, and mild ache in the left lower extremity. Patient is diagnosed with pulmonary embolus 7 related to a right leg DVT, sepsis from pneumonia, right L DVT, pneumonia, anemia, perforated gastric ulcer status post endoscopy, and pleuritic chest pain. PMHX: All Active Problems?(Updated 12/30/21 @ 19:09 by Alexandria Shah MD) Pleuritic chest pain (Acute) Diffuse pain in right upper extremity (Acute) Right leg DVT (Acute) Discharge planning issues (Acute) DVT prophylaxis (Acute) Pneumonia (Acute) Sepsis (Acute) Pulmonary embolism (Chronic) Right-sided chest pain (Acute) Abscess (Acute) Sciatica (Acute) Anemia (Chronic) Acute on chronic blood loss anemia (Acute) Perforated gastric ulcer (Acute) Gastritis (Acute) Right foot pain (Acute) instep is excruciating, cannot flatten Fasciitis (Acute) Tendonitis (Acute) Right hand paresthesia (Acute) Right arm pain (Acute) Cervical radiculopathy (Acute) Skin lesion of back (Acute) mid-back, pruritic .. indented/suspicious..Chest pain at rest (Acute) Awakened with heaviness, waited x hours (has had it before), but finally went to ED .. 11/20/18 PAF (paroxysmal atrial fibrillation) (Chronic 05/08/15) only one confirmed episode 02/2015; ZIO patch neg; prefers not anticoagulate until A Fib recurs Morbid obesity (Acute 08/20/15) BMI 42, even after bariatric surg History of pulmonary embolism (Acute 01/01/16) Adenoma of large intestine (Acute 05/19/11) 05/2011 Kris Coffey colonoscopy, +tubular adenoma and +family h/o colon cancer (F); again adenoma 02/21/13 04/07/17 - tubulovillous adenoma, ascending colon, Dr Kaye Abdominal aortic aneurysm 30 to 34 mm in diameter (Chronic 07/19/14) 06/2014 3.14 cm, confirmed on CT; 07/2015 3.2cm US 04/21/17 stable 3.3 cm US. 11/2018 [Stable, 3.4CM]. Reactive airway disease (Chronic) a.? worse in the spring Medical History? Abdominal pain (04/22/13) not diverticulitis per CT 07/28/14; lower abd 07/2015 Acute pain of left shoulder (10/18/17) No specific injury/trauma, pain with movement, abdiel ext rot/supination. Triceps tenderness. Intermittent fingertip numbness. Arm pain, right (09/20/13) rotator cuff pain, persistent trigger finger R; neck pain; trapezious spasm; impingement syndrome At risk for osteoporosis Smoking > 10 yrs, Prednisone (high-dose), PPI, Menopause @ 34yo. (Hx blood clots.. heparin, 1998, near ) Chest heaviness (07/15/16) De Quervain's tenosynovitis, right Diverticulosis a.? No diverticulitis DJD, spine Reconfirmed on 07/2018 XR. Esophagitis with gastritis Generalized osteoarthrosis (02/21/13) GERD (gastroesophageal reflux disease) History of tobacco use a.? quit in 1998, after roughly 30 pack years Hydronephrosis (05/07/14) Hyperlipidemia (02/21/13) Hypertension Left foot pain (01/27/17) r/o Posteriur Tarsal Tunnel Syn; dr Velasquez, Dr. Aldana Leg edema Lumbar radiculopathy Long Hx ... Acute on chronic Rt sided, 08/2021. ik Migraine (02/21/13) Morbid obesity a.? Gastric bypass 1999 b.? Multiple nutritional deficiencies, on supplements. c.? S/p pannus excisionMuscle cramp, nocturnal (12/27/13) gabapentin 100 prn effective Nephrolithiasis (05/07/14) a.? First episode - right side b.? 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 Bisphosphonate Hx TBD. Pain in joint, shoulder region a.? rotator cuff painPain of left hip (05/2018) Onset while stretching in bed, suddenly felt sharp pain ... hasn't gone away. Surprising left paraspinal tenderness along lumbar spine @ exam, 08/08/18.Palpitations (07/15/16) Periumbilical abdominal pain (04/14/17) ? umbilical hernia vs adhesions Piriformis syndrome of right side Pseudogout of left wrist (01/22/18) Pyelonephritis (05/07/14) 1.? secondary to obstructionRight upper extremity numbness Pain and Tenderness, possible nerve entrapment with numbness .. 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 possible BrachPlexus Neuropathy, following lateral cord (?) NN Study Seasonal allergic rhinitis (02/21/13) Sleep disturbances (03/01/13) Spondylolisthesis of lumbosacral region A.? L4-5? B.? L5-S1 Latest XR (07/2018) states pseudospondylolisthesis, no acute Fx/Sublux. Monitoring pain. TMJ (temporomandibular joint disorder) (01/25/16) Trigger finger, right middle finger (01/22/18) Vision loss, right eye Vitamin D deficiency (12/23/16) rx 50,000/wk x ten wk, then 2000 IU daily Surgical History? Arthroplasty (06/21/13) R thumb DreisbachBariatric Surgery (06/16/00) Brenda-En-Y gastroplasty with cholecystectomy, Dr. Ami Greene, [facility] Cholecystectomy (06/16/00) DAVID Vo, along with Bariatric procedure Colonoscopy - [facility] (04/07/17) H/O surgical procedure a.? Gastric bypass 1999 b.? Pannus excision c.? Excision of Samson neuroma d.? Cholecystectomy e.? appendectomy f.? right oophorectomy g.? HemorrhoidectomyHistory of bariatric surgery (05/19/00) Dr. Greene, [place] pannus removal (04/02/03) [facility], 3 yr after bariatric surg Repair of umbilical hernia (05/31/17) Dr Kaye S/P bariatric surgery (06/16/00) [facility], pre surg wt 311 lbs Trigger Finger release (11/26/13) A-1 sumi Rt ring finger Social History/Home Situation: Lives with in an apartment building with 22 steps to enter to their apartment. Independent with all mobility ADLs using no assistive device. Equipment Owned/DME: None Subjective: Agreeable to PT consult. Denies headache, chest pain, but reports mild lightheadedness during first attempt at standing this morning, resolved with sitting. Still reports of pain in her R shoulder and arm. Objective: General Observation: Supine in bed. Mental Status: Alert and oriented as to person, place, time, and purpose. Able to pay attention, focus, and respond appropriately. Pain: 4-510 in R arm and shoudler Vital Signs: WNL as closely monitored by nursing staff ROM: Right Upper Extremity: Shoulder Flexion only has about 25% of availble AROM. Shoulder abduction only has about 25% of availble AROM. Elbow flexion WFL. Wrist flexion WFL. Functional opening and closing of hand WFL. Left Upper Extremity: Shoulder Flexion WFL. Shoulder abduction WFL. Elbow flexion WFL. Wrist flexion WFL. Functional opening and closing of hand WFL. Right Lower Extremity: Hip flexion WFL. Hip abduction WFL. Knee flexion WFL. Ankle dorsiflexion to neutral only. Ankle plantarflexion WFL. Left Lower Extremity: Hip flexion lacks the last 25% of available AROM. Hip abduction about 20 degrees. Knee flexion 10 degrees to 90 degrees. Knee extension -10 degrees. Ankle dorsiflexion to neutral only. Ankle plantarflexion WFL. Strength: Right Upper Extremity: Shoulder flexors 3-/5. Shoulder abductors 3-/5. Elbow flexors 4-/5. Elbow extensors 4-/5. Outsole Tacker strong. Left Upper Extremity: Shoulder flexors 4/5. Shoulder abductors 4/5. Elbow flexors 4/5. Elbow extensors 4/5. Outsole Tacker strong. Right Lower Extremity: Hip flexors 4-/5. Hip abductors 4-/5. Knee flexors 4-/5. Knee extensors 4-/5. Ankle dorsiflexors 3-/5. Ankle plantarflexors 4-/5. Left Lower Extremity: Hip flexors 3-/5. Hip abductors 3-/5. Knee flexors 3-/5. Knee extensors 3-/5. Ankle dorsiflexors 3-/5. Ankle plantarflexors 3-/5. Bed Mobility/Transfers: Supine to sit minimal assist Sit to supine minimal assist Sit to stand contact-guard assist Stand to sit contact-guard assist Bed to bedside commode contact-guard assist Bed sanya commode to reclining chair contact-guard assist Gait: Instructed patient with level surface ambulation of 5 feet +15 feet requiring contact-guard assist. Gisela decreased. Balance: Static Sitting: Normal Dynamic Sitting: Normal Static Standing: Fair Dynamic Standing: Fair Special Tests: Mobility Limitations Standardized Measure [facility] AM-PAC 6 clicks [facility] Mobility Inpatient Short Form: Raw Score: 19 CMS Score: 42% deficit Informed Consent/Education: Patient was instructed in purpose of PT consult and plan of care. Agreeable to proceed with established PT POC to achieve personal goals. Assessment: Patient presents with clinical signs and symptoms consistent with current/admitting diagnoses that have resulted to mobility limitations, gait instability, generalized weakness, and overall ADL decline as demonstrated by the following impairment level findings: 1. Decreased strength to B UE/LE major muscle groups 2. Impaired sitting/standing balance 3. Impaired activity tolerance 4. Limitation of joint range of motion in R shoulder and L knee, B ankles Impairments are contributing to the following functional limitations: 1. Decline in bed mobility skills 2. Decline in transfer skills 3. Difficulty with ambulation without assistive device and physical assistance 4. Increased completion time for mobility ADL performance 5. Increased risk for falls 6. Difficulty with managing steps alone safely Patient is assessed as a 76630 moderate complexity based on the following: History: 71-year-old female with past medical history as indicated above Examination: Demonstrable impairment in strength, balance, and mobility level with underlying impairments and functional limitations as exhibited above as well as deficit score of 42% utilizing the [facility] Mobility Inpatient Short Form Presentation: Evolving Decision Makin moderate complexity Goals: Goals X1 week 1. Supine-Sit independent 2. Sit-Supine independent 3. Sit-Stand independent 4. Stand-Sit independent with no AD 5. Bed-Chair independent with no AD 6. Chair-Bed independent with no AD 7. Independent gait on level surface with use of no AD for at least 100 feet without report of pain nor dyspnea 8. Independent stair negotiation while holding onto B rails for at least 25 steps without report of pain nor dyspnea 9. Good static and dynamic standing balance/tolerance Plan of Care/Treatment Plan: 1-2x/day, 7 days/week x 1 week. Plan of care has been reviewed with the STEAM BLOCKER providing the service under Physical Therapy direction. Initiate Physical Therapy intervention for pain management as needed, strengthening, bed mobility, transfers, gait, stairs, balance training, and use of assistive device. DISCHARGE RECOMMENDATIONS: [] Home with no services [] [X] Home with services. Home when medically cleared by hospitalist. Patient will benefit from home health PT services in order to progress mobility level using least restrictive assistive ambulatory device, assess home safety, identify additional equipment needs, and establish a functional maintenance program that will increase ability of patient to remain at home. [] Home with outpatient PT [] [] SNF for continued rehabilitation [] [] [facility] [] [] SNF versus LTC based on ability to participate and progress [] TREATMENT CODE/TIME: [id number] x 20 minutes beginning at 10:34 AM. Thank you for the opportunity to participate in the care of this patient. Georgina Rdz PT, DPT, CLT [facility] [place], [place]
[2021-12-31] MEDS: Normal Saline 500 ML 30 ML IV (11:39)
[2021-12-31] MEDS: MAGNESIUM SULFATE 4 GM/100 ML BAG IVPB (11:39)
--- NOTE | 2021-12-31 12:00 | ED.FU.B_ITS ---
Follow Up Plan: I received positive blood culture from date of service 11/29/2021, culture positive for anaerobic and gram-positive cocci in clusters. Patient sub sequently was admitted to the hospitalist service on 11/30/2021. I called and spoke with Dr. Shah treating hospitalist and relayed results.
--- NOTE | 2021-12-31 12:54 | PDOC.CMIN ---
- If Service Date Differs Date of service: 12/31/21 Time of Service: 12:54 Care Management Initial Assess REASON FOR HOSPITALIZATION:: Sepsis due to pneumonia PAST MEDICAL HISTORY/PAST SURGICAL HISTORY:: All Active Problems. Pleuritic chest pain (Acute). Diffuse pain in right upper extremity (Acute). Right leg DVT (Acute). Discharge planning issues (Acute). DVT prophylaxis (Acute). Pneumonia (Acute). Sepsis (Acute). Pulmonary embolism (Chronic). Right-sided chest pain (Acute). Abscess (Acute). Sciatica (Acute). Anemia (Chronic). Acute on chronic blood loss anemia (Acute). Perforated gastric ulcer (Acute). Gastritis (Acute). Right foot pain (Acute). instep is excruciating ,, cannot flatten. Fasciitis (Acute). Tendonitis (Acute). Right hand paresthesia (Acute). Right arm pain (Acute). Cervical radiculopathy (Acute). Skin lesion of back (Acute). mid-back, pruritic .. indented/suspicious.. Chest pain at rest (Acute). Awakened with heaviness, waited x hours (has had it before), but finally went to ED .. 11/20/18. PAF (paroxysmal atrial fibrillation) (Chronic 05/08/15). only one confirmed episode 02/2015; ZIO patch neg; prefers not anticoagulate until A Fib recurs. Morbid obesity (Acute 08/20/15). BMI 42, even after bariatric surg. History of pulmonary embolism (Acute 01/01/16). Adenoma of large intestine (Acute 05/19/11). 05/2011 Kris Coffey colonoscopy, +tubular adenoma and +family h/o colon cancer (F); again adenoma 02/21/13. 04/07/17 - tubulovillous adenoma, ascending colon, Dr Kaye. Abdominal aortic aneurysm 30 to 34 mm in diameter (Chronic 07/19/14). 06/2014 3.14 cm, confirmed on CT; 07/2015 3.2cm US. 04/21/17 stable 3.3 cm US. 11/2018 [Stable, 3.4CM]. Reactive airway disease (Chronic). a. worse in the spring. Medical History. Abdominal pain (04/22/13). not diverticulitis per CT 07/28/14; lower abd 07/2015. Acute pain of left shoulder (10/18/17). No specific injury/trauma, pain with movement, abdiel ext rot/supination. Triceps tenderness. Intermittent fingertip numbness. Arm pain, right (09/20/13). rotator cuff pain, persistent trigger finger R; neck pain; trapezious spasm; impingement syndrome. At risk for osteoporosis. Smoking > 10 yrs, Prednisone (high-dose), PPI, Menopause @ 34yo. (Hx blood clots.. heparin, 1998, near ). Chest heaviness (07/15/16). De Quervain's tenosynovitis, right. Diverticulosis. a. No diverticulitis. DJD, spine. Reconfirmed on 07/2018 XR. Esophagitis with gastritis. Generalized osteoarthrosis (02/21/13). GERD (gastroesophageal reflux disease). History of tobacco use. a. quit in 1998, after roughly 30 pack years. Hydronephrosis (05/07/14). Hyperlipidemia (02/21/13). Hypertension. Left foot pain (01/27/17). r/o Posteriur Tarsal Tunnel Syn; dr Velasquez, Dr. Aldana. Leg edema. Lumbar radiculopathy. Long Hx ... Acute on chronic Rt sided, 08/2021. ik. Migraine (02/21/13). Morbid obesity. a. Gastric bypass 1999. b. Multiple nutritional deficiencies, on supplements. c. S/p pannus excision. Muscle cramp, nocturnal (12/27/13). gabapentin 100 prn effective. Nephrolithiasis (05/07/14). a. First episode - right side. b. Right 3 mm ureterovesical junction stone. Nephrotic syndrome (06/17/85). Obesity (BMI 30-39.9) (08/11/11). Osteoarthritis (03/05/13). recurrent R thumb (h/o Catrina inj 10/2012; h/o surg L hand 06/2006). Osteoarthrosis, hand. Osteoporosis. Ca and Vit D suppl. Bisphosphonate Hx TBD. Pain in joint, shoulder region. a. rotator cuff pain. Pain of left hip (05/2018). Onset while stretching in bed, suddenly felt sharp pain ... hasn't gone away. Surprising left paraspinal tenderness along lumbar spine @ exam, 08/08/18. Palpitations (07/15/16). Periumbilical abdominal pain (04/14/17). ? umbilical hernia vs adhesions. Piriformis syndrome of right side. Pseudogout of left wrist (01/22/18). Pyelonephritis (05/07/14). 1. secondary to obstruction. Right upper extremity numbness. Pain and Tenderness, possible nerve entrapment with numbness .. 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 Right upper limb pain. Pain and Tenderness, possible nerve entrapment with numbness .. 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 Seasonal allergic rhinitis (02/21/13). Sleep disturbances (03/01/13). Spondylolisthesis of lumbosacral region. A. L4-5 B. L5-S1 Latest XR (07/2018) states pseudospondylolisthesis, no acute Fx/Sublux. Monitoring pain. TMJ (temporomandibular joint disorder) (01/25/16). Trigger finger, right middle finger (01/22/18). Vision loss, right eye. Vitamin D deficiency (12/23/16). rx 50,000/wk x ten wk, then 2000 IU daily. Surgical History. Arthroplasty (06/21/13). Cheri Palomo. Bariatric Surgery (06/16/00). Brenda-En-Y gastroplasty with cholecystectomy, Dr. Ami Greene [facility]. Cholecystectomy (06/16/00). Dr Greene, [facility], along with Bariatric procedure. [place] [facility] [place] H/O surgical procedure. a. Gastric bypass 1999. b. Pannus excision. c. Excision of Samson neuroma. d. Cholecystectomy. e. appendectomy. f. right oophorectomy. g. Hemorrhoidectomy. History of bariatric surgery (05/19/00). Dr. Greene, [facility]. pannus removal (04/02/03). [facility], 3 yr after bariatric surg. Repair of umbilical hernia (05/31/17). Dr Kaye. S/P bariatric surgery (06/16/00). [facility], pre surg wt 311 lbs. Trigger Finger release (11/26/13). A-1 sumi Rt ring finger PREVIOUS FUNCTIONAL STATUS/SOCIAL/FAMILY SUPPORTS:: Shauna lives in [place] with her , Jose. They have four adult children, who are local and supportive. 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 She has been disabled since 1995. She is indepedent at baseline. CURRENT FUNCTIONAL STATUS:: Shauna was sitting up in her chair when CM met with her. She stated that she is feeling better today than when she arrived. Per report, she is on heparin for a pulmonary embolism, due to RLE DVT. She is also on IV abx for positive blood cultures. She will be seen by PT to evaluate her needs. She will likely return home with a resumption of HH RN. She reports that her family is very supportive. CM will continue to follow. ADVANCE DIRECTIVES:: On file, Jose Loja listed as agent. Has patient been provided with info about the portal/API?: Yes Did the patient sign up for the portal?: No CODE STATUS:: Full Code INSURANCE COVERAGE / FINANCIAL ISSUES:: [facility] CURRENT HOME/COMMUNITY SERVICES/EQUIPMENT:: Shauna has HH RN. PRIMARY CARE PHYSICIAN:: Brigette Eli POTENTIAL DISCHARGE NEEDS:: Resumption of HH services, follow up appointments. PATIENT/FAMILY EDUCATION NEEDS:: Review discharge instructions and limitations, discussion of self care needs including ask me three. ANTICIPATED BARRIERS TO DISCHARGE:: None. TRANSPORTATION:: Via private vehicle by family. PLAN:: Anticipate Shauna will return home once medically cleared. She will be driven home via private vehicle by family. She will follow up with her PCP and discharge plan of care. CM will continue to follow. Readmission - Within the Past 30 Days Yes or No: Y - Date of First Admission Date of 1st Admission: 12/06/21 - Date of this Admission Date of Admission: 12/30/21 This admission was: Through ED - Office Visit Since 1st Admission Have you seen your PCP in the office since discharge?: No Had an appointment Been Scheduled?: Yes Date of Scheduled Appointment: 12/30/21 - I. Interview patient and/or Family Difficulty reaching your doctor or getting an office appt?: No Have you had trouble purchasing/ or taking medication?: No How do you take your medications and set up your pills?: independently Have you had trouble with getting meals at home?: No Did you feel ready for discharge when you left the last time: Yes Were services received that you thought were set up on disch: Yes What services were received?: ADRY RN Did you call your physician beore you came to the ED?: No How do you think you became sick enough to come back?: deconditioned from hospitalization - ED visits How many ED visits in the past 12 months: 6 - Assessment for Readmission Summary of readmission circumstances, based upon interviews: Shauna reported that she felt ready for discharge on her previous admission. She had a PCP follow up, but she missed it because she had returned to the hospital. She stated that she felt weak/deconditioned from being sick for so long, although overall, she feels better today. She will work with PT on this admission, who will make recommendations for treatment upon discharge. She will likely return home with a resumption of ADRY RN.
[2021-12-31] MEDS: Gabapentin 100 MG CAP PO (13:43)
--- NOTE | 2021-12-31 16:17 | PGE_ITS ---
Date of Service Date of service: 12/31/21 Time of Service: 16:17 Assessment and Plan Assessment and plan (1) Pulmonary embolism: Status: Chronic Assessment and plan: Due to RLE DVT, which is extensive, and present on admission. Continue heparin gtt; no stools to definitively ensure that not heme positive. Echo with nml RV size and function and a trivial pericardial effusion. Continue tele. Added fentanyl IV for pain control. Encourage pulmonary toilet. We will need to work with care management on a way to afford anticoagulation on d/c. (2) Sepsis: Status: Acute Assessment and plan: Due to PNA, present on admission. 1 blood cx from 12/29/21 (prior to admission) + for GPCs in clusters (1 bottle out of 4). Await more information. Continue vancomcyn, cefepime, flagyl - can likely d/c flagyl if C.Diff negative or if no stool by tomorrow. (3) Right leg DVT: Status: Acute Assessment and plan: As above (4) Pneumonia: Status: Acute Assessment and plan: As above (5) Anemia: Status: Chronic Assessment and plan: Hemoccult pending. H/H relatively stable. Will continue to trend. Low threshold to stop heparin gtt. (6) Perforated gastric ulcer: Status: Acute Assessment and plan: 3 weeks ago. S/p endoscopy. Continue PPI + carafate. Monitor for GI bleeding. Low threshold to stop anticoagulation. General surgery consulted. (7) Diffuse pain in right upper extremity: Status: Acute Assessment and plan: XR RUE w/o acute injury, though there is a quesiton of AVN. Clinically better. OT c/s. (8) Pleuritic chest pain: Status: Acute Assessment and plan: Treat with tylenol, lidocaine patches, tramadol, prn IV fentanyl. Encourage IS/acapella. (9) DVT prophylaxis: Status: Acute Assessment and plan: On therapeutic heparin gtt (10) Discharge planning issues: Status: Acute Assessment and plan: Full code as verified by my conversation with the patient. Continues to require hospitalization. Subjective Subjective Interval history since last seen: Continues to have R-sided CP, especially on inspiration, and SOB. Cough is nonproductive. RUE is better, less red, but feels stiff. No n/v/di arrhea/abdominal pain. Blood cultures from 12/29/21 (ER) are growing GPCs in clusters in anaerobic bottle. The rest of the bottles from 12/29/21 are w/ NGTD. T max 38 in the last 24 hrs. On RA. Exam Narrative Exam Narrative: General: Pleasant elderly female who looks better, on RA, A&Ox3, NAD HEENT: EOMI, MMM Cardiovascular: RRR, nom/r/g Lungs: Diminished breath sounds B Gastrointestinal: soft, nontender, nondistended; see skin exam above Extremities: trace edema BLEs; RUE without erythema or edema today Objective Last Vital Signs Temp 37.6 C H 12/31/21 14:21 Pulse 81 12/31/21 14:21 Resp 20 12/31/21 14:21 BP 118/71 12/31/21 14:21 Pulse Ox 94 12/31/21 14:21 Laboratory Results - last 24 hr 12/30/21 12/30/21 12/30/21 15:20 15:25 15:25 WBC RBC Hgb Hct MCV MCH MCHC RDW Plt Count MPV Immature Gran % Neutrophils % Lymphocytes % Monocytes % Eosinophils % Basophils % Nucleated RBC % Absolute Neutrophils Absolute Lymphocytes Absolute Monocytes Absolute Eosinophils Absolute Basophils APTT D-Dimer Sodium Potassium Chloride Carbon Dioxide Anion Gap BUN Creatinine Estimated GFR/1.73 m2 Glucose Uric Acid 3.7 Calcium Magnesium Iron TIBC Transferrin % Sat Ferritin Troponin I < 50 C-Reactive Protein Vitamin B12 Folate Add-On Test Request DONE 12/30/21 12/30/21 12/31/21 16:51 18:12 00:50 WBC RBC Hgb 9.8 L Hct 29.9 L MCV MCH MCHC RDW Plt Count MPV Immature Gran % Neutrophils % Lymphocytes % Monocytes % Eosinophils % Basophils % Nucleated RBC % Absolute Neutrophils Absolute Lymphocytes Absolute Monocytes Absolute Eosinophils Absolute Basophils APTT 32.6 H 74.3 H D-Dimer Sodium Potassium Chloride Carbon Dioxide Anion Gap BUN Creatinine Estimated GFR/1.73 m2 Glucose Uric Acid Calcium Magnesium Iron TIBC Transferrin % Sat Ferritin Troponin I C-Reactive Protein Vitamin B12 Folate Add-On Test Request 12/31/21 12/31/21 12/31/21 06:38 06:38 06:38 WBC 8.29 RBC 3.14 L Hgb 9.1 L Hct 28.2 L MCV 90 MCH 29.0 MCHC 32.3 RDW 12.8 Plt Count 157 MPV 11.2 H Immature Gran % 0.4 Neutrophils % 66.3 Lymphocytes % 19.8 Monocytes % 10.9 Eosinophils % 1.9 Basophils % 0.7 Nucleated RBC % 0.0 Absolute Neutrophils 5.50 Absolute Lymphocytes 1.64 Absolute Monocytes 0.90 H Absolute Eosinophils 0.16 Absolute Basophils 0.06 APTT D-Dimer Sodium 137 Potassium 3.7 Chloride 102 Carbon Dioxide 27.2 Anion Gap 7.8 BUN 15 Creatinine 0.8 Estimated GFR/1.73 m2 >= 60.00 Glucose 96 Uric Acid Calcium 8.0 L Magnesium 1.5 L Iron 15 L TIBC 161 L Transferrin % Sat 9 L Ferritin 386 H Troponin I C-Reactive Protein > 25.00 H Vitamin B12 358 Folate 16.1 Add-On Test Request 12/31/21 12/31/21 06:38 06:38 WBC RBC Hgb Hct MCV MCH MCHC RDW Plt Count MPV Immature Gran % Neutrophils % Lymphocytes % Monocytes % Eosinophils % Basophils % Nucleated RBC % Absolute Neutrophils Absolute Lymphocytes Absolute Monocytes Absolute Eosinophils Absolute Basophils APTT 49.6 H D-Dimer 2045 H Sodium Potassium Chloride Carbon Dioxide Anion Gap BUN Creatinine Estimated GFR/1.73 m2 Glucose Uric Acid Calcium Magnesium Iron TIBC Transferrin % Sat Ferritin Troponin I C-Reactive Protein Vitamin B12 Folate Add-On Test Request
[2021-12-31] MEDS: Gabapentin 300 MG CAP PO (22:26)
[2021-12-31] MEDS: metroNIDAZOLE 500 MG/100 ML BAG 1000 MG IVPB (22:26)
[2022-01-01] VITALS (10 sets, daily range): BP systolic 92–122; BP diastolic 60–72; PULSE 67–87; RESP 16–18; TEMP 36.7–37.9; O2SAT 92–98
--- NOTE | 2022-01-01 | DI.RAD_ITS ---
Exam(s) XR FOOT LT COMPLETE EXAM: XR FOOT LT COMPLETE CLINICAL HISTORY: L foot pain, swelling. TECHNIQUE: 2D digital imaging was performed. COMPARISON: CR,XR XR FOOT RT COMPLETE from 11/27/2021 FINDINGS: 3 views No evidence of fracture nor diastasis of the Lisfranc joint. Moderate size inferior calcaneal spur i s noted. There is some calcification in the adjacent plantar fascia. Vascular calcification is note d. No radiographic evidence of osteomyelitis. No osseous lesions. IMPRESSION: DATA REPOSITORY: RADIATION DOSE DELIVERED:
[2022-01-01] MEDS: CEFEPIME 2 GM in Normal Saline 100 ML IVPB ×3 (02:13→17:44)
[2022-01-01] MEDS: Acetaminophen 325 MG TAB PO ×2 (02:24→18:28)
[2022-01-01] MEDS: Docusate Sodium 100 MG CAP PO ×2 (02:24→19:53)
[2022-01-01] MEDS: Cyclobenzaprine 10 MG TAB PO (02:26)
[2022-01-01] MEDS: Lactated Ringers 1,000 ML 150 ML IV (05:30)
[2022-01-01] MEDS: traMADol 50 MG TAB PO ×3 (05:30→19:54)
[2022-01-01] MEDS: metroNIDAZOLE 500 MG/100 ML BAG 100 MG IVPB ×3 (05:39→21:58)
[2022-01-01 07:29] LABS: Abs Immature Grans 0.02 10^3/uL (0.0-0.06); Absolute Basophil Count 0.06 10^3/uL (0.0-0.2); Absolute Eosinophil Count 0.28 10^3/uL (0.0-0.7); Absolute Lymphocyte Count 1.19 10^3/uL (1.2-3.4); Absolute Monocyte Count 0.75 10^3/uL (0.1-0.8); Absolute Neutrophil Count 4.56 10^3/uL (1.2-6.7); Basophils % 0.9; Eosinophils % 4.1; HCT 25.9 % (36.0-46.0); HGB 8.7 g/dL (11.2-15.7); Immature Grans % 0.3; Lymphocytes % 17.3; MCH 29.8 pg (27.0-33.0); MCHC 33.6 % (32.0-36.0); MCV 89 fL (80-95); MPV 10.5 fL (8.0-11.0); Monocytes % 10.9; Neutrophils % 66.5; Platelet Count 187 10^3/uL (130-400); RBC 2.92 10^6/uL (3.93-5.22); RDW 12.9 % (11.7-14.6); WBC 6.86 10^3/uL (4.4-10.8)
[2022-01-01 07:43] LABS: Vancomycin, Trough 16.2 ug/mL (10.0-20.0)
[2022-01-01 07:45] LABS: Anion Gap 7.8 mmol/L (3-11); BUN 15 mg/dL (7-18); CO2 24.2 mmol/L (21.0-32.0); CREATININE 0.8 mg/dL (0.55-1.02); Calcium 8.3 mg/dL (8.5-10.1); Chloride 105 mmol/L (98-107); Glucose 95 mg/dL (74-106); Magnesium 1.9 mg/dL (1.8-2.4); Potassium 3.4 mmol/L (3.5-5.1); Sodium 137 mmol/L (136-145)
[2022-01-01 07:50] LABS: PTT Activated 62.9 sec (21.0-27.5)
[2022-01-01 08:04] LABS: D-Dimer 1996 ng/mlFEU (<500)
[2022-01-01] MEDS: Cyanocobalamin 500 MCG TAB 1000 MCG PO (08:57)
[2022-01-01] MEDS: Cholecalciferol (Vitamin D3) 1,000 UNIT TAB 2000 UNITS PO (08:57)
[2022-01-01] MEDS: Pantoprazole 40 MG TABCR PO ×2 (08:57→19:53)
[2022-01-01] MEDS: VANCOMYCIN/WATER (PEG) 1.25 GM/250 ML BAG IV ×2 (08:57→19:52)
[2022-01-01] MEDS: Sucralfate 1 GM TAB PO ×4 (08:57→21:57)
[2022-01-01] MEDS: POTASSIUM CHLORIDE 20 MEQ/100 ML BAG 50 MEQ IVPB ×2 (08:58→11:55)
[2022-01-01] MEDS: Lidocaine 5% Patch 1 PATCH TP (08:58)
[2022-01-01] MEDS: Gabapentin 100 MG CAP PO ×2 (09:17→14:11)
[2022-01-01] MEDS: Normal Saline Flush 10 ML SYR IVP ×3 (10:58→18:27)
--- NOTE | 2022-01-01 12:43 | PT.INTREAT ---
Date of service: 12/31/21 PT Notes Visit Reasons: Sepsis Due to Pneumonia Inpatient Physical Therapy Treatment Note [facility] Date: 12/31/21 SUBJECTIVE: Shauna states that she is not sure that she can walk this pm due to pain in her left foot. OBJECTIVE: [] BED MOBILITY/TRANSFERS seated in recliner. Sit-stand: CGA Stand-sit: SBA GAIT Assistive Device: FWW Weight bearing:full Assist: CGA Distance: stood in place x approx 3 min THEREX: performed a global LE strengthening routine including AP, LAQ, hip abd, heel slides and SLR x 10 ea. ASSESSMENT: muscle spasms noted in back during ex. Significant pain in left foot and ankle which is red and swollen. PLAN: will progress strength and functional mobility per POC TREATMENT CODE/TIME: 20 min [id number]
--- NOTE | 2022-01-01 12:48 | PT.INTREAT ---
PT Notes Visit Reasons: Sepsis Due to Pneumonia Inpatient Physical Therapy Treatment Note [facility] Date: 12/31/21 SUBJECTIVE: Shauna still in bed late am. States that she can not bear any weight on her left leg due to pain. She refuses to get OOB this am, but agreeable to bed level ex. OBJECTIVE: [] THEREX: performed a global LE strengthening routine including AP, SAQ, hip abd, heel slides and SLR x 10 ea. ASSESSMENT: muscle spasms noted in back during ex. Constant c/o pain in left LE mostly knee and ankle. TTP jt line of knee, mild swelling noted. redness and swelling noted dorsum of foot with pain to palpation. No pain in calf, negative Homans sign. Very little increase in pain with ROM of ankle and knee which is equal to right side. PLAN: will progress strength and functional mobility per POC TREATMENT CODE/TIME: 15 min [id number]
--- NOTE | 2022-01-01 13:45 | PHACLINREV_ITS ---
Pharmacy Admission Review - Admission Clinical Review (Last Reviewed 12/29/21 @ 10:39 by Pancho Comer DO) Pleuritic chest pain (Acute) Diffuse pain in right upper extremity (Acute) Right leg DVT (Acute) Discharge planning issues (Acute) DVT prophylaxis (Acute) Pneumonia (Acute) Sepsis (Acute) Right-sided chest pain (Acute) Acute on chronic blood loss anemia (Acute) Perforated gastric ulcer (Acute) Morbid obesity (Acute 08/20/15) History of pulmonary embolism (Acute 01/01/16) morphine Allergy (Intermediate, Verified 12/30/21 12:24) Itching codeine Adverse Reaction (Intermediate, Verified 12/30/21 12:24) muscle spasms oxycodone HCl [From Percocet] Adverse Reaction (Intermediate, Verified 12/30/21 12:24) muscle spasms, hard on stomach Resuscitation Status Full Code Height 5 ft 7 in Weight 119.8 kg Sepsis from Pneumonia,PE - Comments Comments/Follow Ups: S/P recent surgery for perforated gastric ulcer, now readmitted with PE; being anticoagulated with Heparin infusion, watching for s/s GI bleed, on Pantoprazole twice daily and Sucralfate. H/H down 8.7/25.9, Did have some fevers overnight. Will need anticoagulation at discharge. Blood cultures from 12/29 & 12/30 no growth, MRSA nare negative. May be able to deescal ate IV Antibiotics if next round of cultures also negative. - Renal Dosing Renal Dosing: BUN 15 mg/dL (7-18) 01/01/22 07:00 Creatinine 0.8 mg/dL (0.55-1.02) 01/01/22 07:00 Medications needing adjustments: Intervened (Cefepime started out renally adjusted to Q12h, now SCr improved, increased to Q8h dosing, Vanco per kinetics) - Anticoagulation Anticoagulation: Hgb 8.7 g/dL (11.2-15.7) L 01/01/22 07:00 Hct 25.9 % (36.0-46.0) L 01/01/22 07:00 Plt Count 187 10^3/uL (130-400) 01/01/22 07:00 Creatinine 0.8 mg/dL (0.55-1.02) 01/01/22 07:00 Therapeutic Anticoagulation: Reviewed Medications: Heparin (Heparin infusion for recurrent PE; will need to start anticoagulation at discharge) - Opiate Usage Evaluate Pain Scale/Pains Meds: Reviewed (Fentanyl/Tramadol for pleuritic pain s/p surgergy from perforated gastric ulcer) Scheduled Bowel Reg ordered if on Opiates?: Yes (Docusate BID) - Relevant Labs Sodium 137 mmol/L (136-145) 01/01/22 07:00 Potassium 3.4 mmol/L (3.5-5.1) L 01/01/22 07:00 Chloride 105 mmol/L (98-107) 01/01/22 07:00 Magnesium 1.9 mg/dL (1.8-2.4) 01/01/22 07:00 C-Reactive Protein > 25.00 mg/dL (0.0-0.3) H 12/31/21 06:38 Electrolytes, C-Reactive P, ESR: Reviewed (KCL IV today, D-dimer down, Creactive still elevated) - DM Control DM Control: Glucose 95 mg/dL (74-106) 01/01/22 07:00 Insulin Dosing: N/A - Heart Failure/NJ Heart Failure/NJ: Troponin I < 50 ng/L (<or=60) 12/30/21 15:20 EF%, TONO's, B-Blockers, Diuretics: Reviewed (Toprol) - BP Control BP Control: Blood Pressure 110/72 Blood Pressure 100/60 Blood Pressure 92/60 Blood Pressure 106/68 If elevated: Reviewed - Qtc Review If Elevated: Reviewed (424) - IV to PO Switch IV Medications: Reviewed (Zofran/Flagyl) - Home Meds Home Med List reviewed: Reviewed Antibiotic Activity - Pharmacy Antibiotic Review Pharmacy Antibiotic Activity: C/S review (Repeat cultures pending, [id number]) - Antibiotic Information Antibiotic Review Info: Repeat BC pending, [id number] for Sepsis Pneumonia day#3
--- NOTE | 2022-01-01 17:40 | W.PM.PROGNOT ---
Date of Service Date of service: 01/01/22 Time of Service: 17:41 Assessment and Plan Assessment and plan (1) Pulmonary embolism: Status: Chronic Assessment and plan: Due to RLE DVT, which is extensive, and present on admission. Continue heparin gtt; the patient did just have a light brown BM which is heme neg. Echo with nml RV size and function and a trivial pericardial effusion. Continue tele. Continue fentanyl IV for pain control. Encourage pulmonary toilet. We will need to work with care management on a way to afford anticoagulation on d/c. (2) Sepsis: Status: Acute Assessment and plan: Due to PNA, present on admission. 1 blood cx from 12/29/21 (prior to admission) + for GPCs in clusters (1 bottle out of 4). Await more information. Continue vancomcyn, cefepime, flagyl - can likely d/c flagyl if C.Diff negative or if no stool by tomorrow. (3) Right leg DVT: Status: Acute Assessment and plan: As above (4) Left foot pain: Status: Acute Assessment and plan: Obtain XR, uric acid. Trial ice. Consider colchicine. (5) Pneumonia: Status: Acute Assessment and plan: As above (6) Anemia: Status: Chronic Assessment and plan: Hemoccult negative. H/H relatively stable. Will continue to trend. (7) Perforated gastric ulcer: Status: Resolved Assessment and plan: 3 weeks ago. S/p endoscopy. Continue PPI + carafate. Monitor for GI bleeding. Low threshold to stop anticoagulation. General surgery consulted. (8) Diffuse pain in right upper extremity: Status: Acute Assessment and plan: XR RUE w/o acute injury, though there is a quesiton of AVN. The patient has a h/o radiculopathy. Clinically better. OT c/s. (9) Pleuritic chest pain: Status: Acute Assessment and plan: Treat with tylenol, lidocaine patches, tramadol, prn IV fentanyl. Encourage IS/acapella. (10) DVT prophylaxis: Status: Acute Assessment and plan: On therapeutic heparin gtt (11) Discharge planning issues: Status: Acute Assessment and plan: Full code as verified by my conversation with the patient. Continues to require hospitalization. Will need to ensure the patient can afford anticoagulation prior to d/c. Subjective Subjective Interval history since last seen: Ms Loja states that her pain in the R chest is slowly getting better, but she is still quite tender and feels stiff in the R shoulder. She also reports L foot pain that has been going on for 2 days, to the point that it hurts to walk on it. Denies injury. Denies dizziness, shortness of breath. Was nauseated and vomited after lunch today, but feels better now and tolerated dinner. Exam Narrative Exam Narrative: General: Pleasant elderly female who looks better, but uncomfortable, on RA, A&Ox3 HEENT: EOMI, MMM Cardiovascular: RRR, nom/r/g Lungs: Diminished breath sounds B Gastrointestinal: soft, nontender, nondistended Extremities: trace edema BLEs; L foot with an area of mild erythema and induration, warm on dorsal side. Objective Last Vital Signs Temp 37.9 C H 01/01/22 15:45 Pulse 77 01/01/22 15:45 Resp 18 01/01/22 15:45 BP 122/68 01/01/22 15:45 Pulse Ox 96 01/01/22 15:45 Laboratory Results - last 24 hr 01/01/22 01/01/22 01/01/22 07:00 07:00 07:00 WBC RBC Hgb Hct MCV MCH MCHC RDW Plt Count MPV Immature Gran % Neutrophils % Lymphocytes % Monocytes % Eosinophils % Basophils % Nucleated RBC % Absolute Neutrophils Absolute Lymphocytes Absolute Monocytes Absolute Eosinophils Absolute Basophils APTT 62.9 H D-Dimer 1996 H Sodium 137 Potassium 3.4 L Chloride 105 Carbon Dioxide 24.2 Anion Gap 7.8 BUN 15 Creatinine 0.8 Estimated GFR/1.73 m2 >= 60.00 Glucose 95 Calcium 8.3 L Magnesium 1.9 Vancomycin Trough 16.2 01/01/22 07:00 WBC 6.86 RBC 2.92 L Hgb 8.7 L Hct 25.9 L MCV 89 MCH 29.8 MCHC 33.6 RDW 12.9 Plt Count 187 MPV 10.5 Immature Gran % 0.3 Neutrophils % 66.5 Lymphocytes % 17.3 Monocytes % 10.9 Eosinophils % 4.1 Basophils % 0.9 Nucleated RBC % 0.0 Absolute Neutrophils 4.56 Absolute Lymphocytes 1.19 L Absolute Monocytes 0.75 Absolute Eosinophils 0.28 Absolute Basophils 0.06 APTT D-Dimer Sodium Potassium Chloride Carbon Dioxide Anion Gap BUN Creatinine Estimated GFR/1.73 m2 Glucose Calcium Magnesium Vancomycin Trough
--- NOTE | 2022-01-01 18:43 | DI.VRAD_ITS ---
PROCEDURE INFORMATION: Exam: XR Left Foot Exam date and time: 01/01/2022 18:12 Age: 71 years old Clinical indication: Other: Left foot pain, no swelling, no known injury TECHNIQUE: Imaging protocol: Radiologic exam of the Left foot. Views: 3 or more views. COMPARISON: CR LEFT ANKLE COMPLETE 12/23/2016 15:02 FINDINGS: Bones/joints: The bones are demineralized. Mild scattered degenerative changes in the forefoot. Plantar calcaneal spur. No acute fracture or subluxation. Soft tissues: Generalized soft tissue swelling. Vasculature: Atherosclerosis. IMPRESSION: 1. No acute bony pathology. 2. Chronic findings as described. Dictated and Authenticated by: Kelsy Franco MD. Ordering:VERÓNICA Ibrahim MD
[2022-01-01] MEDS: Lactated Ringers 1,000 ML 75 ML IV (19:25)
[2022-01-01] MEDS: Gabapentin 300 MG CAP PO (21:57)
[2022-01-02] VITALS (10 sets, daily range): BP systolic 84–112; BP diastolic 58–70; PULSE 71–85; RESP 16–18; TEMP 36.6–37.3; O2SAT 96–99
--- NOTE | 2022-01-02 | DI.CT_ITS ---
Exam(s) CT LOWER EXTREMITY LT W EXAM: CT LOWER EXTREMITY LT W CLINICAL HISTORY: L foot erythema, swelling, pain. TECHNIQUE: Imaging Protocol: Axial computed tomography images with coronal and sagittal reformatted images were created and reviewed. CONTRAST MATERIAL: Intravenous: None COMPARISON: X-rays of the left foot 01/01/2022 reviewed FINDINGS: There is diffuse soft tissue swelling consistent with cellulitis. No obvious laceration. No air in the soft tissues. No radiopaque foreign body. Osseous: There is generalized osteopenia. No obvious acute fracture. Multiple small calcified jim s but no distinct fracture fragments. No evidence of osteomyelitis. IMPRESSION: Diffuse soft tissue edema/cellulitis. No fractures. No evidence of osteomyelitis. RADIATION DOSE DELIVERED: 287.29mGy.cm Total DLP DATA REPOSITORY: All CT scans at this facility are submitted to the National Radiology Data Registry (NRDR) Dose Index Registry (DIR) with the [employer] (ACR). RADIATION OPTIMIZATION: All CT scans at this facility use at least one of these dose optimization te chniques: automated exposure control; mA and/or kV adjustment per patient size (includes targeted exa ms where dose is matched to clinical indication); or iterative reconstruction.
[2022-01-02] MEDS: CEFEPIME 2 GM in Normal Saline 100 ML IVPB ×3 (01:39→17:42)
[2022-01-02] MEDS: traMADol 50 MG TAB PO ×2 (03:22→13:10)
[2022-01-02] MEDS: metroNIDAZOLE 500 MG/100 ML BAG 100 MG IVPB (05:06)
[2022-01-02 05:58] LABS: Abs Immature Grans 0.02 10^3/uL (0.0-0.06); Absolute Basophil Count 0.04 10^3/uL (0.0-0.2); Absolute Eosinophil Count 0.31 10^3/uL (0.0-0.7); Absolute Lymphocyte Count 1.61 10^3/uL (1.2-3.4); Absolute Neutrophil Count 4.09 10^3/uL (1.2-6.7); Basophils % 0.6; Eosinophils % 4.6; HCT 25.1 % (36.0-46.0); HGB 8.2 g/dL (11.2-15.7); Immature Grans % 0.3; Lymphocytes % 23.8; MCHC 32.7 % (32.0-36.0); MCV 89 fL (80-95); MPV 10.5 fL (8.0-11.0); Monocytes % 10.3; Neutrophils % 60.4; Platelet Count 198 10^3/uL (130-400); RBC 2.83 10^6/uL (3.93-5.22); RDW-SD 42.4 fL; WBC 6.77 10^3/uL (4.4-10.8)
[2022-01-02 06:16] LABS: Anion Gap 7.1 mmol/L (3-11); BUN 13 mg/dL (7-18); CO2 23.9 mmol/L (21.0-32.0); CREATININE 0.7 mg/dL (0.55-1.02); Calcium 8.2 mg/dL (8.5-10.1); Chloride 106 mmol/L (98-107); Glucose 92 mg/dL (74-106); Potassium 3.3 mmol/L (3.5-5.1); Sodium 137 mmol/L (136-145)
--- NOTE | 2022-01-02 06:21 | NUR.NOTE ---
Patient had a moment of dizziness after using bedside commode. Patient was assisted back to bed, manual blood pressure on the right arm of 92/60, patient was placed with legs elevated. Patient became tearful at this time, stating I feel like one thing gets better and then something else happens. Patient educated on orthostatic hypotension.
[2022-01-02 06:23] LABS: Magnesium 1.6 mg/dL (1.8-2.4); PTT Activated 46.8 sec (21.0-27.5); Uric Acid 3.8 mg/dL (2.6-6.0)
[2022-01-02 06:47] LABS: D-Dimer 1730 ng/mlFEU (<500)
[2022-01-02] MEDS: VANCOMYCIN/WATER (PEG) 1.25 GM/250 ML BAG IV ×2 (07:48→19:35)
[2022-01-02] MEDS: Lidocaine 5% Patch 1 PATCH TP ×2 (07:48→17:42)
[2022-01-02] MEDS: Cholecalciferol (Vitamin D3) 1,000 UNIT TAB 2000 UNITS PO (07:49)
[2022-01-02] MEDS: Docusate Sodium 100 MG CAP PO ×2 (07:49→19:35)
[2022-01-02] MEDS: Pantoprazole 40 MG TABCR PO ×2 (07:49→19:35)
[2022-01-02] MEDS: Sucralfate 1 GM TAB PO ×4 (07:49→22:05)
[2022-01-02] MEDS: Cyanocobalamin 500 MCG TAB 1000 MCG PO (07:49)
[2022-01-02] MEDS: Lactated Ringers 1,000 ML 1000 ML IV (07:49)
[2022-01-02] MEDS: Gabapentin 100 MG CAP PO ×2 (07:52→15:27)
[2022-01-02] MEDS: MAGNESIUM SULFATE 2 GM/50 ML BAG IVPB (07:52)
[2022-01-02] MEDS: Lactated Ringers 1,000 ML 75 ML IV ×2 (09:17→18:22)
[2022-01-02] MEDS: Lactated Ringers 500 ML IV (11:02)
[2022-01-02] MEDS: POTASSIUM CHLORIDE 20 MEQ/100 ML BAG 50 MEQ IVPB ×2 (11:02→13:10)
[2022-01-02 11:58] LABS: HCT 27.5 % (36.0-46.0); HGB 9.2 g/dL (11.2-15.7)
--- NOTE | 2022-01-02 12:52 | PT.INNT ---
PT Notes Visit Reasons: Sepsis Due to Pneumonia unable to participate today during 2 attempts. Very low BP in am, with c/o lightheadedness and felt like she would pass out if she stood. C/o increased left foot pain which continues to be red and swollen. I did place ice packs on foot during each of my visits. Will check in with her in am and resume PT.
--- NOTE | 2022-01-02 14:17 | W.PM.PROGNOT ---
Date of Service Date of service: 01/02/22 Time of Service: 14:17 Assessment and Plan Assessment and plan (1) Pulmonary embolism: Status: Chronic Assessment and plan: Due to RLE DVT, which is extensive, and present on admission. I am concerned that, with the persistent hypotension, the patient may have had another PE. For repeat CTA chest. Continue IVF. Check orthostatic VS. Continue heparin gtt; if she did have a recurrent PE while on heparin gtt, would discuss with [facility] [place]heme what to do next. Echo with nml RV size and function and a trivial pericardial effusion. Resume tele. Continue fentanyl IV for pain control. Encourage pulmonary toilet. We will need to work with care management on a way to afford anticoagulation on d/c. (2) Sepsis: Status: Acute Assessment and plan: Due to PNA, present on admission. 1 blood cx from 12/29/21 (prior to admission) + Staph hominis (1 bottle out of 4). This is frequently a contaminant. Repeat blood cultures on this admission are negative. Will await results of CTA - if infiltrate looks better, would d/c vanco. Continue cefepime. D/c flagyl. (3) Right leg DVT: Status: Acute Assessment and plan: As above (4) Left foot pain: Status: Acute Assessment and plan: XR w/o acute process; UA low and not c/w gout. Obtain CT of the foot. Will add lidocaine patches. Continue cold compresses. Consider ortho eval. (5) Pneumonia: Status: Acute Assessment and plan: As above (6) Anemia: Status: Chronic Assessment and plan: Hemoccult negative. H/H relatively stable - actually better on recheck at noon today and unlikely to be responsible for the hypotension. Will continue to trend. (7) Perforated gastric ulcer: Status: Resolved Assessment and plan: 3 weeks ago. S/p endoscopy. Continue PPI + carafate. Anticoagulation is ok with general surgery. Monitor for GI bleeding. H/H stable so far and heme negative. GEneral surgery saw the patient on this admission. (8) Diffuse pain in right upper extremity: Status: Resolved Assessment and plan: XR RUE w/o acute injury, though there is a quesiton of AVN. The patient has a h/o radiculopathy. Clinically better. OT c/s. Continue gabapentin. (9) Pleuritic chest pain: Status: Acute Assessment and plan: Treat with tylenol, lidocaine patches, tramadol, prn IV fentanyl; gabapentin dose increased slightly. Encourage IS/acapella. (10) DVT prophylaxis: Status: Acute Assessment and plan: On therapeutic heparin gtt (11) Discharge planning issues: Status: Acute Assessment and plan: Full code as verified by my conversation with the patient. Continues to require hospitalization. Will need to ensure the patient can afford anticoagulation prior to d/c. Subjective Subjective Interval history since last seen: Ms Loja reports extreme dizziness and palpitations when she tries to sit up or stand up. Her SBPs even when she is laying flat are in the 90s today with metoprolol being held both yesterday and today, despite IV fluid boluses and MIVF. The patient feels better when supine. CP/SOB better. No nausea today. L foot continues to hurt; ice feels good. Exam Narrative Exam Narrative: General: Pleasant elderly female who looks better, A&Ox3, NAD, actually appears to be in a good mood HEENT: EOMI, MMM Cardiovascular: RRR, nom/r/g Lungs: Diminished breath sounds B Gastrointestinal: soft, nontender, nondistended Extremities: trace edema BLEs; L foot with an area of mild erythema and induration, warm on dorsal side. Objective Last Vital Signs Temp 36.7 C 01/02/22 07:35 Pulse 71 01/02/22 07:35 Resp 16 01/02/22 07:35 BP 95/60 L 01/02/22 12:11 Pulse Ox 97 01/02/22 07:35 Laboratory Results - last 24 hr 01/02/22 01/02/22 01/02/22 05:30 05:30 05:30 WBC RBC Hgb Hct MCV MCH MCHC RDW Plt Count MPV Immature Gran % Neutrophils % Lymphocytes % Monocytes % Eosinophils % Basophils % Nucleated RBC % Absolute Neutrophils Absolute Lymphocytes Absolute Monocytes Absolute Eosinophils Absolute Basophils APTT 46.8 H D-Dimer 1730 H Sodium 137 Potassium 3.3 L Chloride 106 Carbon Dioxide 23.9 Anion Gap 7.1 BUN 13 Creatinine 0.7 Estimated GFR/1.73 m2 >= 60.00 Glucose 92 Uric Acid 3.8 Calcium 8.2 L Magnesium 1.6 L 01/02/22 01/02/22 05:39 11:55 WBC 6.77 RBC 2.83 L Hgb 8.2 L 9.2 L Hct 25.1 L 27.5 L MCV 89 MCH 29.0 MCHC 32.7 RDW 13.0 Plt Count 198 MPV 10.5 Immature Gran % 0.3 Neutrophils % 60.4 Lymphocytes % 23.8 Monocytes % 10.3 Eosinophils % 4.6 Basophils % 0.6 Nucleated RBC % 0.0 Absolute Neutrophils 4.09 Absolute Lymphocytes 1.61 Absolute Monocytes 0.70 Absolute Eosinophils 0.31 Absolute Basophils 0.04 APTT D-Dimer Sodium Potassium Chloride Carbon Dioxide Anion Gap BUN Creatinine Estimated GFR/1.73 m2 Glucose Uric Acid Calcium Magnesium
[2022-01-02] MEDS: Midodrine 2.5 MG TAB PO ×2 (14:37→19:35)
[2022-01-02] MEDS: Omnipaque 350 MG/ML 100 ML BTL IJ (14:53)
--- NOTE | 2022-01-02 15:00 | DI.CT_ITS ---
Exam(s) CT CHEST PE CTA EXAM: CT CHEST PE CTA CLINICAL HISTORY: persistent hypotension and dizziness, ?new PE. TECHNIQUE: Imaging Protocol: CT angiography of the chest was performed using pulmonary embolus hillary col. Multi planar reconstructions were performed. CONTRAST MATERIAL: Intravenous: Omnipaque 350 Contrast volume: 100 cc COMPARISON: CT CT CHEST PE ABD PELVIS W from 12/29/2021 FINDINGS: CHEST: PULMONARY ARTERIES: There are no intraluminal filling defects to suggest acute pulmonary emboli. LUNGS: No large confluent infiltrates.. Mild atelectasis in the lung bases. Small bilateral pleural effusions MEDIASTINUM: There is no hilar nor mediastinal adenopathy. Visualized thyroid unremarkable. CARDIAC: Heart size upper normal. Thin pericardial effusion noted.Caliber of the thoracic aorta is w ithin normal limits. Aorta size upper normal. No dissection. There is no significant shift of the i nterventricular septum. PARTIALLY VISUALIZED UPPERMOST ABDOMEN: No adrenal masses. Renal cysts noted OSSEOUS: No significant osseous lesions.No fractures.. IMPRESSION: 1. No evidence of acute pulmonary emboli. No evidence of pulmonary infarction.Mild atelectasis in th e lung bases. Small bilateral pleural effusions. 2. No aortic dissection. 3. Small pericardial effusion. RADIATION DOSE DELIVERED: 658.16mGy.cm Total DLP DATA REPOSITORY: All CT scans at this facility are submitted to the National Radiology Data Registry (NRDR) Dose Index Registry (DIR) with the [employer] (ACR). RADIATION OPTIMIZATION: All CT scans at this facility use at least one of these dose optimization te chniques: automated exposure control; mA and/or kV adjustment per patient size (includes targeted exa ms where dose is matched to clinical indication); or iterative reconstruction.
[2022-01-02] MEDS: Normal Saline Flush 10 ML SYR IVP ×2 (15:16→19:40)
--- NOTE | 2022-01-02 15:27 | DI.VRAD_ITS ---
PROCEDURE INFORMATION: Exam: CT Left Lower Extremity With Contrast, Foot Exam date and time: 01/02/2022 2:57 PM Age: 71 years old Clinical indication: Swelling, leg or foot; Patient HX: Swelling, erythema. Of right foot TECHNIQUE: Imaging protocol: CT of the Left lower extremity with intravenous contrast was performed. Exam focused on the foot. Radiation optimization: All CT scans at this facility use at least one of these dose optimization techniques: automated exposure control; mA and/or kV adjustment per patient size (includes targeted exams where dose is matched to clinical indication); or iterative reconstruction. Contrast material: OMNIPAQUE 350; Contrast volume: 100 ml; Contrast route: INTRAVENOUS (IV); COMPARISON: CR XR FOOT LT COMPLETE 01/01/2022 6:12 PM FINDINGS: Bones/joints: Osteopenia. No acute fractures. No bone destruction or lysis. Soft tissues: Diffuse edema/cellulitis. No gas within the soft tissues. IMPRESSION: 1. Diffuse soft tissue edema/cellulitis. 2. No evidence of osteomyelitis. Dictated and Authenticated by: Mike Person MD. Ordering:VERÓNICA Ibrahim MD
--- NOTE | 2022-01-02 15:37 | DI.VRAD_ITS ---
PROCEDURE INFORMATION: Exam: CTA Chest With Contrast Exam date and time: 01/02/2022 2:50 PM Age: 71 years old Clinical indication: Other: Persistant hypotension, and dizziness. Patient HX: Patient has a known dvt in the right leg. TECHNIQUE: Imaging protocol: Computed tomographic angiography of the chest with contrast. 3D rendering (Not supervised by radiologist): MIP and/or 3D reconstructed images were created by the technologist. Radiation optimization: All CT scans at this facility use at least one of these dose optimization techniques: automated exposure control; mA and/or kV adjustment per patient size (includes targeted exams where dose is matched to clinical indication); or iterative reconstruction. Contrast material: OMNIPAQUE 350; Contrast volume: 100 ml; Contrast route: INTRAVENOUS (IV); COMPARISON: CT CHEST PE ABD PELVIS W 12/29/2021 12:01 PM FINDINGS: Pulmonary arteries: Thin linear intraluminal filling defects on the right side are unchanged from prior study. No acute pulmonary emboli. Aorta: Unremarkable. No aortic aneurysm. No aortic dissection. Lungs: Bilateral lower lobe atelectasis. Pleural spaces: Small bilateral pleural effusions. Heart: Small pericardial effusion measuring 5 mm. Lymph nodes: Unremarkable. No enlarged lymph nodes. Kidneys and ureters: Bilateral renal cortical cysts. Largest superior cortex left kidney measuring 2.4 cm. Bones/joints: Unremarkable. No acute fracture. Soft tissues: Unremarkable. IMPRESSION: 1. No acute pulmonary emboli. 2. Bilateral lower lobe atelectasis. Dictated and Authenticated by: Mike Person MD. Ordering:VERÓNICA Ibrahim MD
[2022-01-02] MEDS: Cyclobenzaprine 10 MG TAB PO (22:05)
[2022-01-02] MEDS: Gabapentin 300 MG CAP PO (22:58)
[2022-01-03] VITALS (8 sets, daily range): BP systolic 102–128; BP diastolic 59–76; PULSE 69–100; RESP 18–20; TEMP 36.2–37.4; O2SAT 96–100
[2022-01-03] MEDS: Acetaminophen 325 MG TAB PO (01:30)
[2022-01-03] MEDS: CEFEPIME 2 GM in Normal Saline 100 ML IVPB ×3 (01:30→18:28)
[2022-01-03] MEDS: traMADol 50 MG TAB PO (01:30)
[2022-01-03] MEDS: Patch Removal 1 EACH TP (05:36)
[2022-01-03 05:49] LABS: Abs Immature Grans 0.02 10^3/uL (0.0-0.06); Absolute Basophil Count 0.05 10^3/uL (0.0-0.2); Absolute Eosinophil Count 0.35 10^3/uL (0.0-0.7); Absolute Lymphocyte Count 1.59 10^3/uL (1.2-3.4); Absolute Neutrophil Count 2.88 10^3/uL (1.2-6.7); Basophils % 0.9; Eosinophils % 6.3; HCT 24.4 % (36.0-46.0); Immature Grans % 0.4; Lymphocytes % 28.4; MCH 29.2 pg (27.0-33.0); MCHC 32.8 % (32.0-36.0); MCV 89 fL (80-95); MPV 10.4 fL (8.0-11.0); Monocytes % 12.5; Neutrophils % 51.5; Platelet Count 206 10^3/uL (130-400); RBC 2.74 10^6/uL (3.93-5.22); RDW 13.2 % (11.7-14.6); RDW-SD 43.1 fL; WBC 5.59 10^3/uL (4.4-10.8)
[2022-01-03 06:02] LABS: Anion Gap 10.7 mmol/L (3-11); BUN 14 mg/dL (7-18); CO2 21.3 mmol/L (21.0-32.0); CREATININE 0.6 mg/dL (0.55-1.02); Calcium 8.3 mg/dL (8.5-10.1); Chloride 108 mmol/L (98-107); Glucose 90 mg/dL (74-106); Magnesium 1.5 mg/dL (1.8-2.4); Potassium 3.4 mmol/L (3.5-5.1); Sodium 140 mmol/L (136-145)
[2022-01-03 06:30] LABS: Diff Comment RBC Morph Reviewed
[2022-01-03 06:31] LABS: RBC Morphology Normal
[2022-01-03 08:00] LABS: PTT Activated 52.9 sec (21.0-27.5)
[2022-01-03 08:03] LABS: Vancomycin, Trough 19.3 ug/mL (10.0-20.0)
[2022-01-03] MEDS: Magnesium Chloride 64 MG TABCR PO ×2 (08:17→20:36)
[2022-01-03] MEDS: Cholecalciferol (Vitamin D3) 1,000 UNIT TAB 2000 UNITS PO (08:17)
[2022-01-03] MEDS: Docusate Sodium 100 MG CAP PO ×2 (08:18→20:36)
[2022-01-03] MEDS: Gabapentin 100 MG CAP PO (08:18)
[2022-01-03] MEDS: Sucralfate 1 GM TAB PO ×4 (08:18→23:40)
[2022-01-03] MEDS: POTASSIUM CHLORIDE 20 MEQ/100 ML BAG 50 MEQ IVPB ×2 (08:18→11:32)
[2022-01-03] MEDS: Pantoprazole 40 MG TABCR PO ×2 (08:18→20:36)
[2022-01-03] MEDS: Cyanocobalamin 500 MCG TAB 1000 MCG PO (08:18)
[2022-01-03] MEDS: Lidocaine 5% Patch 1 PATCH TP (08:18)
--- NOTE | 2022-01-03 08:51 | PGE_ITS ---
Date of Service Date of service: 01/03/22 Time of Service: 08:57 Assessment and Plan Assessment and plan (1) Pulmonary embolism: Status: Chronic Assessment and plan: Due to RLE DVT, which is extensive, and present on admission. Recurrent PE ruled out. Is orthostatic, however, and that could very well be due to the PE. Not fluid responsive. Echo with nml RV size and function and a trivial pericardial effusion. Started on midodrine - improved. D/c IVF. Continue heparin gtt; Seems to be tolerating it without bleeding. Will discuss with care management which anticoagulant her insurance will cover. As far as pain, this is better. Will focus on the radiculopathic pain in the right neck/shoulder - will increase gabapentin, trial methocarbamol, lidocaine patches, heat, PT. Will wean fentanyl prn. Has prn tramadol. Avoid NSAIDs given recent GI bleeding. Encourage pulmonary toilet. . (2) Sepsis: Status: Acute Assessment and plan: Due to PNA, present on admission. Now the patient also has LLE cellulitis, which is improving. 1 blood cx from 12/29/21 (prior to admission) + Staph hominis (1 bottle out of 4). This is frequently a contaminant. Repeat blood cultures on this admission are negative. Continue vanco/cefepime. (3) Right leg DVT: Status: Acute Assessment and plan: As above (4) Left foot pain: Status: Acute Assessment and plan: Due to cellulitis. As above. Continue abx, cold compresses, lidocaine patches. Improving. (5) Pneumonia: Status: Acute Assessment and plan: As above (6) Anemia: Status: Chronic Assessment and plan: Hemoccult negative. No evidence of active bleeding. Tolerating anticoagulation. (7) Perforated gastric ulcer: Status: Resolved Assessment and plan: 3 weeks ago. S/p endoscopy. Continue PPI + carafate. Anticoagulation is ok with general surgery and the patient is tolerating it. Monitor for GI bleeding. H/H stable so far and heme negative. General surgery saw the patient on this admission. (8) Diffuse pain in right upper extremity: Status: Resolved Assessment and plan: XR RUE w/o acute injury, though there is a quesiton of AVN. The patient has a h/o radiculopathy. Worse today. Increase gabapentin, trial robaxin, heat, lidocaine patches, PT/OT. (9) Pleuritic chest pain: Status: Resolved Assessment and plan: as above Continue tylenol, prn tramadol. Weaning fentanyl. Encourage IS/acapella. (10) DVT prophylaxis: Status: Acute Assessment and plan: On therapeutic heparin gtt (11) Discharge planning issues: Status: Acute Assessment and plan: Full code as verified by my conversation with the patient. Anticipate discharge in 48 hrs. Will need to ensure the patient can afford anticoagulation prior to d/c. Subjective Subjective Interval history since last seen: Ms Loja does not feel as dizzy today. Her CP is actually getting better. It is her R neck and shoulder pain that are bothering her the most today. She has had chronic issues with radiculopathy there. We discussed how muscle relaxants, heat, lidocaine patches might be helpful. Her L foot pain is better. Denies shortness of breath. Exam Narrative Exam Narrative: General: Pleasant elderly female who looks better, A&Ox3, sitting on a commode when I came to see her, does not appear dizzy. HEENT: EOMI, MMM Cardiovascular: RRR, no m/r/g Lungs: Diminished breath sounds B Gastrointestinal: soft, nontender, nondistended Extremities: trace edema BLEs; L foot with a decreased area of mild erythema and induration/swelling, warm on dorsal side. Objective Last Vital Signs Temp 36.2 C L 01/03/22 08:34 Pulse 99 H 01/03/22 08:34 Resp 19 01/03/22 08:34 BP 102/65 01/03/22 08:34 Pulse Ox 98 01/03/22 08:34 Laboratory Results - last 24 hr 01/02/22 01/03/22 01/03/22 11:55 05:22 05:31 WBC 5.59 RBC 2.74 L Hgb 9.2 L 8.0 L Hct 27.5 L 24.4 L MCV 89 MCH 29.2 MCHC 32.8 RDW 13.2 Plt Count 206 MPV 10.4 Immature Gran % 0.4 Neutrophils % 51.5 Lymphocytes % 28.4 Monocytes % 12.5 Eosinophils % 6.3 Basophils % 0.9 Nucleated RBC % 0.0 Absolute Neutrophils 2.88 Absolute Lymphocytes 1.59 Absolute Monocytes 0.70 Absolute Eosinophils 0.35 Absolute Basophils 0.05 RBC Morphology Normal APTT Sodium 140 Potassium 3.4 L Chloride 108 H Carbon Dioxide 21.3 Anion Gap 10.7 BUN 14 Creatinine 0.6 Estimated GFR/1.73 m2 >= 60.00 Glucose 90 Calcium 8.3 L Magnesium 1.5 L Vancomycin Trough 01/03/22 01/03/22 07:24 07:24 WBC RBC Hgb Hct MCV MCH MCHC RDW Plt Count MPV Immature Gran % Neutrophils % Lymphocytes % Monocytes % Eosinophils % Basophils % Nucleated RBC % Absolute Neutrophils Absolute Lymphocytes Absolute Monocytes Absolute Eosinophils Absolute Basophils RBC Morphology APTT 52.9 H Sodium Potassium Chloride Carbon Dioxide Anion Gap BUN Creatinine Estimated GFR/1.73 m2 Glucose Calcium Magnesium Vancomycin Trough 19.3 Objective Narrative Objective Narrative: CTA chest 01/02/22: 1. No evidence of acute pulmonary emboli.? No evidence of pulmonary infarction.Mild atelectasis in the lung bases.? Small bilateral p leural effusions. 2. No aortic dissection. 3. Small pericardial effusion. CT L foot 01/02/22: Diffuse soft tissue edema/cellulitis.? No fractures.? No evidence of osteomyelitis.
[2022-01-03] MEDS: Midodrine 2.5 MG TAB PO ×3 (09:08→20:36)
[2022-01-03] MEDS: MAGNESIUM SULFATE 4 GM/100 ML BAG IVPB (11:33)
[2022-01-03] MEDS: Normal Saline Flush 10 ML SYR IVP ×4 (11:33→20:37)
--- NOTE | 2022-01-03 11:46 | PT.INTREAT ---
Date of service: 01/03/22 Time of Service: 11:45 PT Notes Visit Reasons: Sepsis Due to Pneumonia Inpatient Physical Therapy Treatment Note [facility] Date: 01/03/2022 PRECAUTIONS: Activity as tolerated. WBAT B LE with AD. SUBJECTIVE: Agreeable to being moved out of bed and sat onto bedside chair for lunch. Continues to report pain in the L ankle and foot at 4-5/10, much better than it started a day or two ago. States that she only has been able to go to and from bedside commode placed on the foot of her bed for the whole day yesterday and could not get out of bed last Monday due to pain. OBJECTIVE:? PAIN: L ankle and foot pain at 4-5/10 ? BED MOBILITY/TRANSFERS: Sit to supine minimal assist with cues provided to use B UE for support with report of cramping pain in the back that resolved when seated at edge of bed? Sit to stand stand by assist? Stand to sit stand by assist Bed to bedside chair stand by assist ? GAIT? Assistive Device: FWW? Weight bearing: Full Assist: SBA ? Distance:? 10 feet? Deviation: Slowed gait speed due to antalgia but no LOB ? ASSESSMENT:? New diagnosis of cellulitis on the L ankle and foot is limiting patient's mobility level. Held off on exercises as patient's lunch came in. Patient will benefit from continued functional mobility training in anticipation of discharge to home when able. PLAN: Increase ambulation distance as tolerated using AD. Continue with strength training as tolerated. DISCHARGE RECOMMENDATIONS: [] Home with no services [] [X] Home with services. Patient will benefit from jail facility placement for continued skilled physical therapy services in order to progress mobility level, strength, and balance in preparation for a safe discharge to home. [] Home with outpatient PT [] [] SNF for continued rehabilitation [] [] Group Home Care [] [] SNF versus LTC based on ability to participate and progress [] TREATMENT CODE/TIME: 61619 x 23 minutes beginning at 11:46 AM.
--- NOTE | 2022-01-03 12:19 | PDOC.CMPRO ---
- If Service Date Differs Date of service: 01/03/22 Time of Service: 12:19 Care Management Progress Note S/O: Shauna was sitting up in her chair when CM met with her. She stated that she feels much better today, and per MD she will likely remain for one or two more days. requested that CM contact her pharmacy to inquire about her copay for a new prescription for Eliquis. CM will resume HH RN, and add PT/OT upon discharge. CM will continue to follow. A: Shauna is a 71 year old female admitted to [facility] on 12/30/21 for sepsis due to pneumonia. P: Anticipate Shauna will return home once medically cleared. She will be driven home via private vehicle by family. She will follow up with her PCP and discharge plan of care. CM will continue to follow.
[2022-01-03] MEDS: VANCOMYCIN/WATER (PEG) 1 GM/200 ML BAG IV ×2 (12:57→23:40)
--- NOTE | 2022-01-03 13:00 | OT.INIE ---
Occupational Therapy Notes Inpatient Occupational Therapy Evaluation Date: Referring Doctor:Dr. Shah OT Orders: Non Urgent Precautions: Fall, standard, full PATIENT PROFILE/ADMITTING DIAGNOSIS: Pt is a 71 year old female who was admitted to [facility] with the following dx of recurrent right upper back and (R) shoulder pain. Patient is diagnosed with pulmonary embolus related to a right leg DVT, sepsis from pneumonia, pneumonia, anemia, perforated gastric ulcer status post endoscopy, and pleuritic chest pain. Past Medical History: All Active Problems?(Updated 12/30/21 @ 19:09 by Alexandria Shah MD) Pleuritic chest pain (Acute) Diffuse pain in right upper extremity (Acute) Right leg DVT (Acute) Discharge planning issues (Acute) DVT prophylaxis (Acute) Pneumonia (Acute) Sepsis (Acute) Pulmonary embolism (Chronic) Right-sided chest pain (Acute) Abscess (Acute) Sciatica (Acute) Anemia (Chronic) Acute on chronic blood loss anemia (Acute) Perforated gastric ulcer (Acute) Gastritis (Acute) Right foot pain (Acute) instep is excruciating ,, cannot flattenFasciitis (Acute) Tendonitis (Acute) Right hand paresthesia (Acute) Right arm pain (Acute) Cervical radiculopathy (Acute) Skin lesion of back (Acute) mid-back, pruritic .. indented/suspicious..Chest pain at rest (Acute) Awakened with heaviness, waited x hours (has had it before), but finally went to ED .. 11/20/18PAF (paroxysmal atrial fibrillation) (Chronic 05/08/15) only one confirmed episode 02/2015; ZIO patch neg; prefers not anticoagulate until A Fib recurs Morbid obesity (Acute 08/20/15) BMI 42, even after bariatric surg History of pulmonary embolism (Acute 01/01/16) Adenoma of large intestine (Acute 05/19/11) 05/2011 Kris Coffey colonoscopy, +tubular adenoma and +family h/o colon cancer (F); again adenoma 02/21/13 04/07/17 - tubulovillous adenoma, ascending colon, Dr Kaye Abdominal aortic aneurysm 30 to 34 mm in diameter (Chronic 07/19/14) 06/2014 3.14 cm, confirmed on CT; 07/2015 3.2cm US 04/21/17 stable 3.3 cm US. 11/2018 [Stable, 3.4CM].Reactive airway disease (Chronic) a.? worse in the spring Medical History? Abdominal pain (04/22/13) not diverticulitis per CT 07/28/14; lower abd 07/2015 Acute pain of left shoulder (10/18/17) No specific injury/trauma, pain with movement, abdiel ext rot/supination. Triceps tenderness. Intermittent fingertip numbness. Arm pain, right (09/20/13) rotator cuff pain, persistent trigger finger R; neck pain; trapezious spasm; impingement syndrome At risk for osteoporosis Smoking > 10 yrs, Prednisone (high-dose), PPI, Menopause @ 34yo. (Hx blood clots.. heparin, 1998, near )Chest heaviness (07/15/16) De Quervain's tenosynovitis, right Diverticulosis a.? No diverticulitisDJD, spine Reconfirmed on 07/2018 XR.Esophagitis with gastritis Generalized osteoarthrosis (02/21/13) GERD (gastroesophageal reflux disease) History of tobacco use a.? quit in 1998, after roughly 30 pack yearsHydronephrosis (05/07/14) Hyperlipidemia (02/21/13) Hypertension Left foot pain (01/27/17) r/o Posteriur Tarsal Tunnel Syn; dr Velasquez, Dr. Aldana Leg edema Lumbar radiculopathy Long Hx ... Acute on chronic Rt sided, 08/2021. ikMigraine (02/21/13) Morbid obesity a.? Gastric bypass 1999 b.? Multiple nutritional deficiencies, on supplements. c.? S/p pannus excisionMuscle cramp, nocturnal (12/27/13) gabapentin 100 prn effective Nephrolithiasis (05/07/14) a.? First episode - right side b.? 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 Bisphosphonate Hx TBD.Pain in joint, shoulder region a.? rotator cuff painPain of left hip (05/2018) Onset while stretching in bed, suddenly felt sharp pain ... hasn't gone away. Surprising left paraspinal tenderness along lumbar spine @ exam, 08/08/18.Palpitations (07/15/16) Periumbilical abdominal pain (04/14/17) ? umbilical hernia vs adhesions Piriformis syndrome of right side Pseudogout of left wrist (01/22/18) Pyelonephritis (05/07/14) 1.? secondary to obstructionRight upper extremity numbness Pain and Tenderness, possible nerve entrapment with numbness .. possible BrachPlexus Neuropathy, following lateral cord (?) NN StudyRight upper limb pain Pain and Tenderness, possible nerve entrapment with numbness .. possible BrachPlexus Neuropathy, following lateral cord (?) NN StudySeasonal allergic rhinitis (02/21/13) Sleep disturbances (03/01/13) Spondylolisthesis of lumbosacral region A.? L4-5? B.? L5-S1 Latest XR (07/2018) states pseudospondylolisthesis, no acute Fx/Sublux. Monitoring pain.TMJ (temporomandibular joint disorder) (01/25/16) Trigger finger, right middle finger (01/22/18) Vision loss, right eye Vitamin D deficiency (12/23/16) rx 50,000/wk x ten wk, then 2000 IU daily Surgical History? Arthroplasty (06/21/13) Cheri canales DreisbachBariatric Surgery (06/16/00) Brenda-En-Y gastroplasty with [facility]olecyst[facility], [facility] Greene, [facility], along with Bariatric procedureColonoscopy - MAC (04/07/17) H/O surgical procedure a.? Gastric bypass 1999 b.? Pannus excision c.? Excision of Samson neuroma d.? Cholecystectomy e.? appendectomy f.? right oophorectomy g.? HemorrhoidectomyHistory of bariatric surgery (05/19/00) Dr. Greene, [facility] pannus removal (04/02/03) [facility], 3 yr after bariatric surgRepair of umbilical hernia (05/31/17) Dr Garza[facility] bariatric surgery (06/16/00) [facility], pre surg wt 311 lbs Trigger Finger release (11/26/13) A-1 sumi Rt ring finger Social History/Home Situation: Pt states that she lives with her in an apartment and notes that she is (I) at her baseline level of function. She reports that she has 22 stairs to get to apartment with (B) railings. She is (I) with driving, bathing and dressing. She states that she does ask for help if she cannot accomplish the task. Equipment owned/DME: FWW, grab bars, shower seat SUBJECTIVE: Pt was sitting in bed when OT arrived. She states that her foot is really bothersome to her and that the pressure from her blanket is hurting today, OBJECTIVE: General Observation: Pleasant and agreeable to OT session, pain in (L) foot with significant edema Mental Status: A&Ox3 Pain: c/o pain in (R) shoulder and (L) foot ROM: RUE limited ROM d/t stiffness L UE WFL STRENGTH: RUE 3+/5 throughout LUE 4/5 throughout FUNCTIONAL MOBILITY/ADLS: Sit-Stand Mod (A) Stand-sit CGA BATHING sitting in bed Bathing UE (I) Bathing LE NT pt denies DRESSING sitting in bed Dressing UE Min (A) Dressing LE NT EATING pt was eating when OT arrived and from observation was (I). Pt denies any issues with chewing or swallowing. BALANCE: Static sitting Normal Dynamic Sitting Normal Static Standing Fair Dynamic Standing NT INFORMED CONSENT/EDUCATION: Pt instructed in purpose of OT Consult and plan of care. ASSESSMENT: Patient is a 71-year-old female referred to occupational therapy services with diagnosis of (L) Foot pain, pleuritic chest pain, (R) UE pain, (R) leg DVT, pneumonia, sepsis, pulmonary embolism, abscess, sciatica, anemia. Patient presents with clinical signs and symptoms consistent with dx, as demonstrated by the following impairment level findings/functional limitations: Impairments in ADL/IADL and leisure impairments, decreased functional mobility, significant edema in regards to foot, decreased LE dressing and bathing, unable to perform her ADLs at her baseline level of function. Patient is assessed as a Moderate 17293 complexity based on the following: History: see above Examination: see functional limitations as noted above Presentation: evolving Decision Making: Moderate complexity GOALS Goals x1 week 1. Transfers (I) 2. Dressing sitting in chair (I) UE, min (A) LE 3. Bathing sitting in chair (I) 4. Toileting on toilet (I) 5. Eating (I) PLAN OF CARE/TREATMENT PLAN: 1x/day, 5 days/ week x 1week Initiate Occupational Therapy Services for bathing, dressing, grooming, toileting, eating, transfer training. DISCHARGE RECOMMENDATIONS Home with services when medically cleared per MD. TREATMENT TIME/MINUTES/CODES 63888, 15 minutes (08:15) [facility] [place]
[2022-01-03] MEDS: Methocarbamol 750 MG TAB 1500 MG PO ×2 (14:40→20:36)
[2022-01-03] MEDS: Gabapentin 300 MG CAP PO ×2 (14:40→20:36)
--- NOTE | 2022-01-03 15:36 | PT.INTREAT ---
Date of service: 01/03/22 Time of Service: 14:53 PT Notes Visit Reasons: Sepsis Due to Pneumonia Inpatient Physical Therapy Treatment Note [facility] Date: 01/03/2022 PRECAUTIONS: Activity as tolerated, WBAT L SUBJECTIVE: Shauna is pleasant and agreeable to participating in PT. She reports continued pain in L LE, which limits her mobility. OBJECTIVE: PAIN: Patient reports L LE pain with gait training and ther ex BED MOBILITY/TRANSFERS Sit-stand: SBA Stand-sit: SBA GAIT Assistive Device: FWW Weight bearing: Full Assist: SBA Distance: 15' Deviation: Slow pacing, antalgic gait, pain THEREX: Patient was instructed in ankle pumps, LAQ, hip flexion and hip abduction exercises. She c/o L LE pain with ther ex completion. ASSESSMENT: Patient tolerated session with complaint of L LE pain with gait training and ther ex. Patient was able to tolerate a slight progression in gait distance with FWW support and SBA. PLAN: Continue with global strengthening and general conditioning as tolerated for continued progression toward baseline level of function. TREATMENT CODE/TIME:24 minutes; 91368, [id number] (14:53)
[2022-01-04] VITALS (9 sets, daily range): BP systolic 94–120; BP diastolic 55–76; PULSE 75–96; RESP 18–20; TEMP 36.2–36.9; O2SAT 95–100
[2022-01-04] MEDS: CEFEPIME 2 GM in Normal Saline 100 ML IVPB ×3 (02:11→17:16)
[2022-01-04] MEDS: Normal Saline Flush 10 ML SYR IVP ×8 (05:34→20:21)
[2022-01-04 06:35] LABS: Abs Immature Grans 0.02 10^3/uL (0.0-0.06); Absolute Basophil Count 0.05 10^3/uL (0.0-0.2); Absolute Lymphocyte Count 1.45 10^3/uL (1.2-3.4); Absolute Monocyte Count 0.72 10^3/uL (0.1-0.8); Absolute Neutrophil Count 3.37 10^3/uL (1.2-6.7); Basophils % 0.8; Eosinophils % 5.1; HCT 24.8 % (36.0-46.0); HGB 8.2 g/dL (11.2-15.7); Immature Grans % 0.3; Lymphocytes % 24.5; MCH 29.3 pg (27.0-33.0); MCHC 33.1 % (32.0-36.0); MCV 89 fL (80-95); MPV 10.4 fL (8.0-11.0); Monocytes % 12.2; Neutrophils % 57.1; Platelet Count 222 10^3/uL (130-400); RDW 13.2 % (11.7-14.6); RDW-SD 43.1 fL; WBC 5.91 10^3/uL (4.4-10.8)
[2022-01-04 06:47] LABS: Anion Gap 8.6 mmol/L (3-11); BUN 13 mg/dL (7-18); CO2 22.4 mmol/L (21.0-32.0); CREATININE 0.6 mg/dL (0.55-1.02); Calcium 8.2 mg/dL (8.5-10.1); Chloride 109 mmol/L (98-107); Glucose 87 mg/dL (74-106); Magnesium 1.8 mg/dL (1.8-2.4); Potassium 3.4 mmol/L (3.5-5.1); Sodium 140 mmol/L (136-145)
[2022-01-04] MEDS: Lidocaine 5% Patch 1 PATCH TP ×2 (07:36)
[2022-01-04] MEDS: Magnesium Chloride 64 MG TABCR PO ×2 (07:37→19:46)
[2022-01-04] MEDS: Cyanocobalamin 500 MCG TAB 1000 MCG PO (07:37)
[2022-01-04] MEDS: Midodrine 2.5 MG TAB PO ×3 (07:37→19:45)
[2022-01-04] MEDS: Sucralfate 1 GM TAB PO ×4 (07:37→21:46)
[2022-01-04] MEDS: Methocarbamol 750 MG TAB 1500 MG PO ×3 (07:37→19:46)
[2022-01-04] MEDS: Docusate Sodium 100 MG CAP PO ×2 (07:37→19:46)
[2022-01-04] MEDS: Pantoprazole 40 MG TABCR PO ×2 (07:37→19:45)
[2022-01-04] MEDS: Gabapentin 300 MG CAP PO ×3 (07:37→19:46)
[2022-01-04] MEDS: Cholecalciferol (Vitamin D3) 1,000 UNIT TAB 2000 UNITS PO (07:37)
[2022-01-04 08:09] LABS: PTT Activated 31.2 sec (21.0-27.5)
--- NOTE | 2022-01-04 09:38 | PT.INTREAT ---
Date of service: 01/04/22 Time of Service: 09:07 PT Notes Visit Reasons: Sepsis Due to Pneumonia Inpatient Physical Therapy Treatment Note [facility] Date: 01/04/2022 PRECAUTIONS: Activity as tolerated, WBAT L SUBJECTIVE: Shauna is pleasant and agreeable to participating in PT. She reports continued pain in L LE, although indicates it is less severe compared to yesterday. She reports that she has [address] her home. She also reports that her will be home to help her once she is discharged to home. OBJECTIVE: PAIN: Patient reports L LE pain with gait training BED MOBILITY/TRANSFERS Supine-sit: I Sit-stand: S Stand-sit: S GAIT Assistive Device: FWW Weight bearing: Full Assist: SBA Distance: 45' x2 Deviation: Slow pacing, antalgic gait, pain THEREX: Patient was instructed in heel raises, LAQ, hip flexion and hip abduction exercises x20 reps each, bilaterally. STAIRS: Up/down 3x4 and 2x6 using B rails and a step-to pattern with supervision. She requires minimal instruction for sequence for pain management. ASSESSMENT: Patient tolerated session with complaint of L LE pain with gait training, although was able to tolerate a progression in gait distance with FWW support and SBA. She also tolerates the addition of stair training, well without complaint. PLAN: Continue with global strengthening and general conditioning as tolerated for continued progression toward baseline level of function. TREATMENT CODE/TIME: 23 minutes; 61083, [id number] (09:07)
--- NOTE | 2022-01-04 10:05 | OTTR_ITS ---
Occupational Therapy Notes Occupational Therapy Inpatient Treatment Note Date: 01/04/22 PRECAUTIONS: fall, standard, full SUBJECTIVE: Pt states that she is still sore but doing better. She notes that her foot is less swollen but wheel truing machine tender. OBJECTIVE: PAIN:no c/o pain during OT session. BATHING: sitting in chair with max (A) set up/clean up Upper Body: min (I) UE , max (A) back Lower Body: Min vc mod (A) LE DRESSING: sitting in chair Upper Extremity: Min (A) don and doffing hospital gown due to IV placement. Lower Extremity: Mod (A) don and doffing (B) socks GROOMING: sitting in chair (I) with brushing hair TREATMENT CODES/TIME: 97383x3, 25 minutes Eileen Gusman OTR/[facility]
[2022-01-04] MEDS: Potassium Chloride 20 MEQ TABCR PO ×2 (12:19→19:46)
[2022-01-04] MEDS: VANCOMYCIN/WATER (PEG) 1 GM/200 ML BAG IV (12:20)
[2022-01-04] MEDS: Apixaban 5 MG TAB 10 MG PO ×2 (12:20→19:45)
--- NOTE | 2022-01-04 16:00 | CHAPLAIN ---
Shauna was up in the chair when I visited. She was friendly and easily engaged in a conversation. She asked me to pray with her and we did that. I will continue to visit.
--- NOTE | 2022-01-04 17:41 | W.PM.PROGNOT ---
Date of Service Date of service: 01/04/22 Time of Service: 17:41 Assessment and Plan Assessment and plan (1) Pulmonary embolism: Status: Chronic Assessment and plan: Due to RLE DVT, which is extensive, and present on admission. Recurrent PE ruled out. Is orthostatic, however, and that could very well be due to the PE. Not fluid responsive. Echo with nml RV size and function and a trivial pericardial effusion. Started on midodrine - improved. D/c IVF. Begin Eliquis, d/c heparin drip As far as pain, this is better. Will focus on the radiculopathic pain in the right neck/shoulder - will increase gabapentin, trial methocarbamol, lidocaine patches, heat, PT. Will wean fentanyl prn. Has prn tramadol. Avoid NSAIDs given recent GI bleeding. Encourage pulmonary toilet. . (2) Right leg DVT: Status: Acute Assessment and plan: As above (3) Cellulitis of left foot: Status: Acute (4) Left foot pain: Status: Acute Assessment and plan: Due to cellulitis. As above. Continue abx, cold compresses, lidocaine patches. Improving. (5) Anemia: Status: Chronic Assessment and plan: Hemoccult negative. No evidence of active bleeding. Tolerating anticoagulation. Stable hemoglobin/hematocrit (8.2/24.8) (6) Perforated gastric ulcer: Status: Resolved Assessment and plan: 3 weeks ago. S/p endoscopy. Continue PPI + carafate. Anticoagulation is ok with general surgery and the patient is tolerating it. Monitor for GI bleeding. H/H stable so far and heme negative. General surgery saw the patient on this admission. (7) Diffuse pain in right upper extremity: Status: Resolved Assessment and plan: XR RUE w/o acute injury, though there is a quesiton of AVN. The patient has a h/o radiculopathy. improved today w/ Increased gabapentin, trial robaxin, heat, lidocaine patches, PT/OT. (8) DVT prophylaxis: Status: Acute Assessment and plan: On therapeutic heparin gtt, change to Eliquis 10 mg bid x 10 days then 5 mg bid thereafter (9) Discharge planning issues: Status: Acute Assessment and plan: Full code as verified by my conversation with the patient. Anticipate discharge in next day. CM indicated to me that her copay for Eliquis will be only $4. Subjective Subjective Patient reports: no new complaints, feels better and tolerating a regular diet; denies shortness of breath Exam Narrative Exam Narrative: Alert and oriented x4 Neck: Supple, nontender, without thyromegaly or lymphadenopathy or JVD. Normal carotid pulses Lungs: Clear to auscultation and percussion Heart: Regular rate and rhythm without murmur rub or gallop. Normal apical impulse Abdomen: Nondistended, normal bowel sounds, nontender to palpation or percussion, no organomegaly, no bruits, no palpable masses Extremities: Normal range of motion with normal strength. No peripheral cyanosis or edema. Normal pulses. Area of cellulitis over left foot is improved; redness now fading Neurologic: Cranial nerves II through XII grossly within normal limits. Normal strength and sensation over the face trunk and extremities. Objective Last Vital Signs Temp 36.4 C L 01/04/22 12:25 Pulse 96 H 01/04/22 12:25 Resp 20 01/04/22 12:25 BP 115/64 01/04/22 12:25 Pulse Ox 100 01/04/22 12:25 Laboratory Results - last 24 hr 01/04/22 01/04/22 01/04/22 06:25 06:25 06:25 WBC 5.91 RBC 2.80 L Hgb 8.2 L Hct 24.8 L MCV 89 MCH 29.3 MCHC 33.1 RDW 13.2 Plt Count 222 MPV 10.4 Immature Gran % 0.3 Neutrophils % 57.1 Lymphocytes % 24.5 Monocytes % 12.2 Eosinophils % 5.1 Basophils % 0.8 Nucleated RBC % 0.0 Absolute Neutrophils 3.37 Absolute Lymphocytes 1.45 Absolute Monocytes 0.72 Absolute Eosinophils 0.30 Absolute Basophils 0.05 APTT Cancelled Sodium 140 Potassium 3.4 L Chloride 109 H Carbon Dioxide 22.4 Anion Gap 8.6 BUN 13 Creatinine 0.6 Estimated GFR/1.73 m2 >= 60.00 Glucose 87 Calcium 8.2 L Magnesium 1.8 01/04/22 01/04/22 07:45 14:20 WBC RBC Hgb Hct MCV MCH MCHC RDW Plt Count MPV Immature Gran % Neutrophils % Lymphocytes % Monocytes % Eosinophils % Basophils % Nucleated RBC % Absolute Neutrophils Absolute Lymphocytes Absolute Monocytes Absolute Eosinophils Absolute Basophils APTT 31.2 H Cancelled Sodium Potassium Chloride Carbon Dioxide Anion Gap BUN Creatinine Estimated GFR/1.73 m2 Glucose Calcium Magnesium Reviewed Pertinent PMH: Yes
--- NOTE | 2022-01-04 18:26 | CMPROGNOTE_ITS ---
- If Service Date Differs Date of service: 01/04/22 Time of Service: 18:26 Care Management Progress Note S/O: Shauna was sitting up in her chair when CM met with her. Her was in the room visiting. She stated that she is feeling good today. Per report, Shauna will likely be transitioned to oral medications today, and may be ready for discharge tomorrow, if she continues to improve. MARYLIN called her pharmacy today, and was informed that her copay for Eliquis will be $4/month. CM will co ntinue to follow. A: Shauna is a 71 year old female admitted to [facility] on 12/30/21 for sepsis due to pneumonia. P: Anticipate Shauna will return home once medically cleared. She will be driven home via private vehicle by family. She will follow up with her PCP and discharge plan of care. CM will continue to follow.
[2022-01-04] MEDS: Lidocaine Patch Removal 2 EACH TP (19:48)
[2022-01-05] MEDS: traMADol 50 MG TAB PO (01:38)
[2022-01-05 02:35] VITALS: BP 104/61; BP 104/66; BP 128/70; BP 94/55; PULSE 78; PULSE 80; PULSE 88; PULSE 91; RESP 18; TEMP 36.7; O2SAT 97
[2022-01-05] MEDS: Normal Saline Flush 10 ML SYR IVP ×2 (05:41→08:35)
[2022-01-05 06:23] LABS: Abs Immature Grans 0.04 10^3/uL (0.0-0.06); Absolute Basophil Count 0.05 10^3/uL (0.0-0.2); Absolute Eosinophil Count 0.25 10^3/uL (0.0-0.7); Absolute Lymphocyte Count 1.54 10^3/uL (1.2-3.4); Absolute Monocyte Count 0.72 10^3/uL (0.1-0.8); Absolute Neutrophil Count 2.89 10^3/uL (1.2-6.7); Basophils % 0.9; Eosinophils % 4.6; HCT 25.2 % (36.0-46.0); HGB 8.1 g/dL (11.2-15.7); Immature Grans % 0.7; Lymphocytes % 28.1; MCH 28.9 pg (27.0-33.0); MCHC 32.1 % (32.0-36.0); MCV 90 fL (80-95); MPV 10.4 fL (8.0-11.0); Monocytes % 13.1; Neutrophils % 52.6; Platelet Count 213 10^3/uL (130-400); RDW 13.4 % (11.7-14.6); RDW-SD 44.8 fL; WBC 5.49 10^3/uL (4.4-10.8)
[2022-01-05 06:52] LABS: Anion Gap 7.8 mmol/L (3-11); BUN 12 mg/dL (7-18); CO2 22.2 mmol/L (21.0-32.0); CREATININE 0.7 mg/dL (0.55-1.02); Calcium 8.4 mg/dL (8.5-10.1); Chloride 110 mmol/L (98-107); Glucose 81 mg/dL (74-106); Sodium 140 mmol/L (136-145)
[2022-01-05 07:01] LABS: Procalcitonin < 0.1 ng/mL
[2022-01-05 08:26] VITALS: BP 114/68; PULSE 102; RESP 17; TEMP 36.3; O2SAT 97
[2022-01-05] MEDS: Lidocaine 5% Patch 1 PATCH TP ×2 (08:34→08:35)
[2022-01-05] MEDS: Cholecalciferol (Vitamin D3) 1,000 UNIT TAB 2000 UNITS PO (08:35)
[2022-01-05] MEDS: Cyanocobalamin 500 MCG TAB 1000 MCG PO (08:35)
[2022-01-05] MEDS: Potassium Chloride 20 MEQ TABCR PO (08:35)
[2022-01-05] MEDS: Apixaban 5 MG TAB 10 MG PO (08:36)
[2022-01-05] MEDS: Midodrine 2.5 MG TAB PO ×2 (08:36→14:12)
[2022-01-05] MEDS: Magnesium Chloride 64 MG TABCR PO (08:36)
[2022-01-05] MEDS: Sucralfate 1 GM TAB PO ×2 (08:36→11:33)
[2022-01-05] MEDS: Pantoprazole 40 MG TABCR PO (08:36)
[2022-01-05] MEDS: Gabapentin 300 MG CAP PO ×2 (08:37→14:12)
[2022-01-05] MEDS: Docusate Sodium 100 MG CAP PO (08:37)
[2022-01-05] MEDS: Methocarbamol 750 MG TAB 1500 MG PO ×2 (08:37→14:12)
--- NOTE | 2022-01-05 10:09 | OT.INNT ---
Occupational Therapy Notes 01/05/22 Pt states that she performed her ADLs with nursing earlier and would like to resume services tomorrow. Eileen Gusman, OTR/L
[2022-01-05 11:20] VITALS: BP 115/73; PULSE 74; RESP 17; TEMP 36.3; O2SAT 99
--- NOTE | 2022-01-05 14:19 | PTTR_ITS ---
PT Notes Visit Reasons: Sepsis Due to Pneumonia Direct Treatment Time: [20] Total Treatment Time: [20] Treatment Units Time Duration Therapeutic Activity (30227) [1] [20] SUBJECTIVE: Pt in a very good mood, reports that she is excited to go home, 3/10 for pain with Left LE.? Agreed to participating with therapy. OBJECTIVE:? PAIN: L LE pain with weight bearing. ? BED MOBILITY/TRANSFERS? Supine-sit: I Sit-stand: I? Stand-sit: I ? GAIT? Assistive Device: FWW? Weight bearing: Full Assist: SBA ? Distance:? 50' x2 ? Deviation: Slow andrea, short steps, antalgic gait ? STAIRS: Up/down 18x4 and 12x6 using B rails and a step-to pattern with supervision.? She requires minimal instruction for sequence for pain management. ASSESSMENT:? Pt tolerated increase activity with stairs as well as increased gait distance without complaints of increased pain on L foot. PLAN: May go home this afternoon per MD and in home caregiver. Will receive home health care services at home.
[2022-01-05 14:32] VITALS: BP 123/81; PULSE 74; RESP 16; TEMP 36.5; O2SAT 99
--- NOTE | 2022-01-05 15:23 | PTTR_ITS ---
PT Notes Visit Reasons: Sepsis Due to Pneumonia Direct Treatment Time: [] Total Treatment Time: [] Treatment Units Time Duration Manual Therapy (02295) [] [] Therapeutic Procedures (22498) [] [] Neurological Re-Education (01181) [] [] Ultrasound (78215) [] [] Gait Training (79685) [] [] Therapeutic Activity (06203) [] [] Self Care Training (23256) [] [] Low IE (55508) [] [] Mod IE (17962) [] [] High IE (61015) [] []
--- NOTE | 2022-01-05 15:23 | PT.INTREAT ---
PT Notes Visit Reasons: Sepsis Due to Pneumonia Direct Treatment Time: [] Total Treatment Time: [] Treatment Units Time Duration Manual Therapy (63129) [] [] Therapeutic Procedures (56991) [] [] Neurological Re-Education (97256) [] [] Ultrasound (38614) [] [] Gait Training (94056) [] [] Therapeutic Activity (90113) [] [] Self Care Training (79275) [] [] Low IE (18030) [] [] Mod IE (79846) [] [] High IE (16599) [] []
--- NOTE | 2022-01-05 15:58 | W.PM.DS.N ---
Date of service: 01/05/22 Time of Service: 15:58 DS: Diagnosis Discharge Diagnosis (1) Pulmonary embolism: Status: Chronic (2) Right leg DVT: Status: Acute (3) Cellulitis of left foot: Status: Acute (4) Left foot pain: Status: Acute (5) Anemia: Status: Chronic (6) Perforated gastric ulcer: Status: Resolved (7) Diffuse pain in right upper extremity: Status: Resolved Discharge Plan Disposition Patient Disposition: HOME W/HOME HEALTH SERVICE Condition: Serious Discharge Details Reason For Visit: cellulitis left foot, PE, DVT Admit Date/Time: 12/30/21 13:03 Admit Provider: Alexandria Shah Attending Provider: Alexandria Shah Primary Care Provider: Brigette Eli Hospital Course Hospital Course: 71-year-old female with history of previous pulmonary embolism, PAF, previously on anticoagulation, history of gastritis, status post Brenda-en-Y who recently been admitted for perforated viscus (ulcer of her gastrojejunostomy) associated with acute peritonitis presented to the emergency department with right upper chest pain and shortness of breath and was diagnosed with PE and questionable pneumonia and discharged home on Xarelto and continuation of Augmentin return to [facility] emergency department with tachypnea fever cough and shortness of breath and right-sided pleuritic chest pain. COVID 19 PCR was negative on the day prior to admission as well as the day of admission. Chest x-ray was consistent with bilateral infiltrates the patient was started on vancomycin and cefepime and Levaquin in the ED. Abdominal images done on the day prior to admission showed no acute surgical issues. General surgery was consulted regarding safety of anticoagulating the patient. Patient apparently been unable to afford her Xarelto and had not taken any anticoagulation. Patient's KIERSTEN drain had been removed on the day of admission. Abdominal imaging did not show any new collections or concerns for abscess. Ultrasound of her leg showed a right lower extremity DVT that was quite extensive. Patient was admitted to the hospital to start anticoagulation was treated with a heparin drip and monitor on telemetry. Echocardiogram was obtained. She was treated with vancomycin and cefepime and Flagyl (unclear as to the reason why Flagyl was added). Patient's pleuritic chest pain was treated Tylenol lidocaine patches and tramadol. For her DVT and PE Heparin drip was switched to Eliquis. Echocardiogram was obtained and showed normal RV size and function with trivial pericardial effusion. Blood cultures on admission were obtained and 1 bottle grew gram-positive cocci in clusters out of 4 bottles was found to be staph hominis which was felt to be a contaminant. Repeat blood cultures on 12/30/2021 were obtained and showed no growth. MRSA screen was obtained and was negative at which point vancomycin was discontinued. Follow-up chest CT was obtained on 01/02/2022 that showed no evidence of acute pulmonary emboli and no pulmonary infarct. She had mild atelectasis in the lung bases with small bilateral pleural effusions. Throughout her hospital course she never had a fever and she never had a leukocytosis however during her hospital course she developed a left foot cellulitis which was improving on a regimen of vancomycin and cefepime. When the repeat blood cultures came back negative the vancomycin was discontinued cefepime was switched to Ancef. Patient had some orthostatic hypotension was treated with midodrine 9. Her perforated gastric ulcer was treated with combination of Carafate and Protonix. During hospitalization the patient had complaints of right upper arm pain for which x-ray showed no acute injury but there was some question of possible avascular necrosis. She also has a history of radiculopathy. Right shoulder pain is treated with gabapentin and Robaxin and lidocaine patches. Physical therapy and Occupational Therapy were consulted and work with her throughout her hospital stay see physical therapy's discharge note from 01/05/2022 at that time patient was tolerating increased activity was going up and down stairs as well as showing increased gait distance without complaints of increased pain. She was using a front wheel walker with full weightbearing with standby assistance. Physical therapist felt she could go home with continued home health services including home PT. Patient was discharged home on apixaban 10 mg twice a day for 7 days then 5 mg twice daily thereafter. She was placed on Keflex 500 mg 3 times daily to continue for 4 more days. She is to continue her Carafate and Protonix was given new prescriptions for each Protonix is 40 mg twice a day and the Carafate is 10 mL before meals and at bedtime. After discharge and follow-up from the pharmacist that the liquid Carafate was not covered and this was changed to tablets. She was prescribed methocarbamol for 1500 mg 3 times daily again This was not covered by her pharmacy and this was changed to Flexeril. At the time of discharge her vital signs are stable she was afebrile with a blood pressure 123/81 pulse was 74 respirations were nonlabored and her oxygen saturation was 99%. Her weight at discharge was 123.6 kg. She was provided with a walker by physical therapy. She is to have she is to have home health services including care home to evaluate and treat for cellulitis of her left foot and monitor her labs and response to antibiotics as well as to evaluate and treat her DVT of the right leg and monitor her response to apixaban. Home health services to include physical therapy to evaluate and treat her for her deconditioning due to her recent hospitalization. OT is to follow her in home to evaluate and treat for decreased ADL performance due to her recent diagnosis. Follow-up will be with Brigette Eli. Home Meds and New Rx's Prescriptions: New Eliquis 5 mg tablet See Rx Instructions .ROUTE .COMPLEX Qty: 74 0RF Rx Instructions: 10 mg PO BID x 7 days, then 5 mg PO BID midodrine 5 mg Tablet 2.5 mg PO TID Qty: 90 0RF sucralfate [Carafate] 100 mg/mL suspension 10 ml PO QACHS Qty: 420 0RF pantoprazole 40 mg Tablet,Delayed Release (Dr/Ec) 40 mg PO BID@0730,1999 Qty: 60 0RF methocarbamol 750 mg Tablet 1,500 mg PO TID Qty: 30 0RF cephalexin 500 mg capsule 500 mg PO TID 4 Days Qty: 12 0RF Continued magnesium oxide 400 mg (241.3 mg magnesium) tablet 800 mg PO BID Qty: 360 3RF Rx Instructions: replace magnesium cholecalciferol (vitamin D3) [Vitamin D3] 50 mcg (2,000 unit) capsule 2,000 unit PO DAILY Qty: 90 3RF famotidine [Heartburn Relief (famotidine)] 20 mg tablet 20 mg PO BID Qty: 60 1RF Label Comments: Has been having issues with pharmacy 12/03/21 Rx Instructions: Trial for gastric pain furosemide 20 mg tablet See Rx Instructions PO DAILY Qty: 90 3RF Rx Instructions: 20mg daily, may add (1) tab in afternoon 2' weight gain > 5 lbs or severe edema PO daily; tramadol 50 mg tablet 50 mg PO Q8H MDD 150mg Qty: 10 0RF Rx Instructions: Trial for leg pain; may take 2nd tab if pain continues after on hour gabapentin 300 mg capsule 300 mg PO QHS Qty: 30 1RF sumatriptan succinate 50 mg tablet See Rx Instructions PO .COMPLEX Qty: 9 3RF Rx Instructions: take 1 tab at onset of headache; if no relief may repeat 1 tab after at least 2 hrs; max = 4 tabs/24 hr PO lidocaine [Lidoderm] 5 % adhesive patch,medicated 1 patch topical DAILY Qty: 15 1RF Rx Instructions: leave on most painful area for up to 12 hrs metoprolol succinate 25 mg tablet extended release 24 hr 25 mg PO DAILY Bio-K plus 50 billion cell capsule,delayed release(DR/EC) 1 cap PO DAILY Qty: 30 0RF cyclobenzaprine 10 mg tablet 10 mg PO ONCE PRN (Reason: muscle spasm) Qty: 5 0RF Rx Instructions: once daily prn Discontinued celecoxib 100 mg capsule 100 mg PO BID Qty: 20 1RF Label Comments: Pt has been only using HSPRN instead of BID, states Provider aware 12/03/21 Rx Instructions: Trial for inflammation, pain. WITH FOOD. amoxicillin-pot clavulanate 875-125 mg tablet 1 tab PO BID Qty: 14 0RF rivaroxaban 15 mg tablet 15 mg PO BID 21 Days Qty: 42 0RF Rx Instructions: must administer with evening meal Discharge Instructions Instructions: Apixaban (By mouth), Pulmonary Embolism (DC), Cellulitis (DC), Deep Vein Thrombosis (DC), Hypotension (DC) Stand Alone Forms: Nursing Discharge Form Referrals: Brigette Eli DO [Primary Care Provider] - 01/17/22 10:30 am Activity:: Activity as Tolerated Equipment/Supplies:: Walker Diet:: Low Sodium Discharge Orders Discharge Orders: Discharge Order (Routine); Ordered 01/05/22 Ordered By: Jeremy Reyna Other Ambulatory Orders: Basic Metabolic Panel (Routine) Timeframe: 1 Week Facility: [facility] - Location: Laboratory Outpatient - [facility] Ordered By: Jeremy Reyna Discharge Data Discharge Date/Time-TO BE ENTERED AT DEPARTURE: 01/05/22 16:40 DS: Summary Time Spent with Patient providing and/or coordinating discharge services: Greater than 30 minutes Status at Discharge Functional status at discharge: uses cane/walker Overall status at discharge: patient is progressing back to baseline Mental Status: mental status grossly normal Speech and Movement: speech and movement normal Mood: congruent mood Affect: normal affect Exam Narrative Exam Narrative: Alert and oriented x4 Neck: Supple, nontender, without thyromegaly or lymphadenopathy or JVD. Normal carotid pulses Lungs: Clear to auscultation and percussion Heart: Regular rate and rhythm without murmur rub or gallop. Normal apical impulse Abdomen: Nondistended, normal bowel sounds, nontender to palpation or percussion, no organomegaly, no bruits, no palpable masses Extremities: Normal range of motion with normal strength. No peripheral cyanosis or edema. Normal pulses. Area of cellulitis over left foot is improved; redness now fading Neurologic: Cranial nerves II through XII grossly within normal limits. Normal strength and sensation over the face trunk and extremities. Psych Mental Status: mental status grossly normal Speech and Movement: speech and movement normal Mood: congruent mood Affect: normal affect DS: Data Vitals/I&O Vitals and I&O: Vital Signs Temperature 36.5 C 01/05/22 14:32 Temperature Source Tympanic 01/05/22 14:32 Pulse 74 01/05/22 14:32 Pulse Rhythm Regular 01/05/22 09:28 Pulse 84 12/30/21 14:15 Respiratory Rate 16 01/05/22 14:32 Respiratory Effort Non-Labored 01/05/22 09:28 Respiratory Depth Normal 01/05/22 09:28 Respiratory Pattern Normal 01/05/22 09:28 Blood Pressure 123/81 01/05/22 14:32 Blood Pressure Mean 75 12/30/21 14:15 Pulse Oximetry 99 01/05/22 14:32 Oxygen Delivery Method Room Air 01/05/22 14:32 Oxygen Flow Rate 0 01/05/22 14:32 Pain Level 0 01/05/22 14:32 Comment 01/01/22 23:00 Intake & Output 01/04/22 01/05/22 01/05/22 23:59 11:59 23:59 Intake Total 672.3 / 1483.809 440 / 1240 800 / 1240 Output Total 450 / 450 Balance 672.3 / 883.809 -10 / 790 800 / 790 Weight 123.6 kg Intake: IV 672.3 / 1243.809 200 / 200 Oral 240 / 1040 800 / 1040 Output: Urine 450 / 450 Other: Urine Color Yellow Yellow Dark Tana Urine Appearance Cloudy Cloudy Urine Odor Normal Comment could not measure void very tiny amounts of very loose stool Voiding Methods Bedside Commode Bedside Commode Data Completed and Pending Labs on day of discharge: Labs from last 24 hours 01/05/22 01/05/22 01/05/22 05:30 05:30 05:30 WBC 5.49 RBC 2.80 L Hgb 8.1 L Hct 25.2 L MCV 90 MCH 28.9 MCHC 32.1 RDW 13.4 Plt Count 213 MPV 10.4 Immature Gran % 0.7 Neutrophils % 52.6 Lymphocytes % 28.1 Monocytes % 13.1 Eosinophils % 4.6 Basophils % 0.9 Nucleated RBC % 0.0 Absolute Neutrophils 2.89 Absolute Lymphocytes 1.54 Absolute Monocytes 0.72 Absolute Eosinophils 0.25 Absolute Basophils 0.05 Sodium 140 Potassium 4.0 Chloride 110 H Carbon Dioxide 22.2 Anion Gap 7.8 BUN 12 Creatinine 0.7 Estimated GFR/1.73 m2 >= 60.00 Glucose 81 Calcium 8.4 L Procalcitonin < 0.1 PFSH All Active Problems (Updated 01/06/22 @ 00:09 by RUBIN BLEDSOE) Cellulitis of left foot (Acute) Left foot pain (Acute) Right leg DVT (Acute) Pulmonary embolism (Chronic) Abscess (Acute) Sciatica (Acute) Anemia (Chronic) Acute on chronic blood loss anemia (Acute) Gastritis (Acute) Right foot pain (Acute) instep is excruciating ,, cannot flatten Fasciitis (Acute) Tendonitis (Acute) Right hand paresthesia (Acute) Right arm pain (Acute) Cervical radiculopathy (Acute) Skin lesion of back (Acute) mid-back, pruritic .. indented/suspicious.. Chest pain at rest (Acute) Awakened with heaviness, waited x hours (has had it before), but finally went to ED .. 11/20/18 PAF (paroxysmal atrial fibrillation) (Chronic 05/08/15) only one confirmed episode 02/2015; ZIO patch neg; prefers not anticoagulate until A Fib recurs Morbid obesity (Acute 08/20/15) BMI 42, even after bariatric surg Adenoma of large intestine (Acute 05/19/11) 05/2011 Kris Coffey colonoscopy, +tubular adenoma and +family h/o colon cancer (F); again adenoma 02/21/13 04/07/17 - tubulovillous adenoma, ascending colon, Dr Kaye Abdominal aortic aneurysm 30 to 34 mm in diameter (Chronic 07/19/14) 06/2014 3.14 cm, confirmed on CT; 07/2015 3.2cm US 04/21/17 stable 3.3 cm US. 11/2018 [Stable, 3.4CM]. Medical History Abdominal pain (04/22/13) not diverticulitis per CT 07/28/14; lower abd 07/2015 Acute pain of left shoulder (10/18/17) No specific injury/trauma, pain with movement, abdiel ext rot/supination. Triceps tenderness. Intermittent fingertip numbness. Arm pain, right (09/20/13) rotator cuff pain, persistent trigger finger R; neck pain; trapezious spasm; impingement syndrome At risk for osteoporosis Smoking > 10 yrs, Prednisone (high-dose), PPI, Menopause @ 34yo. (Hx blood clots.. heparin, 1998, near ) Chest heaviness (07/15/16) De Quervain's tenosynovitis, right Diverticulosis a. No diverticulitis DJD, spine Reconfirmed on 07/2018 XR. Esophagitis with gastritis Generalized osteoarthrosis (02/21/13) GERD (gastroesophageal reflux disease) History of pulmonary embolism (01/01/16) History of tobacco use a. quit in 1998, after roughly 30 pack years Hydronephrosis (05/07/14) Hyperlipidemia (02/21/13) Hypertension Left foot pain (01/27/17) r/o Posteriur Tarsal Tunnel Syn; dr Velasquez, Dr. Aldana Leg edema Lumbar radiculopathy Long Hx ... Acute on chronic Rt sided, 08/2021. ik Migraine (02/21/13) Morbid obesity a. Gastric bypass 1999 b. Multiple nutritional deficiencies, on supplements. c. S/p pannus excision Muscle cramp, nocturnal (12/27/13) gabapentin 100 prn effective Nephrolithiasis (05/07/14) a. First episode - right side b. 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 Bisphosphonate Hx TBD. Pain in joint, shoulder region a. rotator cuff pain Pain of left hip (05/2018) Onset while stretching in bed, suddenly felt sharp pain ... hasn't gone away. Surprising left paraspinal tenderness along lumbar spine @ exam, 08/08/18. Palpitations (07/15/16) Periumbilical abdominal pain (04/14/17) ? umbilical hernia vs adhesions Piriformis syndrome of right side Pseudogout of left wrist (01/22/18) Pyelonephritis (05/07/14) 1. secondary to obstruction Right upper extremity numbness Pain and Tenderness, possible nerve entrapment with numbness .. 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 L4-5 B. L5-S1 Latest XR (07/2018) states pseudospondylolisthesis, no acute Fx/Sublux. Monitoring pain. TMJ (temporomandibular joint disorder) (01/25/16) Trigger finger, right middle finger (01/22/18) Vision loss, right eye Vitamin D deficiency (12/23/16) rx 50,000/wk x ten wk, then 2000 IU daily Surgical History Arthroplasty (06/21/13) R thumb Kietisbach Bariatric Surgery (06/16/00) Brenda-En-Y gastroplasty with cholecystectomy, Dr. Ami Gerene, [facility] Cholecystectomy (06/16/00) DAVID Vo, along with Bariatric procedure Colonoscopy - MAC (04/07/17) H/O surgical procedure a. Gastric bypass 1999 b. Pannus excision c. Excision of Samson neuroma d. Cholecystectomy e. appendectomy f. right oophorectomy g. Hemorrhoidectomy History of bariatric surgery (05/19/00) Dr. Greene, [place] pannus removal (04/02/03) [facility], 3 yr after bariatric surg Repair of umbilical hernia (05/31/17) Dr Kaye S/P bariatric surgery (06/16/00) [facility], pre surg wt 311 lbs Trigger Finger release (11/26/13) A-1 sumi Rt ring finger Family History Father Lung cancer Mother Colon cancer Social History Smoking/Tobacco Use Status: Former Tobacco Use Quit Date: 06/19/98 Smoking risk assessment performed?: Yes Alcohol Intake: never Drug use: Never Substance use type: does not use Caregiver/Support person: No Household members: spouse and children Number of Children: 5 Communication Needs: None Current gender identity: female What is your relationship status?: Panel score (0-1 are the most socially isolated patients): 1 What type of physical activity do you participate in: sedentary lifestyle Duration: < 15 minutes/day Frequency: 3-4 times per week Seatbelt use: always Do you feel safe at home: Yes Do you feel safe in your relationship?: Yes
--- NOTE | 2022-01-05 16:19 | PDOC.HHF2F_ITS ---
Home Health Certification Home Health Certification: 1. Encounter Date and Reason I certify that Shauna Loja was seen by Jeremy Reyna on 01/05/22 and that I had a [id number] encounter with this patient that meets the physician face to face encounter requirements. 2. Clinical Findings Supporting Skilled Need and Homebound Status I certify that home health services are medically necessary, include either intermittent group home and/or physical/speech therapy, and that this pa tient is homebound in that absences from the home require considerable and taxing effort and are infrequent or of short duration, or are attributable to the need to receive medical care. [X] (a) Attached documentation from encounter provides clinical findings supporting skilled need and homebound status (including what assistance patient requires to leave the home). The encounter with the patient was in whole, or in part, for the following medical condition, which is the primary reason for home health care: cellulitis left foot, PE, DVT Residential: nursing to evaluate and treat for cellulitis of left foot; monitor labs and response to antibiotics; evaluate and treat for DVT of right leg and pulmonary embolism, monitor response to apixaban (Eliquis) Physical Therapy: evaluate and treat for deconditioning d/t recent PE, DVT, and cellulitis; O.T. to evaluate and treat for decreased ADL peformance d/t P.E., D.V.T. and cellulitis Speech Therapy: Homebound: Resumption of home health services as listed above d/t patient recent hospitalization for DVT, PE and cellulitis. Her condition precludes her seeking medical/nursing treatment outside her home d/t risk of deterioration of her condition 3. Certification and Authentication I certify that I composed the above information based on my clinical judgement relating to this patient's medical condition and, if applicable, clinical findings communicated to me by the NPP or inpatient physician who performed the Home Health Referral. All further orders will be obtained through Brigette Norton (Community Based Physician - PCP)
[2022-01-05] MEDS: Bacitracin 1 PACKET (16:24)
--- NOTE | 2022-01-05 16:51 | CMDISCH_ITS ---
- If Service Date Differs Date of service: 01/05/22 Time of Service: 16:51 LACE Index Scoring Tool - Questions: Length of Stay (in days): 4 - 6 Acuity (Admit via E.D.?): Yes E.D. Visits: 6 - Answers: Total Score: 11 Risk of Readmission: High Risk Care Management Discharge Reason for Hospitalization: Sepsis due to pneumonia Discharge Plan: Shauna will return home today with a resumption of HH RN, and the addition of PT/OT/CABLE TELEVISION PROGRAM DIRECTOR. CM informed [facility] of the resumption of services. Her drove her home via private vehicle. She will follow up with her PCP and discharge plan of care. She is happy to be going home. Patient/Family Education Needs: Review discharge instructions and limitations, discussion of self care needs including ask me three and goals of care. Services Needed at Discharge: Home Health Care Services (HH RN, PT, OT, CABLE TELEVISION PROGRAM DIRECTOR)
--- NOTE | 2022-01-05 18:20 | PT.INDS ---
Date of service: 01/05/22 PT Notes Visit Reasons: cellulitis left foot, PE, DVT Physical Therapy Inpatient Discharge Summary Date: 01/05/2022 Dates of service: 12/31/2021 through 01/05/2022 This is a clinical summary of care provided for the duration of dates listed above. No charge was made in the completion of this documentation. Referring Doctor: Alexandria Shah MD PT Orders: PT CONSULT: Limited ability Precautions: Fall. Standard. Activity as tolerated. Patient Profile/Admitting Diagnosis:? Shauna is a 71-year-old female who presented to the ED on 12/29/2021 due to recurrent right upper back and shoulder pain that radiated to her upper abdominal area, fever, mild pain and swelling in the right arm, and mild ache in the left lower extremity.? Patient is diagnosed with pulmonary embolus 7 related to a right leg DVT, sepsis from pneumonia, right L DVT, pneumonia, anemia, perforated gastric ulcer status post endoscopy, and pleuritic chest pain. PMHX: All Active Problems?(Updated 12/30/21 @ 19:09 by Alexandria Shah MD) Pleuritic chest pain (Acute) Diffuse pain in right upper extremity (Acute) Right leg DVT (Acute) Discharge planning issues (Acute) DVT prophylaxis (Acute) Pneumonia (Acute) Sepsis (Acute) Pulmonary embolism (Chronic) Right-sided chest pain (Acute) Abscess (Acute) Sciatica (Acute) Anemia (Chronic) Acute on chronic blood loss anemia (Acute) Perforated gastric ulcer (Acute) Gastritis (Acute) Right foot pain (Acute) instep is excruciating, cannot flatten Fasciitis (Acute) Tendonitis (Acute) Right hand paresthesia (Acute) Right arm pain (Acute) Cervical radiculopathy (Acute) Skin lesion of back (Acute) mid-back, pruritic .. indented/suspicious..Chest pain at rest (Acute) Awakened with heaviness, waited x hours (has had it before), but finally went to ED .. 11/20/18 PAF (paroxysmal atrial fibrillation) (Chronic 05/08/15) only one confirmed episode 02/2015; ZIO patch neg; prefers not anticoagulate until A Fib recurs Morbid obesity (Acute 08/20/15) BMI 42, even after bariatric surg History of pulmonary embolism (Acute 01/01/16) Adenoma of large intestine (Acute 05/19/11) 05/2011 Kris Coffey colonoscopy, +tubular adenoma and +family h/o colon cancer (F); again adenoma 02/21/13 04/07/17 - tubulovillous adenoma, ascending colon, Dr Kaye Abdominal aortic aneurysm 30 to 34 mm in diameter (Chronic 07/19/14) 06/2014 3.14 cm, confirmed on CT; 07/2015 3.2cm US 04/21/17 stable 3.3 cm US. 11/2018 [Stable, 3.4CM]. Reactive airway disease (Chronic) a.? worse in the spring Medical History? Abdominal pain (04/22/13) not diverticulitis per CT 07/28/14; lower abd 07/2015 Acute pain of left shoulder (10/18/17) No specific injury/trauma, pain with movement, abdiel ext rot/supination. Triceps tenderness. Intermittent fingertip numbness. Arm pain, right (09/20/13) rotator cuff pain, persistent trigger finger R; neck pain; trapezious spasm; impingement syndrome At risk for osteoporosis Smoking > 10 yrs, Prednisone (high-dose), PPI, Menopause @ 34yo. (Hx blood clots.. heparin, 1998, near ) Chest heaviness (07/15/16) De Quervain's tenosynovitis, right Diverticulosis a.? No diverticulitis DJD, spine Reconfirmed on 07/2018 XR. Esophagitis with gastritis Generalized osteoarthrosis (02/21/13) GERD (gastroesophageal reflux disease) History of tobacco use a.? quit in 1998, after roughly 30 pack years Hydronephrosis (05/07/14) Hyperlipidemia (02/21/13) Hypertension Left foot pain (01/27/17) r/o Posteriur Tarsal Tunnel Syn; dr Velasquez, Dr. Aldana Leg edema Lumbar radiculopathy Long Hx ... Acute on chronic Rt sided, 08/2021. ik Migraine (02/21/13) Morbid obesity a.? Gastric bypass 1999 b.? Multiple nutritional deficiencies, on supplements. c.? S/p pannus excisionMuscle cramp, nocturnal (12/27/13) gabapentin 100 prn effective Nephrolithiasis (05/07/14) a.? First episode - right side b.? 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 Bisphosphonate Hx TBD. Pain in joint, shoulder region a.? rotator cuff painPain of left hip (05/2018) Onset while stretching in bed, suddenly felt sharp pain ... hasn't gone away. Surprising left paraspinal tenderness along lumbar spine @? exam, 08/08/18.Palpitations (07/15/16) Periumbilical abdominal pain (04/14/17) ? umbilical hernia vs adhesions Piriformis syndrome of right side Pseudogout of left wrist (01/22/18) Pyelonephritis (05/07/14) 1.? secondary to obstructionRight upper extremity numbness Pain and Tenderness, possible nerve entrapment with numbness .. 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 possible BrachPlexus Neuropathy, following lateral cord (?) NN Study Seasonal allergic rhinitis (02/21/13) Sleep disturbances (03/01/13) Spondylolisthesis of lumbosacral region A.? L4-5? B.? L5-S1 Latest XR (07/2018) states pseudospondylolisthesis, no acute Fx/Sublux. Monitoring pain. TMJ (temporomandibular joint disorder) (01/25/16) Trigger finger, right middle finger (01/22/18) Vision loss, right eye Vitamin D deficiency (12/23/16) rx 50,000/wk x ten wk, then 2000 IU daily Surgical History? Arthroplasty (06/21/13) R thumb DreisbachBariatric Surgery (06/16/00) Brenda-En-Y gastroplasty with cholecystectomy, Dr. Ami Greene, [facility] Cholecystectomy (06/16/00) Dr Greene [facility], along with Bariatric procedure Colonoscopy - MAC (04/07/17) H/O surgical procedure a.? Gastric bypass 2000 b.? Pannus excision c.? Excision of Samson neuroma d.? Cholecystectomy e.? appendectomy f.? right oophorectomy g.? HemorrhoidectomyHistory of bariatric surgery (05/19/00) Dr. Greene, [facility] pannus removal (04/02/03) [facility], 3 yr after bariatric surg Repair of umbilical hernia (05/31/17) Dr Kaye S/P bariatric surgery (06/16/00) [facility], pre surg wt 311 lbs Trigger Finger release (11/26/13) A-1 sumi Rt ring finger Social History/Home Situation: Lives with in an apartment building with 22 steps to enter to their apartment.? Independent with all mobility ADLs using no assistive device. Equipment Owned/DME: None Subjective: NT. See most recent AEROSPACE PHYSIOLOGICAL TECHNICIAN notes. Objective: General Observation: NT. See most recent AEROSPACE PHYSIOLOGICAL TECHNICIAN notes. Mental Status: NT. See most recent AEROSPACE PHYSIOLOGICAL TECHNICIAN notes. Pain: NT. See most recent AEROSPACE PHYSIOLOGICAL TECHNICIAN notes. Vital Signs: NT. See most recent AEROSPACE PHYSIOLOGICAL TECHNICIAN notes. ROM: Right Upper Extremity:? Shoulder Flexion only has about 25% of availble AROM. Shoulder abduction only has about 25% of availble AROM. Elbow flexion WFL. Wrist flexion WFL. Functional opening and closing of hand WFL. Left Upper Extremity:? Shoulder Flexion WFL. Shoulder abduction WFL. Elbow flexion WFL. Wrist flexion WFL. Functional opening and closing of hand WFL. Right Lower Extremity: Hip flexion WFL. Hip abduction WFL. Knee flexion WFL. Ankle dorsiflexion to neutral only. Ankle plantarflexion WFL. Left Lower Extremity: Hip flexion lacks the last 25% of available AROM. Hip abduction about 20 degrees. Knee flexion 10 degrees to 90 degrees. Knee extension -10 degrees. Ankle dorsiflexion to neutral only. Ankle plantarflexion WFL. Strength: Right Upper Extremity: Shoulder flexors 3-/5. Shoulder abductors 3-/5. Elbow flexors 4-/5. Elbow extensors 4-/5. [employer] strong. Left Upper Extremity: Shoulder flexors 4/5. Shoulder abductors 4/5. Elbow flexors 4/5. Elbow extensors 4/5. [employer] strong. Right Lower Extremity: Hip flexors 4-/5. Hip abductors 4-/5. Knee flexors 4-/5. Knee extensors 4-/5. Ankle dorsiflexors 3-/5. Ankle plantarflexors 4-/5. Left Lower Extremity: Hip flexors 3-/5. Hip abductors 3-/5. Knee flexors 3-/5. Knee extensors 3-/5. Ankle dorsiflexors 3-/5. Ankle plantarflexors 3-/5. Bed Mobility/Transfers: Supine to sit independent Sit to supine independent Sit to stand independent Stand to sit independent Gait: Instructed patient with level surface ambulation of 50 feet x 2 requiring stand by assist. Balance: Static Sitting: Normal Dynamic Sitting: Normal Static Standing: Fair Dynamic Standing: Fair Assessment: Patient presents with clinical signs and symptoms consistent with current/admitting diagnoses that have resulted to mobility limitations, gait instability, generalized weakness, and overall ADL decline as demonstrated by the following impairment level findings: 1.? Decreased strength to B UE/LE major muscle groups 2.? Impaired sitting/standing balance 3.? Impaired activity tolerance 4.? Limitation of joint range of motion in R shoulder and L knee, B ankles Impairments are contributing to the following functional limitations: 1.? Decline in bed mobility skills 2.? Decline in transfer skills 3.? Difficulty with ambulation without assistive device and physical assistance 4.? Increased completion time for mobility ADL performance 5.? Increased risk for falls 6.? Difficulty with managing steps alone safely Goals: Goals X1 week 1. Supine-Sit independent MET 2. Sit-Supine independent MET 3. Sit-Stand independent MET 4. Stand-Sit independent with no AD MET 5. Bed-Chair independent with no AD MET 6. Chair-Bed independent with no AD MET 7. Independent gait on level surface with use of no AD for at least 100 feet without report of pain nor dyspnea NOT MET 8. Independent stair negotiation while holding onto B rails for at least 25 steps without report of pain nor dyspnea NOT MET 9. Good static and dynamic standing balance/tolerance NOT MET DISCHARGE RECOMMENDATIONS: [] ? Home with no services [] [X] ? Home with services.? Home when medically cleared by hospitalist.? Patient will benefit from home health PT services in order to progress mobility level using least restrictive assistive ambulatory device, assess home safety, identify additional equipment needs, and establish a functional maintenance program that will increase ability of patient to remain at home. [] ? Home with outpatient PT [] [] ? SNF for continued rehabilitation [] [] ? [facility] [] [] ? SNF versus LTC based on ability to participate and progress [] TREATMENT CODE/TIME: NC Thank you for the opportunity to participate in the care of this patient. Georgina Rdz PT, DPT, CLT [facility] [place], [place]
== END 2022-01-05 16:40 | disposition home health service (06) | DRG 871 ==
LOC: ER 13:55 → MS 14:35
PROVIDERS: Family Medicine; Internal Medicine; Surgery; Admitting Provider Internal Medicine; Emergency Provider Physician Assistant; PCP Student in an Organized Health Care Education/Training Program; Visit Provider Internal Medicine
DX: A41.9 Sepsis, unspecified organism (principal); J18.9 Pneumonia, unspecified organism; I27.82 Chronic pulmonary embolism; I82.411 Acute embolism and thrombosis of right femoral vein; I82.451 Acute embolism and thrombosis of right peroneal vein; I82.431 Acute embolism and thrombosis of right popliteal vein; Z68.41 Body mass index [BMI] 40.0-44.9, adult; L03.116 Cellulitis of left lower limb; I48.0 Paroxysmal atrial fibrillation; R07.81 Pleurodynia; M79.601 Pain in right arm; K29.70 Gastritis, unspecified, without bleeding; M54.12 Radiculopathy, cervical region; E66.01 Morbid (severe) obesity due to excess calories; I71.4 Abdominal aortic aneurysm, without rupture; J45.909 Unspecified asthma, uncomplicated; Z98.84 Bariatric surgery status; E78.5 Hyperlipidemia, unspecified; I10 Essential (primary) hypertension; R60.0 Localized edema; D50.9 Iron deficiency anemia, unspecified; I95.1 Orthostatic hypotension; Z87.11 Personal history of peptic ulcer disease
CPT/HCPCS: 36415; 36569; 71275; 80048; 80053; 84145; 85027; 87040; 87081; 87637; 93005; 96361; 96365; 96367; 96368; 97110; 97162; 97166; 97530; 97535; 99223; 99285; 71045; 73110; 73630; 73701; 80202; 81003; 81015; 82607; 82728; 82746; 83540; 83550; 83605; 83735; 84484; 84550; 85014; 85018; 85025; 85379; 85730; 86140; 93010; 93306; 93971; 94667; 99232; 99233; 99238; J0131; J0690; J1956; J3010; J3420; J3475; J3480; J3490

== ENCOUNTER 2022-01-12 10:14 | Outpatient (REF) | payer MEDICARE, MEDICAID, SELFPAY ==
[2022-01-12 10:18] LABS: Abs Immature Grans 0.03 10^3/uL (0.0-0.06); Absolute Basophil Count 0.06 10^3/uL (0.0-0.2); Absolute Eosinophil Count 0.12 10^3/uL (0.0-0.7); Absolute Lymphocyte Count 2.05 10^3/uL (1.2-3.4); Absolute Monocyte Count 0.83 10^3/uL (0.1-0.8); Absolute Neutrophil Count 5.41 10^3/uL (1.2-6.7); Basophils % 0.7; Eosinophils % 1.4; Immature Grans % 0.4; Lymphocytes % 24.1; MCH 28.7 pg (27.0-33.0); MCHC 31.3 % (32.0-36.0); MCV 92 fL (80-95); MPV 10.2 fL (8.0-11.0); Monocytes % 9.8; Neutrophils % 63.6; Platelet Count 297 10^3/uL (130-400); RBC 3.49 10^6/uL (3.93-5.22); RDW 13.9 % (11.7-14.6); RDW-SD 46.3 fL
[2022-01-12 11:45] LABS: Anion Gap 7.9 mmol/L (3-11); BUN 17 mg/dL (7-18); CO2 28.1 mmol/L (21.0-32.0); CREATININE 0.9 mg/dL (0.55-1.02); Chloride 102 mmol/L (98-107); Glucose 124 mg/dL (74-106); Potassium 4.1 mmol/L (3.5-5.1); Sodium 138 mmol/L (136-145)
[2022-01-12 11:47] LABS: C-Reactive Protein 3.07 mg/dL (0.0-0.3)
== END 2022-01-12 10:15 | disposition home or self-care (01) ==
LOC: LBN 10:14
PROVIDERS: Internal Medicine; PCP Student in an Organized Health Care Education/Training Program; Visit Provider Surgery
DX: J45.909 Unspecified asthma, uncomplicated (principal); L02.91 Cutaneous abscess, unspecified; E87.6 Hypokalemia
CPT/HCPCS: 80048; 85025; 86140

== ENCOUNTER 2022-02-03 13:03 | Outpatient (REF) | payer MEDICARE, MEDICAID, SELFPAY ==
[2022-02-03 13:25] LABS: Abs Immature Grans 0.03 10^3/uL (0.0-0.06); Absolute Basophil Count 0.08 10^3/uL (0.0-0.2); Absolute Eosinophil Count 0.09 10^3/uL (0.0-0.7); Absolute Lymphocyte Count 1.95 10^3/uL (1.2-3.4); Absolute Monocyte Count 0.44 10^3/uL (0.1-0.8); Absolute Neutrophil Count 2.92 10^3/uL (1.2-6.7); Basophils % 1.5; Eosinophils % 1.6; HCT 35.3 % (36.0-46.0); HGB 11.1 g/dL (11.2-15.7); Immature Grans % 0.5; Lymphocytes % 35.4; MCH 27.9 pg (27.0-33.0); MCHC 31.4 % (32.0-36.0); MCV 89 fL (80-95); Platelet Count 269 10^3/uL (130-400); RBC 3.98 10^6/uL (3.93-5.22); RDW 14.3 % (11.7-14.6); RDW-SD 46.1 fL; WBC 5.51 10^3/uL (4.4-10.8)
[2022-02-03 13:42] LABS: ALT 16 U/L (14-59); AST 16 U/L (15-37); Albumin 3.3 g/dL (3.4-5.0); Alkaline Phosphatase 83 U/L (46-116); Anion Gap 8.9 mmol/L (3-11); BUN 20 mg/dL (7-18); Bilirubin, Total 0.3 mg/dL (0.2-1.0); CO2 29.1 mmol/L (21.0-32.0); CREATININE 1.4 mg/dL (0.55-1.02); Calcium 8.7 mg/dL (8.5-10.1); Chloride 102 mmol/L (98-107); Estimated GFR 37.07 (mL/min/1.73m2); Glucose 186 mg/dL (74-106); Potassium 3.2 mmol/L (3.5-5.1); Sodium 140 mmol/L (136-145); Total Protein 6.9 g/dL (6.4-8.2); Uric Acid 7.4 mg/dL (2.6-6.0)
[2022-02-03 14:32] LABS: C Diff PCR Negative (Negative)
== END 2022-02-03 13:04 | disposition home or self-care (01) ==
LOC: LBN 13:03
PROVIDERS: PCP Student in an Organized Health Care Education/Training Program; Visit Provider Student in an Organized Health Care Education/Training Program
DX: M10.9 Gout, unspecified (principal); R19.7 Diarrhea, unspecified; N28.9 Disorder of kidney and ureter, unspecified; R94.5 Abnormal results of liver function studies; Z79.899 Other long term (current) drug therapy
CPT/HCPCS: 80053; 87493; 84550; 85025

== ENCOUNTER → 2022-02-11 00:08 | Outpatient (CLI) | payer MEDICARE, MEDICAID, SELFPAY ==
--- NOTE | 2022-02-11 06:30 | DI.RAD_ITS ---
Exam(s) XR FOOT LT COMPLETE EXAM: XR FOOT LT COMPLETE CLINICAL HISTORY: r/o osteomyelitis or gout or infection,lt foot pain, cellulitis,. TECHNIQUE: 2D digital imaging was performed. COMPARISON: CR,XR XR FOOT LT COMPLETE from 01/01/2022 FINDINGS: 3 views No evidence of fracture or diastasis of the Lisfranc joint. Generalized osteopenia noted. There is mild swelling over the dorsal aspect of the foot at the metatarsal level. No metatarsal fractures ev ident. No radiographic evidence of osteomyelitis. No radiopaque foreign body. No erosions. Moderate size inferior calcaneal spur noted as well as some faint vertically orientated calcification within a somewhat thickened appearing Achilles tendon IMPRESSION: As above. I note this patient is having MRI of the foot today. Please see that separate report. DATA REPOSITORY: RADIATION DOSE DELIVERED:
--- NOTE | 2022-02-11 06:30 | DI.MRI_ITS ---
Exam(s) MR LOWER EXTREMITY LT WO/W EXAM: MR LOWER EXTREMITY LT WO/W CLINICAL HISTORY: lt foot pain,cellulitis, ? osteomyelitis,infection or gout TECHNIQUE: Multiplanar multisequence MRI of the left foot was performed on a 1.5 zuleyka unit with bot h pre and post contrast infused sequences. Contrast injected was 20 mL Dotarem.. COMPARISON: CT CT LOWER EXTREMITY LT W from 01/02/2022 CR XR FOOT LT COMPLETE from 02/11/2022 FINDINGS: SOFT TISSUES: No evidence of obvious skin ulcer. There is edema over the dorsal aspect of the foot, most prominent over the midfoot and metatarsals. There is no distinct formed fluid collection. No evidence of abscess. ARTICULATIONS: No erosions. Mild degenerative changes. No degenerative subarticular cysts. No para -articular ganglions. The main Lisfranc ligament is intact. No evidence of midfoot collapse nor Charcot-type findings. MARROW:There is bone edema at multiple sites including the medial half of navicular including the joseph icular tuberosity, the lateral and distal aspect of the cuboid bone, base of the 5th metatarsal, base of the 3rd metatarsal. There is also mild increased signal in the proximal phalanx of the 2nd toe. These exhibit high signal on STIR imaging as well as enhancement following contrast injection. With the exception of the base of the 3rd metatarsal, these bones do not exhibit confluent hypointense sig nal on non fat noninjected T1 images. In addition, there is no skin ulcer evident. MUSCLES: No tenosynovitis. No tendon tears. EXTRAMUSCULAR SOFT TISSUES: No abnormal signal, mass, or fluid collection. No evidence of obvious in termetatarsal neuroma/Samson's neuroma. GREAT TOE: No significant signal abnormality. Mild degenerative changes in the great toe metatarsoph alangeal joint. No erosions at this joint. No joint effusion at this level. No abnormal signal nor migration of the hallucal sesamoids. No evidence of plantar plate injury. IMPRESSION: 1. Soft tissue edema/ cellulitis-type pattern. 2. Multilevel intraosseous signal abnormality as described above with corresponding intraosseous enha ncement. However, no cortical disruption and no skin ulcer evident. Although these findings may impl y osteomyelitis, the lack of skin ulcer, multilevel but non contiguous osseous involvement, lack of c ortical disruption, and lack of confluent hypointense signal on non fat sat T1 weighted images are so mewhat against this diagnosis. Remote possibility might be hematogenous spread. Correlation with medi autumn history recommended. Close follow-up recommended, including repeat imaging if clinically indicate d. 3.. No evidence of Charcot-like deformities in the foot. Also no erosions evident 4. No obvious tendon tears nor significant tenosynovitis. DATA REPOSITORY:
[2022-02-11 08:04] LABS: Abs Immature Grans 0.03 10^3/uL (0.0-0.06); Absolute Basophil Count 0.04 10^3/uL (0.0-0.2); Absolute Eosinophil Count 0.09 10^3/uL (0.0-0.7); Absolute Monocyte Count 0.68 10^3/uL (0.1-0.8); Absolute Neutrophil Count 5.11 10^3/uL (1.2-6.7); Basophils % 0.4; HCT 33.1 % (36.0-46.0); HGB 10.6 g/dL (11.2-15.7); Immature Grans % 0.3; Lymphocytes % 34.3; MCH 28.4 pg (27.0-33.0); MCV 89 fL (80-95); MPV 10.8 fL (8.0-11.0); Monocytes % 7.5; Neutrophils % 56.5; Platelet Count 200 10^3/uL (130-400); RBC 3.73 10^6/uL (3.93-5.22); RDW 15.8 % (11.7-14.6); RDW-SD 51.3 fL; WBC 9.05 10^3/uL (4.4-10.8)
[2022-02-11 08:13] LABS: Anion Gap 3.5 mmol/L (3-11); BUN 26 mg/dL (7-18); CO2 31.5 mmol/L (21.0-32.0); CREATININE 0.9 mg/dL (0.55-1.02); Calcium 8.8 mg/dL (8.5-10.1); Chloride 107 mmol/L (98-107); Glucose 93 mg/dL (74-106); Potassium 4.5 mmol/L (3.5-5.1); Sodium 142 mmol/L (136-145)
[2022-02-11] MEDS: Normal Saline Flush 10 ML SYR IVP (08:43)
[2022-02-11] MEDS: Gadoterate meglumine 20 ML SYRINGE IVP (08:44)
--- NOTE | 2022-02-11 14:23 | DI.VRAD_ITS ---
PROCEDURE INFORMATION: Exam: MR Left Lower Extremity Other Than Joint Without and With Contrast; Foot Exam date and time: 02/11/2022 8:06 AM Age: 71 years old Clinical indication: Other: R/O osteomyelitis TECHNIQUE: Imaging protocol: Magnetic resonance imaging of the Left lower extremity without and with contrast. Exam focused on the foot. Contrast material: DOTAREM; Contrast volume: 20 ml; Contrast route: INTRAVENOUS (IV); COMPARISON: CT LOWER EXTREMITY LT W 01/02/2022 2:57 PM FINDINGS: Bones and cartilage: Edema present within the cuboid tarsal bone and the base of the 3rd and 5th metatarsals. Marrow signal of the adjacent metatarsals and tarsal bones is normal. There is enhancement of the base of the metatarsals and the cuboid tarsal bone. Joint spaces: Subtalar joint arthritis. LIGAMENTS: Lisfranc ligament: Unremarkable. No evidence of tear. TENDONS: Flexor tendons of foot: Unremarkable. No evidence of tear. Tibialis posterior tendon: Unremarkable as visualized. Peroneal tendons: Unremarkable as visualized. Extensor tendons of foot: Unremarkable. No evidence of tear. Tibialis anterior tendon: Unremarkable as visualized. Tarsal canal (Sinus tarsi): Unremarkable. Tarsal tunnel: Unremarkable. Soft tissues: Soft tissues subcutaneous edema/cellulitis. Plantar fascia: Unremarkable as visualized. IMPRESSION: 1. Soft tissue edema/cellulitis. No evidence of abscess. 2. Edema and enhancement base of the 3rd and 5th metatarsals and the cuboid tarsal bone. These findings could be secondary to osteomyelitis. Dictated and Authenticated by: Mike Person MD. Ordering:CINDY Machuca MD
== END ==
PROVIDERS: PCP Student in an Organized Health Care Education/Training Program; Visit Provider Student in an Organized Health Care Education/Training Program
DX: L03.116 Cellulitis of left lower limb (principal); M77.32 Calcaneal spur, left foot; L02.91 Cutaneous abscess, unspecified; E86.0 Dehydration
CPT/HCPCS: 36415; 80048; 73630; 73720; 85025

== ENCOUNTER 2022-02-25 01:45 | Outpatient (CLI) | payer MEDICARE, MEDICAID, SELFPAY ==
[2022-02-25 13:26] LABS: Abs Immature Grans 0.02 10^3/uL (0.0-0.06); Absolute Basophil Count 0.06 10^3/uL (0.0-0.2); Absolute Eosinophil Count 0.14 10^3/uL (0.0-0.7); Absolute Lymphocyte Count 1.92 10^3/uL (1.2-3.4); Absolute Monocyte Count 0.81 10^3/uL (0.1-0.8); Absolute Neutrophil Count 3.84 10^3/uL (1.2-6.7); Basophils % 0.9; Eosinophils % 2.1; HCT 33.8 % (36.0-46.0); HGB 10.7 g/dL (11.2-15.7); Immature Grans % 0.3; Lymphocytes % 28.3; MCH 27.9 pg (27.0-33.0); MCHC 31.7 % (32.0-36.0); MCV 88 fL (80-95); MPV 10.4 fL (8.0-11.0); Monocytes % 11.9; Neutrophils % 56.5; Platelet Count 197 10^3/uL (130-400); RBC 3.83 10^6/uL (3.93-5.22); RDW 16.2 % (11.7-14.6); RDW-SD 52.2 fL; WBC 6.79 10^3/uL (4.4-10.8)
[2022-02-25 13:55] LABS: ALT 14 U/L (14-59); AST 17 U/L (15-37); Alkaline Phosphatase 86 U/L (46-116); Anion Gap 7.1 mmol/L (3-11); BUN 16 mg/dL (7-18); Bilirubin, Total 0.5 mg/dL (0.2-1.0); CO2 29.9 mmol/L (21.0-32.0); Calcium 8.3 mg/dL (8.5-10.1); Chloride 101 mmol/L (98-107); Estimated GFR 60.23 (mL/min/1.73m2); Glucose 115 mg/dL (74-106); Potassium 3.4 mmol/L (3.5-5.1); Sodium 138 mmol/L (136-145); Total Protein 6.7 g/dL (6.4-8.2)
== END 2022-02-25 01:46 | disposition home or self-care (01) ==
LOC: LBO 01:45
PROVIDERS: PCP Student in an Organized Health Care Education/Training Program; Visit Provider Student in an Organized Health Care Education/Training Program
DX: N17.9 Acute kidney failure, unspecified (principal); R77.0 Abnormality of albumin; D64.9 Anemia, unspecified; K29.70 Gastritis, unspecified, without bleeding; L03.116 Cellulitis of left lower limb
CPT/HCPCS: 36415; 80053; 85025

== ENCOUNTER 2022-03-14 10:29 | Outpatient (CLI) | payer MEDICARE, MEDICAID, SELFPAY ==
[2022-03-14 10:42] LABS: ESR 8 mm/hr (0-30)
[2022-03-14 10:43] LABS: HGB 11.1 g/dL (11.2-15.7)
[2022-03-14 11:15] LABS: Anion Gap 6.8 mmol/L (3-11); BUN 26 mg/dL (7-18); CO2 29.2 mmol/L (21.0-32.0); CREATININE 1.1 mg/dL (0.55-1.02); Calcium 8.8 mg/dL (8.5-10.1); Chloride 104 mmol/L (98-107); Estimated GFR 53.72 (mL/min/1.73m2); Glucose 97 mg/dL (74-106); Potassium 3.9 mmol/L (3.5-5.1); Sodium 140 mmol/L (136-145)
[2022-03-14 17:45] LABS: CRP, High Sensitivity 0.78 mg/L (See Note)
== END 2022-03-14 10:30 | disposition home or self-care (01) ==
LOC: LBO 10:30
PROVIDERS: Podiatrist Foot & Ankle Surgery; PCP Student in an Organized Health Care Education/Training Program; Visit Provider Student in an Organized Health Care Education/Training Program
DX: D64.9 Anemia, unspecified (principal); E87.8 Other disorders of electrolyte and fluid balance, not elsewhere classified; M79.672 Pain in left foot; N28.9 Disorder of kidney and ureter, unspecified; K29.70 Gastritis, unspecified, without bleeding
CPT/HCPCS: 36415; 80048; 85652; 86141; 85018

== ENCOUNTER → 2022-04-01 11:08 | Outpatient (BNVA) | payer MEDICARE, MEDICAID, SELFPAY | PROVIDERS: PCP Student in an Organized Health Care Education/Training Program; Referring Provider Podiatrist Foot & Ankle Surgery; Visit Provider Surgery | DX: I73.9 Peripheral vascular disease, unspecified (principal) ==

== ENCOUNTER → 2022-04-12 01:46 | Outpatient (CLI) | payer MEDICARE, MEDICAID, SELFPAY ==
--- NOTE | 2022-04-12 07:33 | DI.US_ITS ---
APPROVED REPORT EXAM: Comprehensive 2D, Doppler, and color-flow Echocardiogram Patient Location: Out-Patient [facility] Vendor: Kanwal Rojo RDCS (AE) Indications: Pericardial effusion, Evaluat function post PE, Chest pain Other Information Study Quality: Adequate Conclusion Normal left ventricular wall thickness and chamber size. Estimated ejection fraction is 58%. Wall m otion is normal Normal right ventricular size and systolic function Both atria are normal in size There is no structural or hemodynamically significant valvular disease Estimated right ventricular systolic pressure is 25 mmHg Mildly dilated ascending aorta measuring 3.63 cm No significant pericardial effusion Wall motion Left Ventricle The left ventricle is normal size. The left ventricular systolic function is normal. The left ventric ular ejection fraction is within the normal range. There is normal left ventricular wall thickness. T here is normal LV segmental wall motion. There is no ventricular septal defect visualized. LVEF is 58 %. Right Ventricle The right ventricle is normal size. The right ventricular systolic function is normal. Atria The left atrium size is normal. The right atrium size is normal. The interatrial septum is intact wit h no evidence for an atrial septal defect. Aortic Valve The aortic valve is normal in structure. Aortic valve is trileaflet. There is no aortic valvular sten osis. No aortic regurgitation is present. Mitral Valve The mitral valve is normal in structure. No evidence of mitral valve stenosis. Trace to mild mitral r egurgitation. Tricuspid Valve The tricuspid valve is normal in structure. There is no tricuspid valve stenosis. Trace to mild tricu spid regurgitation. Pulmonic Valve The pulmonary valve is normal in structure. There is no pulmonic valvular stenosis. Trace pulmonic re gurgitation. Great Vessels The aortic root is normal in size. The ascending aorta is mildly dilated. Aortic arch is normal in ca liber. IVC is normal in size and collapses >50% with inspiration. Pericardium No significant pericardial effusion 2D Dimensions IVSD d PLAX 0.98 cm F: 0.6-1.0 LV Vol A2C d MOD 107.5 mL LVPW d PLAX 0.99 cm F: 0.6 - 1.0 LV Vol A4C d MOD 124.6 mL LVID d PLAX 5.21 cm F: 3.8 - 5.2 LA vol/ BSA A4C s A-L 24.3 mL/m2 LVDs 3.55 cm F: 2.2 - 3.5 LA Area A4C s MOD 18.92 cm2 Ao Root d 3.01 cm F: 2.7 - 3.3 LV EF A4C MOD 58.7 % RA Area A4C 22.01 cm2 LV EF A2C MOD 58.5 % RA Vol/ BSA A4C s A-L 29.0 mL/m2 LV EF Biplane MOD 58.0 % Ao Asc Diam d 3.63 cm F: 2.3 - 3.1 SV 67.13 mL LV EF Teichholz 59.1 % SV Index 30.35 mL/m2 LVEF (Chauhan's) 58.05 % F: 54 - 74 LV Volume 83.97 mL F: 46 - 106 LV Volume Index 37.99 mL/m2 F: 29 - 61 LV Vol Biplane MOD 115.6 mL FS 31.55 % M-Mode TAPSE 2.72 cm (M/F) >1.7 LV Diastology MV E' medial 0.109 (>0.07 m/s) E/A Ratio 0.9 LV E/e MED 5.65 (<14) MV E Vmax 0.62 (0.4-1.3 m/s) MV E' lateral 0.091 (>0.1 m/s) MV A Vmax 0.70 (0.4-1.3 m/s) LV E/e LAT 6.75 (<14) MV E/A Ratio 0.88 MV E/E' medial 5.67 MV E/E' lateral 6.79 Aortic Valve LVOT Area 3.26 cm2 AoV Area Vmax 2.97 cm2 LVOT Vmax 0.95 m/s AoV Area/ BSA (Vmax) 1.34 cm2/m2 LVOT Mean Shahbaz. 0.61 m/s ERIC Mean Shahbaz. 2.67 cm2 LVOT Peak Grad 3.6 mmHg ERIC Mean Shahbaz. Index 1.21 cm2/m2 LVOT Mean Grad 1.8 mmHg LVOT VTI 0.251 m LVOT Diam s 2.00 cm AoV Vmax 1.04 m/s Velocity Ratio 0.91 AoV Mean Shahbaz. 0.75 m/s AoV Peak Grad 4.4 mmHg LVOT SV 81.81 mL AoV Mean Grad 2.4 mmHg AoV VTI 0.290 m AoV Area VTI 2.82 cm2 AoV Area/ BSA (VTI) 1.28 cm/m2 Mitral Valve MV DT 197 (160-240 msec) MV PHT 57 msec MV Area PHT 3.85 cm2 Pulmonary Valve PV Vmax 1.00 (0.5-1.5 m/s) RVOT Peak Gr. 1.99 mmHg PV Peak Grad 4.0 mmHg RVOT Mean Gr. 1.05 mmHg PV Mean Grad 1.8 mmHg RVOT VTI 0.189 m PV VTI 0.239 m RVOT Vmax 0.71 m/s Tricuspid Valve TR Peak Grad 22.2 mmHg TR Vmax 2.36 m/s RA Pressure 3.00 mmHg RVSP (TR) 25.2 mmHg
== END ==
PROVIDERS: PCP Student in an Organized Health Care Education/Training Program; Visit Provider Student in an Organized Health Care Education/Training Program
DX: R07.9 Chest pain, unspecified (principal); I31.39 Other pericardial effusion (noninflammatory)
CPT/HCPCS: 93306

== ENCOUNTER 2022-07-01 11:08 | Day surgery (SDC) | payer MEDICARE, MEDICAID, SELFPAY ==
[2022-07-01 11:35] VITALS: BP 110/54; PULSE 57; RESP 18; TEMP 36.6; O2SAT 97
--- NOTE | 2022-07-01 11:47 | ANES.PREOP_ITS ---
General Info Date of Service Date Performed: 07/01/22 Height: 5 ft 7 in Weight: 113.3 kg Body Mass Index (BMI): 39.1 Surgical Procedure: Operation Date: 07/01/22 12:55 Proposed Procedure Side Surgeon p Cataract Extraction with IOL Implant Right Dustin Kearns MD Meds Allergies and Home Medications Allergies Allergy/AdvReac Type Severity Reaction Status Date / Time morphine Allergy Intermediate Itching Verified 07/01/22 11:28 codeine AdvReac Intermediate muscle Verified 07/01/22 11:28 spasms oxycodone HCl [From Percocet] AdvReac Intermediate muscle Verified 07/01/22 11:28 spasms, hard on stomach Home Medication Medication Instructions Recorded famotidine 20 mg tablet (Heartburn 20 mg PO BID #60 tabs 10/02/21 Relief (famotidine)) sumatriptan succinate 50 mg tablet See Rx Instructions PO .COMPLEX #9 12/17/21 tabs cyclobenzaprine 10 mg tablet 10 mg PO HS PRN muscle spasm #20 03/04/22 tabs apixaban 5 mg tablet (Eliquis) 5 mg .Route BID #180 tabs 03/31/22 cholecalciferol (vitamin D3) 50 2,000 unit PO DAILY #90 caps 03/31/22 mcg (2,000 unit) capsule (Vitamin D3) furosemide 20 mg tablet See Rx Instructions PO DAILY #90 03/31/22 tabs gabapentin 300 mg capsule 300 mg PO QHS #30 caps 03/31/22 magnesium oxide 400 mg (241.3 mg 800 mg PO BID #360 tabs 05/26/22 magnesium) tablet celecoxib 100 mg capsule (Celebrex) 100 mg PO BID 07/01/22 Current Visit Medications: Current Medications Generic Name Dose Route Start Last Admin Trade Name Freq PRN Reason Stop Dose Admin Acetaminophen 1,000 mg 07/01/22 06:00 Acetaminophen 500 Mg Tab PO Q4H PRN PRN Miscellaneous Medication 0 ml 07/01/22 06:00 Prednisolone 1%, Moxifloxacin 0.5%, Nepafenac 0.1% 5ml Btl OD DIRECTED [facility] Miscellaneous Medication 0 ml 07/01/22 06:00 Tropicam./Phenyleph. (1/2.5%) 5 Ml Btl OD DIRECTED [facility] Tetracaine HCl 0 ml 07/01/22 06:00 Tetracaine 0.5% 4 Ml Btl OD DIRECTED [facility] Active Problems Active Problems: Problem Status Onset Code Hypertension I10 Morbid obesity 08/20/15 E66.01 Lumbar radiculopathy M54.16 Leg edema R60.0 Skin lesion of back L98.9 Cervical radiculopathy M54.12 Tendonitis M77.9 Fasciitis M72.9 Right foot pain M79.671 Gastritis K29.70 Anemia D64.9 Right leg DVT I82.401 Left foot pain M79.672 Cellulitis of left foot L03.116 Claudication of lower extremity I73.9 Ischemia of extremity I99.8 Nuclear sclerotic cataract of right eye H25.11 Posterior subcapsular age-related cataract, right eye H25.041 Medical History Medical History Abdominal aortic aneurysm 30 to 34 mm in diameter (07/19/14) 06/2014 3.14 cm, confirmed on CT; 07/2015 3.2cm US 04/21/17 stable 3.3 cm US. 11/2018 [Stable, 3.4CM]. Abdominal pain (04/22/13) not diverticulitis per CT 07/28/14; lower abd 07/2015 Abscess Resolved, surgery, 12/2021 Acute pain of left shoulder (10/18/17) No specific injury/trauma, pain with movement, abdiel ext rot/supination. Triceps tenderness. Intermittent fingertip numbness. Adenoma of large intestine (05/19/11) 05/2011 Kris Coffey colonoscopy, +tubular adenoma and +family h/o colon cancer (F); again adenoma 02/21/13 04/07/17 - tubulovillous adenoma, ascending colon, Dr Kaye Arm pain, right (09/20/13) rotator cuff pain, persistent trigger finger R; neck pain; trapezious spasm; impingement syndrome At risk for osteoporosis Smoking > 10 yrs, Prednisone (high-dose), PPI, Menopause @ 34yo. (Hx blood clots.. heparin, 1998, near ) Chest heaviness (07/15/16) Per pt. states if she eats is when she feels this and is at night if she has eaten. Chest pain at rest Awakened with heaviness, waited x hours (has had it before), but finally went to ED .. 11/20/18 De Quervain's tenosynovitis, right Diverticulosis a. No diverticulitis DJD, spine Reconfirmed on 07/2018 XR. Echocardiogram findings abnormal, without diagnosis WNL LV, (EF 58%), 03/2022 ([facility]. post PE. / WNL LV size/functn (EF 55%), [place] .. s/p pericardial effusion. Esophagitis with gastritis Generalized osteoarthrosis (02/21/13) GERD (gastroesophageal reflux disease) History of pulmonary embolism (01/01/16) History of tobacco use a. quit in 1998, after roughly 30 pack years Hydronephrosis (05/07/14) Hyperlipidemia (02/21/13) Left foot pain (01/27/17) r/o Posteriur Tarsal Tunnel Syn; dr Velasquez, Dr. Aldana Migraine (02/21/13) Morbid obesity a. Gastric bypass 1999 b. Multiple nutritional deficiencies, on supplements. c. S/p pannus excision Muscle cramp, nocturnal (12/27/13) gabapentin 100 prn effective Nephrolithiasis (05/07/14) a. First episode - right side b. 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 Bisphosphonate Hx TBD. PAF (paroxysmal atrial fibrillation) (05/08/15) only one confirmed episode 02/2015; ZIO patch neg; prefers not anticoagulate until A Fib recurs Pain in joint, shoulder region a. rotator cuff pain Pain of left hip (05/2018) Onset while stretching in bed, suddenly felt sharp pain ... hasn't gone away. Surprising left paraspinal tenderness along lumbar spine @ exam, 08/08/18. Palpitations (07/15/16) Periumbilical abdominal pain (04/14/17) ? umbilical hernia vs adhesions Piriformis syndrome of right side Pseudogout of left wrist (01/22/18) Pyelonephritis (05/07/14) 1. secondary to obstruction Reactive airway disease a. worse in the spring Right arm pain Right hand paresthesia Right upper extremity numbness Pain and Tenderness, possible nerve entrapment with numbness .. 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 L4-5 B. L5-S1 Latest XR (07/2018) states pseudospondylolisthesis, no acute Fx/Sublux. Monitoring pain. TMJ (temporomandibular joint disorder) (01/25/16) Trigger finger, right middle finger (01/22/18) Vision loss, right eye Vitamin D deficiency (12/23/16) rx 50,000/wk x ten wk, then 2000 IU daily Surgical History Surgical History Arthroplasty (06/21/13) Cheri Palomo Bariatric Surgery (06/16/00) Brenda-En-Y gastroplasty with cholecystectomy, Dr. Ami Greene [facility] Cholecystectomy (06/16/00) Dr Greene [facility], along with Bariatric procedure Colonoscopy - MAC (04/07/17) H/O surgical procedure a. Gastric bypass 1999 b. Pannus excision c. Excision of Samson neuroma d. Cholecystectomy e. appendectomy f. right oophorectomy g. Hemorrhoidectomy History of bariatric surgery (05/19/00) Dr. Greene, [facility] pannus removal (04/02/03) [facility], 3 yr after bariatric surg Repair of umbilical hernia (05/31/17) Dr Kaye S/P bariatric surgery (06/16/00) [facility], pre surg wt 311 lbs Trigger Finger release (11/26/13) A-1 sumi Rt ring finger Tobacco Smoking/Tobacco Use Status: Former Tobacco Use Alcohol Alcohol Intake: never Substance Use Substance use: Never Substance use type: does not use Vital Signs and Lab Results Vital Signs Most Recent Vital Signs in EMR: Most Recent Vital Signs Temp Pulse Resp BP Pulse Ox 36.6 C 57 L 18 110/54 L 97 07/01/22 11:35 07/01/22 11:35 07/01/22 11:35 07/01/22 11:35 07/01/22 11:35 Lab Results Blood Type / Crossmatch: No Data to Display Complete Blood Count: No Data to Display Complete Metabolic Panel: No Data to Display Liver Function Panel: No Data to Display Coagulation Panel: No Data to Display Cardiac Panel: No Data to Display Arterial Blood Gas: No Data to Display Venous Blood Gas: No Data to Display Pancreas Panel: No Data to Display Thyroid Panel: No Data to Display Infectious Disease: No Data to Display Blood Cultures: No Data to Display Toxicology Panel: No Data to Display Imaging and Studies Imaging and Studies Study information below may be from another EMR and interpreted by another provider. Please see original notes in EMR for more complete details. EKG Summary: Conclusion Sinus rhythm...normal P axis, V-rate 60- 99 Probable left atrial enlargement...P >50mS, <-0.10mV V1. Sinus. Normal axis. No STEMI. Stress Test Summary: Impressions: Normal perfusion by [id number] Sestamibi Imaging. Summary: 1. Myocardial perfusion imaging: There is a moderate sized, moderately intense, fixed defect involving the inferior wall(s). This resolves with attenuation correction. C/W diaphragmatic artifact. 2. The calculated left ventricular ejection fraction after stress: 71%. Echocardiogram Summary: SUMMARY: Normal biventricular size and function. No valvular dysfunction. No pericardial effusion. Pulmonary Function Summary: Time analyzed: 02:37 Minutes under 88%: 0.7 HOLLIE: 8.4 Note: Insufficient time of analyzed data to assess for nocturnal oxygen needs or to make considerations about sleep apnea, pulmonary or cardiac disease. Anesthesia Assessment and Plan Anesthesia History Personal History: No History of Anesthesia Complications Family History: No Family History of Anesthesia Complications Exercise Tolerance Exercise Tolerance: Metabolic Equivalents>4 Pertinent Negatives Pertinent Negatives: No Symptoms of GERD ( MEd controlled) Cardiac & Pulmonary Exam Cardiac Exam: Normal S1/S2 Heart Sounds Pulmonary Exam: Clear Bilateral Breath Sounds Implantable Cardiac Device Does patient have a Pacemaker or an ICD?: No Airway Exam Known Difficult Airway: No Mallampati Class: 1 Mouth Opening: Normal (> 3cm) Thyromental Distance: Greater than 3 cm Neck Range of Motion: Full ROM Neck Circumference: Normal Teeth Condition: Removable Dentures/Plates Upper ASA Classification ASA Score: ASA 3 Emergency Case?: No NPO Status NPO Status: NPO Clears >2 hours, Solids >8 hours Anesthesia Plan Resuscitation Status: Full Code Anesthesia Technique: MAC Anesthesia Airway Planned: Natural Airway Monitors Used: Standard Monitors Preoperative Comments:: Requests mko
[2022-07-01 11:51] VITALS: BMI 39.1
[2022-07-01] MEDS: Tropicam./Phenyleph. (1/2.5%) 5 ML BTL OD ×3 (11:58→12:09)
[2022-07-01] MEDS: Tetracaine 0.5% 4 ML BTL OD (12:35)
[2022-07-01] MEDS: Lidocaine 2% Jelly 6 ML SYR (12:36)
[2022-07-01] MEDS: Duovisc Viscoelastic System EACH 1 EACH (12:43)
[2022-07-01] MEDS: Balanced Salt Soln.-PLUS 500 ML BAG (12:43)
[2022-07-01] MEDS: Lidocaine 1% Pres-Free 5 ML VIAL (12:44)
[2022-07-01] MEDS: Povidone-Iodine Ophth 30 ML BTL (12:45)
[2022-07-01 13:05] VITALS: BP 116/64; PULSE 61; RESP 16; TEMP 36.2; O2SAT 98
--- NOTE | 2022-07-01 13:07 | W.PM.DSUDISC ---
Date of service: 07/01/22 Time of Service: 13:07 Discharge Plan Disposition Patient Disposition: Home Discharge Details Attending Provider: Dustin Kearns Primary Care Provider: Brigette Eli Home Meds and New Rx's Prescriptions: No Action famotidine [Heartburn Relief (famotidine)] 20 mg tablet 20 mg PO BID Qty: 60 1RF Label Comments: Has been having issues with pharmacy 12/03/21 Rx Instructions: Trial for gastric pain cyclobenzaprine 10 mg tablet 10 mg PO HS PRN (Reason: muscle spasm ) Qty: 20 1RF Rx Instructions: Trial for lwr back muscle spasm sumatriptan succinate 50 mg tablet See Rx Instructions PO .COMPLEX Qty: 9 3RF Rx Instructions: take 1 tab at onset of headache; if no relief may repeat 1 tab after at least 2 hrs; max = 4 tabs/24 hr PO gabapentin 300 mg capsule 300 mg PO QHS Qty: 30 1RF cholecalciferol (vitamin D3) [Vitamin D3] 50 mcg (2,000 unit) capsule 2,000 unit PO DAILY Qty: 90 3RF furosemide 20 mg tablet See Rx Instructions PO DAILY Qty: 90 3RF Rx Instructions: 20mg daily, may add (1) tab in afternoon 2' weight gain > 5 lbs or severe edema PO daily; Eliquis 5 mg tablet 5 mg .ROUTE BID Qty: 180 3RF Rx Instructions: Continue at lower dose, expected for life magnesium oxide 400 mg (241.3 mg magnesium) tablet 800 mg PO BID Qty: 360 3RF Rx Instructions: replace magnesium celecoxib [Celebrex] 100 mg Capsule 100 mg PO BID Discharge Instructions Stand Alone Forms: Post-op Topical Cataract, Press Ganey (DSU) Discharge Orders Discharge Orders: Discharge Order (Routine); Ordered 07/01/22 Ordered By: Dustin Kearns DS: Diagnosis Discharge Diagnosis (1) Nuclear sclerotic cataract of right eye: Status: Resolved (2) Posterior subcapsular age-related cataract, right eye: Status: Resolved
--- NOTE | 2022-07-01 13:12 | W.PM.OP ---
Date of service: 07/01/22 Time of Service: 13:12 Operative Note Operative Note DATE OF PROCEDURE: 07/01/22 PRE-OP DIAGNOSIS: Nuclear/posterior subcapsular cataract, right eye POST-OP DIAGNOSIS: same PROCEDURE: Cataract extraction using phacoemulsification with intraocular lens implant, right eye SURGEON: Dustin Kearns ANESTHESIA TYPE: Local By Surgeon and MAC Refer to Anesthesia Record ESTIMATED BLOOD LOSS: 0 PATHOLOGY: none sent COMPLICATIONS: None Patient was transported to: same day Patient's condition: stable Implants: Jw & Jw/NIKUNJ Tecnis [id number] Indications: Progressive visual loss due to cataract, right eye Procedure Description: CATARACT SURGERY OPERATIVE REPORT PREOPERATIVE DIAGNOSIS: 1. Nuclear/posterior subcapsular cataract, right eye POSTOPERATIVE DIAGNOSIS: Same OPERATION: 1. Cataract extraction using phacoemulsification with posterior chamber intraocular lens implant, right eye. IOL: IOL Glove Operator/Model: Jw & Jw / NIKUNJ Tecnis [id number] IOL Power: + 22.5 diopters IOL Serial Number: [id number] Optic Diameter: 6.0mm Haptic/Overall Diameter: 13.0mm PHACO INFO: Vladislav ClickDeliveryurion Vision System with OZil and Active Fluidics Cumulative Dispersed Energy (CDE): 10.54 seconds SURGEON: Dustin Kearns MD, ELEAZAR ANESTHESIA: Monitored Anesthesia Care (MAC), with local sub-tenon's anesthetic infiltration COMPLICATIONS: None SPECIMENS: None INDICATIONS FOR PROCEDURE: The patient is a 71-year-old lady with history of diminished visual acuity in her right eyes secondary to the development of significant nuclear/posterior subcapsular cataract. She is significantly symptomatic that she desires cataract surgery and attempt to improve and maximize her vision. The option of cataract surgery was offered to the patient and she wished to proceed. PROCEDURE: The correct surgical eye was identified and marked as the right eye and the pupil was dilated in the preoperative area using mydriatics and cycloplegics. The dilated pupil size was 6.5 mm. Oral sedation was administered in the form of an Imprimis MKO Melt (midazolam 3mg/ketamine 25mg/ondansetron 2mg). The patient was brought to the operating room where cardiopulmonary monitoring was instituted and surgical time-out was performed, confirming the correct operative eye and IOL power. Topical anesthesia was administered and ophthalmic povidone-iodine 5% was instilled into the conjunctival fornices. Lidocaine gel was applied to the cornea and the jamar-ocular area was prepped with Betadine 10% solution and draped in the usual sterile fashion for intraocular surgery, including an aperture drape. A Tegaderm transparent film dressing was cut in half and used to cover the lashes and lid margins. Care was taken to sequester the lashes and lid margins under the Tegaderm dressing. A lid speculum was placed between the lids of the operative eye and the Vladislav LuxOR Revalia operating microscope was maneuvered into position. Cathi scissors were then used to make a conjunctival buttonhole approximately 6mm posterior to the limbus in the inferonasal quadrant. Blunt dissection was carried out to expose bare sclera, and a blunt-tipped sub-tenon?s anesthesia cannula was introduced and passed posteriorly along the globe where non-preserved plain lidocaine was injected into posterior sub-Tenon?s space. A sideport knife was used to make a paracentesis port inferotemporally. Intraocular phenylephrine/lidocaine was injected into the anterior chamber. The anterior chamber was filled with viscoelastic. A keratome knife was used to construct a 2-plane near-clear corneal tunnel extending 2.0mm into clear cornea superiortemporally. A flap was raised on the anterior capsule and capsulorhexis forceps were used to complete a continuous curvilinear capsulorhexis of 5.0 mm. Balanced salt solution was then used to perform cortical cleaving hydrodissection and nuclear hydrodelineation until the lens could be freely rotated within the capsular bag. The lens nucleus was then disassembled and removed within the capsular bag and iris plane using phacoemulsification. Residual cortical material was removed using the I/A handpiece. The posterior capsule was carefully polished to remove as much residual lens epithelial cells as safely possible. The capsular bag was then inflated and the anterior chamber deepened with viscoelastic. The lens implant described above was inserted into the capsular bag using the NIKUNJ [place] Injector. A Kuglen hook was used to dial the IOL into position. Residual viscoelastic was then removed first from posterior to the IOL, then from the anterior chamber using the I/A handpiece. The lens implant was noted to center nicely within the capsular bag. The incisions were stromally hydrated, and the anterior chamber was reformed using BSS. Then 0.5cc of moxifloxacin 1.0mg/ml were injected into the capsular bag and anterior chamber. The incisions were checked with a Weck spear and found to be secure. Several drops of ophthalmic povidone-iodine 5% were then applied to the eye followed by two drops of Imprimis combination prednisolone/moxifloxacin/nepafenac solution. The drapes were removed and a clear plastic protective eye shield was placed over the eye. The patient was then returned to Same Day Surgery in stable condition.
--- NOTE | 2022-07-01 13:32 | W.ANESPOSTOP ---
Postoperative Evaluation Date, Time and Location Date Performed: 07/01/22 Time Performed: 13:10 Patient Location: Day Surgery Unit Vital Signs Most Recent Imported Vital Signs: Most Recent Vital Signs Temp Pulse Resp BP Pulse Ox 36.2 C L 61 16 116/64 98 07/01/22 13:05 07/01/22 13:05 07/01/22 13:05 07/01/22 13:05 07/01/22 13:05 Pain Score Most Recent Pain Score: Most Recent Pain Score Pain Level 0 07/01/22 13:05 Assessment Mental Status: Awake (Alert & Oriented to Patient Baseline) Airway and Respiratory Function: Patent airway with normal (patient baseline) respiratory exam Cardiovascular Function: Hemodynamically Stable Hydration Status: Adequately Hydrated Nausea & Vomiting: No Nausea or Vomiting Pain: Pt. Denies Any Pain Peripheral Nerve Block: Patient did not receive a nerve block
[2022-07-01 13:33] VITALS: BP 107/59; PULSE 65; RESP 16; TEMP 36.6; O2SAT 100
== END 2022-07-01 13:37 | disposition home or self-care (01) ==
LOC: SUR 11:09
PROVIDERS: PCP Student in an Organized Health Care Education/Training Program; Visit Provider Ophthalmology
PROC: (CPT 66984; principal; 2022-07-01 12:45)
DX: H25.041 Posterior subcapsular polar age-related cataract, right eye (principal)
CPT/HCPCS: 66984; V2632

== ENCOUNTER 2022-07-08 01:42 | Outpatient (CLI) | payer MEDICARE, MEDICAID, SELFPAY ==
[2022-07-08 11:44] LABS: Anion Gap 7.2 mmol/L (3-11); BUN 20 mg/dL (7-18); CO2 28.8 mmol/L (21.0-32.0); CREATININE 1.1 mg/dL (0.55-1.02); Calcium 8.9 mg/dL (8.5-10.1); Chloride 105 mmol/L (98-107); Estimated GFR 53.72 (mL/min/1.73m2); Glucose 110 mg/dL (74-106); Magnesium 1.6 mg/dL (1.8-2.4); Potassium 3.7 mmol/L (3.5-5.1); Sodium 141 mmol/L (136-145)
== END 2022-07-08 01:43 | disposition home or self-care (01) ==
LOC: LBO 01:42
PROVIDERS: PCP Student in an Organized Health Care Education/Training Program; Visit Provider Student in an Organized Health Care Education/Training Program
DX: R73.9 Hyperglycemia, unspecified (principal)
CPT/HCPCS: 36415; 80048; 83735

== ENCOUNTER 2022-07-15 11:04 | Day surgery (SDC) | payer MEDICARE, MEDICAID, SELFPAY ==
[2022-07-15 11:28] VITALS: BP 113/55; PULSE 66; RESP 20; TEMP 36.8; O2SAT 97
[2022-07-15] MEDS: Tropicam./Phenyleph. (1/2.5%) 5 ML BTL OS ×3 (11:34→11:45)
--- NOTE | 2022-07-15 11:48 | W.ANESPRE ---
General Info Date of Service Date Performed: 07/15/22 Height: 5 ft 7 in Weight: 113.3 kg Body Mass Index (BMI): 39.1 Surgical Procedure: Operation Date: 07/15/22 12:55 Proposed Procedure Side Surgeon p Cataract Extraction with IOL Implant Left Dustin Kearns MD Meds Allergies and Home Medications Allergies Allergy/AdvReac Type Severity Reaction Status Date / Time morphine Allergy Intermediate Itching Verified 07/15/22 11:22 codeine AdvReac Intermediate muscle Verified 07/15/22 11:22 spasms oxycodone HCl [From Percocet] AdvReac Intermediate muscle Verified 07/15/22 11:22 spasms, hard on stomach Home Medication Medication Instructions Recorded famotidine 20 mg tablet (Heartburn 20 mg PO BID #60 tabs 10/02/21 Relief (famotidine)) sumatriptan succinate 50 mg tablet See Rx Instructions PO .COMPLEX #9 12/17/21 tabs cyclobenzaprine 10 mg tablet 10 mg PO HS PRN muscle spasm #20 03/04/22 tabs apixaban 5 mg tablet (Eliquis) 5 mg .Route BID #180 tabs 03/31/22 cholecalciferol (vitamin D3) 50 2,000 unit PO DAILY #90 caps 03/31/22 mcg (2,000 unit) capsule (Vitamin D3) furosemide 20 mg tablet See Rx Instructions PO DAILY #90 03/31/22 tabs magnesium oxide 400 mg (241.3 mg 800 mg PO BID #360 tabs 05/26/22 magnesium) tablet celecoxib 100 mg capsule (Celebrex) 100 mg PO BID 07/01/22 gabapentin 300 mg capsule 300 mg PO QHS #90 caps 07/11/22 Current Visit Medications: Current Medications Generic Name Dose Route Start Last Admin Trade Name Freq PRN Reason Stop Dose Admin Acetaminophen 1,000 mg 07/15/22 06:00 Acetaminophen 500 Mg Tab PO Q4H PRN PRN Miscellaneous Medication 0 ml 07/15/22 06:00 Prednisolone 1%, Moxifloxacin 0.5%, Nepafenac 0.1% 5ml Btl OS DIRECTED [facility] Miscellaneous Medication 0 ml 07/15/22 06:00 07/15/22 11:45 Tropicam./Phenyleph. (1/2.5%) 5 Ml Btl OS 1 drp DIRECTED [facility] Administration Tetracaine HCl 0 ml 07/15/22 06:00 Tetracaine 0.5% 4 Ml Btl OS DIRECTED [facility] PFSH Active Problems Active Problems: Problem Status Onset Code Hypertension I10 Morbid obesity 08/20/15 E66.01 Lumbar radiculopathy M54.16 Leg edema R60.0 Skin lesion of back L98.9 Cervical radiculopathy M54.12 Tendonitis M77.9 Fasciitis M72.9 Right foot pain M79.671 Gastritis K29.70 Anemia D64.9 Right leg DVT I82.401 Left foot pain M79.672 Cellulitis of left foot L03.116 Claudication of lower extremity I73.9 Ischemia of extremity I99.8 Nuclear sclerotic cataract of right eye H25.11 Posterior subcapsular age-related cataract, right eye H25.041 Medical History Medical History Abdominal aortic aneurysm 30 to 34 mm in diameter (07/19/14) 06/2014 3.14 cm, confirmed on CT; 07/2015 3.2cm US 04/21/17 stable 3.3 cm US. 11/2018 [Stable, 3.4CM]. Abdominal pain (04/22/13) not diverticulitis per CT 07/28/14; lower abd 07/2015 Abscess Resolved, surgery, 12/2021 Acute pain of left shoulder (10/18/17) No specific injury/trauma, pain with movement, abdiel ext rot/supination. Triceps tenderness. Intermittent fingertip numbness. Adenoma of large intestine (05/19/11) 05/2011 Kris Coffey colonoscopy, +tubular adenoma and +family h/o colon cancer (F); again adenoma 02/21/13 04/07/17 - tubulovillous adenoma, ascending colon, Dr Kaye Arm pain, right (09/20/13) rotator cuff pain, persistent trigger finger R; neck pain; trapezious spasm; impingement syndrome At risk for osteoporosis Smoking > 10 yrs, Prednisone (high-dose), PPI, Menopause @ 34yo. (Hx blood clots.. heparin, 1998, near ) Chest heaviness (07/15/16) Per pt. states if she eats is when she feels this and is at night if she has eaten. Chest pain at rest Awakened with heaviness, waited x hours (has had it before), but finally went to ED .. 11/20/18 De Quervain's tenosynovitis, right Diverticulosis a. No diverticulitis DJD, spine Reconfirmed on 07/2018 XR. Echocardiogram findings abnormal, without diagnosis WNL LV, (EF 58%), 03/2022 ([facility]. post PE. / WNL LV size/functn (EF 55%), 12/2021 ([facility] [place] .. s/p pericardial effusion. Esophagitis with gastritis Generalized osteoarthrosis (02/21/13) GERD (gastroesophageal reflux disease) History of pulmonary embolism (01/01/16) History of tobacco use a. quit in 1998, after roughly 30 pack years Hydronephrosis (05/07/14) Hyperlipidemia (02/21/13) Left foot pain (01/27/17) r/o Posteriur Tarsal Tunnel Syn; dr Velasquez, Dr. Aldana Migraine (02/21/13) Morbid obesity a. Gastric bypass 1999 b. Multiple nutritional deficiencies, on supplements. c. S/p pannus excision Muscle cramp, nocturnal (12/27/13) gabapentin 100 prn effective Nephrolithiasis (05/07/14) a. First episode - right side b. 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 Bisphosphonate Hx TBD. PAF (paroxysmal atrial fibrillation) (05/08/15) only one confirmed episode 02/2015; ZIO patch neg; prefers not anticoagulate until A Fib recurs Pain in joint, shoulder region a. rotator cuff pain Pain of left hip (05/2018) Onset while stretching in bed, suddenly felt sharp pain ... hasn't gone away. Surprising left paraspinal tenderness along lumbar spine @ exam, 08/08/18. Palpitations (07/15/16) Periumbilical abdominal pain (04/14/17) ? umbilical hernia vs adhesions Piriformis syndrome of right side Pseudogout of left wrist (01/22/18) Pyelonephritis (05/07/14) 1. secondary to obstruction Reactive airway disease a. worse in the spring Right arm pain Right hand paresthesia Right upper extremity numbness Pain and Tenderness, possible nerve entrapment with numbness .. 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 L4-5 B. L5-S1 Latest XR (07/2018) states pseudospondylolisthesis, no acute Fx/Sublux. Monitoring pain. TMJ (temporomandibular joint disorder) (01/25/16) Trigger finger, right middle finger (01/22/18) Vision loss, right eye Vitamin D deficiency (12/23/16) rx 50,000/wk x ten wk, then 2000 IU daily Surgical History Surgical History Arthroplasty (06/21/13) Cheri Palomo Bariatric Surgery (06/16/00) Brenda-En-Y gastroplasty with cholecystectomy, Dr. Ami Greene, [facility] Cholecystectomy (06/16/00) Dr Greene, [facility], along with Bariatric procedure Colonoscopy - MAC (04/07/17) H/O surgical procedure a. Gastric bypass 1999 b. Pannus excision c. Excision of Samson neuroma d. Cholecystectomy e. appendectomy f. right oophorectomy g. Hemorrhoidectomy History of bariatric surgery (05/19/00) Dr. Greene, [facility] History of cataract surgery pannus removal (04/02/03) [facility], 3 yr after bariatric surg Repair of umbilical hernia (05/31/17) Dr Kaye S/P bariatric surgery (06/16/00) [facility], pre surg wt 311 lbs Trigger Finger release (11/26/13) A-1 sumi Rt ring finger Tobacco Smoking/Tobacco Use Status: Former Tobacco Use Alcohol Alcohol Intake: never Substance Use Substance use: Never Substance use type: does not use Vital Signs and Lab Results Vital Signs Most Recent Vital Signs in EMR: Most Recent Vital Signs Temp Pulse Resp BP Pulse Ox 36.8 C 66 20 113/55 L 97 07/15/22 11:28 07/15/22 11:28 07/15/22 11:28 07/15/22 11:28 07/15/22 11:28 Lab Results Blood Type / Crossmatch: No Data to Display Complete Blood Count: No Data to Display Complete Metabolic Panel: Sodium 141 mmol/L (136-145) 07/08/22 11:16 Potassium 3.7 mmol/L (3.5-5.1) 07/08/22 11:16 Chloride 105 mmol/L (98-107) 07/08/22 11:16 Carbon Dioxide 28.8 mmol/L (21.0-32.0) 07/08/22 11:16 BUN 20 mg/dL (7-18) H 07/08/22 11:16 Creatinine 1.1 mg/dL (0.55-1.02) H 07/08/22 11:16 Est GFR (CKD-EPI 2020) 53.72 (mL/min/1.73m2) 07/08/22 11:16 Magnesium 1.6 mg/dL (1.8-2.4) L 07/08/22 11:16 Calcium 8.9 mg/dL (8.5-10.1) 07/08/22 11:16 Glucose 110 mg/dL (74-106) H 07/08/22 11:16 Liver Function Panel: No Data to Display Coagulation Panel: No Data to Display Cardiac Panel: No Data to Display Arterial Blood Gas: No Data to Display Venous Blood Gas: No Data to Display Pancreas Panel: No Data to Display Thyroid Panel: No Data to Display Infectious Disease: No Data to Display Blood Cultures: No Data to Display Toxicology Panel: No Data to Display Imaging and Studies Imaging and Studies Study information below may be from another EMR and interpreted by another provider. Please see original notes in EMR for more complete details. EKG Summary: Conclusion Sinus rhythm...normal P axis, V-rate 60- 99 Probable left atrial enlargement...P >50mS, <-0.10mV V1. Sinus. Normal axis. No STEMI. Stress Test Summary: Impressions: Normal perfusion by [id number] Sestamibi Imaging. Summary: 1. Myocardial perfusion imaging: There is a moderate sized, moderately intense, fixed defect involving the inferior wall(s). This resolves with attenuation correction. C/W diaphragmatic artifact. 2. The calculated left ventricular ejection fraction after stress: 71%. Echocardiogram Summary: SUMMARY: Normal biventricular size and function. No valvular dysfunction. No pericardial effusion. Pulmonary Function Summary: Time analyzed: 02:37 Minutes under 88%: 0.7 HOLLIE: 8.4 Note: Insufficient time of analyzed data to assess for nocturnal oxygen needs or to make considerations about sleep apnea, pulmonary or cardiac disease. Anesthesia Assessment and Plan Anesthesia History Personal History: No History of Anesthesia Complications Family History: No Family History of Anesthesia Complications Exercise Tolerance Exercise Tolerance: Metabolic Equivalents>4 Pertinent Negatives Pertinent Negatives: No Symptoms of GERD Cardiac & Pulmonary Exam Cardiac Exam: Normal S1/S2 Heart Sounds Pulmonary Exam: Clear Bilateral Breath Sounds Implantable Cardiac Device Does patient have a Pacemaker or an ICD?: No Airway Exam Known Difficult Airway: No Mallampati Class: 1 Mouth Opening: Normal (> 3cm) Thyromental Distance: Greater than 3 cm Neck Range of Motion: Full ROM Neck Circumference: Normal Teeth Condition: Removable Dentures/Plates Upper ASA Classification ASA Score: ASA 3 Emergency Case?: No NPO Status NPO Status: NPO Clears >2 hours, Solids >8 hours Anesthesia Plan Resuscitation Status: Full Code Anesthesia Technique: MAC Anesthesia Airway Planned: Natural Airway Monitors Used: Standard Monitors Preoperative Comments:: Wants MKO as before
[2022-07-15 11:51] VITALS: BMI 39.1
[2022-07-15] MEDS: Povidone-Iodine Ophth 30 ML BTL (12:35)
[2022-07-15] MEDS: Tetracaine 0.5% 4 ML BTL OS (12:35)
[2022-07-15] MEDS: Lidocaine 2% Jelly 6 ML SYR (12:35)
[2022-07-15] MEDS: Balanced Salt Soln.-PLUS 500 ML BAG (12:40)
[2022-07-15] MEDS: Lidocaine 1% Pres-Free 5 ML VIAL (12:40)
[2022-07-15] MEDS: Duovisc Viscoelastic System EACH 1 EACH (12:40)
[2022-07-15 12:59] VITALS: BP 102/65; PULSE 63; RESP 16; TEMP 36.7; O2SAT 100
--- NOTE | 2022-07-15 13:00 | PDOC.DSDIS_ITS ---
Date of service: 07/15/22 Time of Service: 13:00 Discharge Plan Disposition Patient Disposition: Home Discharge Details Attending Provider: Dustin Kearns Primary Care Provider: Brigette Eli [place] Meds and New Rx's Prescriptions: No Action famotidine [Heartburn Relief (famotidine)] 20 mg tablet 20 mg PO BID Qty: 60 1RF Label Comments: Has been having issues with pharmacy 12/03/21 Rx Instructions: Trial for gastric pain cyclobenzaprine 10 mg tablet 10 mg PO HS PRN (Reason: muscle spasm ) Qty: 20 1RF Rx Instructions: Trial for lwr back muscle spasm sumatriptan succinate 50 mg tablet See Rx Instructions PO .COMPLEX Qty: 9 3RF Rx Instructions: take 1 tab at onset of headache; if no relief may repeat 1 tab after at least 2 hrs; max = 4 tabs/24 hr PO cholecalciferol (vitamin D3) [Vitamin D3] 50 mcg (2,000 unit) capsule 2,000 unit PO DAILY Qty: 90 3RF furosemide 20 mg tablet See Rx Instructions PO DAILY Qty: 90 3RF Rx Instructions: 20mg daily, may add (1) tab in afternoon 2' weight gain > 5 lbs or severe edema PO daily; Eliquis 5 mg tablet 5 mg .ROUTE BID Qty: 180 3RF Rx Instructions: Continue at lower dose, expected for life magnesium oxide 400 mg (241.3 mg magnesium) tablet 800 mg PO BID Qty: 360 3RF Rx Instructions: replace magnesium gabapentin 300 mg capsule 300 mg PO QHS Qty: 90 3RF celecoxib [Celebrex] 100 mg Capsule 100 mg PO BID Discharge Instructions Stand Alone Forms: Post-op Topical Cataract, Press Ganey (DSU) Discharge Orders Discharge Orders: Discharge Order (Routine); Ordered 07/15/22 Ordered By: Dustin Kearns DS: Diagnosis Discharge Diagnosis (1) Posterior subcapsular age-related cataract of left eye: Status: Resolved (2) Nuclear sclerotic cataract of left eye: Status: Resolved
--- NOTE | 2022-07-15 13:01 | ROE_ITS ---
Date of service: 07/15/22 Time of Service: 13:01 Operative Note Operative Note DATE OF PROCEDURE: 07/15/22 PRE-OP DIAGNOSIS: Nuclear/posterior subcapsular cataract, left eye POST-OP DIAGNOSIS: same PROCEDURE: Cataract extraction using phacoemulsification with intraocular lens implant, left eye SURGEON: Dustin Kearns ANESTHESIA TYPE: Local By Surgeon and MAC Refer to Anesthesia Record PATHOLOGY: none sent COMPLICATIONS: None Patient was transported to: same day Patient's condition: stable Implants: Jw and Jw Tecnis Eyhance [id number] Indications: Progressive decreased vision due to cataract, left eye Procedure Description: CATARACT SURGERY OPERATIVE REPORT PREOPERATIVE DIAGNOSIS: 1. Nuclear/posterior subcapsular cataract, left eye POSTOPERATIVE DIAGNOSIS: Same OPERATION: 1. Cataract extraction using phacoemulsification with posterior chamber intraocular lens implant, left eye. IOL: IOL [employer] System Operator/Model: Jw & Jw Tecnis Eyhance DIB00 IOL Power: + 22.0 diopters IOL Serial Number: [id number] Optic Diameter: 6.0 mm Haptic/Overall Diameter: 13.0 mm PHACO INFO: VladislavWineDemonurion Vision System with OZil and Active Fluidics Cumulative Dispersed Energy (CDE): 11.93 seconds SURGEON: Dustin Kearns MD, ELEAZAR ANESTHESIA: Monitored A [facility] (MAC), with local sub-tenon's anesthetic infiltration COMPLICATIONS: None SPECIMENS: None INDICATIONS FOR PROCEDURE: The patient is a 71-year-old lady with history of diminished visual acuity in both eyes secondary to the development of bilateral nuclear and cortical cataract. She has already undergone cataract surgery in the right eye and is doing well postoperatively. She now presents for cataract surgery in the left eye. PROCEDURE: The correct surgical eye was identified and marked as the left eye and the pupil was dilated in the preoperative area using mydriatics and cycloplegics. The dilated pupil size was 8.0 mm. Oral sedation was administered in the form of an Imprimis MKO Melt (midazolam 3mg/ketamine 25mg/ondansetron 2mg). . The patient was brought to the operating room where cardiopulmonary monitoring was instituted and surgical time-out was performed, confirming the correct operative eye and IOL power. Topical anesthesia was administered and ophthalmic povidone-iodine 5% was instilled into the conjunctival fornices. Lidocaine gel was applied to the cornea and the jamar-ocular area was prepped with Betadine 10% solution and draped in the usual sterile fashion for intraocular surgery, including an aperture drape. A Tegaderm transparent film dressing was cut in half and used to cover the lashes and lid margins. Care was taken to sequester the lashes and lid margins under the Tegaderm dressing. A lid speculum was placed between the lids of the operative eye and the Vlaidslav LuxOR Revalia operating microscope was maneuvered into position. Cathi scissors were then used to make a conjunctival buttonhole approximately 6mm posterior to the limbus in the inferonasal quadrant. Blunt dissection was carried out to expose bare sclera, and a blunt-tipped sub-tenon?s anesthesia cannula was introduced and passed posteriorly along the globe where non- preserved plain lidocaine was injected into posterior sub-Tenon?s space. A sideport knife was used to make a paracentesis port superiorly/superiortemporally. Intraocular phenylephrine/lidocaine was injected int the anterior chamber.. The anterior chamber was filled with viscoelastic. A keratome knife was used to construct a 2-plane near-clear corneal tunnel extending 2.0mm into clear cornea temporally. A flap was raised on the anterior capsule and capsulorhexis forceps were used to complete a continuous curvilinear capsulorhexis of 5.0 mm. Balanced salt solution was then used to perform cortical cleaving hydrodissection and nuclear hydrodelineation until the lens could be freely rotated within the capsular bag. The lens nucleus was then disassembled and removed within the capsular bag and iris plane using phacoemulsification. Residual cortical material was removed using the 45-degree angled silicone I/A tip with 0.3mm port. The posterior capsule was carefully polished to remove as much residual lens epithelial cells as safely possible. The capsular bag was then inflated and the anterior chamber deepened with viscoelastic. The lens implant described above was inserted into the capsular bag using the Jw and Jw Simplicity pre-loaded injector. . A Kuglen hook was used to dial the IOL into position. Residual viscoelastic was then removed first from posterior to the IOL, then from the anterior chamber using the I/A handpiece. The lens implant was noted to center nicely within the capsular bag. The incisions were stromally hydrated, and the anterior chamber was reformed using BSS. Then 0.5cc of moxifloxacin 1.0mg/ml were injected into the capsular bag and anterior chamber. The incisions were checked with a Weck spear and found to be secure. Several drops of ophthalmic povidone-iodine 5% were then applied to the eye followed by two drops of Imprimis combination prednisolone/moxifloxacin/nepafenac solution. The drapes were removed and a clear plastic protective eye shield was placed over the eye. The patient was then returned to Same Day Surgery in stable condition.
[2022-07-15 13:24] VITALS: BP 114/73; PULSE 57; RESP 16; TEMP 36.6; O2SAT 100
--- NOTE | 2022-07-15 13:26 | W.ANESPOSTOP ---
Postoperative Evaluation Date, Time and Location Date Performed: 07/15/22 Time Performed: 13:00 Patient Location: Day Surgery Unit Vital Signs Most Recent Imported Vital Signs: Most Recent Vital Signs Temp Pulse Resp BP Pulse Ox 36.7 C 63 16 102/65 100 07/15/22 12:59 07/15/22 12:59 07/15/22 12:59 07/15/22 12:59 07/15/22 12:59 Pain Score Most Recent Pain Score: Most Recent Pain Score Pain Level 0 07/15/22 12:59 Assessment Mental Status: Awake (Alert & Oriented to Patient Baseline) Airway and Respiratory Function: Patent airway with normal (patient baseline) respiratory exam Cardiovascular Function: Hemodynamically Stable Hydration Status: Adequately Hydrated Nausea & Vomiting: No Nausea or Vomiting Pain: Pt. Denies Any Pain Peripheral Nerve Block: Patient did not receive a nerve block
== END 2022-07-15 13:25 | disposition home or self-care (01) ==
LOC: SUR 11:04
PROVIDERS: PCP Student in an Organized Health Care Education/Training Program; Visit Provider Ophthalmology
PROC: (CPT 66984; principal; 2022-07-15 12:45)
DX: H25.812 Combined forms of age-related cataract, left eye (principal)
CPT/HCPCS: 66984; V2632

== ENCOUNTER 2022-08-20 16:58 | Emergency (ER) | payer MEDICARE, MEDICAID, SELFPAY ==
[2022-08-20] VITALS (32 sets, daily range): BP systolic 119–159; BP diastolic 58–77; PULSE 66–78; RESP 18; TEMP 37.1; O2SAT 94–100
--- NOTE | 2022-08-20 17:16 | DI.CT_ITS ---
Exam(s) CT BRAIN NECK CTA EXAM: CT BRAIN NECK CTA CLINICAL HISTORY: neck and posterior pink, hx of blood clots. TECHNIQUE: Imaging Protocol: Axial CT angiography was performed with multi-slice acquisition and mu lti-planar and/or 3D reconstructions. CONTRAST MATERIAL: Intravenous: Omnipaque 350 Contrast volume:structured data in ml COMPARISON: CT CT CHEST PE CTA from 01/02/2022 FINDINGS: CTA Neck W: Aortic arch anatomy: The aortic arch anatomy is conventional and there is no significant stenosis at the origin of the great vessels off of the aortic arch. No intimal flap evident. Anterior circulation: Both common carotid arteries ascend with normal luminal diameters. At the level the carotid bulbs and proximal internal carotid arteries there is minimal plaque without hemodynamically significant stenosis evident. There is a partially calcified plaque on the lateral wall of the right carotid bifurcation. Less than 10 percent stenosis. No significant stenosis in th e proximal right ICA and the right ICA is patent in the upper neck. There is no significant plaque at the left carotid bulb and proximal left ICA and the left ICA is pat ent in the upper neck and skull base. Posterior circulation: Both vertebral arteries originate in conventional fashion off of the subclavian arteries and there is no obvious stenosis at the origin of the vertebral arteries. Both vertebral arteries exhibit normal luminal diameters within the foramen transversarium. The left vertebral artery is dominant. At the skull base the distal right vertebral artery is thin. Left vertebral artery is the main contr ibutor to formation of the basilar artery. CTA Brain W: Anterior circulation: Both internal carotid arteries are patent in the skull base-carotid canals as well as within the cave rnous sinuses. The supraclinoid aspects of the ICAs are patent. Both A1 segments are patent as are the anterior cer ebral arteries and there is no evidence of aneurysm at the level of the anterior communicating artery . Both middle cerebral arteries are patent with no evidence of significant stenosis nor intraluminal th rombus. There also no aneurysms of these vessels. Posterior circulation: The basilar artery ascends in the midline. Distally it gives off patent bilateral superior cerebella r arteries. Above this level the basilar artery terminates as patent bilateral posterior cerebral arteries. There is no evidence of aneurysm at the tip of the basilar artery nor elsewhere in the [id number] is. CT BRAIN: There is no evidence of intracranial hemorrhage, mass effect, or shift of midline structures. There are no extra-axial fluid collections. Ventricles are not enlarged or shifted. There are no ring enh ancing lesions in the brain and no abnormal meningeal enhancement. IMPRESSION: 1. Patent carotid arteries in the neck. No hemodynamically significant stenosis. 2. Patent vertebral arteries. 3. Patent intracranial arteries. 4. No acute intracranial findings. No ring enhancing lesions in the brain. If clinically indicated follow-up MRI with diffusion imaging can be performed. RADIATION DOSE DELIVERED: 2,013.23mGy.cm Total DLP DATA REPOSITORY: All CT scans at this facility are submitted to the National Radiology Data Registry (NRDR) Dose Index Registry (DIR) with the [employer] ([employer]). RADIATION OPTIMIZATION: All CT scans at this facility use at least one of these dose optimization te chniques: automated exposure control; mA and/or kV adjustment per patient size (includes targeted exa ms where dose is matched to clinical indication); or iterative reconstruction.
[2022-08-20 17:30] LABS: Abs Immature Grans 0.03 10^3/uL (0.0-0.06); Absolute Basophil Count 0.07 10^3/uL (0.0-0.2); Absolute Eosinophil Count 0.09 10^3/uL (0.0-0.7); Absolute Lymphocyte Count 2.02 10^3/uL (1.2-3.4); Absolute Monocyte Count 0.97 10^3/uL (0.1-0.8); Absolute Neutrophil Count 6.49 10^3/uL (1.2-6.7); Basophils % 0.7; Eosinophils % 0.9; HCT 40.8 % (36.0-46.0); HGB 13.4 g/dL (11.2-15.7); Immature Grans % 0.3; Lymphocytes % 20.9; MCH 29.7 pg (27.0-33.0); MCHC 32.8 % (32.0-36.0); MCV 91 fL (80-95); MPV 10.3 fL (8.0-11.0); Neutrophils % 67.2; Platelet Count 180 10^3/uL (130-400); RBC 4.51 10^6/uL (3.93-5.22); RDW 13.2 % (11.7-14.6); WBC 9.67 10^3/uL (4.4-10.8)
[2022-08-20] MEDS: ACETAMINOPHEN 1,000 MG/100 ML BTL 400 MG IVPB (17:32)
[2022-08-20] MEDS: diphenhydrAMINE 50 MG/ML VIAL 25 MG IVP (17:33)
[2022-08-20] MEDS: LORazepam 2 MG/ML VIAL 0.5 MG IVP (17:34)
--- NOTE | 2022-08-20 17:35 | W.ED.GENAD ---
Discharge Plan Discharge Details Chief Complaint: Nk/Back Pain Primary Care Provider: Brigette Eli ED Provider: Dustin Morrison Home Meds and New Rx's Prescriptions: No Action famotidine [Heartburn Relief (famotidine)] 20 mg tablet 20 mg PO BID Qty: 60 1RF Patient Comments: Has been having issues with pharmacy 12/03/21 Rx Instructions: Trial for gastric pain gabapentin 100 mg capsule 100 mg PO QHS Qty: 30 1RF Rx Instructions: Special LOW DOSE PRN Cyclobenzaprine use (holding 300mg) cyclobenzaprine 10 mg tablet 10 mg PO HS PRN (Reason: muscle spasm ) Qty: 30 1RF Rx Instructions: Continue for muscle spasm (evening) sumatriptan succinate 50 mg tablet See Rx Instructions PO .COMPLEX Qty: 9 3RF Rx Instructions: take 1 tab at onset of headache; if no relief may repeat 1 tab after at least 2 hrs; max = 4 tabs/24 hr PO cholecalciferol (vitamin D3) [Vitamin D3] 50 mcg (2,000 unit) capsule 2,000 unit PO DAILY Qty: 90 3RF furosemide 20 mg tablet See Rx Instructions PO DAILY Qty: 90 3RF Rx Instructions: 20mg daily, may add (1) tab in afternoon 2' weight gain > 5 lbs or severe edema PO daily; Eliquis 5 mg tablet 5 mg .ROUTE BID Qty: 180 3RF Rx Instructions: Continue at lower dose, expected for life magnesium oxide 400 mg (241.3 mg magnesium) tablet 800 mg PO BID Qty: 360 3RF Rx Instructions: replace magnesium gabapentin 300 mg capsule 300 mg PO QHS Qty: 90 3RF Medical Decision Making 71-year-old female history of migraines, procoagulant state on apixaban presents with atraumatic neck pain and occipital headache over the last day hemodynamically stable afebrile nontoxic holding head straight facing forward not flexing extending or doing a lateral movement with neck point tenderness over right lateral cervical region into the trapezius, consider torticollis versus tension headache versus must consider sinus venous thrombosis versus arterial dissection also consider possible occlusion of carotid or vertebral system however cranial nerves strength and sensation intact no ataxia and normal speech. Have sent patient for stat CT head and neck asked radiology team to ensure that we have some venous phase analysis if possible, trial of anti-inflammatory analgesics with acetaminophen, Benadryl and Ativan as well as topical Lidoderm patch. Disposition pending results images and response to medication 19: 24 patient feeling more comfortable after medications, range of motion still limited in neck but improving. CT CTA head neck unremarkable for any arterial occlusion or vascular dissection or intracranial hemorrhage. Will add Toradol IV reassess pain. Disposition pending reassessment HPI General Date/Time Provider Initiated Documentation: 08/20/22 17:08. HPI Narrative: 71-year-old female presents endorsing atraumatic neck pain and posterior headache over the last day denies nausea vomiting weakness or infectious symptomatology. Endorses procoagulant state currently is taking apixaban. Has a history of migraines however this is different than her prior migraines. Related Data Home Medications Medication Instructions Recorded Confirmed famotidine 20 mg tablet (Heartburn 20 mg PO BID #60 tabs 10/02/21 08/20/22 Relief (famotidine)) sumatriptan succinate 50 mg tablet See Rx Instructions PO .COMPLEX #9 12/17/21 08/20/22 tabs apixaban 5 mg tablet (Eliquis) 5 mg .Route BID #180 tabs 03/31/22 08/20/22 cholecalciferol (vitamin D3) 50 2,000 unit PO DAILY #90 caps 03/31/22 08/20/22 mcg (2,000 unit) capsule (Vitamin D3) furosemide 20 mg tablet See Rx Instructions PO DAILY #90 03/31/22 08/20/22 tabs magnesium oxide 400 mg (241.3 mg 800 mg PO BID #360 tabs 05/26/22 08/20/22 magnesium) tablet gabapentin 300 mg capsule 300 mg PO QHS #90 caps 07/11/22 08/20/22 cyclobenzaprine 10 mg tablet 10 mg PO HS PRN muscle spasm #30 08/11/22 08/20/22 tabs gabapentin 100 mg capsule 100 mg PO QHS #30 caps 08/11/22 08/20/22 Previous Rx's Medication Instructions Recorded famotidine 20 mg tablet (Heartburn 20 mg PO BID #60 tabs 10/02/21 Relief (famotidine)) sumatriptan succinate 50 mg tablet See Rx Instructions PO .COMPLEX #9 12/17/21 tabs apixaban 5 mg tablet (Eliquis) 5 mg .Route BID #180 tabs 03/31/22 cholecalciferol (vitamin D3) 50 2,000 unit PO DAILY #90 caps 03/31/22 mcg (2,000 unit) capsule (Vitamin D3) furosemide 20 mg tablet See Rx Instructions PO DAILY #90 03/31/22 tabs magnesium oxide 400 mg (241.3 mg 800 mg PO BID #360 tabs 05/26/22 magnesium) tablet gabapentin 300 mg capsule 300 mg PO QHS #90 caps 07/11/22 cyclobenzaprine 10 mg tablet 10 mg PO HS PRN muscle spasm #30 08/11/22 tabs gabapentin 100 mg capsule 100 mg PO QHS #30 caps 08/11/22 Allergies Allergy/AdvReac Type Severity Reaction Status Date / Time morphine Allergy Intermediate Itching Verified 08/20/22 17:04 codeine AdvReac Intermediate muscle Verified 08/20/22 17:04 spasms oxycodone HCl [From Percocet] AdvReac Intermediate muscle Verified 08/20/22 17:04 spasms, hard on stomach General Stated Complaint: Nk/Back Pain AJITH: 3 Review of Systems Narrative: Review of Systems Constitutional: negative Eyes: negative ENT: negative Cardiovascular: negative Respiratory: negative Gastrointestinal: negative : negative Musculoskeletal: Neck pain Skin: negative Neurologic: Headache Psych: negative PFSH All Active Problems (Updated 08/19/22 @ 22:40 by Brigette Eli DO) Traumatic hematoma of right hand (Acute) Right wrist pain (Acute) Localized swelling on right hand (Acute) Right wrist effusion (Acute) Wrist joint pain (Acute) Painful hand (Acute) Bilateral hearing loss (Acute ~07/2022) 08/09/22 Hearing Evaluation done [facility] Hip pain, right (Acute) Bruising of wrist (Acute) Hypertension (Chronic) Morbid obesity (Acute 08/20/15) BMI 42, even after bariatric surg Lumbar radiculopathy (Acute) Long Hx ... Acute on chronic Rt sided, 08/2021. ik Leg edema (Acute) Rt and later Left foot (dorsum), w/o clear etiology .. Skin lesion of back (Acute) mid-back, pruritic .. indented/suspicious.. Cervical radiculopathy (Acute) Tendonitis (Acute) Fasciitis (Acute) Right foot pain (Acute) instep is excruciating ,, cannot flatten Gastritis (Acute) Anemia (Chronic) Right leg DVT (Acute) with PE, post Hosp/Abd Surg .. Left foot pain (Acute) Cellulitis of left foot (Acute) Claudication of lower extremity (Acute) Ischemia of extremity (Acute) Medical History Abdominal aortic aneurysm 30 to 34 mm in diameter (07/19/14) 06/2014 3.14 cm, confirmed on CT; 07/2015 3.2cm US 04/21/17 stable 3.3 cm US. 11/2018 [Stable, 3.4CM]. Abdominal pain (04/22/13) not diverticulitis per CT 07/28/14; lower abd 07/2015 Abscess Resolved, surgery, 12/2021 Acute pain of left shoulder (10/18/17) No specific injury/trauma, pain with movement, abdiel ext rot/supination. Triceps tenderness. Intermittent fingertip numbness. Adenoma of large intestine (05/19/11) 05/2011 Kris Coffey colonoscopy, +tubular adenoma and +family h/o colon cancer (F); again adenoma 02/21/13 04/07/17 - tubulovillous adenoma, ascending colon, Dr Kaye Arm pain, right (09/20/13) rotator cuff pain, persistent trigger finger R; neck pain; trapezious spasm; impingement syndrome At risk for osteoporosis Smoking > 10 yrs, Prednisone (high-dose), PPI, Menopause @ 34yo. (Hx blood clots.. heparin, 1998, near ) Chest heaviness (07/15/16) Per pt. states if she eats is when she feels this and is at night if she has eaten. Chest pain at rest Awakened with heaviness, waited x hours (has had it before), but finally went to ED .. 11/20/18 De Quervain's tenosynovitis, right Diverticulosis a. No diverticulitis DJD, spine Reconfirmed on 07/2018 XR. Echocardiogram findings abnormal, without diagnosis WNL LV, (EF 58%), 03/2022 ([facility]. post PE. / WNL LV size/functn (EF 55%), 12/2021 [place] [place] .. s/p pericardial effusion. Esophagitis with gastritis Generalized osteoarthrosis (02/21/13) GERD (gastroesophageal reflux disease) History of pulmonary embolism (01/01/16) History of tobacco use a. quit in 1998, after roughly 30 pack years Hydronephrosis (05/07/14) Hyperlipidemia (02/21/13) Left foot pain (01/27/17) r/o Posteriur Tarsal Tunnel Syn; dr Velasquez, Dr. Aldana Migraine (02/21/13) Morbid obesity a. Gastric bypass 1999 b. Multiple nutritional deficiencies, on supplements. c. S/p pannus excision Muscle cramp, nocturnal (12/27/13) gabapentin 100 prn effective Nephrolithiasis (05/07/14) a. First episode - right side b. 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 Bisphosphonate Hx TBD. PAF (paroxysmal atrial fibrillation) (05/08/15) only one confirmed episode 02/2015; ZIO patch neg; prefers not anticoagulate until A Fib recurs Pain in joint, shoulder region a. rotator cuff pain Pain of left hip (05/2018) Onset while stretching in bed, suddenly felt sharp pain ... hasn't gone away. Surprising left paraspinal tenderness along lumbar spine @ exam, 08/08/18. Palpitations (07/15/16) Periumbilical abdominal pain (04/14/17) ? umbilical hernia vs adhesions Piriformis syndrome of right side Pseudogout of left wrist (01/22/18) Pyelonephritis (05/07/14) 1. secondary to obstruction Reactive airway disease a. worse in the spring Right arm pain Right hand paresthesia Right upper extremity numbness Pain and Tenderness, possible nerve entrapment with numbness .. 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 L4-5 B. L5-S1 Latest XR (07/2018) states pseudospondylolisthesis, no acute Fx/Sublux. Monitoring pain. TMJ (temporomandibular joint disorder) (01/25/16) Trigger finger, right middle finger (01/22/18) Vision loss, right eye Vitamin D deficiency (12/23/16) rx 50,000/wk x ten wk, then 2000 IU daily Surgical History Arthroplasty (06/21/13) Cheri Palomo Bariatric Surgery (06/16/00) Brenda-En-Y gastroplasty with cholecystectomy, Dr. Ami Greene, [facility] Cholecystectomy (06/16/00) Dr Greene, [facility], along with Bariatric procedure Colonoscopy - MAC (04/07/17) H/O surgical procedure a. Gastric bypass 2000 b. Pannus excision c. Excision of Samson neuroma d. Cholecystectomy e. appendectomy f. right oophorectomy g. Hemorrhoidectomy History of bariatric surgery (05/19/00) Dr. Greene, [facility] History of cataract surgery pannus removal (04/02/03) [facility], 3 yr after bariatric surg Repair of umbilical hernia (05/31/17) Dr Kaye S/P bariatric surgery (06/16/00) [facility], pre surg wt 311 lbs Trigger Finger release (11/26/13) A-1 sumi Rt ring finger Family History Father Lung cancer Mother Colon cancer Social History Smoking/Tobacco Use Status: Former Tobacco Use Quit Date: 06/19/98 Smoking risk assessment performed?: Yes Alcohol Intake: never Drug use: Never Substance use type: does not use Caregiver/Support person: No Household members: spouse and children Number of Children: 5 Communication Needs: None Current gender identity: female What is your relationship status?: Panel score (0-1 are the most socially isolated patients): 1 What type of physical activity do you participate in: sedentary lifestyle Duration: < 15 minutes/day Frequency: 3-4 times per week Seatbelt use: always Do you feel safe at home: Yes Do you feel safe in your relationship?: Yes Exam Narrative Exam Narrative: Physical Examination General: alert, awake, cooperative, moderately uncomfortable HEENT: normocephalic, atraumatic; PERRL, EOM intact, conjunctiva normal; no nasal discharge; moist mucous membranes, oral and pharyngeal mucosa normal, tolerating secretions Neck: Holding head facing forward not moving neck laterally or flexing or extending Chest: normal to inspection; tender to palpation to the right of the midline in cervical region extending down and trapezius on the right Respiratory: normal respiratory effort, speaking in full sentences, clear to auscultation, no wheezing, rales or rhonchi Cardiac: regular rate, regular rhythm, S1S2 intact, no murmurs rubs or gallops GI: abdomen soft, non-tender, non-distended; no palpable mass or hepatosplenomegaly Skin: no lesions, rashes or trauma appreciated Neuro: AAOx3, normal speech, moving all extremities; cranial nerves II through XII intact, normal speech, 5 out of 5 strength upper and lower extremities intact, ambulatory without assistance, no truncal ataxia Extremities: No signs of trauma Psych: Appropriate mood and affect Course Vital Signs Vital signs: Vital Signs Temperature 37.1 C 08/20/22 17:02 Pulse 78 08/20/22 17:02 Respiratory Rate 18 08/20/22 17:02 Blood Pressure 159/72 H 08/20/22 17:02 Pulse Oximetry 98 08/20/22 17:02 Temperature 37.1 C 08/20/22 17:02 Temperature Source Tympanic 08/20/22 17:02 Pulse 78 08/20/22 17:02 Respiratory Rate 18 08/20/22 17:02 Respiratory Effort Normal, Non-Labored 08/20/22 17:04 Blood Pressure 159/72 H 08/20/22 17:02 Pulse Oximetry 98 08/20/22 17:02 Oxygen Delivery Method Room Air 08/20/22 17:02 Oxygen Flow Rate 0 08/20/22 17:02 Lab/Test Results Lab/Test Results: Laboratory Tests Range/Units 08/20/22 17:20 WBC (4.4-10.8) 10^3/uL 9.67 RBC (3.93-5.22) 10^6/uL 4.51 Hgb (11.2-15.7) g/dL 13.4 Hct (36.0-46.0) % 40.8 MCV (80-95) fL 91 MCH (27.0-33.0) pg 29.7 MCHC (32.0-36.0) % 32.8 RDW (11.7-14.6) % 13.2 Plt Count (130-400) 10^3/uL 180 MPV (8.0-11.0) fL 10.3 Immature Gran % 0.3 Neutrophils % 67.2 Lymphocytes % 20.9 Monocytes % 10.0 Eosinophils % 0.9 Basophils % 0.7 Nucleated RBC % (0.0-0.3) % 0.0 Absolute Neutrophils (1.2-6.7) 10^3/uL 6.49 Absolute Lymphocytes (1.2-3.4) 10^3/uL 2.02 Absolute Monocytes (0.1-0.8) 10^3/uL 0.97 H Absolute Eosinophils (0.0-0.7) 10^3/uL 0.09 Absolute Basophils (0.0-0.2) 10^3/uL 0.07 Sign Out Sign Out Data: Sign Out Comment: posterior neck pain and occipital headache; negative CTA, reassess post meds for dispo Last updated by Dustin Morrison MD at 08/20/22 19:56
[2022-08-20] MEDS: Normal Saline - Diluent 50 ML VIAL IJ (17:39)
[2022-08-20] MEDS: Omnipaque 350 MG/ML 100 ML BTL IJ (17:41)
[2022-08-20 17:46] LABS: PTT Activated 26.9 sec (21.5-31.9); Prothrombin Time 10.2 sec (9.3-11.0)
[2022-08-20 17:48] LABS: ALT 14 U/L (14-59); AST 17 U/L (15-37); Albumin 3.6 g/dL (3.4-5.0); Alkaline Phosphatase 106 U/L (46-116); Anion Gap 6.8 mmol/L (3-11); BUN 16 mg/dL (7-18); Bilirubin, Total 0.5 mg/dL (0.2-1.0); CO2 30.2 mmol/L (21.0-32.0); CREATININE 0.9 mg/dL (0.55-1.02); Calcium 8.8 mg/dL (8.5-10.1); Chloride 102 mmol/L (98-107); Estimated GFR 68.35 (mL/min/1.73m2); Glucose 106 mg/dL (74-106); Potassium 3.7 mmol/L (3.5-5.1); Sodium 139 mmol/L (136-145); Total Protein 7.4 g/dL (6.4-8.2)
[2022-08-20] MEDS: Lidocaine 5% Patch 1 PATCH TP (18:14)
--- NOTE | 2022-08-20 18:17 | DI.VRAD_ITS ---
PROCEDURE INFORMATION: Exam: CTA Head Without And With Contrast, Arteriography Exam date and time: 08/20/2022 5:46 PM Age: 71 years old Clinical indication: Other: Neck and posterior HARDY, HX of blood clots TECHNIQUE: Imaging protocol: Computed tomographic angiography of the head without and with contrast. Exam focused on the arteries. 3D rendering (Not supervised by radiologist): MIP and/or 3D reconstructed images were created by the technologist. Contrast material: OMNIPAQUE 350; Contrast volume: 100 ml; Contrast route: INTRAVENOUS (IV); COMPARISON: MR CERVICAL SPINE WO 11/16/2021 8:43 AM FINDINGS: ANTERIOR CIRCULATION: Right internal carotid artery: Intracranial segment is patent with no significant stenosis or occlusion. No aneurysm. Right middle cerebral artery: No occlusion or significant stenosis. No aneurysm. Right anterior cerebral artery: No occlusion or significant stenosis. No aneurysm. Left internal carotid artery: Intracranial segment is patent with no significant stenosis. No aneurysm. Left middle cerebral artery: No occlusion or significant stenosis. No aneurysm. Left anterior cerebral artery: No occlusion or significant stenosis. No aneurysm. POSTERIOR CIRCULATION: Right vertebral artery: No occlusion or significant stenosis. No aneurysm. Left vertebral artery: No occlusion or significant stenosis. No aneurysm. Basilar artery: No occlusion or significant stenosis. No aneurysm. Right posterior cerebral artery: No occlusion or significant stenosis. No aneurysm. Left posterior cerebral artery: No occlusion or significant stenosis. No aneurysm. HEAD: Brain: Normal. No hemorrhage. Unremarkable white matter. No mass effect. Cerebral ventricles: Normal. No ventriculomegaly. Bones/joints: Unremarkable. No acute fracture. Paranasal sinuses: Visualized sinuses are normal. No fluid levels. Mastoid air cells: Visualized mastoids are normal. No mastoid effusion. Soft tissues: Unremarkable. IMPRESSION: 1. No intracranial arterial occlusion or significant stenosis. 2. No acute findings on non-contrast Head CT images. ASPECTS score 10. PROCEDURE INFORMATION: Exam: CTA Neck With Contrast Exam date and time: 08/20/2022 5:46 PM Age: 71 years old Clinical indication: Other: Neck and posterior HARDY, HX of blood clots TECHNIQUE: Imaging protocol: Computed tomographic angiography of the neck with contrast. 3D rendering (Not supervised by radiologist): MIP and/or 3D reconstructed images were created by the technologist. Contrast material: OMNIPAQUE 350; Contrast volume: 100 ml; Contrast route: INTRAVENOUS (IV); COMPARISON: MR CERVICAL SPINE WO 11/16/2021 8:43 AM FINDINGS: Right common carotid artery: No significant stenosis. No dissection or occlusion. Right internal carotid artery: Extracranial segment is patent with no significant stenosis (0% stenosis by NASCET criteria). No dissection or occlusion. Right external carotid artery: No occlusion or significant stenosis. Left common carotid artery: No significant stenosis. No dissection or occlusion. Left internal carotid artery: Extracranial segment is patent with no significant stenosis (0% stenosis by NASCET criteria). No dissection or occlusion. Left external carotid artery: No occlusion or significant stenosis. Right vertebral artery: No significant stenosis. No dissection or occlusion. Left vertebral artery: No significant stenosis. No dissection or occlusion. Soft tissues: Unremarkable. Bones/joints: No acute fracture. IMPRESSION: No occlusion or significant stenosis in the arteries of the neck. REFERENCES: NASCET CRITERIA. The degree of stenosis in the cervical segment of the internal carotid artery is based on NASCET criteria. Normal is no stenosis. Mild is less than 50% stenosis. Moderate is 50-69% stenosis. Severe is 70% to 99% stenosis. Total occlusion is no detectable patent lumen. Dictated and Authenticated by: Cullen Lambert MD. Ordering:SAMANTHA Chan MD
[2022-08-20] MEDS: Ketorolac 15 MG/ML VIAL IVP (20:09)
--- NOTE | 2022-08-20 21:48 | ED.PROG_ITS ---
Date of service: 08/20/22 Time of Service: 21:49 Medical Decision Making Patient was signed out to me by my colleague Dr. Carmelita Vegas. Please refer to his HPI, physical exam, assessment and plan. At time of signout we are awaiting reassessment. CT/CTA of the head and neck has been read as negative per radiol ogy, laboratory work-up shows no white count, bandemia or left shift. No fever to suggest meningitis. Electrolytes all normal. Symptoms appear clinically inconsistent on reassessment with meningitis, spinal epidural abscess, or fracture based on current clinical assessment. I did reassess the patient personally multiple times. At this time patient feels well, symptoms have notably improved. She states that her neck stiffness and pain has improved by over 50%. She feels well and would like to go home. I did discuss risks and benefits of potential lumbar tap procedure for further diagnostic evaluation. And at this time through shared decision-making process patient has declined this procedure and would like to go home. Symptoms at this time appear clinically consistent with a musculoskeletal spasm which is easily palpable and reproducible on exam. Patient will be discharged. Patient feels very comfortable with the plan. This was discussed with family. Will recommend continued Lidoderm patch and muscle relaxants as needed at home. I have extensively reviewed the treatment plan and discharge instructions with the patient and their family. I have addressed all patient concerns at this time. The patient and family was made aware of what symptoms to monitor for that would warrant a return to the emergency department. Discussed the plan with the patient and family, they demonstrate verbal understanding and agreement with our assessment and plan at this time. The documentation in this chart was dictated using [employer] dictation software. Please excuse any dictation errors. Sign Out Sign Out Data: Sign Out Comment: posterior neck pain and occipital headache; negative CTA, reassess post meds for dispo Last updated by Dustin Morrison MD at 08/20/22 19:56 Discharge Plan Disposition Patient Disposition: Home Discharge Details Clinical Impression: Muscle spasms of neck Primary Care Provider: Brigette Eli ED Provider: Pancho Comer Home Meds and New Rx's Prescriptions: New lidocaine [Lidoderm] 5 % adhesive patch,medicated 1 patch Topical Q24H Qty: 15 0RF cyclobenzaprine 10 mg tablet 10 mg PO TID Qty: 14 0RF Continued famotidine [Heartburn Relief (famotidine)] 20 mg tablet 20 mg PO BID Qty: 60 1RF Patient Comments: Has been having issues with pharmacy 12/03/21 Rx Instructions: Trial for gastric pain gabapentin 100 mg capsule 100 mg PO QHS Qty: 30 1RF Rx Instructions: Special LOW DOSE PRN Cyclobenzaprine use (holding 300mg) cyclobenzaprine 10 mg tablet 10 mg PO HS PRN (Reason: muscle spasm ) Qty: 30 1RF Rx Instructions: Continue for muscle spasm (evening) sumatriptan succinate 50 mg tablet See Rx Instructions PO .COMPLEX Qty: 9 3RF Rx Instructions: take 1 tab at onset of headache; if no relief may repeat 1 tab after at least 2 hrs; max = 4 tabs/24 hr PO cholecalciferol (vitamin D3) [Vitamin D3] 50 mcg (2,000 unit) capsule 2,000 unit PO DAILY Qty: 90 3RF furosemide 20 mg tablet See Rx Instructions PO DAILY Qty: 90 3RF Rx Instructions: 20mg daily, may add (1) tab in afternoon 2' weight gain > 5 lbs or severe edema PO daily; Eliquis 5 mg tablet 5 mg .ROUTE BID Qty: 180 3RF Rx Instructions: Continue at lower dose, expected for life magnesium oxide 400 mg (241.3 mg magnesium) tablet 800 mg PO BID Qty: 360 3RF Rx Instructions: replace magnesium gabapentin 300 mg capsule 300 mg PO QHS Qty: 90 3RF Discharge Instructions Instructions: Muscle Spasm (ED) Additional Instructions: At this time your symptoms appear consistent with a mild muscle spasm of your neck. Please use the Lidoderm patches as directed. Please take the muscle relaxant as directed. Please note that while on the muscle relaxant it may make you feel slightly unsteady and weaker and more dizzy than normal. Please apply a heating pad to your neck frequently. Monitor your symptoms closely. If you notice any worsening of your symptoms, or any new symptoms such as vomiting, diarrhea, fever, chills, shortness of breath, chest pain, numbness, weakness, or fainting , please return immediately to the emergency department for reevaluation. Please follow up with your primary care provider as soon as possible for reassessment and reevaluation. As always, it was a pleasure part icipating in your medical care today. Referrals: Brigette Eli DO [Primary Care Provider] -
== END 2022-08-20 21:57 | disposition home or self-care (01) ==
PROVIDERS: Emergency Medicine; Emergency Provider Student in an Organized Health Care Education/Training Program; PCP Student in an Organized Health Care Education/Training Program
DX: M62.838 Other muscle spasm (principal); J45.909 Unspecified asthma, uncomplicated; I48.91 Unspecified atrial fibrillation; Z86.711 Personal history of pulmonary embolism; Z79.01 Long term (current) use of anticoagulants
CPT/HCPCS: 70496; 70498; 80053; 96365; 96375; 99285; 85025; 85610; 85730; 99284; J0131; J1200; J1885; J2060; J3490

== ENCOUNTER 2022-09-08 03:41 | Outpatient (CLI) | payer MEDICARE, MEDICAID, SELFPAY ==
--- NOTE | 2022-09-08 07:15 | DI.US_ITS ---
Exam(s) US SOFT TISSUE EXTREMITY EXAM: US SOFT TISSUE EXTREMITY CLINICAL HISTORY: ? hematoma; atypical swelling,CONTUSION,PAIN.,M25.531,M25.431. TECHNIQUE: Ultrasound was performed using standard protocol. COMPARISON: No exams were available for comparison FINDINGS: Sonographic assessment utilizing grayscale and color Doppler imaging was performed and targeted to th e area of clinical concern. The anterior wrist was evaluated sonographically. No suspicious cystic or solid masses are seen. Th ere is a small amount of edema seen in the soft tissues. IMPRESSION: No suspicious cystic or solid mass is seen sonographically. DATA REPOSITORY:
== END 2022-09-08 04:01 ==
LOC: DI 03:41
PROVIDERS: PCP Student in an Organized Health Care Education/Training Program; Visit Provider Student in an Organized Health Care Education/Training Program
DX: M25.531 Pain in right wrist (principal); R22.31 Localized swelling, mass and lump, right upper limb
CPT/HCPCS: 76881

== ENCOUNTER 2022-09-16 08:06 | Outpatient (CLI) | payer MEDICARE, MEDICAID, SELFPAY ==
--- NOTE | 2022-09-16 07:45 | DI.MRI_ITS ---
Exam(s) MR LUMBAR SPINE WO EXAM: MR LUMBAR SPINE WO CLINICAL HISTORY: evaluate for nerve impingement,stenosis,back and hip pain,radiculopathy,djd. TECHNIQUE: Multiplanar multisequence MRI of the Lumbar spine was performed. COMPARISON: MR MRI - LUMBAR SPINE WO CONTRAST from 12/05/[address] CHEST PE ABD PELVIS W from 12/29/2021 FINDINGS: Bones: The last intervertebral disc space is designated the L5/S1 level for the numbering purpose of this examination. The vertebral body heights are well maintained. Alignment is satisfactory. The ma rrow signal characteristics are unremarkable. Cord: The conus tip ends at the T12 level. It is of normal size and signal intensity. T12-L1: No disc herniations or bulges are present. No central spinal canal or neural foraminal stenos is. L1-2: No disc herniations or bulges are present. No central spinal canal or neural foraminal stenosis . L2-3: Minimal disc bulging. No disc herniations or bulges are present. No central spinal canal or ne ural foraminal stenosis. L3-4: Mild broad-based disc bulging. Prominent facet degenerative changes and ligamentous hypertroph y cause moderate central canal stenosis. Mild right neural foraminal narrowing.Mild degenerative spo ndylolisthesis. L4-5: Mild loss of disc height. Mild concentric disc bulging. Prominent facet degenerative changes. Mild right neural foraminal narrowing. No significant central canal stenosis.Mild degenerative spo ndylolisthesis. L5-S1: Moderate loss of disc height disc bulging anteriorly. No central spinal canal or neural ashtyn inal stenosis. Mild degenerative spondylolisthesis. The visualized SI joints and sacrum are well maintained. Soft tissues: The paraspinal soft tissues are unremarkable. Bilateral renal cysts. Dilatation of th e lower abdominal aorta, partially visualized, measuring 3 cm. Not changed from prior CT. IMPRESSION: Degenerative disc changes and facet degenerative changes combine to produce moderate central canal st enosis at L3-4. DATA REPOSITORY:
== END 2022-09-16 08:26 ==
LOC: DI 08:07
PROVIDERS: PCP Student in an Organized Health Care Education/Training Program; Visit Provider Student in an Organized Health Care Education/Training Program
DX: M25.551 Pain in right hip; M79.604 Pain in right leg; M47.27 Other spondylosis with radiculopathy, lumbosacral region; M51.17 Intervertebral disc disorders with radiculopathy, lumbosacral region
CPT/HCPCS: 72148

== ENCOUNTER → 2022-12-08 09:32 | Outpatient (BNVA) | payer MEDICARE, MEDICAID, SELFPAY | PROVIDERS: PCP Student in an Organized Health Care Education/Training Program; Referring Provider Student in an Organized Health Care Education/Training Program; Visit Provider Physical Therapy Assistant | DX: Z12.11 Encounter for screening for malignant neoplasm of colon (principal); Z80.0 Family history of malignant neoplasm of digestive organs ==

== ENCOUNTER 2022-12-15 13:33 | Outpatient (CLI) | payer MEDICARE, MEDICAID, SELFPAY ==
--- NOTE | 2022-12-15 13:15 | DI.US_ITS ---
Exam(s) US UPPER EXTREMITY VENOUS LT EXAM: US UPPER EXTREMITY VENOUS LT CLINICAL HISTORY: evaluate for dvt,lt arm pain,swelling,h/o dvt,m79.602. TECHNIQUE: Ultrasound examination of the left upper extremity venous system(s) is performed using gr ayscale, color-flow, and spectral Doppler analysis. COMPARISON: No exams were available for comparison FINDINGS: The left internal jugular, axillary, subclavian, cephalic, basilic, brachial, and median cubital vein s are patent without evidence of thrombosis. IMPRESSION: No DVT. DATA REPOSITORY:
--- NOTE | 2022-12-15 13:15 | DI.US_ITS ---
Exam(s) US SOFT TISSUE EXTREMITY EXAM: US SOFT TISSUE EXTREMITY CLINICAL HISTORY: evaluate lesion, nodular mass,swelling, pain,m79.602. TECHNIQUE: Ultrasound was performed using standard protocol. COMPARISON: US US UPPER EXTREMITY VENOUS LT from 12/15/2022 FINDINGS: Sonographic assessment utilizing grayscale and color Doppler imaging was performed and targeted to th e area of clinical concern. There is no localized fluid collection. There is a 5 millimeter lymph node with normal appearing maciej tral fatty hilum. DATA REPOSITORY:
== END 2022-12-15 13:53 ==
LOC: DI 13:34
PROVIDERS: PCP Student in an Organized Health Care Education/Training Program; Visit Provider Student in an Organized Health Care Education/Training Program
DX: I82.401 Acute embolism and thrombosis of unspecified deep veins of right lower extremity (principal); M79.602 Pain in left arm; L98.9 Disorder of the skin and subcutaneous tissue, unspecified; M79.89 Other specified soft tissue disorders
CPT/HCPCS: 76881; 93971

== ENCOUNTER 2022-12-30 02:00 | Outpatient (CLI) | payer MEDICARE, MEDICAID, SELFPAY ==
[2022-12-30 11:38] LABS: HCT 38.5 % (36.0-46.0); HGB 12.8 g/dL (11.2-15.7); MCH 29.6 pg (27.0-33.0); MCHC 33.2 % (32.0-36.0); MCV 89 fL (80-95); MPV 10.2 fL (8.0-11.0); Platelet Count 171 10^3/uL (130-400); RBC 4.33 10^6/uL (3.93-5.22); RDW 13.2 % (11.7-14.6); RDW-SD 43.1 fL; WBC 5.87 10^3/uL (4.4-10.8)
[2022-12-30 12:41] LABS: Anion Gap 7.2 mmol/L (3-11); BUN 20 mg/dL (7-18); CO2 28.8 mmol/L (21.0-32.0); Calcium 8.7 mg/dL (8.5-10.1); Chloride 106 mmol/L (98-107); Estimated GFR 59.86 (mL/min/1.73m2); Glucose 95 mg/dL (74-106); Magnesium 1.8 mg/dL (1.8-2.4); Sodium 142 mmol/L (136-145)
== END 2022-12-30 02:01 | disposition home or self-care (01) ==
LOC: LBO 02:01
PROVIDERS: PCP Student in an Organized Health Care Education/Training Program; Visit Provider Student in an Organized Health Care Education/Training Program
DX: E87.8 Other disorders of electrolyte and fluid balance, not elsewhere classified (principal); N18.9 Chronic kidney disease, unspecified; I82.401 Acute embolism and thrombosis of unspecified deep veins of right lower extremity
CPT/HCPCS: 36415; 80048; 85027; 83735

== ENCOUNTER 2023-01-04 02:54 | Outpatient (CLI) | payer MEDICARE, MEDICAID, SELFPAY ==
--- NOTE | 2023-01-04 07:15 | DI.MAMMO_ITS ---
Exam(s) MAMMO SCREENING EXAM: MAMMO SCREENING CLINICAL HISTORY: screening,z12.39 TECHNIQUE: Mammograms were interpreted according to the usual protocol including computer analysis w [employer] CAD system, tomosynthesis and C-view imaging. COMPARISON: 2012 through 2021 FINDINGS: The breasts are composed of mainly fatty density , Breast Density category A. No suspicious masses or suspicious microcalcifications are seen. No skin thickening or abnormal axillary lymph nodes are seen. There has been no significant change from prior exams. IMPRESSION: BI-RADS Category 1, Negative mammogram Yearly screening mammography is recommended. Breast Density - Category A, fatty density. A negative radiographic report should not delay biopsy if a dominant or clinically suspicious mass is present. Up to ten percent of cancers are not identified on mammography. A negative report may reinforce clinical impression. Adenosis and dense breasts may obscure an underlying neoplasm. False positive reports average 6 to 10%. Patient will receive a letter notifying them of these results.
--- NOTE | 2023-01-04 08:12 | DI.CTLCSR_ITS ---
Exam(s) CT CHEST LUNG CANCER SCREEN EXAM: CT CHEST LUNG CANCER SCREEN CLINICAL HISTORY: Screening for lung cancer,former smoker, z87.891 TECHNIQUE: Imaging Protocol: Axial computed tomography images with coronal and sagittal reformatted images were created and reviewed. Low dose screening protocol. COMPARISON: CT CT CHEST PE CTA from 01/02/2022 FINDINGS: Tracheobronchial tree: No bronchiectasis or mucus plugging.. Mediastinum and Doris: No dominant adenopathy or fluid collection. Pulmonary parenchyma: No consolidation or dominant measurable mass. Minimal emphysematous changes. M ild biapical pulmonary pleural scarring. Lung Nodules: None. Pleura: No effusion. No pneumothorax. Heart: The heart is not dilated. Mild coronary artery calcifications are seen. Small pericardial ef fusion. Similar to prior exam. Aorta: Thoracic aorta non-dilated. Mild atherosclerotic changes. Upper abdomen: Suture material near fundus of stomach. Bones: Unremarkable for age. Soft Tissues: Unremarkable. IMPRESSION: No suspicious pulmonary nodules. Lung RADS Cat 1 - Negative: No nodules and definitely benign nodules Lung-RADS 1.0 CATEGORIES: Category 0 - Prior chest CT exam(s) being located for comparison. Category 1 - Annual screening in 12 months. No nodules or definitely benign nodules. Category 2 - Annual screening in 12 months. Benign appearance. Nodules with low likelihood of becomin g active cancer. Category 3 - 6-month follow-up. Probably benign. Short-term follow-up suggested. Nodules with low lik elihood of becoming active cancer. Category 4A - 3-month follow-up and CT/PET if >8 mm in size. Suspicious finding. Findings which requi re additional testing. Category 4B - Findings which require additional testing and tissue sampling. Category 4X - Category 3 or 4 nodules with additional features or imaging findings that increases the suspicion of malignancy. Modifier S- Potentially clinically significant findings (non lung cancer) RADIATION DOSE DELIVERED: Total DLP DATA REPOSITORY: All CT scans at this facility are submitted to the National Radiology Data Registry (NRDR) Dose Index Registry (DIR) with the [employer] (ACR). RADIATION OPTIMIZATION: All CT scans at this facility use at least one of these dose optimization te chniques: automated exposure control; mA and/or kV adjustment per patient size (includes targeted exa ms where dose is matched to clinical indication); or iterative reconstruction.
== END 2023-01-04 03:14 ==
LOC: DI 02:55
PROVIDERS: PCP Student in an Organized Health Care Education/Training Program; Visit Provider Student in an Organized Health Care Education/Training Program
DX: Z12.31 Encounter for screening mammogram for malignant neoplasm of breast (principal); Z87.891 Personal history of nicotine dependence; Z12.2 Encounter for screening for malignant neoplasm of respiratory organs
CPT/HCPCS: 71271; 77063; 77067

== ENCOUNTER 2023-01-11 02:52 | Outpatient (CLI) | payer MEDICARE, MEDICAID, SELFPAY ==
--- NOTE | 2023-01-11 06:00 | DI.US_ITS ---
Exam(s) US AAA SCREENING EXAM: US AAA SCREENING CLINICAL HISTORY: eval for aaa,enlargement of aorta,i71.4 COMPARISON: CT CT CHEST PE ABD PELVIS W from 12/29/2021 FINDINGS: Abdominal Aorta: Proximal: 2.7 x 2.6 cm Mid: 2.2 x 2.3 cm Distal: 3.8 x 3.6 cm Iliac's: Right: 1.7 x 1.9 cm Left: 1.8 x 1.5 cm Atherosclerosis is present. IMPRESSION: 1. There is a 3.8 x 3.6 cm distal abdominal aortic aneurysm. 2. There is ectasia of the common iliac arteries bilaterally. DATA REPOSITORY:
== END 2023-01-11 03:12 ==
LOC: DI 02:52
PROVIDERS: PCP Student in an Organized Health Care Education/Training Program; Visit Provider Student in an Organized Health Care Education/Training Program
DX: I71.40 Abdominal aortic aneurysm, without rupture, unspecified (principal); I77.9 Disorder of arteries and arterioles, unspecified
CPT/HCPCS: 76706

== ENCOUNTER 2023-01-19 00:54 | Outpatient (CLI) | payer MEDICARE, MEDICAID, SELFPAY ==
--- NOTE | 2023-01-19 | DI.NM_ITS ---
APPROVED REPORT Exam: Pharmacologic Patient Location: Out-Patient Room/Bed: Stress Nurse: Eulalia Escalera RN Ordering Provider:SOCORRO BLANCAS MD Contact Number: Chest heavijuan a BMI: 38.68 Baseline Rhythm: Sinus Rhythm Comment: Rare PAC's, rare PVC's Indications: Chest heaviness Medical History Medical History: AAA, diverticulosis, DJD, EF 58%, HTN, GERD, hx of PE, HLD, hx of tobacco use, hydro nephrosis, migrains, morbid obesity, nephrotic syndrome, PAF, palpitations, osteomyelitis, ischemia o f extremity, claudication of lower extemity, DVT Cardiac Medications: Tramadol, sumatriptan, metoprolol succinate, magnesium oxide, gabapentin, furose mide, famotidine, cyclobenzaprine, vitamin D3, apixaben Allergies: Morphine, codeine, oxycodone Cardiac Risk Factors: Family hx, HTN, HLD, diabetes, former smoker, obesity Previous Cardiac Procedures: None Pretest Chest Pain Characteristics: None Exercise History: Indeterminate Physical Disabilities: Legs Lung Sounds: Clear to auscultation Heart Sounds: Irregular Stress Test Details Test: Pharmacologic stress testing performed using 0.4 mg of regadenoson per 5 mL given IV over 10 s econds. Reason for pharmacologic stress test: physical limitation. Nuclear Acquisition: Rest Tc-99m/Stress Tc-99m 1 day Rest Isotope: Tc-99m Sestamibi. Dose: 12.8 Date: 01/19/2023 Injection Time: 0915 Stress Isotope: Tc-99m Sestamibi. Dose: 34.0 Date: 01/19/2023 Injection Time: 1050 HR Resting HR Supine: 56 bpm Max Heart Rate (APMHR): 148.664859 bpm Target HR (85% APMHR): 125.940662 bpm Max HR Achieved: 85 bpm % of APMHR: 57.43 BP Resting BP Supine: 128/82 mmHg Max BP: 128/82 mmHg Recovery BP: 124/82 mmHg ECG Resting ECG: Sinus Rhythm Ectopy: Rare PAC Stress ECG: Sinus Rhythm ST Change: Nondiagnostic low heart rate Arrhythmia: Rare PAC, rare PVC Recovery ECG: Sinus Rhythm Recovery ST Change: Nondiagnostic low heart rate Recovery Arrhythmia: None Clinical Stress Symptoms: None Angina Score: None Rate Pressure Product: [id number] Stress ECG Conclusion 1. The resting electrocardiogram was within normal limits 2. Patient underwent testing using pharmacologic stress with regadenoson 3. Peak heart rate achieved was 56% of predicted for age 4. The electrocardiographic portion of the test was nondiagnostic 5. See MPI report Stress Test Summary STAGE HR BP SpO2 Symptoms NOTES Supine 56 128/82 96 1 min post Lexiscan injection 81 100/72 98 3 min post Lexiscan injection 73 122/72 99 6 min post Lexiscan injection 70 124/82 98 MPI Conclusion Myocardial perfusion is normal. There is no ischemia or evidence of prior infarction Ejection fraction is 61% with normal wall motion Radiologist Interpretation Radiologist agrees with Senior Engineering Technician's Interpretation. Radiologist Interpretation by: Ita Love MD Interpretation Date/Time: 01/19/2023 15:37:28
[2023-01-19] MEDS: Regadenoson 0.4 MG/5 ML SYR IVP (10:48)
== END 2023-01-19 01:14 ==
LOC: DI 00:57
PROVIDERS: PCP Student in an Organized Health Care Education/Training Program; Visit Provider Internal Medicine Cardiovascular Disease
DX: R07.89 Other chest pain (principal)
CPT/HCPCS: 78452; 93016; 93018; 93017; J2785

== ENCOUNTER 2023-01-19 12:32 | Outpatient (RCR) | payer MEDICARE, MEDICAID, SELFPAY ==
--- NOTE | 2023-01-19 12:30 | HOLTER_ITS ---
APPROVED REPORT Conclusion This is a 48-hour Holter monitor ordered for lightheadedness Rhythm throughout was sinus with an average heart rate of 71. Minimum was 58, maximum 103 There were occasional ventricular ectopic beats, comprising 0.9% of total There were rare atrial premature beats A total of 4 self-limited atrial runs occurred. The longest of these was 7 beats in duration There is no atrial fibrillation, no high-grade AV block, no pauses greater than 3 seconds Patient symptoms were reported but had no correlation with any dysrhythmia
== END 2023-02-16 23:59 | disposition home or self-care (01) ==
LOC: CARDOPNVT 12:32
PROVIDERS: PCP Student in an Organized Health Care Education/Training Program; Visit Provider Internal Medicine Cardiovascular Disease
DX: R42 Dizziness and giddiness (principal)
CPT/HCPCS: 93225; 93226

== ENCOUNTER 2023-02-19 11:49 | Emergency (ER) | payer MEDICARE, MEDICAID, SELFPAY ==
[2023-02-19 11:55] VITALS: BP 100/55; PULSE 72; RESP 20; TEMP 36.2; O2SAT 97
--- NOTE | 2023-02-19 12:31 | W.ED.GENAD ---
Discharge Plan Disposition Patient Disposition: Home Condition: Stable Discharge Details Clinical Impression: Low back pain, Pain in right leg, Lumbar radiculopathy, right Primary Care Provider: Brigette Eli ED Provider: Ivan Castañeda Home Meds and New Rx's Prescriptions: Continued cyclobenzaprine 10 mg tablet 10 mg PO HS PRN (Reason: muscle spasm ) Qty: 30 1RF Rx Instructions: Continue for muscle spasm (evening) bisacodyl [Dulcolax (bisacodyl)] 5 mg tablet,delayed release (DR/EC) 5 mg PO ONCE Qty: 4 0RF Rx Instructions: Take per colonoscopy instructions provided by ordering providers office metoprolol succinate 25 mg tablet extended release 24 hr 25 mg PO DAILY cholecalciferol (vitamin D3) [Vitamin D3] 50 mcg (2,000 unit) capsule 2,000 unit PO DAILY Qty: 90 3RF sumatriptan succinate 50 mg tablet See Rx Instructions PO .COMPLEX Qty: 9 3RF Rx Instructions: take 1 tab at onset of headache; if no relief may repeat 1 tab after at least 2 hrs; max = 4 tabs/24 hr PO famotidine [Heartburn Relief (famotidine)] 20 mg tablet 20 mg PO BID Qty: 180 1RF Patient Comments: Has been having issues with pharmacy 12/03/21 Rx Instructions: Continue for gastric pain furosemide 20 mg tablet See Rx Instructions PO DAILY Qty: 90 3RF Rx Instructions: 20mg daily, may add (1) tab in afternoon 2' weight gain > 5 lbs or severe edema PO daily; magnesium oxide 400 mg (241.3 mg magnesium) tablet 800 mg PO BID Qty: 360 3RF Rx Instructions: replace magnesium (DME) Hearing Aids See Rx Instructions .Route .MEDSUPPLY Qty: 1 1RF Rx Instructions: As directed, for bilateral hearing loss.. Medically Necessary. IK Discharge Instructions Instructions: Lumbar Radiculopathy (ED) Additional Instructions: Please take ibuprofen over the counter. Take 600mg by mouth every 6 hours as needed for pain. Please contact your primary care physician to arrange follow-up. Return to the ER immediately for any worsening or new concerning symptoms. Referrals: Brigette Eli DO [Primary Care Provider] - Discharge Data Discharge Date/Time-TO BE ENTERED AT DEPARTURE: 02/19/23 15:19 Medical Decision Making 1240 --72-year-old female with multiple medical problems including history of lumbar radiculopathy, DVT and not currently anticoagulated, here with right leg pain. Patient seems to have pain from her proximal upper leg down to her lower leg. I do not appreciate any significant swelling. Patient is vascular intact distally. Patient does have focal tenderness right lumbar paraspinal. Suspect lumbar radiculopathy. Consider DVT. Plan to treat pain with Toradol IM, lidocaine patch to lumbar back, and acetaminophen. 1508 --patient reassessed and pain significantly improved with treatment. Ultrasound of the right lower extremity was obtained and no DVT. Plan for discharge with outpatient follow-up with PCP. Usual customary discharge instructions were reviewed. HPI General Mode of arrival: ambulatory. Date/Time Provider Initiated Documentation: 02/19/23 12:04. Limitations to Documentation: no limitations. Information obtained by: patient. HPI Narrative: 72-year-old female with multiple medical problems including history of lumbar radiculopathy, spondylolisthesis of the lumbar sacral region, DVTs, not currently anticoagulated, here with complaint of right leg pain that has been present for approximately 3 days. Patient has pain in her right leg from her thigh to her lower leg. She denies associated numbness or tingling. No associated fever. No abdominal pain. Patient does note some back and hip pain. Patient denies trauma. Related Data Home Medications Medication Instructions Recorded Confirmed magnesium oxide 400 mg (241.3 mg 800 mg PO BID #360 tabs 05/26/22 02/19/23 magnesium) tablet cyclobenzaprine 10 mg tablet 10 mg PO HS PRN muscle spasm #30 08/11/22 02/19/23 tabs Hearing Aids #1 ea 09/03/22 02/19/23 bisacodyl 5 mg tablet,delayed 5 mg PO ONCE #4 tabs 12/08/22 02/19/23 release (Dulcolax (bisacodyl)) metoprolol succinate 25 mg 25 mg PO DAILY 12/09/22 02/19/23 tablet,extended release 24 hr cholecalciferol (vitamin D3) 50 2,000 unit PO DAILY #90 caps 12/15/22 02/19/23 mcg (2,000 unit) capsule (Vitamin D3) famotidine 20 mg tablet (Heartburn 20 mg PO BID #180 tabs 12/15/22 02/19/23 Relief (famotidine)) furosemide 20 mg tablet See Rx Instructions PO DAILY #90 12/15/22 02/19/23 tabs sumatriptan succinate 50 mg tablet See Rx Instructions PO .COMPLEX #9 12/15/22 02/19/23 tabs Previous Rx's Medication Instructions Recorded magnesium oxide 400 mg (241.3 mg 800 mg PO BID #360 tabs 05/26/22 magnesium) tablet cyclobenzaprine 10 mg tablet 10 mg PO HS PRN muscle spasm #30 08/11/22 tabs Hearing Aids #1 ea 09/03/22 bisacodyl 5 mg tablet,delayed 5 mg PO ONCE #4 tabs 12/08/22 release (Dulcolax (bisacodyl)) cholecalciferol (vitamin D3) 50 2,000 unit PO DAILY #90 caps 12/15/22 mcg (2,000 unit) capsule (Vitamin D3) famotidine 20 mg tablet (Heartburn 20 mg PO BID #180 tabs 12/15/22 Relief (famotidine)) furosemide 20 mg tablet See Rx Instructions PO DAILY #90 12/15/22 tabs sumatriptan succinate 50 mg tablet See Rx Instructions PO .COMPLEX #9 12/15/22 tabs Allergies Allergy/AdvReac Type Severity Reaction Status Date / Time morphine Allergy Intermediate Itching Verified 12/15/22 11:32 codeine AdvReac Intermediate muscle Verified 12/15/22 11:32 spasms oxycodone HCl [From Percocet] AdvReac Intermediate muscle Verified 12/15/22 11:32 spasms, hard on stomach General Stated Complaint: Orthopedic AJITH: 3 Review of Systems All systems reviewed & are unremarkable except as noted in HPI and below Constitutional Constitutional: Denies fever(s) Gastrointestinal Gastrointestinal: Denies abdominal pain, Denies nausea and Denies vomiting Musculoskeletal Musculoskeletal: Reports as per HPI PFSH All Active Problems (Updated 02/19/23 @ 15:09 by Ivan Castañeda MD) Low back pain (Acute) Pain in right leg (Acute) Lumbar radiculopathy, right (Acute) Left arm swelling (Acute) Arm skin lesion, left (Acute) Left arm pain (Acute) Abdominal aneurysm (Acute) MRI (08/2022): no change per visualized section. Per CT (2022): Fusiform infrarenal abdominal aortic aneurysm with maximum external diameter 4 cm again noted. Arterial megaly continues into the common iliac arteries which both exhibit diameters of 1.5 cm Lumbar radiculopathy (Acute) MRI (08/2022) shows: Degenerative disc changes and facet degenerative changes combine to produce moderate central canal stenosis at L3-4. [ ] awaiting [facility] Spine. Long Hx, acute on chronic Rt sided, 08/2021. ik MRI shows Spondylolisthesis of lumbosacral region (Acute) A. L4-5 B. L5-S1 Latest XR (07/2018) states pseudospondylolisthesis, no acute Fx/Sublux. Monitoring pain. Pain of back and right lower extremity (Acute) Lumbar back pain with radiating pain from outer rt hip, into knee (~ L4 dermatome) Leg edema (Acute) Rt and later Left foot (dorsum), w/o clear etiology .. Right foot pain (Acute) instep is excruciating ,, cannot flatten Left foot pain (Acute) Acute on chronic: Dx as gout, cellulitis, possible osteomyelitis Acute deep vein thrombosis (DVT) of both lower extremities (Acute) 11/17/22 [facility] Hem Onc note Right leg DVT (Acute) with PE, post Hosp/Abd Surg .. Nail dystrophy (Acute) Pain, foot (Acute) CTS (carpal tunnel syndrome) (Acute) from [facility] 08/17/22 note.HE Glomerulonephritis (Acute) from [facility] 08/17/22 note.HE Cervicalgia (Acute) Cervical radiculopathy (Acute) Muscle strain of right scapular region (Acute) Traumatic hematoma of right hand (Acute) Right wrist effusion (Acute) w/ bruising Ischemia of extremity (Acute) Claudication of lower extremity (Acute) Bilateral hearing loss (Acute ~07/2022) 08/09/22 Hearing Evaluation done [facility] Hypertension (Chronic) Hearing loss (Acute) B/L . signing for hearing aids ([facility]) Skin lesion of back (Acute) mid-back, pruritic .. indented/suspicious.. Gastritis (Acute) Anemia (Chronic) Medical History Abdominal aortic aneurysm 30 to 34 mm in diameter (07/19/14) 06/2014 3.14 cm, confirmed on CT; 07/2015 3.2cm US 04/21/17 stable 3.3 cm US. 11/2018 [Stable, 3.4CM]. Abdominal pain (04/22/13) not diverticulitis per CT 07/28/14; lower abd 07/2015 Abscess Resolved, surgery, 12/2021 Acute pain of left shoulder (10/18/17) No specific injury/trauma, pain with movement, abdiel ext rot/supination. Triceps tenderness. Intermittent fingertip numbness. Adenoma of large intestine (05/19/11) 05/2011 [facility] Coffey colonoscopy, +tubular adenoma and +family h/o colon cancer (F); again adenoma 02/21/13 04/07/17 - tubulovillous adenoma, ascending colon, Dr Kaye Arm pain, right (09/20/13) rotator cuff pain, persistent trigger finger R; neck pain; trapezious spasm; impingement syndrome At risk for osteoporosis Smoking > 10 yrs, Prednisone (high-dose), PPI, Menopause @ 34yo. (Hx blood clots.. heparin, 1998, near ) Chest heaviness (07/15/16) Per pt. states if she eats is when she feels this and is at night if she has eaten. Chest pain at rest Awakened with heaviness, waited x hours (has had it before), but finally went to ED .. 11/20/18 De Quervain's tenosynovitis, right Diverticulosis a. No diverticulitis DJD, spine Reconfirmed on 07/2018 XR. Echocardiogram findings abnormal, without diagnosis WNL LV, (EF 58%), 03/2022 ([facility]).. post PE. / WNL LV size/functn (EF 55%), 12/2021 ([facility]) .. s/p pericardial effusion. Esophagitis with gastritis Generalized osteoarthrosis (02/21/13) GERD (gastroesophageal reflux disease) History of pulmonary embolism (01/01/16) History of tobacco use a. quit in 1998, after roughly 30 pack years Hydronephrosis (05/07/14) Hyperlipidemia (02/21/13) Left foot pain (01/27/17) r/o Posteriur Tarsal Tunnel Syn; dr Velasquez, Dr. Aldana Migraine (02/21/13) Morbid obesity a. Gastric bypass 1999 b. Multiple nutritional deficiencies, on supplements. c. S/p pannus excision Morbid obesity (08/20/15) BMI 42, post bariatric surg Muscle cramp, nocturnal (12/27/13) gabapentin 100 prn effective Nephrolithiasis (05/07/14) a. First episode - right side b. 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 Bisphosphonate Hx TBD. PAF (paroxysmal atrial fibrillation) (05/08/15) only one confirmed episode 02/2015; ZIO patch neg; prefers not anticoagulate until A Fib recurs Pain in joint, shoulder region a. rotator cuff pain Pain of left hip (05/2018) Onset while stretching in bed, suddenly felt sharp pain ... hasn't gone away. Surprising left paraspinal tenderness along lumbar spine @ exam, 08/08/18. Palpitations (07/15/16) Periumbilical abdominal pain (04/14/17) ? umbilical hernia vs adhesions Piriformis syndrome of right side Pseudogout of left wrist (01/22/18) Pyelonephritis (05/07/14) 1. secondary to obstruction Reactive airway disease a. worse in the spring Right arm pain Right hand paresthesia Right upper extremity numbness Pain and Tenderness, possible nerve entrapment with numbness .. 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 Ami Greene, [facility] Cholecystectomy (06/16/00) Dr Greene, [facility], along with Bariatric procedure Colonoscopy - MAC (04/07/17) H/O surgical procedure a. Gastric bypass 1999 b. Pannus excision c. Excision of Samson neuroma d. Cholecystectomy e. appendectomy f. right oophorectomy g. Hemorrhoidectomy History of bariatric surgery (05/19/00) Dr. Greene, [facility] History of cataract surgery Nuclear sclerotic cataract of left eye Nuclear sclerotic cataract of right eye pannus removal (04/02/03) [facility], 3 yr after bariatric surg Posterior subcapsular age-related cataract of left eye Posterior subcapsular age-related cataract, right eye Repair of umbilical hernia (05/31/17) Dr Kaye S/P bariatric surgery (06/16/00) [facility], pre surg wt 311 lbs Trigger Finger release (11/26/13) A-1 sumi Rt ring finger Family History Father Lung cancer Mother Colon cancer Social History Smoking/Tobacco Use Status: Former Tobacco Use Quit Date: 06/19/98 Tobacco: How many years used: 3 Smoking risk assessment performed?: Yes Alcohol Intake: never Drug use: Never Substance use type: does not use Adopted: No Caregiver/Support person: No Foster care: No Household members: spouse and children Number of Children: 5 number of grandchildren: 12 Communication Needs: None Education Level: high school Do you need help understanding health information?: Never 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 Pets and animals: No Do you think of yourself as: straight/heterosexual Current gender identity: female What is your relationship status?: How often do you talk on the phone with friends or family?: three or more times per week How often do you get together with friends or relatives?: three or more times per week Panel score (0-1 are the most socially isolated patients): 2 What type of physical activity do you participate in: sedentary lifestyle Duration: < 15 minutes/day Frequency: 3-4 times per week Mayuri/Anabaptist: Episcopal Seatbelt use: always Helmet use: No Drive intox or ride w/intox lifter/driver: No Do you feel safe at home: Yes Do you feel safe in your relationship?: Yes Exam Const General: cooperative and no acute distress Cardio Rate: regular rate and not tachycardic Rhythm: regular rhythm GI Palpation: soft, not firm, no guarding, no masses, not rigid and nontender Back/Spine/Pelvis Thoracic/Lumbar Spine: No thoracic spinal tenderness and lumbar spinal tenderness (Right lower lumbar tender to palpation) Skin General skin exam: no rashes or lesions noted Neuro General: patient alert, patient awake, patient oriented x3 and tone normal Motor: strength 5/5 throughout Sensory Exam: no sensory deficits noted Extrem General: no edema Right lower extremity: hip/thigh Details: tenderness Location: of the mid upper leg Location: anteriorly; no swelling, knee Details: tenderness (Medially, anteriorly and posteriorly); no swelling, lower leg Details: tenderness (Anterior lateral and posterior) and foot Details: vascular exam Details: dorsalis pedis pulse present and posterior tibial pulse present; no edema Course Vital Signs Vital signs: Vital Signs Temperature 36.2 C L 02/19/23 11:55 Pulse 72 02/19/23 11:55 Respiratory Rate 20 02/19/23 11:55 Blood Pressure 100/55 L 02/19/23 11:55 Pulse Oximetry 97 02/19/23 11:55 Temperature 36.2 C L 02/19/23 11:55 Temperature Source Temporal Artery Scan 02/19/23 11:55 Pulse 72 02/19/23 11:55 Respiratory Rate 20 02/19/23 11:55 Blood Pressure 100/55 L 02/19/23 11:55 Blood Pressure Position Sitting 02/19/23 11:55 Pulse Oximetry 97 02/19/23 11:55 Oxygen Delivery Method Room Air 02/19/23 11:55 Oxygen Flow Rate 0 02/19/23 11:55 Pain Level 8 02/19/23 12:27
[2023-02-19] MEDS: Acetaminophen 325 MG TAB 650 MG PO (12:38)
[2023-02-19] MEDS: Lidocaine 5% Patch 1 PATCH TP (12:39)
[2023-02-19] MEDS: Ketorolac 30 MG/ML VIAL IM (12:39)
--- NOTE | 2023-02-19 14:00 | DI.US_ITS ---
Exam(s) US LOWER EXTREMITY VENOUS RT EXAM: US LOWER EXTREMITY VENOUS RT CLINICAL HISTORY: pain, r/o dvt TECHNIQUE: Right lower extremity venous ultrasound performed using grayscale, color-flow, and spectr al Doppler analysis. COMPARISON: US US LOWER EXTREMITY VENOUS RT from 12/30/2021 FINDINGS: The right common femoral, femoral and popliteal veins demonstrate normal compressibility, augmentatio n, and color Doppler. The posterior tibial veins are patent. The saphenofemoral junction is unremark able. There is no evidence of a Cohen cyst. The soft tissues are unremarkable. IMPRESSION: No evidence of a right lower extremity DVT. DATA REPOSITORY:
--- NOTE | 2023-02-19 15:27 | DI.VRAD_ITS ---
PROCEDURE INFORMATION: Exam: US Duplex Right Lower Extremity Veins, Limited Exam date and time: 02/19/2023 2:48 PM Age: 72 years old Clinical indication: Pain; Leg, lower; Right TECHNIQUE: Imaging protocol: Real-time duplex ultrasound of the right extremity with 2-D ballard scale, color Doppler flow and spectral waveform analysis including responses to compression and other maneuvers (when performed) with image documentation. Limited exam was focused on the right lower extremity veins. COMPARISON: US LOWER EXTREMITY VENOUS RT 30/12/2021 14:40 FINDINGS: Right deep veins: Unremarkable. The common femoral, femoral, proximal profunda femoral and popliteal veins are patent without thrombus. Normal Doppler waveforms. Normal compressibility and/or augmentation response. Superficial veins: Unremarkable. Saphenofemoral junction is patent without thrombus. Soft tissues: Unremarkable. IMPRESSION: No evidence of deep vein thrombosis. Dictated and Authenticated by: Angela Grossman MD. Ordering:SONJA Love MD
== END 2023-02-19 15:19 | disposition home or self-care (01) ==
PROVIDERS: Emergency Provider Student in an Organized Health Care Education/Training Program; PCP Student in an Organized Health Care Education/Training Program
DX: M79.604 Pain in right leg (principal); M54.50 Low back pain, unspecified; M54.16 Radiculopathy, lumbar region
CPT/HCPCS: 96372; 99285; 93971; 99284; J1885

== ENCOUNTER → 2023-03-20 07:56 | Outpatient (BNVA) | payer MEDICARE, MEDICAID, SELFPAY | PROVIDERS: PCP Student in an Organized Health Care Education/Training Program; Referring Provider Student in an Organized Health Care Education/Training Program; Visit Provider Surgery | DX: Z12.11 Encounter for screening for malignant neoplasm of colon (principal); Z86.010 Personal history of colon polyps; Z80.0 Family history of malignant neoplasm of digestive organs ==

== ENCOUNTER → 2023-03-24 00:57 | Outpatient (CLI) | payer MEDICARE, MEDICAID, SELFPAY ==
--- NOTE | 2023-03-24 09:20 | DI.RAD_ITS ---
Exam(s) XR ARTHRITIS SERIES EXAM: XR ARTHRITIS SERIES CLINICAL HISTORY: evaluate both hands for arthritis, joint pathology,bilat hand pain,m79.642,. TECHNIQUE: 2D digital imaging was performed. Two views of both hands. COMPARISON: CR RIGHT THUMB from 06/27/2012 CR LEFT HAND COMPLETE from 12/29/2017 FINDINGS: BONES: Bones appear osteopenic throughout. No acute fracture is present. No bony destructive lesion is seen. Again noted bilateral section of the trapezium. JOINTS: No dislocation present. Mild narrowing of the interphalangeal joints . Mild degenerative ch anges of the carpal regions, greatest at the scaphoid trapezoid joint bilaterally. SOFT TISSUE: Calcification faintly visible in the region of the triangular fibrocartilage. IMPRESSION: Status post bilateral trapezial resection. Degenerative changes greatest at the scaphoid trapezoid j oints bilaterally. No evidence of bony erosions. DATA REPOSITORY: RADIATION DOSE DELIVERED:
== END ==
PROVIDERS: PCP Student in an Organized Health Care Education/Training Program; Visit Provider Student in an Organized Health Care Education/Training Program
DX: M79.641 Pain in right hand; M79.642 Pain in left hand; Z96.691 Finger-joint replacement of right hand
CPT/HCPCS: 73120

== ENCOUNTER 2023-04-18 06:56 | Day surgery (SDC) | payer MEDICARE, MEDICAID, SELFPAY ==
[2023-04-18 07:31] VITALS: BP 135/80; PULSE 71; RESP 16; TEMP 36.3; O2SAT 96
[2023-04-18] MEDS: Lactated Ringers 1,000 ML 80 ML IV (07:45)
--- NOTE | 2023-04-18 07:50 | ANES.PREOP_ITS ---
General Info Date of Service Date Performed: 04/18/23 Height: 5 ft 7 in Weight: 114.5 kg Body Mass Index (BMI): 39.5 Surgical Procedure: Operation Date: 04/18/23 08:50 Proposed Procedure Side Surgeon urbano Jacobs MD Meds Allergies and Home Medications Allergies Allergy/AdvReac Type Severity Reaction Status Date / Time morphine Allergy Intermediate Itching Verified 04/18/23 07:24 codeine AdvReac Intermediate muscle Verified 04/18/23 07:24 spasms oxycodone HCl [From Percocet] AdvReac Intermediate muscle Verified 04/18/23 07:24 spasms, hard on stomach Home Medication Medication Instructions Recorded magnesium oxide 400 mg (241.3 mg 800 mg (2 x 400 mg (241.3 mg 05/26/22 magnesium) tablet magnesium)) PO BID #360 tabs Hearing Aids #1 ea 09/03/22 metoprolol succinate 25 mg 25 mg PO DAILY 12/09/22 tablet,extended release 24 hr cholecalciferol (vitamin D3) 50 2,000 unit PO DAILY #90 caps 12/15/22 mcg (2,000 unit) capsule (Vitamin D3) famotidine 20 mg tablet (Heartburn 20 mg PO BID #180 tabs 12/15/22 Relief (famotidine)) furosemide 20 mg tablet See Rx Instructions PO DAILY #90 12/15/22 tabs sumatriptan succinate 50 mg tablet See Rx Instructions PO .COMPLEX #9 12/15/22 tabs cyclobenzaprine 10 mg tablet 10 mg PO HS PRN muscle spasm #30 03/17/23 tabs wrist splints #2 ea 03/17/23 bisacodyl 5 mg tablet,delayed 5 mg PO ONCE #4 tabs 03/20/23 release (Dulcolax (bisacodyl)) polyethylene glycol 3350 17 17 g PO ONCE #238 grams 03/20/23 gram/dose oral powder Current Visit Medications: Current Medications Generic Name Dose Route Start Last Admin Trade Name Freq PRN Reason Stop Dose Admin Ringer's Solution 1,000 mls @ 80 mls/hr 04/18/23 06:00 04/18/23 07:45 IV 05/17/23 23:59 80 mls/hr INFUSION REINIER Administration IV Miscellaneous Supplies 1 each 04/18/23 06:00 Iv Access IV 05/17/23 23:59 DIRECTED REINIER Sodium Chloride 0 ml 04/18/23 06:00 Normal Saline Flush 10 Ml Syr IV 05/17/23 23:59 PRN PRN Sodium Chloride 0 ml 04/18/23 06:00 Normal Saline 10 Ml Vial IJ 05/17/23 23:59 DIRECTED PRN Sterile Water 0 ml 04/18/23 06:00 Water,Injection,Sterile 10 Ml Vial IJ 05/17/23 23:59 DIRECTED PRN PFSH Active Problems Active Problems: Problem Status Onset Code Hx of adenomatous colonic polyps Z86.010 Arthritis M19.90 Bilateral hand pain M79.641, M79.642 Left arm swelling M79.89 Arm skin lesion, left L98.9 Left arm pain M79.602 Abdominal aneurysm I71.40 Lumbar radiculopathy M54.16 Spondylolisthesis of lumbosacral region M43.17 Pain of back and right lower extremity M54.9, M79.604 Leg edema R60.0 Right foot pain M79.671 Left foot pain M79.672 Acute deep vein thrombosis (DVT) of both lower extremities I82.403 Right leg DVT I82.401 Nail dystrophy L60.3 Pain, foot M79.673 CTS (carpal tunnel syndrome) G56.00 Glomerulonephritis N05.9 Cervicalgia M54.2 Cervical radiculopathy M54.12 Muscle strain of right scapular region S46.911A Traumatic hematoma of right hand S60.221A Right wrist effusion M25.431 Ischemia of extremity I99.8 Claudication of lower extremity I73.9 Bilateral hearing loss ~07/2022 H91.93 Hypertension I10 Hearing loss H91.90 Skin lesion of back L98.9 Gastritis K29.70 Anemia D64.9 Medical History Medical History Abdominal aortic aneurysm 30 to 34 mm in diameter (07/19/14) 06/2014 3.14 cm, confirmed on CT; 07/2015 3.2cm US 04/21/17 stable 3.3 cm US. 11/2018 [Stable, 3.4CM]. Abdominal pain (04/22/13) not diverticulitis per CT 07/28/14; lower abd 07/2015 Abscess Resolved, surgery, 12/2021 Acute pain of left shoulder (10/18/17) No specific injury/trauma, pain with movement, abdiel ext rot/supination. Triceps tenderness. Intermittent fingertip numbness. Adenoma of large intestine (05/19/11) 05/2011 Kris Coffey colonoscopy, +tubular adenoma and +family h/o colon cancer (F); again adenoma 02/21/13 04/07/17 - tubulovillous adenoma, ascending colon, Dr Kaye Arm pain, right (09/20/13) rotator cuff pain, persistent trigger finger R; neck pain; trapezious spasm; impingement syndrome At risk for osteoporosis Smoking > 10 yrs, Prednisone (high-dose), PPI, Menopause @ 34yo. (Hx blood clots.. heparin, 1998, near ) Chest heaviness (07/15/16) Per pt. states if she eats is when she feels this and is at night if she has eaten. Chest pain at rest Awakened with heaviness, waited x hours (has had it before), but finally went to ED .. 11/20/18 De Quervain's tenosynovitis, right Diverticulosis a. No diverticulitis DJD, spine Reconfirmed on 07/2018 XR. Echocardiogram findings abnormal, without diagnosis WNL LV, (EF 58%), 03/2022 ([facility]).. post PE. / WNL LV size/functn (EF 55%), 12/2021 ([facility]) .. s/p pericardial effusion. Esophagitis with gastritis Generalized osteoarthrosis (02/21/13) GERD (gastroesophageal reflux disease) Hip pain 02/22/23 [facility]-Spine b/l hip injections-bursa/tendon.HE History of pulmonary embolism (01/01/16) History of tobacco use a. quit in 1998, after roughly 30 pack years Hydronephrosis (05/07/14) Hyperlipidemia (02/21/13) Left foot pain (01/27/17) r/o Posteriur Tarsal Tunnel Syn; dr Velasquez, Dr. Aldana Migraine (02/21/13) Morbid obesity a. Gastric bypass 1999 b. Multiple nutritional deficiencies, on supplements. c. S/p pannus excision Morbid obesity (08/20/15) BMI 42, post bariatric surg Muscle cramp, nocturnal (12/27/13) gabapentin 100 prn effective Nephrolithiasis (05/07/14) a. First episode - right side b. 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 Bisphosphonate Hx TBD. PAF (paroxysmal atrial fibrillation) (05/08/15) only one confirmed episode 02/2015; ZIO patch neg; prefers not anticoagulate until A Fib recurs Pain in joint, shoulder region a. rotator cuff pain Pain of left hip (05/2018) Onset while stretching in bed, suddenly felt sharp pain ... hasn't gone away. Surprising left paraspinal tenderness along lumbar spine @ exam, 08/08/18. Palpitations (07/15/16) Periumbilical abdominal pain (04/14/17) ? umbilical hernia vs adhesions Piriformis syndrome of right side Pseudogout of left wrist (01/22/18) Pyelonephritis (05/07/14) 1. secondary to obstruction Reactive airway disease a. worse in the spring Right arm pain Right hand paresthesia Right upper extremity numbness Pain and Tenderness, possible nerve entrapment with numbness .. 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 Sleep disturbances (03/01/13) TMJ (temporomandibular joint disorder) (01/25/16) Trigger finger, right middle finger (01/22/18) Vision loss, right eye Vitamin D deficiency (12/23/16) rx 50,000/wk x ten wk, then 2000 IU daily Surgical History Surgical History Arthroplasty (06/21/13) R thumb Dreisbach Bariatric Surgery (06/16/00) Brenda-En-Y gastroplasty with cholecystectomy, Dr. Ami Greene, [facility] Cholecystectomy (06/16/00) Dr Greene, [facility], along with Bariatric procedure Colonoscopy - MAC (04/07/17) H/O surgical procedure a. Gastric bypass 2000 b. Pannus excision c. Excision of Samson neuroma d. Cholecystectomy e. appendectomy f. right oophorectomy g. Hemorrhoidectomy History of bariatric surgery (05/19/00) Dr. Greene, [facility] History of cataract surgery Nuclear sclerotic cataract of left eye Nuclear sclerotic cataract of right eye pannus removal (04/02/03) [facility], 3 yr after bariatric surg Posterior subcapsular age-related cataract of left eye Posterior subcapsular age-related cataract, right eye Repair of umbilical hernia (05/31/17) Dr Kaye S/P bariatric surgery (06/16/00) [facility], pre surg wt 311 lbs Trigger Finger release (11/26/13) A-1 sumi Rt ring finger Tobacco Smoking/Tobacco Use Status: Former Tobacco Use Passive smoking exposure: No Alcohol Alcohol Intake: never Substance Use Substance use: Never Substance use type: does not use Vital Signs and Lab Results Vital Signs Most Recent Vital Signs in EMR: Most Recent Vital Signs Temp Pulse Resp BP Pulse Ox 36.3 C L 71 16 135/80 96 04/18/23 07:31 04/18/23 07:31 04/18/23 07:31 04/18/23 07:31 04/18/23 07:31 Lab Results Blood Type / Crossmatch: No Data to Display Complete Blood Count: No Data to Display Complete Metabolic Panel: No Data to Display Liver Function Panel: No Data to Display Coagulation Panel: No Data to Display Cardiac Panel: No Data to Display Arterial Blood Gas: No Data to Display Venous Blood Gas: No Data to Display Pancreas Panel: No Data to Display Thyroid Panel: No Data to Display Infectious Disease: No Data to Display Blood Cultures: No Data to Display Toxicology Panel: No Data to Display Imaging and Studies Imaging and Studies Study information below may be from another EMR and interpreted by another provider. Please see original notes in EMR for more complete details. EKG Summary: 01/07: sinus. Stress Test Summary: Impressions: Normal perfusion by [id number] Sestamibi Imaging. Summary: 1. Myocardial perfusion imaging: There is a moderate sized, moderately intense, fixed defect involving the inferior wall(s). This resolves with attenuation correction. C/W diaphragmatic artifact. 2. The calculated left ventricular ejection fraction after stress: 71%. Echocardiogram Summary: 04/09: LVEF 58%, no sig valve issues. ascedning Ao 3.36 Pulmonary Function Summary: Time analyzed: 02:37 Minutes under 88%: 0.7 HOLLIE: 8.4 Note: Insufficient time of analyzed data to assess for nocturnal oxygen needs or to make considerations about sleep apnea, pulmonary or cardiac disease. Anesthesia Assessment and Plan Anesthesia History Personal History: No History of Anesthesia Complications Family History: No Family History of Anesthesia Complications Exercise Tolerance Exercise Tolerance: Metabolic Equivalents>4 Cardiac & Pulmonary Exam Cardiac Exam: Normal S1/S2 Heart Sounds Pulmonary Exam: Clear Bilateral Breath Sounds Implantable Cardiac Device Does patient have a Pacemaker or an ICD?: No Airway Exam Known Difficult Airway: No Mallampati Class: 1 Mouth Opening: Normal (> 3cm) Thyromental Distance: Greater than 3 cm Neck Range of Motion: Full ROM Neck Circumference: Normal Teeth Condition: Removable Dentures/Plates Upper ASA Classification ASA Score: ASA 3 Emergency Case?: No NPO Status NPO Status: NPO Clears >2 hours, Solids >8 hours Anesthesia Plan Resuscitation Status: Full Code Anesthesia Technique: General Anesthesia Airway Planned: Natural Airway Monitors Used: Standard Monitors Preoperative Comments:: 72 yo female for colo. Sig PMHx: HTN, AAA (stable), RAD (rare albut use in the spring), GERD (3 times a month, uncommon), lumbar/cervical radiculopathy (doing well today), DVT/CO (everytime I have surgery I seem to develop clots), Previous Anes: - dx, lap, glide grade 1. IV US guidance. - hernia, LMA 4.
[2023-04-18 07:54] VITALS: BMI 39.5
--- NOTE | 2023-04-18 08:28 | W.COLOREPORT ---
Date of service: 04/18/23 Time of Service: 08:28 Colonoscopy Report Procedure Description: Procedures performed: 1. Colonoscopy with cold forceps polypectomy x1 2. Submucosal injection x1 Preoperative diagnosis: Surveillance colonoscopy, colon polyps Postoperative diagnosis: Ascending colon polyp unresectable, pandiverticulosis Surgeon: Abi Jacobs Anesthesia: Yogesh Indication for procedure: Patient is a 72-year-old woman who does not have any symptoms but has a personal history of tubulovillous adenoma on her last colonoscopy in the ascending colon and her father from colon cancer. Findings: In the ascending colon the prior polypectomy site is clearly identified and there is regrowth of polyp. The polyp is at least 3 cm in length, if not longer, and encompasses almost half of the colon wall circumferentially. It is very thin and not wide otherwise. It is very flat and I was unable to get around the polyp with the snare. Pieces were taken for biopsy purposes. I injected ink 3-5 cm proximal to this location which is just proximal to the hepatic flexure from my judgment. She has diverticular changes present throughout the entire colon. Surveillance/follow-up recommendations: I will see the patient in the office and discuss options. Either refer her to a tertiary gastroenterology with advanced endoscopic mucosal resection techniques or consideration for segmental colectomy. Complications: None Blood loss: Minimal Specimens:?? YES Quality of Prep:?? Good Procedure in detail: Written consent was obtained from the patient who was in agreement with the risks, benefits and indications of the procedure.? We went to the endoscopy suite and laid the patient in left lateral decubitus position.? Anesthesia was administered which was tolerated well.? A timeout was performed and when we are all in agreement we began the procedure. Digital rectal exam and visual examination was performed and within normal limits.? A well?lubricated colonoscope was advanced without difficulty all the way to the cecum identified by the ileocecal valve, and triangular folds and appendiceal orifice.? It was then slowly withdrawn.?? Retroflexion was performed in the rectum.? The findings/interventions are noted above. The scope was then removed and the patient tolerated the procedure well and was then taken back to the PACU in hemodynamically stable condition.
--- NOTE | 2023-04-18 09:00 | BOWEL_PTH ---
PATIENT: Shauna Loja LOC: [facility] U#:[id number] AGE/SX: 72/F ROOM: RE04/18/[address]: Jose Jacobs : 1950 BED: DIS: 04/18/2023 SPEC #: [id number] RECD: 04/18/23 12:49 STATUS: ADRIANA RE #: [id number] BRIANNE: 04/18/23 09:[address]: Jose Jacobs DEPT: Surgical Specimen RECD BY: Joan Hackett ENTERED: 04/18/23 12:50 SP TYPE: Bowel OTHR DR: Brigette Eli DO Tissues: 1 - BIOPSY BOWEL Procedures: GROSS AND MICRO LEVEL 4 Comments: [id number]
[2023-04-18] MEDS: Endoscopic Tattoo 5 ML SYR IJ (09:10)
[2023-04-18 09:20] VITALS: BP 96/66; PULSE 65; RESP 16; TEMP 36.1; O2SAT 96
--- NOTE | 2023-04-18 09:30 | W.ANESPOSTOP ---
Postoperative Evaluation Date, Time and Location Date Performed: 04/18/23 Time Performed: 09:30 Patient Location: Day Surgery Unit Vital Signs Most Recent Imported Vital Signs: Most Recent Vital Signs Temp Pulse Resp BP Pulse Ox 36.1 C L 65 16 96/66 L 96 04/18/23 09:20 04/18/23 09:20 04/18/23 09:20 04/18/23 09:20 04/18/23 09:20 Pain Score Most Recent Pain Score: Most Recent Pain Score Pain Level 0 04/18/23 09:20 Assessment Mental Status: Awake (Alert & Oriented to Patient Baseline) Airway and Respiratory Function: Patent airway with normal (patient baseline) respiratory exam Cardiovascular Function: Hemodynamically Stable Hydration Status: Adequately Hydrated Nausea & Vomiting: No Nausea or Vomiting Pain: Pt. Denies Any Pain Peripheral Nerve Block: Patient did not receive a nerve block
--- NOTE | 2023-04-18 09:36 | W.PM.DSUDISC ---
Date of service: 04/18/23 Time of Service: 09:36 Discharge Plan Disposition Patient Disposition: Home Condition: Good Discharge Details Attending Provider: Jose Jacobs Primary Care Provider: Brigette Eli Home Meds and New Rx's Prescriptions: Continued cyclobenzaprine 10 mg tablet 10 mg PO HS PRN (Reason: muscle spasm ) Qty: 30 1RF Rx Instructions: Continue for muscle spasm (evening) (DME) wrist splints See Rx Instructions .Route .MEDSUPPLY Qty: 2 0RF Rx Instructions: Wear wrist splints when chopping food and overnight metoprolol succinate 25 mg tablet extended release 24 hr 25 mg PO DAILY cholecalciferol (vitamin D3) [Vitamin D3] 50 mcg (2,000 unit) capsule 2,000 unit PO DAILY Qty: 90 3RF sumatriptan succinate 50 mg tablet See Rx Instructions PO .COMPLEX Qty: 9 3RF Rx Instructions: take 1 tab at onset of headache; if no relief may repeat 1 tab after at least 2 hrs; max = 4 tabs/24 hr PO famotidine [Heartburn Relief (famotidine)] 20 mg tablet 20 mg PO BID Qty: 180 1RF Patient Comments: Has been having issues with pharmacy 12/03/21 Rx Instructions: Continue for gastric pain furosemide 20 mg tablet See Rx Instructions PO DAILY Qty: 90 3RF Rx Instructions: 20mg daily, may add (1) tab in afternoon 2' weight gain > 5 lbs or severe edema PO daily; bisacodyl [Dulcolax (bisacodyl)] 5 mg tablet,delayed release (DR/EC) 5 mg PO ONCE Qty: 4 0RF Rx Instructions: Take per colonoscopy instructions provided by ordering providers office polyethylene glycol 3350 17 gram/dose powder 17 g PO ONCE Qty: 238 0RF Rx Instructions: Take per colonoscopy instructions provided by ordering providers office magnesium oxide 400 mg (241.3 mg magnesium) tablet 800 mg PO BID Qty: 360 3RF Rx Instructions: replace magnesium (DME) Hearing Aids See Rx Instructions .Route .MEDSUPPLY Qty: 1 1RF Rx Instructions: As directed, for bilateral hearing loss.. Medically Necessary. IK Discharge Instructions Stand Alone Forms: Colonoscopy Post Instructions Activity:: Activity as Tolerated Diet:: As Tolerated DS: Diagnosis Discharge Diagnosis (1) Hx of adenomatous colonic polyps: Status: Acute Asessment and Plan: FINDINGS: The polyp they tried to remove 5 years ago has grown back. It is quite large. We need to discuss the options for removing this. Call and schedule a follow-up appointment to be seen in the office in the next few weeks to go over the options.
[2023-04-18 09:55] VITALS: BP 101/56; PULSE 78; RESP 18; TEMP 36.5; O2SAT 98
== END 2023-04-18 10:15 | disposition home or self-care (01) ==
PROVIDERS: PCP Student in an Organized Health Care Education/Training Program; Visit Provider Student in an Organized Health Care Education/Training Program
PROC: 0DJD8ZZ Inspection of Lower Intestinal Tract, Via Natural or Artificial Opening Endoscopic (ICD-10-PCS; CPT 45378; principal; 2023-04-18 08:45)
DX: Z12.11 Encounter for screening for malignant neoplasm of colon (principal); Z86.010 Personal history of colon polyps; D37.4 Neoplasm of uncertain behavior of colon; K57.30 Diverticulosis of large intestine without perforation or abscess without bleeding
CPT/HCPCS: 45385; 00123; 88305; J2001

== ENCOUNTER → 2023-05-24 13:33 | Outpatient (BNVA) | payer MEDICARE, MEDICAID, SELFPAY | PROVIDERS: PCP Student in an Organized Health Care Education/Training Program; Referring Provider Student in an Organized Health Care Education/Training Program; Visit Provider Student in an Organized Health Care Education/Training Program | DX: D49.89 Neoplasm of unspecified behavior of other specified sites (principal); E66.01 Morbid (severe) obesity due to excess calories; Z68.41 Body mass index [BMI] 40.0-44.9, adult; Z98.890 Other specified postprocedural states | CPT/HCPCS: 99215 ==

== ENCOUNTER 2023-07-07 01:16 | Outpatient (CLI) | payer MEDICARE, MEDICAID, SELFPAY ==
[2023-07-07 09:11] LABS: Abs Immature Grans 0.01 10^3/uL (0.0-0.06); Absolute Basophil Count 0.08 10^3/uL (0.0-0.2); Absolute Eosinophil Count 0.18 10^3/uL (0.0-0.7); Absolute Monocyte Count 0.73 10^3/uL (0.1-0.8); Absolute Neutrophil Count 3.02 10^3/uL (1.2-6.7); Basophils % 1.2; Eosinophils % 2.8; HCT 38.4 % (36.0-46.0); HGB 12.7 g/dL (11.2-15.7); Immature Grans % 0.2; Lymphocytes % 38.3; MCH 30.1 pg (27.0-33.0); MCHC 33.1 % (32.0-36.0); MCV 91 fL (80-95); MPV 10.1 fL (8.0-11.0); Monocytes % 11.2; Neutrophils % 46.3; Platelet Count 190 10^3/uL (130-400); RBC 4.22 10^6/uL (3.93-5.22); RDW-SD 42.5 fL; WBC 6.52 10^3/uL (4.4-10.8)
[2023-07-07 09:37] LABS: ALT 19 U/L (14-59); AST 14 U/L (15-37); Albumin 3.3 g/dL (3.4-5.0); Alkaline Phosphatase 80 U/L (46-116); BUN 21 mg/dL (7-18); Bilirubin, Total 0.4 mg/dL (0.2-1.0); CREATININE 1.1 mg/dL (0.55-1.02); Calcium 8.8 mg/dL (8.5-10.1); Calculated LDL 103 mg/dL (<100); Chloride 103 mmol/L (98-107); Cholesterol 187 mg/dL (<200); Estimated GFR 53.39 (mL/min/1.73m2); Ferritin 43 ng/mL (8-252); Glucose 95 mg/dL (74-106); HDL Cholesterol 73 mg/dL (40-60); Potassium 4.2 mmol/L (3.5-5.1); Sodium 139 mmol/L (136-145); TSH (W/Ref FT4) 1.08 uIU/mL (0.36-3.74); Total Protein 6.7 g/dL (6.4-8.2); Triglyceride 55 mg/dL (<150)
[2023-07-07 09:47] LABS: Vitamin D 25 Total 42.1 ng/mL (30-100)
[2023-07-07 09:55] LABS: Iron 83 ug/dL (50-170); Total Iron Binding Capacity 330 ug/dL (250-450); Transferrin Sat 25 % (15-50)
== END 2023-07-07 01:17 | disposition home or self-care (01) ==
LOC: LBO 01:16
PROVIDERS: PCP Student in an Organized Health Care Education/Training Program; Referring Provider Student in an Organized Health Care Education/Training Program; Visit Provider Student in an Organized Health Care Education/Training Program
DX: I82.401 Acute embolism and thrombosis of unspecified deep veins of right lower extremity (principal); M79.641 Pain in right hand; M79.642 Pain in left hand; D50.8 Other iron deficiency anemias; N18.9 Chronic kidney disease, unspecified; R00.2 Palpitations
CPT/HCPCS: 36415; 80053; 80061; 82306; 82728; 83540; 83550; 84443; 85025

== ENCOUNTER 2023-07-26 15:55 | Observation (INO) | payer MEDICARE, MEDICAID, SELFPAY ==
[2023-07-26] VITALS (251 sets, daily range): BP systolic 97–144; BP diastolic 46–106; PULSE 63–153; RESP 11–31; TEMP 35.9–36.5; O2SAT 91–100
--- NOTE | 2023-07-26 15:45 | RT.EKG_ITS ---
APPROVED REPORT Exam: Resting ECG Reason for Exam: chest pain Patient Location: E HR:145 bpm ECG Measurements Heart Rate 145 AXIS AL [id number] P [id number] QRSd 89 QRS 37 QT 306 T 109 QTc 476 Conclusion Atrial fibrillation...V-rate 109-192, irreg A-activity Narrow complex atrial fibrillation with rapid ventricular response at a rate of 145 bpm. Normal axis . QTc within normal limits. ST segment depressions chest wall. Compared to prior dated 2 years ago A-fib with RVR is replaced normal sinus rhythm. ST segment depressions are new.
--- NOTE | 2023-07-26 16:07 | W.ED.GENAD ---
HPI General Date/Time Provider Initiated Documentation: 07/26/23 16:00. [facility] Narrative: MDM This is an overall well-appearing tachycardic 72-year-old female with A-fib RVR on metoprolol for which she will receive 5 mg of IV metoprolol. Following metoprolol patient converted to normal sinus rhythm. Intervals within normal limits. Her ST segments showed mild and improved depressions. No trauma to suggest pneumothorax. Chest pain improved following metoprolol. No emesis to suggest increased risk for esophageal rupture. No tearing quality to suggest aortic dissection. Patient had a D-dimer sent to assess for PE however was negative when adjusted for age. No cough to suggest pneumonia and chest x-ray was not suggestive. No rash to chest to suggest zoster. No calf pain to suggest DVT. Patient does have a prior history of A-fib with RVR. Patient is not an alcoholic to suggest increased risk for holiday heart. Her chest pain is mildly suggestive of angina however given that it resolved when she was in her normal rhythm and that her ECG shows no ischemic changes I feel that she will not require tertiary care transfer if she does not make troponin. She does have an abdominal aortic aneurysm but is not complaining of abdominal pain and is not hypotensive so doubt rupture. 5:45 PM Negative initial troponin. Basic metabolic panel showing no ALY and no acute electrolyte abnormalities. CBC lacks anemia thrombocytopenia and leukocytosis. Chest pain has resolved. 7:15 PM Patient does have an elevated heart score and as result I advised hospitalization for stress test. Patient was amenable. Will reach out to the hospitalist team. 7:30 PM I spoke to Dr. Cleveland who agreed to hospitalize the patient. In the setting of her elevated heart score and appropriate for outpatient management for which she will likely benefit from trending troponins, cardiac monitoring, and likely stress test. HEART SCORE Chest pain Diagnostic Protocol: [- History/Physical/Gestalt: Highly Suspicious (+2)] [- EKG: Significant ST - depression (+2)] [- AGE: 65 and older (+2)] [- RISK FACTORS: 1 - 2 risk factors (+1)] [-TROPONIN: <= normal limit (0)] - TOTAL SCORE: 7 - Risk Factors: DM, current or recent smoker, HTN, HLD, family hx of CAD, obesity - INTERPRETATION: With a total score of 3 or less, risk of major cardiac event within six weeks 1.7%, likely lower with two negative troponins. Chronic conditions affecting the care of the patient: A-fib RVR History obtained from an outside historian: N/A External record review: [facility] EMR [Diagnostic interpretations performed by me: Per my independent interpretation chest x-ray shows: No acute cardiopulmonary process. Per my independent interpretation EKG shows: Narrow complex atrial fibrillation with rapid ventricular response at a rate of 145 bpm. Normal axis. QTc within normal limits. ST segment depressions chest wall. Compared to prior dated 2 years ago A-fib with RVR is replaced normal sinus rhythm. ST segment depressions are new. Repeat ECG showing narrow complex normal sinus rhythm at a rate of 75. Normal axis. Intervals within normal limits. No ST segment abnormalities beyond mild improving ST segment depressions. No T wave inversions. Compared to prior from earlier today sinus rhythm has replaced A-fib with RVR. ]Medications: Metoprolol Social determinants of health affecting disposition: N/A Management discussed with: N/A Treatment/interventions considered: N/A Response to therapies provided: Improved symptoms following metoprolol HPI This is a 72-year-old female with prior history of A-fib with RVR arrived to the emergency department setting chest tightness. She takes metoprolol every day. She has not missed any doses. She was previously on apixaban but is no longer on this medication. She endorses a central chest pain radiates occasionally to her left arm. She has had some sweating. She denies any calf pain. She has had some mild leg swelling and she feels short of breath at the moment. She denies routine tobacco ethanol and illicits. No nausea nor vomiting. No dysuria nor frequency. Exam General: Well-appearing in no acute distress speaking in complete sentences. Head: Normocephalic, atraumatic. Eye: Extraocular eye movements intact. No conjunctival injection. No scleral icterus. Ear, nose, mouth, throat: Grossly normal inspection. Normal voice, handling secretions normally. Neck: Trachea midline. Cardiovascular: Well-perfused distal extremities. Rapid regular rate. Respiratory: Nonlabored respiration. Clear lungs bilaterally. Gastrointestinal: Nondistended abdomen. Musculoskeletal: No edema. Moving all 4 extremities spontaneously. Skin: Normal for age and race, grossly normal temperature and turgor. No acute rash. Neurologic: Alert and appropriate, no apparent acute deficits. Psychiatric: Mood and manner are appropriate. Grooming and personal hygiene are appropriate. Related Data Home Medications Medication Instructions Recorded Confirmed Hearing Aids #1 ea 09/03/22 06/16/23 metoprolol succinate 25 mg 25 mg PO DAILY 12/09/22 07/26/23 tablet,extended release 24 hr cholecalciferol (vitamin D3) 50 2,000 unit PO DAILY #90 caps 12/15/22 07/26/23 mcg (2,000 unit) capsule (Vitamin D3) wrist splints #2 ea 03/17/23 06/16/23 cyclobenzaprine 10 mg tablet 10 mg PO HS PRN muscle spasm #30 06/16/23 07/26/23 tabs sumatriptan succinate 50 mg tablet See Rx Instructions PO .COMPLEX #9 06/16/23 07/26/23 tabs food supplemt, lactose-reduced See Rx Instructions .Route 06/25/23 07/26/23 (High-Protein Nutritional Shake .COMPLEX low protein; edema; preop oral liquid) needs #1,422 mL famotidine 20 mg tablet (Heartburn 20 mg PO BID #180 tabs 07/11/23 07/26/23 Relief (famotidine)) magnesium oxide 400 mg (241.3 mg 800 mg (2 x 400 mg (241.3 mg 07/11/23 07/26/23 magnesium) tablet magnesium)) PO BID #360 tabs Previous Rx's Medication Instructions Recorded Hearing Aids #1 ea 09/03/22 cholecalciferol (vitamin D3) 50 2,000 unit PO DAILY #90 caps 12/15/22 mcg (2,000 unit) capsule (Vitamin D3) wrist splints #2 ea 03/17/23 cyclobenzaprine 10 mg tablet 10 mg PO HS PRN muscle spasm #30 06/16/23 tabs sumatriptan succinate 50 mg tablet See Rx Instructions PO .COMPLEX #9 06/16/23 tabs food supplemt, lactose-reduced See Rx Instructions .Route 06/25/23 (High-Protein Nutritional Shake .COMPLEX low protein; edema; preop oral liquid) needs #1,422 mL famotidine 20 mg tablet (Heartburn 20 mg PO BID #180 tabs 07/11/23 Relief (famotidine)) magnesium oxide 400 mg (241.3 mg 800 mg (2 x 400 mg (241.3 mg 07/11/23 magnesium) tablet magnesium)) PO BID #360 tabs Allergies Allergy/AdvReac Type Severity Reaction Status Date / Time morphine Allergy Intermediate Itching Verified 06/16/23 13:15 codeine AdvReac Intermediate muscle Verified 06/16/23 13:15 spasms oxycodone HCl [From Percocet] AdvReac Intermediate muscle Verified 06/16/23 13:15 spasms, hard on stomach General Stated Complaint: Chest Pain AJITH: 2 Course Vital Signs Vital signs: Vital Signs Temperature 36.0 C L 07/26/23 15:58 Pulse 153 H 07/26/23 15:58 Respiratory Rate 19 07/26/23 15:58 Blood Pressure 99/78 L 07/26/23 15:58 Pulse Oximetry 99 07/26/23 15:58 Temperature 36.0 C L 07/26/23 15:58 Temperature Source Skin 07/26/23 15:58 Pulse 153 H 07/26/23 15:58 Respiratory Rate 19 07/26/23 15:58 Blood Pressure 99/78 L 07/26/23 15:58 Blood Pressure Position Sitting 07/26/23 15:58 Pulse Oximetry 99 07/26/23 15:58 Oxygen Delivery Method Room Air 07/26/23 15:58 Oxygen Flow Rate 0 07/26/23 15:58 Pain Level 10 07/26/23 15:58 Medical Decision Making Quality:SDOH Health Related Social Needs: No Data to Display PFSH All Active Problems (Updated 07/26/23 @ 20:01 by Jaquan Cleveland) Atypical chest pain (Acute) Angina pectoris (Chronic) Edema (Acute) Tumor surgically unresectable (Acute) planning for colectomy tbd 07/11/22 .. surgery @ [facility] Hx of adenomatous colonic polyps (Acute) Arthritis (Acute) both hands, acute on chronic pain/inflammation (rt wrist/hands 2' chopping+) Bilateral hand pain (Chronic) XR (03/24/23) shows: ..osteopenic..No acute fracture.. [s/p] bilateral trapezial resection. Degenerative changes greatest at the scaphoid trapezoid joints bilaterally. No evidence of bony erosions. Abdominal aneurysm (Acute) MRI (08/2022): no change per visualized section. Per CT (2021): Fusiform infrarenal abdominal aortic aneurysm with maximum external diameter 4 cm again noted. Arterial megaly continues into the common iliac arteries which both exhibit diameters of 1.5 cm Lumbar radiculopathy (Acute) MRI (08/2022) shows: Degenerative disc changes and facet degenerative changes combine to produce moderate central canal stenosis at L3-4. [ ] awaiting [facility] Spine. Long Hx, acute on chronic Rt sided, 08/2021. ik MRI shows Spondylolisthesis of lumbosacral region (Acute) A. L4-5 B. L5-S1 Latest XR (07/2018) states pseudospondylolisthesis, no acute Fx/Sublux. Monitoring pain. Pain of back and right lower extremity (Acute) Improved since [facility] Pain Mgmt Injections (fall 2022?).. Lumbar back pain with radiating pain from outer rt hip, into knee (~ L4 dermatome) Left foot pain (Acute) Acute on chronic: Dx as gout, cellulitis, possible osteomyelitis Acute deep vein thrombosis (DVT) of both lower extremities (Acute) 11/17/22 [facility] Hem Onc note Nail dystrophy (Acute) Pain, foot (Acute) CTS (carpal tunnel syndrome) (Acute) from [facility] 08/17/22 note.HE Glomerulonephritis (Acute) from [facility] 08/17/22 note.HE (Hx nephrotic syndrome)(Hx renal calculi)(Hx pyelo) Cervicalgia (Acute) Cervical radiculopathy (Acute) Muscle strain of right scapular region (Acute) Right wrist effusion (Acute) w/ bruising Ischemia of extremity (Acute) Claudication of lower extremity (Acute) Bilateral hearing loss (Acute ~07/2022) 08/09/22 Hearing Evaluation done [facility] Hypertension (Chronic) Hearing loss (Acute) B/L . signing for hearing aids ([facility]) Skin lesion of back (Acute) mid-back, pruritic .. indented/suspicious.. Gastritis (Acute) perf gastric ulcer, 12/2021 .. greatly ijmproved, 02/2023 (no gerd/gastritis pain) .. eats < 7pm Anemia (Chronic) 2' gastritis, gastric ulcer (perf!), 12/2021 .. Improved, 12/2022 Medical History Traumatic hematoma of right hand resolved Osteomyelitis per MRI, but no Hx open wound .. > 1 month Right leg DVT with PE, post Hosp/Abd Surg .. Right foot pain instep is excruciating ,, cannot flatten Leg edema Rt and later Left foot (dorsum), w/o clear etiology .. Tubulovillous adenoma Hip pain 02/22/23 [facility]-Spine b/l hip injections-bursa/tendon.HE SI (sacroiliac) joint inflammation 02/22/23 [facility] spine: SI JOINT INJECTION b/l. Echocardiogram findings abnormal, without diagnosis WNL LV, (EF 58%), 03/2022 ([facility]).. post PE. / WNL LV size/functn (EF 55%), 12/2021 ([facility]) .. s/p pericardial effusion. Abscess Resolved, surgery, 12/2021 Right hand paresthesia Right arm pain At risk for osteoporosis Smoking > 10 yrs, Prednisone (high-dose), PPI, Menopause @ 34yo. (Hx blood clots.. heparin, 1998, near ) Vision loss, right eye Esophagitis with gastritis Piriformis syndrome of right side Right upper extremity numbness Pain and Tenderness, possible nerve entrapment with numbness .. 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 states if she eats is when she feels this and is at night if she has eaten. Hyperlipidemia (02/21/13) Nephrotic syndrome (06/17/85) Palpitations (07/15/16) Chest pain at rest Awakened with heaviness, waited x hours (has had it before), but finally went to ED .. 11/20/18 Pain of left hip (05/2018) Onset while stretching in bed, suddenly felt sharp pain ... hasn't gone away. Surprising left paraspinal tenderness along lumbar spine @ exam, 08/08/18. Vitamin D deficiency (12/23/16) rx 50,000/wk x ten wk, then 2000 IU daily Trigger finger, right middle finger (01/22/18) TMJ (temporomandibular joint disorder) (01/25/16) Sleep disturbances (03/01/13) Seasonal allergic rhinitis (02/21/13) Pseudogout of left wrist (01/22/18) Periumbilical abdominal pain (04/14/17) ? umbilical hernia vs adhesions PAF (paroxysmal atrial fibrillation) (05/08/15) only one confirmed episode 02/2015; ZIO patch neg; prefers not anticoagulate until A Fib recurs Osteoarthritis (03/05/13) recurrent R thumb (h/o Catrina inj 10/2012; h/o surg L hand 06/2006) Obesity (BMI 30-39.9) (08/11/11) Muscle cramp, nocturnal (12/27/13) gabapentin 100 prn effective Morbid obesity (08/20/15) BMI 42, post bariatric surg Migraine (02/21/13) Left foot pain (01/27/17) r/o Posteriur Tarsal Tunnel Syn; dr Velasquez, Dr. Aldana History of pulmonary embolism (01/01/16) Generalized osteoarthrosis (02/21/13) Arm pain, right (09/20/13) rotator cuff pain, persistent trigger finger R; neck pain; trapezious spasm; impingement syndrome Adenoma of large intestine (05/19/11) 05/2011 Kris Coffey colonoscopy, +tubular adenoma and +family h/o colon cancer (F); again adenoma 02/21/13 04/07/17 - tubulovillous adenoma, ascending colon, Dr Kaye Acute pain of left shoulder (10/18/17) No specific injury/trauma, pain with movement, abdiel ext rot/supination. Triceps tenderness. Intermittent fingertip numbness. Abdominal pain (04/22/13) not diverticulitis per CT 07/28/14; lower abd 07/2015 Abdominal aortic aneurysm 30 to 34 mm in diameter (07/19/14) 06/2014 3.14 cm, confirmed on CT; 07/2015 3.2cm US 04/21/17 stable 3.3 cm US. 11/2018 [Stable, 3.4CM]. De Quervain's tenosynovitis, right Osteoporosis Ca and Vit D suppl. Bisphosphonate Hx TBD. DJD, spine Reconfirmed on 07/2018 XR. Diverticulosis a. No diverticulitis Pain in joint, shoulder region a. rotator cuff pain Reactive airway disease a. worse in the spring GERD (gastroesophageal reflux disease) History of tobacco use a. quit in 1998, after roughly 30 pack years Osteoarthrosis, hand Morbid obesity a. Gastric bypass 1999 b. Multiple nutritional deficiencies, on supplements. c. S/p pannus excision Pyelonephritis (05/07/14) 1. secondary to obstruction Hydronephrosis (05/07/14) Nephrolithiasis (05/07/14) a. First episode - right side b. Right 3 mm ureterovesical junction stone Surgical History Posterior subcapsular age-related cataract of left eye Nuclear sclerotic cataract of left eye History of cataract surgery Posterior subcapsular age-related cataract, right eye Nuclear sclerotic cataract of right eye S/P bariatric surgery (06/16/00) [facility], pre surg wt 311 lbs History of bariatric surgery (05/19/00) Dr. Greene, [place] pannus removal (04/02/03) [facility], 3 yr after bariatric surg Trigger Finger release (11/26/13) A-1 sumi Rt ring finger Repair of umbilical hernia (05/31/17) Dr Kaye Colonoscopy - MAC (04/18/23) Cholecystectomy (06/16/00) Dr Greene, [facility], along with Bariatric procedure Bariatric Surgery (06/16/00) Brenda-En-Y gastroplasty with cholecystectomy, Dr. Ami Greene, [facility] Arthroplasty (06/21/13) R thumb Dreisbach H/O surgical procedure a. Gastric bypass 1999 b. Pannus excision c. Excision of Samson neuroma d. Cholecystectomy e. appendectomy f. right oophorectomy g. 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 Pets and animals: No Do you think of yourself as: straight/heterosexual Current gender identity: female What is your relationship status?: How often do you talk on the phone with friends or family?: three or more times per week How often do you get together with friends or relatives?: three or more times per week Panel score (0-1 are the most socially isolated patients): 2 What type of physical activity do you participate in: sedentary lifestyle Duration: < 15 minutes/day Frequency: 3-4 times per week Mayuri/Mandaeism: Gnosticist Seatbelt use: always Helmet use: No Drive intox or ride w/intox cmv driver: No Do you feel safe at home: Yes Do you feel safe in your relationship?: Yes Discharge Plan Disposition Patient Disposition: Admit to [facility] Discharge Details Clinical Impression: Angina pectoris Admit Date/Time: 07/26/23 20:02 Admit Provider: Jaquan Cleveland Attending Provider: Jaquan Cleveland Primary Care Provider: Brigette Eli ED Provider: Je Clay
--- NOTE | 2023-07-26 16:15 | DI.RAD_ITS ---
Exam(s) XR PORTABLE CHEST AP EXAM: XR PORTABLE CHEST AP CLINICAL HISTORY: Chest pain TECHNIQUE: 2D digital imaging was performed. COMPARISON: CT CT CHEST LUNG CANCER SCREEN from 01/04/2023 FINDINGS: Exam is limited by poor pulmonary inflation and under penetration at the lung bases. LUNGS: Clear. No pleural abnormality seen. HEART: Normal size. AORTA: Normal diameter. BONES: Unremarkable for age. Soft tissues: Unremarkable. IMPRESSION: No acute findings. DATA REPOSITORY: RADIATION DOSE DELIVERED:
[2023-07-26] MEDS: Metoprolol 5 MG/5 ML VIAL IVP (16:24)
--- NOTE | 2023-07-26 16:30 | RT.EKG_ITS ---
APPROVED REPORT Exam: Resting ECG Reason for Exam: Shortness of breath Patient Location: E HR:75 bpm ECG Measurements Heart Rate 75 AXIS IL 156 P 52 QRSd 92 QRS -10 QT 376 T 41 QTc 419 Conclusion Sinus rhythm...normal P axis, V-rate 60- 99 Probable left atrial enlargement...P >50mS, <-0.10mV V1 Repeat ECG showing narrow complex normal sinus rhythm at a rate of 75. Normal axis. Intervals withi n normal limits. No ST segment abnormalities beyond mild improving ST segment depressions. No T wav e inversions. Compared to prior from earlier today sinus rhythm has replaced A-fib with RVR.
[2023-07-26 16:31] LABS: Abs Immature Grans 0.02 10^3/uL (0.0-0.06); Absolute Basophil Count 0.06 10^3/uL (0.0-0.2); Absolute Eosinophil Count 0.12 10^3/uL (0.0-0.7); Absolute Lymphocyte Count 2.88 10^3/uL (1.2-3.4); Absolute Monocyte Count 0.98 10^3/uL (0.1-0.8); Absolute Neutrophil Count 3.47 10^3/uL (1.2-6.7); Basophils % 0.8; Eosinophils % 1.6; HCT 40.4 % (36.0-46.0); HGB 13.3 g/dL (11.2-15.7); Immature Grans % 0.3; Lymphocytes % 38.2; MCH 29.8 pg (27.0-33.0); MCHC 32.9 % (32.0-36.0); MCV 91 fL (80-95); MPV 10.5 fL (8.0-11.0); Neutrophils % 46.1; Platelet Count 192 10^3/uL (130-400); RBC 4.46 10^6/uL (3.93-5.22); RDW 13.3 % (11.7-14.6); RDW-SD 44.3 fL; WBC 7.53 10^3/uL (4.4-10.8)
[2023-07-26 16:51] LABS: Anion Gap 9.2 mmol/L (3-11); BUN 26 mg/dL (7-18); CO2 27.8 mmol/L (21.0-32.0); Chloride 106 mmol/L (98-107); Estimated GFR 59.86 (mL/min/1.73m2); Glucose 77 mg/dL (74-106); Potassium 3.7 mmol/L (3.5-5.1); Sodium 143 mmol/L (136-145); Troponin I < 50 ng/L (< or =60)
[2023-07-26 17:02] LABS: D-Dimer 669 ng/mlFEU (<500)
[2023-07-26 19:50] LABS: Troponin I < 50 ng/L (< or =60)
--- NOTE | 2023-07-26 19:58 | HPE_ITS ---
Date of service: 07/26/23 Time of Service: 19:58 Assessment and Plan Assessment and plan (1) Atypical chest pain: Start date: 07/26/23 Status: Acute Assessment and plan: This is a 72-year-old lady with a history of paroxysmal atrial fibrillation and mild symptoms but presents today with recurring PAF with palpitations and chest discomfort and associated symptoms worse than usual. She did return to normal sinus rhythm in the ED and symptoms resolved. Her initial labs unrevealing for ischemic changes but she did have a positive D-dimer which has been chronically positive and higher in the past with no CT of the chest performed. She was not hypoxic but CT of the chest could be entertained especially if there is RV strain on echocardiogram should be updated. Her troponins will be trended the patient will be observed over the next 24 hours. She is on Lovenox for DVT prophylaxis and chronically is not on Eliquis but this needs to be reconsidered with her recurrent atrial fibrillation. She is at risk for thromboembolic events. She is a full code. (2) PAF (paroxysmal atrial fibrillation): Assessment and plan: Patient has a history of paroxysmal atrial fibrillation on metoprolol which will be advanced as tolerated. She did convert to normal sinus rhythm with beta- yazan in the ED. Long-term she should consider Eliquis. Consider CT of the chest with positive D-dimer though this appears to be her normal and this did not present as a PE. There are no signs or symptoms of active ischemia but did have pain radiate into her left arm with associated symptoms with this episode. Further cardiac testing can be done as an outpatient with cardiology. Update echocardiogram. (3) Hypertension: Status: Chronic Assessment and plan: Not active problem on metoprolol for treatment of PAF. Monitor with advancing metoprolol. Weight loss has helped his problem with bariatric surgery. Qualifiers: Hypertension type: primary hypertension Qualified Code(s): I10 - Essential (primary) hypertension History of Present Illness History of Present Illness Chief Complaint: Palpitations with chest pain radiating into left arm Narrative: This is a 72-year-old female patient who presented to the ED after an onset of slight shortness of breath and chest pressure which radiated into her left arm associated with dizziness when she had recurrent atrial fibrillation which has been a problem in the past. She is now on Eliquis but does have a history of paroxysmal atrial fibrillation on metoprolol. When she presented to the ED she did have heart rate in the 130-170 range and this did respond to metoprolol with patient returning to normal sinus rhythm. EKG was unrevealing for acute changes. Her symptoms resolved and her initial troponin was negative. She will be admitted for observation on telemetry with advancement of metoprolol as tolerated and trending troponins. She also should have her echocardiogram updated. She does not have a history of CAD and is fairly active. She does have frequent palpitations with recurrent PAF but they are not as severe and with associated symptoms. She did have slight diaphoresis with this episode as well. She did not have any nausea. This occurred in the afternoon spontaneously and became worse prompting her ED evaluation. She has been more active the day prior helping her friend and is usually physically active and exercises without symptoms. Review of history otherwise unrevealing with patient being fairly active as stated on limited by musculoskeletal pain. She denies any weight gain or peripheral edema. She is a full code. Review of Systems Narrative: Review of systems otherwise unrevealing or stable. Patient is status post bariatric surgery and is planned as well as very active with exercise. PFSH All Active Problems (Updated 07/26/23 @ 20:01 by Jaquan Cleveland) Atypical chest pain (Acute) Angina pectoris (Chronic) Edema (Acute) Tumor surgically unresectable (Acute) planning for colectomy tbd 07/11/22 .. surgery @ [facility] Hx of adenomatous colonic polyps (Acute) Arthritis (Acute) both hands, acute on chronic pain/inflammation (rt wrist/hands 2' chopping+) Bilateral hand pain (Chronic) XR (03/24/23) shows: ..osteopenic..No acute fracture.. [s/p] bilateral trapezial resection. Degenerative changes greatest at the scaphoid trapezoid joints bilaterally. No evidence of bony erosions. Abdominal aneurysm (Acute) MRI (08/2022): no change per visualized section. Per CT (2021): Fusiform infrarenal abdominal aortic aneurysm with maximum external diameter 4 cm again noted. Arterial megaly continues into the common iliac arteries which both exhibit diameters of 1.5 cm Lumbar radiculopathy (Acute) MRI (08/2022) shows: Degenerative disc changes and facet degenerative changes combine to produce moderate central canal stenosis at L3-4. [ ] awaiting [facility] Spine. Long Hx, acute on chronic Rt sided, 08/2021. ik MRI shows Spondylolisthesis of lumbosacral region (Acute) A. L4-5 B. L5-S1 Latest XR (07/2018) states pseudospondylolisthesis, no acute Fx/Sublux. Monitoring pain. Pain of back and right lower extremity (Acute) Improved since [facility] Pain Mgmt Injections (fall 2022?).. Lumbar back pain with radiating pain from outer rt hip, into knee (~ L4 dermatome) Left foot pain (Acute) Acute on chronic: Dx as gout, cellulitis, possible osteomyelitis Acute deep vein thrombosis (DVT) of both lower extremities (Acute) 11/17/22 [facility] Hem Onc note Nail dystrophy (Acute) Pain, foot (Acute) CTS (carpal tunnel syndrome) (Acute) from [facility] 08/17/22 note.HE Glomerulonephritis (Acute) from [facility] 08/17/22 note.HE (Hx nephrotic syndrome)(Hx renal calculi)(Hx pyelo) Cervicalgia (Acute) Cervical radiculopathy (Acute) Muscle strain of right scapular region (Acute) Right wrist effusion (Acute) w/ bruising Ischemia of extremity (Acute) Claudication of lower extremity (Acute) Bilateral hearing loss (Acute ~07/2022) 08/09/22 Hearing Evaluation done [facility] Hypertension (Chronic) Hearing loss (Acute) B/L . signing for hearing aids ([facility]) Skin lesion of back (Acute) mid-back, pruritic .. indented/suspicious.. Gastritis (Acute) perf gastric ulcer, 12/2021 .. greatly ijmproved, 02/2023 (no gerd/gastritis pain) .. eats < 7pm Anemia (Chronic) 2' gastritis, gastric ulcer (perf!), 12/2021 .. Improved, 12/2022 Medical History Traumatic hematoma of right hand resolved Osteomyelitis per MRI, but no Hx open wound .. > 1 month Right leg DVT with PE, post Hosp/Abd Surg .. Right foot pain instep is excruciating ,, cannot flatten Leg edema Rt and later Left foot (dorsum), w/o clear etiology .. Tubulovillous adenoma Hip pain 02/22/23 [facility]-Spine b/l hip injections-bursa/tendon.HE SI (sacroiliac) joint inflammation 02/22/23 [facility] spine: SI JOINT INJECTION b/l. Echocardiogram findings abnormal, without diagnosis WNL LV, (EF 58%), 03/2022 ([facility]).. post PE. / WNL LV size/functn (EF 55%), 12/2021 ([facility]) .. s/p pericardial effusion. Abscess Resolved, surgery, 12/2021 Right hand paresthesia Right arm pain At risk for osteoporosis Smoking > 10 yrs, Prednisone (high-dose), PPI, Menopause @ 34yo. (Hx blood clots.. heparin, 1998, near ) Vision loss, right eye Esophagitis with gastritis Piriformis syndrome of right side Right upper extremity numbness Pain and Tenderness, possible nerve entrapment with numbness .. 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 states if she eats is when she feels this and is at night if she has eaten. Hyperlipidemia (02/21/13) Nephrotic syndrome (06/17/85) Palpitations (07/15/16) Chest pain at rest Awakened with heaviness, waited x hours (has had it before), but finally went to ED .. 11/20/18 Pain of left hip (05/2018) Onset while stretching in bed, suddenly felt sharp pain ... hasn't gone away. Surprising left paraspinal tenderness along lumbar spine @ exam, 08/08/18. Vitamin D deficiency (12/23/16) rx 50,000/wk x ten wk, then 2000 IU daily Trigger finger, right middle finger (01/22/18) TMJ (temporomandibular joint disorder) (01/25/16) Sleep disturbances (03/01/13) Seasonal allergic rhinitis (02/21/13) Pseudogout of left wrist (01/22/18) Periumbilical abdominal pain (04/14/17) ? umbilical hernia vs adhesions PAF (paroxysmal atrial fibrillation) (05/08/15) only one confirmed episode 02/2015; ZIO patch neg; prefers not anticoagulate until A Fib recurs Osteoarthritis (03/05/13) recurrent R thumb (h/o Catrina inj 10/2012; h/o surg L hand 06/2006) Obesity (BMI 30-39.9) (08/11/11) Muscle cramp, nocturnal (12/27/13) gabapentin 100 prn effective Morbid obesity (08/20/15) BMI 42, post bariatric surg Migraine (02/21/13) Left foot pain (01/27/17) r/o Posteriur Tarsal Tunnel Syn; dr Velasquez, Dr. Aldana History of pulmonary embolism (01/01/16) Generalized osteoarthrosis (02/21/13) Arm pain, right (09/20/13) rotator cuff pain, persistent trigger finger R; neck pain; trapezious spasm; impingement syndrome Adenoma of large intestine (05/19/11) 05/2011 Kris Coffey colonoscopy, +tubular adenoma and +family h/o colon cancer (F); again adenoma 02/21/13 04/07/17 - tubulovillous adenoma, ascending colon, Dr Kaye Acute pain of left shoulder (10/18/17) No specific injury/trauma, pain with movement, abdiel ext rot/supination. Triceps tenderness. Intermittent fingertip numbness. Abdominal pain (04/22/13) not diverticulitis per CT 07/28/14; lower abd 07/2015 Abdominal aortic aneurysm 30 to 34 mm in diameter (07/19/14) 06/2014 3.14 cm, confirmed on CT; 07/2015 3.2cm US 04/21/17 stable 3.3 cm US. 11/2018 [Stable, 3.4CM]. De Quervain's tenosynovitis, right Osteoporosis Ca and Vit D suppl. Bisphosphonate Hx TBD. DJD, spine Reconfirmed on 07/2018 XR. Diverticulosis a. No diverticulitis Pain in joint, shoulder region a. rotator cuff pain Reactive airway disease a. worse in the spring GERD (gastroesophageal reflux disease) History of tobacco use a. quit in 1998, after roughly 30 pack years Osteoarthrosis, hand Morbid obesity a. Gastric bypass 1999 b. Multiple nutritional deficiencies, on supplements. c. S/p pannus excision Pyelonephritis (05/07/14) 1. secondary to obstruction Hydronephrosis (05/07/14) Nephrolithiasis (05/07/14) a. First episode - right side b. Right 3 mm ureterovesical junction stone Surgical History Posterior subcapsular age-related cataract of left eye Nuclear sclerotic cataract of left eye History of cataract surgery Posterior subcapsular age-related cataract, right eye Nuclear sclerotic cataract of right eye S/P bariatric surgery (06/16/00) [facility], pre surg wt 311 lbs History of bariatric surgery (05/19/00) Dr. Greene, [facility] pannus removal (04/02/03) [facility], 3 yr after bariatric surg Trigger Finger release (11/26/13) A-1 sumi Rt ring finger Repair of umbilical hernia (05/31/17) Dr Kaye Colonoscopy - MAC (04/18/23) Cholecystectomy (06/16/00) Dr Greene, [facility], along with Bariatric procedure Bariatric Surgery (06/16/00) Brenda-En-Y gastroplasty with cholecystectomy, Dr. Ami Greene, [facility] Arthroplasty (06/21/13) Cheri Palomo H/O surgical procedure a. Gastric bypass 1999 b. Pannus excision c. Excision of Samson neuroma d. Cholecystectomy e. appendectomy f. right oophorectomy g. 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 Pets and animals: No Do you think of yourself as: straight/heterosexual Current gender identity: female What is your relationship status?: How often do you talk on the phone with friends or family?: three or more times per week How often do you get together with friends or relatives?: three or more times per week Panel score (0-1 are the most socially isolated patients): 2 What type of physical activity do you participate in: sedentary lifestyle Duration: < 15 minutes/day Frequency: 3-4 times per week Mayuri/Sikhism: Anabaptist Seatbelt use: always Helmet use: No Drive intox or ride w/intox front end driver: No Do you feel safe at home: Yes Do you feel safe in your relationship?: Yes Meds Allergies and Home Medications Allergies Allergy/AdvReac Type Severity Reaction Status Date / Time morphine Allergy Intermediate Itching Verified 06/16/23 13:15 codeine AdvReac Intermediate muscle Verified 06/16/23 13:15 spasms oxycodone HCl [From Percocet] AdvReac Intermediate muscle Verified 06/16/23 13:15 spasms, hard on stomach Home Medications Medication Instructions Recorded Confirmed Type Hearing Aids #1 ea 09/03/22 06/16/23 Rx metoprolol succinate 25 mg 25 mg PO DAILY 12/09/22 07/26/23 History tablet,extended release 24 hr cholecalciferol (vitamin D3) 50 2,000 unit PO DAILY #90 caps 12/15/22 07/26/23 Rx mcg (2,000 unit) capsule (Vitamin D3) wrist splints #2 ea 03/17/23 06/16/23 Rx cyclobenzaprine 10 mg tablet 10 mg PO HS PRN muscle spasm #30 06/16/23 07/26/23 Rx tabs sumatriptan succinate 50 mg tablet See Rx Instructions PO .COMPLEX #9 06/16/23 07/26/23 Rx tabs food supplemt, lactose-reduced See Rx Instructions .Route 06/25/23 07/26/23 Rx (High-Protein Nutritional Shake .COMPLEX low protein; edema; preop oral liquid) needs #1,422 mL famotidine 20 mg tablet (Heartburn 20 mg PO BID #180 tabs 07/11/23 07/26/23 Rx Relief (famotidine)) magnesium oxide 400 mg (241.3 mg 800 mg (2 x 400 mg (241.3 mg 07/11/23 07/26/23 Rx magnesium) tablet magnesium)) PO BID #360 tabs Exam Narrative Exam Narrative: General: Patient appears appropriate for age, darkly tanned over sun exposed areas. She is alert and oriented x 3 in no acute distress. HEENT: Normocephalic, eyes with pupils equal and reactive to light symmetrically. Extraocular movement tachycardia sclera anicteric. Oropharynx with moist Koza and fair dentition. Neck: Supple without JVD. Back: Normal posture without CVA tenderness. Lungs: Clear to auscultation and percussion with no focalizing rales or rhonchi. No expiratory wheeze. Breast: Exam deferred. Heart: Regular rate and rhythm with no appreciable murmur or gallop. Abdomen: Normal contour with no palpable hepatosplenomegaly. Soft and nontender to palpation with no guarding or rebound. Bowel sounds positive all quadrants. Genitalia/rectal: Exam deferred. Extremities: Without clubbing, cyanosis or pitting edema. Slight nonpitting edema over feet. Capillary refill good lower extremities. Skin: Well tanned with some exposed areas, otherwise normal color, warm and dry. Neuro: Cranial nerves II through XII grossly intact, no focal motor deficits. No tremor. Psych: Normal affect and mood. No abnormal thought processes. Remote and recent memory intact. Results Imaging Imaging Studies: EXAM: XR PORTABLE CHEST AP CLINICAL HISTORY: Chest pain TECHNIQUE: 2D digital imaging was performed. COMPARISON: CT CT CHEST LUNG CANCER SCREEN from 01/04/2023 FINDINGS: Exam is limited by poor pulmonary inflation and under penetration at the lung bases. LUNGS: Clear. No pleural abnormality seen. HEART: Normal size. AORTA: Normal diameter. BONES: Unremarkable for age. Soft tissues: Unremarkable. IMPRESSION: No acute findings. Labs 07/27/23 05:34 07/27/23 05:34 Labs: Laboratory Results - last 24 hr 07/26/23 07/26/23 16:13 19:25 WBC 7.53 RBC 4.46 Hgb 13.3 Hct 40.4 MCV 91 MCH 29.8 MCHC 32.9 RDW 13.3 Plt Count 192 MPV 10.5 Immature Gran % 0.3 Neutrophils % 46.1 Lymphocytes % 38.2 Monocytes % 13.0 Eosinophils % 1.6 Basophils % 0.8 Nucleated RBC % 0.0 Absolute Neutrophils 3.47 Absolute Lymphocytes 2.88 Absolute Monocytes 0.98 H Absolute Eosinophils 0.12 Absolute Basophils 0.06 D-Dimer 669 H Sodium 143 Potassium 3.7 Chloride 106 Carbon Dioxide 27.8 Anion Gap 9.2 BUN 26 H Creatinine 1.0 Est GFR (CKD-EPI 2020) 59.86 Glucose 77 Calcium 9.0 Troponin I < 50 < 50 Last Vital Signs Temp 36.0 C L 07/26/23 15:58 Pulse 75 07/26/23 17:16 Resp 13 07/26/23 19:29 BP 119/63 07/26/23 17:16 Pulse Ox 99 07/26/23 19:29 Time Spent Time spent with Patient: >75 minutes Time was spent: preparing to see the patient(eg.review tests), obtaining and/or reviewing separately otained hiistory, ordering medications,tests, procedures, referring, communicating with other health ambulatory care, indepentently interpreting results, counseling the patient and care coordination
[2023-07-26] MEDS: Aspirin 81 MG CHEW 324 MG CH (20:31)
[2023-07-26 20:47] LABS: TSH (W/Ref FT4) 1.51 uIU/mL (0.36-3.74)
[2023-07-26] MEDS: Enoxaparin 40 MG/0.4 ML SYR SC (23:11)
[2023-07-26 23:23] LABS: Troponin I < 50 ng/L (< or =60)
[2023-07-27] VITALS (8 sets, daily range): BP systolic 95–129; BP diastolic 61–80; PULSE 58–109; RESP 16–18; TEMP 36–36.4; O2SAT 94–98
[2023-07-27 06:49] LABS: MCH 29.9 pg (27.0-33.0); MCHC 33.3 % (32.0-36.0); MCV 90 fL (80-95); MPV 10.7 fL (8.0-11.0); Platelet Count 157 10^3/uL (130-400); RBC 4.01 10^6/uL (3.93-5.22); RDW 13.6 % (11.7-14.6); RDW-SD 44.6 fL; WBC 6.35 10^3/uL (4.4-10.8)
[2023-07-27 07:13] LABS: Troponin I < 50 ng/L (< or =60)
[2023-07-27 07:14] LABS: ALT 15 U/L (14-59); AST 15 U/L (15-37); Albumin 3.2 g/dL (3.4-5.0); Alkaline Phosphatase 73 U/L (46-116); Anion Gap 7.6 mmol/L (3-11); BUN 27 mg/dL (7-18); Bilirubin, Total 0.4 mg/dL (0.2-1.0); CO2 28.4 mmol/L (21.0-32.0); CREATININE 0.9 mg/dL (0.55-1.02); Calcium 8.8 mg/dL (8.5-10.1); Chloride 108 mmol/L (98-107); Estimated GFR 67.92 (mL/min/1.73m2); Glucose 94 mg/dL (74-106); Magnesium 1.8 mg/dL (1.8-2.4); Sodium 144 mmol/L (136-145); Total Protein 6.3 g/dL (6.4-8.2)
--- NOTE | 2023-07-27 08:00 | DI.US_ITS ---
APPROVED REPORT EXAM: Comprehensive 2D, Doppler, and color-flow Echocardiogram Patient Location: In-Patient Room/Bed: 205-A Inspector Hairspring: [place] Patino RDCS Rhythm: NSR Indications: Atypical chest pain. Other Information Study Quality: Fair Conclusion Normal chamber sizes Normal LV function,EF 60-65%.Normal RV function. Mild aortic sclerosis,trace MR,TR. No intracardiac shunt No pericardial effusion. Wall motion Left Ventricle The left ventricle is normal size. The left ventricular systolic function is normal. The left ventric ular ejection fraction is within the normal range. There is normal left ventricular wall thickness. T here is normal LV segmental wall motion. Diastolic indices are normal for age. There is no ventricula r septal defect visualized. LVEF is 65-70%. Prior echo 04/12/2022, EF = 58% with normal wall motion. Right Ventricle The right ventricle is normal size. The right ventricular systolic function is normal. There is payam l right ventricular wall thickness. Atria The left atrium size is normal. Right atrium is mildly dilated. Eustachian valve present. The interat rial septum is intact with no evidence for an atrial septal defect. Aortic Valve Aortic valve is trileaflet. The aortic valve is minimally thickened. There is no aortic valvular sten osis. No aortic regurgitation is present. Mitral Valve Mitral valve leaflets are thickened. No evidence of mitral valve stenosis. Trace mitral regurgitation . Tricuspid Valve The tricuspid valve is normal in structure. There is no tricuspid valve stenosis. Mild tricuspid regu rgitation. The RVSP is 30 mmHg. Pulmonic Valve The pulmonary valve is normal in structure. There is no pulmonic valvular stenosis. Trace pulmonic re gurgitation. Great Vessels The aortic root is normal in size. The pulmonary artery is normal. The ascending aorta is normal in s ize. Descending aorta is normal in caliber. IVC is normal in size and collapses >50% with inspiration . Pericardium Trivial echo free space noted. 2D Dimensions IVSD d PLAX 0.90 cm F: 0.6-1.0 Ao Root d 3.04 cm F: 2.7 - 3.3 LVPW d PLAX 0.95 cm F: 0.6 - 1.0 Ao Asc Diam d 3.48 cm F: 2.3 - 3.1 LVID d PLAX 4.89 cm F: 3.8 - 5.2 Prox Ao Arch 2.4 cm LVDs 2.94 cm F: 2.2 - 3.5 IVC Diam exp d SLAX 2.0 cm LV EF Teichholz 70.3 % FS 39.87 % LV EDV (Teich) 112.1 mL LV ESV (Teich) 33.3 mL M-Mode TAPSE 2.84 cm (M/F) >1.7 Auto EF LV EDV A4C 112.0 mL LV EDV A2C 109.3 mL LV EDV BP 113.9 mL LV ESV A4C 42.4 mL LV ESV A2C 33.7 mL LV ESV BP 38.2 mL LVEF(%) A4C 62.1 % LVEF(%) A2C 69.1 % LVEF(%) BP 66.5 % LV SV A4C 69.6 ml LV SV A2C 75.5 ml LV SV BP 75.7 ml LV CO A4C 4.1 L/min LV CO A2C 4.5 L/min LV CO BP 4.3 L/min HR A4C 58.83 BPM HR A2C 60.20 BPM LV EDV Index (BP) LV Strain Long Pk Overal Avg (s) 18.88 LA Volume LA Length A4C 5.7 cm LA Length A2C 6.1 cm LA Area A4C s 19.89 cm2 LA Area A2C s 19.48 cm2 LA Vol A4C A-L 58.73 mL LA Vol A2C A-L 53.05 mL LA Vol Biplane A-L 57.5 mL LA Vol/BSA A4C A-L LA Vol/BSA A2C A-L LA Vol/BSA BP A-L 25.8 mL/m2 LA Vol A4C MOD 54.4 mL LA Vol A2C MOD 49.3 mL LA Vol BP MOD 52.7 mL RA Volume RA Area A4C 17.5 cm2 RA ESV A4C (A-L) 47.9mL RA Vol/BSA A4C A-L RA Length A4C 5.4 cm RA ESV A4C (MOD) 45.9mL LV Diastology MV E' medial 0.064 (>0.07 m/s) MV E Vmax 0.57 (0.4-1.3 m/s) MV E/E' MED 9.02 (<14) MV A Vmax 0.75 (0.4-1.3 m/s) MV E' lateral 0.076 (>0.1 m/s) E/A Ratio 0.8 MV E/E' LAT 7.55 (<14) MV E' Average 0.070 m/s MV E/E'(average) 8.22 Aortic Valve LVOT Vmax 1.28 m/s LVOT Peak Grad 6.6 mmHg LVOT VTI 0.292 m LVOT Mean Grad 2.9 mmHg LVOT SV 137.23 mL LVOT Diam s 2.40 cm Mitral Valve MV DT 149 (160-240 msec) MV Vmax TIPS 0.88 m/s MV Mean Grad 0.7 (<2mmHg) MV VTI 0.200 m Pulm Vein s 0.63 m/s Pulm Vein d 0.42 m/s Pulm Vein a 0.29 m/s Pulmonary Valve RVOT Vmax 0.63 m/s RVOT Peak Gr. 1.6 mmHg RVOT VTI 0.151 m RVOT Mean Gr. 0.8 mmHg SD ED Velocity 1.03 m/s SD ED Grad 4.2 mmHg Tricuspid Valve RA Pressure 3.00 mmHg TR Vmax 2.59 m/s TV S' 0.13 m/s TR Peak Grad 26.8 mmHg RVSP (TR) 29.8 mmHg
[2023-07-27] MEDS: Famotidine 20 MG TAB PO ×2 (08:16→19:44)
[2023-07-27] MEDS: Magnesium Oxide 400 MG TAB 800 MG PO ×2 (08:16→19:45)
[2023-07-27] MEDS: Normal Saline Flush 10 ML SYR IVP (08:17)
[2023-07-27] MEDS: Cholecalciferol (Vitamin D3) 1,000 UNIT TAB 2000 UNITS PO (08:17)
[2023-07-27 08:43] LABS: Lab Add On Test DONE
[2023-07-27 09:31] LABS: NT-proBNP 389 pg/mL (<300)
--- NOTE | 2023-07-27 09:40 | PDOC.CMIN ---
Date of service: 07/27/23 Time of Service: 09:40 Care Management Initial Assmt Initial Assessment REASON FOR HOSPITALIZATION:: Atypical chest pain, PAF with RVR PREVIOUS FUNCTIONAL STATUS/SOCIAL/FAMILY SUPPORTS:: Shauna lives in [facility] with her , Jose. They have four adult children, who are local and supportive. They had another son who after a tragic accident. 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 She has been disabled since 1995. She volunteers at [employer] a couple days a week. She is independent at baseline. CURRENT FUNCTIONAL STATUS:: Shauna was sitting up in bed with her by her side when CM met with her. She was pleasant and engaged well in conversation. She stated that the provider is reaching out to her habilitation specialist for consultation before deciding her plan of care. She is happy with the care she is receiving, and is ok with remaining overnight again, if necessary. She reports that she is independent and her will drive her home when she is ready. She does not anticipate the need for services upon discharge. CM will continue to follow. ADVANCE DIRECTIVES:: On file, Jose Loja listed as agent. Has patient been provided with info about the portal/API?: Yes Did the patient sign up for the portal?: No INSURANCE COVERAGE / FINANCIAL ISSUES[facility] CURRENT HOME/COMMUNITY SERVICES/EQUIPMENT:: [employer] PRIMARY CARE PHYSICIAN:: Brigette Norton POTENTIAL DISCHARGE NEEDS:: Evaluations for further needs, follow up appointments. PATIENT/FAMILY EDUCATION NEEDS:: Review discharge instructions and limitations, discussion of self care needs including ask me three ANTICIPATED BARRIERS TO DISCHARGE:: None identified. TRANSPORTATION:: via private vehicle by family. PLAN:: Anticipate Shauna will return home once medically cleared. Her will drive her home via private vehicle. She will follow up with her PCP and discharge plan of care. CM will continue to follow. PFSH All Active Problems (Updated 07/27/23 @ 16:24 by Benitez De Leon MD) Dehydration (Acute) Atypical chest pain (Acute) Angina pectoris (Chronic) Edema (Acute) Tumor surgically unresectable (Acute) planning for colectomy tbd 07/11/22 .. [place] [facility] Hx of adenomatous colonic polyps (Acute) Arthritis (Acute) both hands, acute on chronic pain/inflammation (rt wrist/hands 2' chopping+) Bilateral hand pain (Chronic) XR (03/24/23) shows: ..osteopenic..No acute fracture.. [s/p] bilateral trapezial resection. Degenerative changes greatest at the scaphoid trapezoid joints bilaterally. No evidence of bony erosions. Abdominal aneurysm (Acute) MRI (08/2022): no change per visualized section. Per CT (2021): Fusiform infrarenal abdominal aortic aneurysm with maximum external diameter 4 cm again noted. Arterial megaly continues into the common iliac arteries which both exhibit diameters of 1.5 cm Lumbar radiculopathy (Acute) MRI (08/2022) shows: Degenerative disc changes and facet degenerative changes combine to produce moderate central canal stenosis at L3-4. [ ] awaiting [facility] Sp[place]. Long Hx, acute on chronic Rt sided, 08/2021. ik MRI shows Spondylolisthesis of lumbosacral region (Acute) A. L4-5 B. L5-S1 Latest XR (07/2018) states pseudospondylolisthesis, no acute Fx/Sublux. Monitoring pain. Pain of back and right lower extremity (Acute) Improved since [facility] Pain Mgmt Injections (fall 2022?).. Lumbar back pain with radiating pain from outer rt hip, into knee (~ L4 dermatome) Left foot pain (Acute) Acute on chronic: Dx as gout, cellulitis, possible osteomyelitis Acute deep vein thrombosis (DVT) of both lower extremities (Acute) 11/17/22 [facility] Hem Onc note Nail dystrophy (Acute) Pain, foot (Acute) CTS (carpal tunnel syndrome) (Acute) from [facility] 08/17/22 note.HE Glomerulonephritis (Acute) from [facility] 08/17/22 note.HE (Hx nephrotic syndrome)(Hx renal calculi)(Hx pyelo) Cervicalgia (Acute) Cervical radiculopathy (Acute) Muscle strain of right scapular region (Acute) Right wrist effusion (Acute) w/ bruising Ischemia of extremity (Acute) Claudication of lower extremity (Acute) Bilateral hearing loss (Acute ~07/2022) 08/09/22 Hearing Evaluation done [facility] Hypertension (Chronic) Hearing loss (Acute) B/L . signing for hearing aids ([facility]) Skin lesion of back (Acute) mid-back, pruritic .. indented/suspicious.. Gastritis (Acute) perf gastric ulcer, 12/2021 .. greatly ijmproved, 02/2023 (no gerd/gastritis pain) .. eats < 7pm Anemia (Chronic) 2' gastritis, gastric ulcer (perf!), 12/2021 .. Improved, 12/2022 Medical History Traumatic hematoma of right hand resolved Osteomyelitis per MRI, but no Hx open wound .. > 1 month Right leg DVT with PE, post Hosp/Abd Surg .. Right foot pain instep is excruciating ,, cannot flatten Leg edema Rt and later Left foot (dorsum), w/o clear etiology .. Tubulovillous adenoma Hip pain 02/22/23 [facility] [place]/l hip injections-bursa/tendon.HE SI (sacroiliac) joint inflammation 02/22/23 [facility] spine: SI JOINT INJECTION b/l. Echocardiogram findings abnormal, without diagnosis WNL LV, (EF 58%), 03/2022 ([facility]. post PE. / WNL LV size/functn (EF 55%), 12/2021 ([facility]) .. s/p pericardial effusion. Abscess Resolved, surgery, 12/2021 Right hand paresthesia Right arm pain At risk for osteoporosis Smoking > 10 yrs, Prednisone (high-dose), PPI, Menopause @ 34yo. (Hx blood clots.. heparin, 1998, near ) Vision loss, right eye Esophagitis with gastritis Piriformis syndrome of right side Right upper extremity numbness Pain and Tenderness, possible nerve entrapment with numbness .. 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 states if she eats is when she feels this and is at night if she has eaten. Hyperlipidemia (02/21/13) Nephrotic syndrome (06/17/85) Palpitations (07/15/16) Chest pain at rest Awakened with heaviness, waited x hours (has had it before), but finally went to ED .. 11/20/18 Pain of left hip (05/2018) Onset while stretching in bed, suddenly felt sharp pain ... hasn't gone away. Surprising left paraspinal tenderness along lumbar spine @ exam, 08/08/18. Vitamin D deficiency (12/23/16) rx 50,000/wk x ten wk, then 2000 IU daily Trigger finger, right middle finger (01/22/18) TMJ (temporomandibular joint disorder) (01/25/16) Sleep disturbances (03/01/13) Seasonal allergic rhinitis (02/21/13) Pseudogout of left wrist (01/22/18) Periumbilical abdominal pain (04/14/17) ? umbilical hernia vs adhesions PAF (paroxysmal atrial fibrillation) (05/08/15) only one confirmed episode 02/2015; ZIO patch neg; prefers not anticoagulate until A Fib recurs Osteoarthritis (03/05/13) recurrent R thumb (h/o Catrina inj 10/2012; h/o surg L hand 06/2006) Obesity (BMI 30-39.9) (08/11/11) Muscle cramp, nocturnal (12/27/13) gabapentin 100 prn effective Morbid obesity (08/20/15) BMI 42, post bariatric surg Migraine (02/21/13) Left foot pain (01/27/17) r/o Posteriur Tarsal Tunnel Syn; dr Velasquez, Dr. Aldana History of pulmonary embolism (01/01/16) Generalized osteoarthrosis (02/21/13) Arm pain, right (09/20/13) rotator cuff pain, persistent trigger finger R; neck pain; trapezious spasm; impingement syndrome Adenoma of large intestine (05/19/11) 05/2011 Kris Coffey colonoscopy, +tubular adenoma and +family h/o colon cancer (F); again adenoma 02/21/13 04/07/17 - tubulovillous adenoma, ascending colon, Dr Kaye Acute pain of left shoulder (10/18/17) No specific injury/trauma, pain with movement, abdiel ext rot/supination. Triceps tenderness. Intermittent fingertip numbness. Abdominal pain (04/22/13) not diverticulitis per CT 07/28/14; lower abd 07/2015 Abdominal aortic aneurysm 30 to 34 mm in diameter (07/19/14) 06/2014 3.14 cm, confirmed on CT; 07/2015 3.2cm US 04/21/17 stable 3.3 cm US. 11/2018 [Stable, 3.4CM]. De Quervain's tenosynovitis, right Osteoporosis Ca and Vit D suppl. Bisphosphonate Hx TBD. DJD, spine Reconfirmed on 07/2018 XR. Diverticulosis a. No diverticulitis Pain in joint, shoulder region a. rotator cuff pain Reactive airway disease a. worse in the spring GERD (gastroesophageal reflux disease) History of tobacco use a. quit in 1998, after roughly 30 pack years Osteoarthrosis, hand Morbid obesity a. Gastric bypass 1999 b. Multiple nutritional deficiencies, on supplements. c. S/p pannus excision Pyelonephritis (05/07/14) 1. secondary to obstruction Hydronephrosis (05/07/14) Nephrolithiasis (05/07/14) a. First episode - right side b. Right 3 mm ureterovesical junction stone Surgical History Posterior subcapsular age-related cataract of left eye Nuclear sclerotic cataract of left eye History of cataract surgery Posterior subcapsular age-related cataract, right eye Nuclear sclerotic cataract of right eye S/P bariatric surgery (06/16/00) [facility], pre surg wt 311 lbs History of bariatric surgery (05/19/00) Dr. Greene, [facility] pannus removal (04/02/03) [facility], 3 yr after bariatric surg Trigger Finger release (11/26/13) A-1 sumi Rt ring finger Repair of umbilical hernia (05/31/17) Dr Kaye Colonoscopy - MAC (04/18/23) Cholecystectomy (06/16/00) Dr Greene, [facility], along with Bariatric procedure Bariatric Surgery (06/16/00) Brenda-En-Y gastroplasty with cholecystectomy, Dr. Ami Greene, [facility] Arthroplasty (06/21/13) R ally Palomo H/O surgical procedure a. Gastric bypass 1999 b. Pannus excision c. Excision of Samson neuroma d. Cholecystectomy e. appendectomy f. right oophorectomy g. 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 Pets and animals: No Do you think of yourself as: straight/heterosexual Current gender identity: female What is your relationship status?: How often do you talk on the phone with friends or family?: three or more times per week How often do you get together with friends or relatives?: three or more times per week Panel score (0-1 are the most socially isolated patients): 2 What type of physical activity do you participate in: sedentary lifestyle Duration: < 15 minutes/day Frequency: 3-4 times per week Mayuri/Jehovah'S Witness: Sabianist Seatbelt use: always Helmet use: No Drive intox or ride 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 Do you feel safe at home: Yes Do you feel safe in your relationship?: Yes SDOH(Care Management) Screening Will the Patient Participate in the Screening?: Yes Do you worry about having a steady place to live?: no In the past 12 months, have you had to go without electric, gas, oil or water in your home?: choose not to answer Have you or anyone in your house had to go without enough food to eat?: choose not to answer Has lack of transportation kept you from medical appointments or from doing things needed for daily living?: choose not to answer Has anyone in your support network made you feel unsafe for any reason?: choose not to answer
--- NOTE | 2023-07-27 10:00 | RT.EKG_ITS ---
APPROVED REPORT Exam: Resting ECG Reason for Exam: heart block Patient Location: I HR:57 bpm ECG Measurements Heart Rate 57 AXIS CA 158 P 13 QRSd 94 QRS 66 QT 424 T 22 QTc 413 Conclusion Sinus rhythm...normal P axis, V-rate 50- 99 Left atrial enlargement...P, P'>60mS, <-0.15mV V1 Borderline low voltage, extremity leads...all extremity leads <0.6mV I have reviewed and interpreted ECG and agree with software generated interpretation.
--- NOTE | 2023-07-27 12:23 | PHA.REVIEW2 ---
Pharmacy Admission Review Admission Clinical Review Admission Pharmacy Review: Atypical chest pain (Acute) morphine Allergy (Intermediate, Verified 06/16/23 13:15) Itching codeine Adverse Reaction (Intermediate, Verified 06/16/23 13:15) muscle spasms oxycodone HCl [From Percocet] Adverse Reaction (Intermediate, Verified 06/16/23 13:15) muscle spasms, hard on stomach Resuscitation Status Full Code Height 5 ft 7 in Weight 114.305 kg Pharmacy Admission Review Renal Dosing Renal Dosing: BUN 27 mg/dL (7-18) H 07/27/23 05:34 Creatinine 0.9 mg/dL (0.55-1.02) 07/27/23 05:34 Medications needing adjustments: Reviewed (CrCl 66.38 mL/min) Anticoagulation Anticoagulation: Hgb 12.0 g/dL (11.2-15.7) 07/27/23 05:34 Hct 36.0 % (36.0-46.0) 07/27/23 05:34 Plt Count 157 10^3/uL (130-400) 07/27/23 05:34 Creatinine 0.9 mg/dL (0.55-1.02) 07/27/23 05:34 DVT Prophylaxis: Reviewed Medications: Enoxaparin (40mg q24h) Relevant Labs Relevant Labs: Sodium 144 mmol/L (136-145) 07/27/23 05:34 Potassium 4.0 mmol/L (3.5-5.1) 07/27/23 05:34 Chloride 108 mmol/L (98-107) H 07/27/23 05:34 Magnesium 1.8 mg/dL (1.8-2.4) 07/27/23 05:34 Electrolytes, C-Reactive P, ESR: Reviewed (BUN 27, Albumin 3.2) Cardiac Review Cardiac Review: Troponin I < 50 ng/L (< or =60) 07/27/23 05:34 NT-Pro-B Natriuret Pep 389 pg/mL (<300) H 07/27/23 05:34 BP, HR, EF%: Reviewed (BP/HR WNL) QTc Review QTc: Reviewed (419 from 07/26/23) IV to PO Switch IV Medications: Reviewed Home Meds Home Med List reviewed: Intervened Relevent Home Meds Not ordered & why?: Recently filled but not on home med list: Gabapentin (filled 1/27/24). Called nursing to see if they can ask patient whether she takes this at home, patient currently not in room. Nursing will reach back out when patient is available. Current Meds Current Medication Order Review: Reviewed
--- NOTE | 2023-07-27 14:45 | PGE_ITS ---
Date of Service Date of service: 07/27/23 Time of Service: 14:45 Assessment and Plan Assessment and plan (1) Atypical chest pain: Status: Acute Assessment and plan: Chest pain free since admission Telemetry (2) PAF (paroxysmal atrial fibrillation): Assessment and plan: Had some dysrhythmia, no symptoms - cards consulted Echo done and results pending Started on enoxaparin Continue telemetry Consider starting apixaban Seen by cardiology - recommends hydration, does not think she needs a pacemaker, continue metoprolol Subjective Subjective Patient reports: no new complaints, tolerating a regular diet, voiding w/o difficulty and afebrile; denies diarrhea, nausea or vomiting Interval history since last seen: Awake, alert, oriented, no shortness of breath. Exam Narrative Exam Narrative: General:Alert and oriented x 3 in no acute distress. HEENT: Normocephalic, eyes with pupils equal and reactive to light symmetrically. Fair dentition, Mucous membranes moist. Neck: Supple without JVD. Back: Normal posture without CVA tenderness. Lungs: Clear to auscultation and percussion with no focalizing rales or rhonchi. No expiratory wheeze. Breast: Exam deferred. Heart: Regular rate and rhythm with no appreciable murmur or gallop. Abdomen: Normal contour with no palpable hepatosplenomegaly. Soft and nontender to palpation with no guarding or rebound. Bowel sounds positive all quadrants. Genitalia/rectal: Exam deferred. 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 Neuro: Cranial nerves II through XII grossly intact, no focal motor deficits. No tremor. Psych: Normal affect and mood. No abnormal thought processes. Remote and recent memory intact. Objective Last Vital Signs Temp 36.3 C L 07/27/23 11:28 Pulse 66 07/27/23 11:28 Resp 17 07/27/23 11:28 BP 125/78 07/27/23 11:28 Pulse Ox 97 07/27/23 11:28 Laboratory Results - last 24 hr 07/26/23 07/26/23 07/26/23 16:13 19:25 22:55 WBC 7.53 RBC 4.46 Hgb 13.3 Hct 40.4 MCV 91 MCH 29.8 MCHC 32.9 RDW 13.3 Plt Count 192 MPV 10.5 Immature Gran % 0.3 Neutrophils % 46.1 Lymphocytes % 38.2 Monocytes % 13.0 Eosinophils % 1.6 Basophils % 0.8 Nucleated RBC % 0.0 Absolute Neutrophils 3.47 Absolute Lymphocytes 2.88 Absolute Monocytes 0.98 H Absolute Eosinophils 0.12 Absolute Basophils 0.06 D-Dimer 669 H Sodium 143 Potassium 3.7 Chloride 106 Carbon Dioxide 27.8 Anion Gap 9.2 BUN 26 H Creatinine 1.0 Est GFR (CKD-EPI 2020) 59.86 Glucose 77 Calcium 9.0 Magnesium Total Bilirubin AST ALT Alkaline Phosphatase Troponin I < 50 < 50 < 50 NT-Pro-B Natriuret Pep Total Protein Albumin TSH 1.51 Add-On Test Request 07/26/23 07/27/23 07/27/23 23:30 05:34 08:42 WBC 6.35 RBC 4.01 Hgb 12.0 Hct 36.0 MCV 90 MCH 29.9 MCHC 33.3 RDW 13.6 Plt Count 157 MPV 10.7 Immature Gran % Neutrophils % Lymphocytes % Monocytes % Eosinophils % Basophils % Nucleated RBC % Absolute Neutrophils Absolute Lymphocytes Absolute Monocytes Absolute Eosinophils Absolute Basophils D-Dimer Sodium 144 Potassium 4.0 Chloride 108 H Carbon Dioxide 28.4 Anion Gap 7.6 BUN 27 H Creatinine 0.9 Est GFR (CKD-EPI 2020) 67.92 Glucose 94 Calcium 8.8 Magnesium 1.8 Total Bilirubin 0.4 AST 15 ALT 15 Alkaline Phosphatase 73 Troponin I Cancelled < 50 NT-Pro-B Natriuret Pep 389 H Total Protein 6.3 L Albumin 3.2 L TSH Add-On Test Request DONE Time Spent with Patient Time Spent with Patient: 25-34 minutes Time was spent: preparing to see the patient(eg.review tests), ordering medications,tests, procedures, referring, communicating with other health care p rofessionals, indepentently interpreting results, counseling the patient and care coordination
[2023-07-27] MEDS: Lactated Ringers 1,000 ML 150 ML IV ×2 (17:25→23:48)
[2023-07-27] MEDS: Acetaminophen 325 MG TAB PO (22:46)
[2023-07-27] MEDS: Enoxaparin 40 MG/0.4 ML SYR SC (22:46)
--- NOTE | 2023-07-28 | DI.US_ITS ---
Exam(s) US LOWER EXTREMITY VENOUS RT EXAM: US LOWER EXTREMITY VENOUS RT CLINICAL HISTORY: Pain to right calf; hx dvt and PE TECHNIQUE: Grayscale, color, and doppler imaging of the deep venous system of the right lower extrem ity was performed. COMPARISON: Right FINDINGS: There is no evidence of intraluminal thrombus and there is normal compression and augmentation demons trated within the common femoral vein, femoral vein, and popliteal vein. In the ipsilateral calf the interrogated veins also exhibit normal compression/ augmentation properti es. The ipsilateral saphenofemoral junction is patent. IMPRESSION: 1. No evidence of DVT in the right lower extremity. DATA REPOSITORY:
--- NOTE | 2023-07-28 | DI.CT_ITS ---
Exam(s) CT CHEST PE CTA EXAM: CT CHEST PE CTA CLINICAL HISTORY: Chest pain; RLE pain; hx PE and DVT. TECHNIQUE: Imaging Protocol: CT angiography of the chest was performed using pulmonary embolus hillary col. Multi planar reconstructions were performed. CONTRAST MATERIAL: Intravenous: Omnipaque 350 Contrast volume: 100 cc COMPARISON: CT,NM,TMT NM MPI REST STRESS GRP from 01/19/2023 US US LOWER EXTREMITY VENOUS RT from 07/28/2023 FINDINGS: CHEST: PULMONARY ARTERIES: There are no intraluminal filling defects to suggest acute pulmonary emboli. LUNGS: Mild increased bilateral lung markings but no confluent infiltrates nor pleural effusions.. MEDIASTINUM: There is no hilar nor mediastinal adenopathy. Visualized thyroid unremarkable. CARDIAC: Heart size is upper normal. There is no pericardial effusion.Caliber of the thoracic aorta is within normal limits. There is no significant shift of the interventricular septum. PARTIALLY VISUALIZED UPPERMOST ABDOMEN: No adrenal masses. There is a benign cyst in the superior po le of the left kidney measuring 2 cm. Does not require further workup. OSSEOUS: No significant osseous lesions.. IMPRESSION: 1. No evidence of acute pulmonary emboli. No evidence of pulmonary infarction.No pleural effusions. 2. There are mildly increased markings throughout both lung ruby but no confluent infiltrates. The re is no intrathoracic adenopathy. RADIATION DOSE DELIVERED: 575.26 mGy.cm Total DLP DATA REPOSITORY: All CT scans at this facility are submitted to the National Radiology Data Registry (NRDR) Dose Index Registry (DIR) with the [employer] (ACR). RADIATION OPTIMIZATION: All CT scans at this facility use at least one of these dose optimization te chniques: automated exposure control; mA and/or kV adjustment per patient size (includes targeted exa ms where dose is matched to clinical indication); or iterative reconstruction.
[2023-07-28 02:54] VITALS: BP 107/68; PULSE 65; RESP 18; TEMP 35.9; O2SAT 98
[2023-07-28] MEDS: Lactated Ringers 1,000 ML 150 ML IV ×2 (05:58→12:39)
[2023-07-28 07:06] VITALS: BP 129/81; PULSE 61; RESP 16; TEMP 35.9; O2SAT 99
[2023-07-28 07:39] LABS: Abs Immature Grans 0.01 10^3/uL (0.0-0.06); Absolute Basophil Count 0.05 10^3/uL (0.0-0.2); Absolute Eosinophil Count 0.11 10^3/uL (0.0-0.7); Absolute Lymphocyte Count 2.46 10^3/uL (1.2-3.4); Absolute Monocyte Count 0.55 10^3/uL (0.1-0.8); Absolute Neutrophil Count 2.78 10^3/uL (1.2-6.7); Basophils % 0.8; Eosinophils % 1.8; HCT 35.8 % (36.0-46.0); HGB 11.9 g/dL (11.2-15.7); Immature Grans % 0.2; Lymphocytes % 41.3; MCH 30.4 pg (27.0-33.0); MCHC 33.2 % (32.0-36.0); MCV 92 fL (80-95); MPV 11.1 fL (8.0-11.0); Monocytes % 9.2; Neutrophils % 46.7; Platelet Count 154 10^3/uL (130-400); RBC 3.91 10^6/uL (3.93-5.22); RDW 13.5 % (11.7-14.6); RDW-SD 45.6 fL; WBC 5.96 10^3/uL (4.4-10.8)
[2023-07-28 08:01] LABS: Anion Gap 8.1 mmol/L (3-11); BUN 19 mg/dL (7-18); CO2 27.9 mmol/L (21.0-32.0); CREATININE 0.8 mg/dL (0.55-1.02); Calcium 8.6 mg/dL (8.5-10.1); Chloride 108 mmol/L (98-107); Estimated GFR 78.24 (mL/min/1.73m2); Glucose 93 mg/dL (74-106); Magnesium 1.7 mg/dL (1.8-2.4); Potassium 3.8 mmol/L (3.5-5.1); Sodium 144 mmol/L (136-145)
[2023-07-28] MEDS: Magnesium Oxide 400 MG TAB 800 MG PO (08:48)
[2023-07-28] MEDS: Normal Saline Flush 10 ML SYR IVP (08:48)
[2023-07-28] MEDS: Cholecalciferol (Vitamin D3) 1,000 UNIT TAB 2000 UNITS PO (08:49)
[2023-07-28] MEDS: Famotidine 20 MG TAB PO (08:49)
--- NOTE | 2023-07-28 09:02 | PDOC.CMDIS ---
Date of service: 07/28/23 Time of Service: 09:03 LACE Index Scoring Tool Questions: Length of Stay (in days): 2 Was the patient admitted via the E.D.?: Yes E.D. Visits: 1 Answers: Total Score: 6 Risk of Readmission: Low Risk Care Management Discharge Plan Reason for Hospitalization: Atypical chest pain, PAF with RVR Discharge Plan: Shauna will return home with no new services. Her will drive her home via private vehicle. She will follow up with her PCP and discharge plan of care. She is happy to be going home. Patient/Family Education Needs: Review discharge instructions and limitations, discussion of self care needs including ask me three. SDOH Health Related Social Needs: No Data to Display
[2023-07-28] MEDS: Acetaminophen 325 MG TAB PO (09:18)
[2023-07-28] MEDS: MAGNESIUM SULFATE 1 GM/100 ML BAG IVPB (10:29)
[2023-07-28 12:58] VITALS: BP 128/77; PULSE 69; RESP 18; TEMP 36.4; O2SAT 99
[2023-07-28] MEDS: Normal Saline - Diluent 50 ML VIAL IJ (14:40)
[2023-07-28] MEDS: Omnipaque 350 MG/ML 500 ML BTL-Imaging package 100 ML IJ (14:42)
[2023-07-28 15:39] VITALS: BP 150/83; PULSE 63; RESP 18; TEMP 36.5; O2SAT 99
--- NOTE | 2023-07-28 16:04 | DSE_ITS ---
Date of service: 07/28/23 Time of Service: 16:04 DS: Diagnosis Discharge Diagnosis (1) Atypical chest pain: Status: Acute (2) PAF (paroxysmal atrial fibrillation): Discharge Plan Disposition Patient Disposition: Home Condition: Good Discharge Details Reason For Visit: Atypical Chest Pain, PAF with RVR Admit Date/Time: 07/26/23 20:02 Admit Provider: Jaquan Cleveland Attending Provider: Jaquan Cleveland Primary Care Provider: Brigette Eli Hospital Course Hospital Course: This is a 72-year-old female patient with past medical history significant for, not limited to, A-fib with RVR (on apixaban), hypertension, osteomyelitis, DVT right leg, PE, who presented to the ED after an onset of slight shortness of breath and chest pressure which radiated into her left arm associated with dizziness. In the ED, heart rate in the 130-170 range, patient was given IV metoprolol hear rate slowed and converted to normal sinus rhythm. EKG was unrevealing for acute changes. Her symptoms resolved. Troponin's were negative.DDimer was elevated. Patient complained of right calf pain. Right lower extremety ultrasound negatvie for DVT. CTA chest negative for PE. Echocardiogram: Normal chamber sizes Normal LV function,EF 60-65%.Normal RV function. Mild aortic sclerosis,trace MR,TR. No intracardiac shunt No peric ardial effusion. Patient and a few minutes of some dropped p wavers on her telemetry, and cardiology was consulted. Patient was seen by cardiology and MD felt patient was dehydrated. Patient did received IV fluid and had good oral intake. Patient remained chest pain free with no shortness of breath, and shes remained in NSR in the 70s. She felt well and was discharged to home stable, improved. Follow up with PCP and cardiology. Medications were unchanged. Home Meds and New Rx's Prescriptions: Continued (DME) wrist splints See Rx Instructions .Route .MEDSUPPLY Qty: 2 0RF Rx Instructions: Wear wrist splints when chopping food and overnight metoprolol succinate 25 mg tablet extended release 24 hr 25 mg PO DAILY cholecalciferol (vitamin D3) [Vitamin D3] 50 mcg (2,000 unit) capsule 2,000 unit PO DAILY Qty: 90 3RF cyclobenzaprine 10 mg tablet 10 mg PO HS PRN (Reason: muscle spasm ) Qty: 30 1RF Rx Instructions: Continue for muscle spasm (evening) sumatriptan succinate 50 mg tablet See Rx Instructions PO .COMPLEX Qty: 9 3RF Rx Instructions: take 1 tab at onset of headache; if no relief may repeat 1 tab after at least 2 hrs; max = 4 tabs/24 hr PO (DME) Hearing Aids See Rx Instructions .Route .MEDSUPPLY Qty: 1 1RF Rx Instructions: As directed, for bilateral hearing loss.. Medically Necessary. IK High-Protein Nutritional Shake Liquid See Rx Instructions .ROUTE .COMPLEX Qty: 1422 3RF Rx Instructions: 1-2 drinks per day (est 6 oz each?) for pre-op!; magnesium oxide 400 mg (241.3 mg magnesium) tablet 800 mg PO BID Qty: 360 3RF Rx Instructions: replace magnesium famotidine [Heartburn Relief (famotidine)] 20 mg tablet 20 mg PO BID Qty: 180 1RF Patient Comments: Has been having issues with pharmacy 12/03/21 Rx Instructions: Continue for gastric pain Discharge Instructions Instructions: A-fib (Atrial Fibrillation) (DC), Dehydration (DC) Additional Instructions: Continue home medications. Stay hydrated. Stand Alone Forms: Nursing Discharge Form Referrals: Gaye Zazueta MD [ [facility] STAFF PHYSICIAN] - (Please call Dr Zazueta Office on Monday and make a 2 week follow up [phone]) Brigette Eli DO [Primary Care Provider] - 08/04/23 3:45 pm Activity:: Activity as Tolerated Equipment/Supplies:: No Equipment Needed Diet:: Low Sodium Discharge Orders Discharge Orders: Discharge Order (Routine); Ordered 07/28/23 Ordered By: Deanna Connolly Discharge Data Discharge Date/Time-TO BE ENTERED AT DEPARTURE: 07/28/23 16:58 DS: Summary Time Spent with Patient providing and/or coordinating discharge services: Greater than 30 minutes Status at Discharge Functional status at discharge: independent ambulation Overall status at discharge: patient is back to baseline Mental Status: mental status grossly normal Speech and Movement: speech and movement normal Mood: congruent mood Affect: normal affect Quality:SDOH Health Related Social Needs: No Data to Display Exam Narrative Exam Narrative: General:Alert and oriented x 3 in no acute distress. HEENT: Normocephalic, eyes with pupils equal and reactive to light symmetrically. Fair dentition, Mucous membranes moist. Neck: Supple without JVD. Back: Normal posture without CVA tenderness. Lungs: Clear to auscultation and percussion with no focalizing rales or rhonchi. No expiratory wheeze. Heart: Regular rate and rhythm with no appreciable murmur or gallop. Abdomen: Normal contour with no palpable hepatosplenomegaly. Soft and nontender to palpation with no guarding or rebound. Bowel sounds positive all quadrants. Extremities: Without clubbing, cyanosis DECAL DECORATOR < 3 sec, trace bilat non pitting edema to mid calf Skin: Well tanned with some exposed areas, otherwise normal color, warm and dry. Neuro: Cranial nerves II through XII grossly intact, no focal motor deficits. No tremor. Psych: Normal affect and mood. No abnormal thought processes. Remote and recent memory intact. Psych Mental Status: mental status grossly normal Speech and Movement: speech and movement normal Mood: congruent mood Affect: normal affect DS: Data Vitals/I&O Vitals and I&O: Vital Signs Temperature 36.5 C 07/28/23 15:39 Temperature Source Tympanic 07/28/23 15:39 Pulse 63 07/28/23 15:39 Pulse Rhythm Regular 07/28/23 08:45 Respiratory Rate 18 07/28/23 15:39 Respiratory Effort Normal, Non-Labored 07/28/23 08:45 Respiratory Depth Normal 07/28/23 08:45 Respiratory Pattern Normal 07/28/23 08:45 Blood Pressure 150/83 H 07/28/23 15:39 Blood Pressure Position Sitting 07/26/23 15:58 Pulse Oximetry 99 07/28/23 15:39 Oxygen Delivery Method Room Air 07/28/23 15:39 Oxygen Flow Rate 0 07/28/23 15:39 Pain Level 0 07/28/23 15:39 Comment pt HR from 37-114 charge nurse was notified. 07/27/23 06:15 Intake & Output 07/27/23 07/28/23 07/28/23 23:59 11:59 23:59 Intake Total 957.5 / 957.5 5 1009 Balance 957.5 / 957.5 1944 Intake: IV 957.5 / 957.5 935 / 1945 1010 / 1945 Other: Urine Color Yellow Urine Appearance Clear Clear Urine Odor None Stool Size Large Stool Characteristics Soft Voiding Methods Toilet Toilet Data Completed and Pending Labs on day of discharge: Labs from last 24 hours 07/28/23 06:44 WBC 5.96 RBC 3.91 L Hgb 11.9 Hct 35.8 L MCV 92 MCH 30.4 MCHC 33.2 RDW 13.5 Plt Count 154 MPV 11.1 H Immature Gran % 0.2 Neutrophils % 46.7 Lymphocytes % 41.3 Monocytes % 9.2 Eosinophils % 1.8 Basophils % 0.8 Nucleated RBC % 0.0 Absolute Neutrophils 2.78 Absolute Lymphocytes 2.46 Absolute Monocytes 0.55 Absolute Eosinophils 0.11 Absolute Basophils 0.05 Sodium 144 Potassium 3.8 Chloride 108 H Carbon Dioxide 27.9 Anion Gap 8.1 BUN 19 H Creatinine 0.8 Est GFR (CKD-EPI 2020) 78.24 Glucose 93 Calcium 8.6 Magnesium 1.7 L PFSH All Active Problems (Updated 07/29/23 @ 00:01 by RUBIN BLEDSOE) Dehydration (Acute) Atypical chest pain (Acute) Edema (Acute) Tumor surgically unresectable (Acute) planning for colectomy tbd 07/11/22 .. surgery @ [facility] Hx of adenomatous colonic polyps (Acute) Arthritis (Acute) both hands, acute on chronic pain/inflammation (rt wrist/hands 2' chopping+) Bilateral hand pain (Chronic) XR (03/24/23) shows: ..osteopenic..No acute fracture.. [s/p] bilateral trapezial resection. Degenerative changes greatest at the scaphoid trapezoid joints bilaterally. No evidence of bony erosions. Abdominal aneurysm (Acute) MRI (08/2022): no change per visualized section. Per CT (2021): Fusiform infrarenal abdominal aortic aneurysm with maximum external diameter 4 cm again noted. Arterial megaly continues into the common iliac arteries which both exhibit diameters of 1.5 cm Lumbar radiculopathy (Acute) MRI (08/2022) shows: Degenerative disc changes and facet degenerative changes combine to produce moderate central canal stenosis at L3-4. [ ] awaiting [facility] Spine. Long Hx, acute on chronic Rt sided, 08/2021. ik MRI shows Spondylolisthesis of lumbosacral region (Acute) A. L4-5 B. L5-S1 Latest XR (07/2018) states pseudospondylolisthesis, no acute Fx/Sublux. Monitoring pain. Pain of back and right lower extremity (Acute) Improved since [facility] Pain Mgmt Injections (fall 2022?).. Lumbar back pain with radiating pain from outer rt hip, into knee (~ L4 dermatome) Left foot pain (Acute) Acute on chronic: Dx as gout, cellulitis, possible osteomyelitis Acute deep vein thrombosis (DVT) of both lower extremities (Acute) 11/17/22 [facility] Hem Onc note Nail dystrophy (Acute) Pain, foot (Acute) CTS (carpal tunnel syndrome) (Acute) from [facility] 08/17/22 note.HE Glomerulonephritis (Acute) from [facility] 08/17/22 note.HE (Hx nephrotic syndrome)(Hx renal calculi)(Hx pyelo) Cervicalgia (Acute) Cervical radiculopathy (Acute) Muscle strain of right scapular region (Acute) Right wrist effusion (Acute) w/ bruising Ischemia of extremity (Acute) Claudication of lower extremity (Acute) Bilateral hearing loss (Acute ~07/2022) 08/09/22 Hearing Evaluation done [facility] Hearing loss (Acute) B/L . signing for hearing aids ([facility]) Skin lesion of back (Acute) mid-back, pruritic .. indented/suspicious.. Gastritis (Acute) perf gastric ulcer, 12/2021 .. greatly ijmproved, 02/2023 (no gerd/gastritis pa in) .. eats < 7pm Anemia (Chronic) 2' gastritis, gastric ulcer (perf!), 12/2021 .. Improved, 12/2022 Medical History Traumatic hematoma of right hand resolved Osteomyelitis per MRI, but no Hx open wound .. > 1 month Right leg DVT with PE, post Hosp/Abd Surg .. Right foot pain instep is excruciating ,, cannot flatten Leg edema Rt and later Left foot (dorsum), w/o clear etiology .. Tubulovillous adenoma Hip pain 02/22/23 [facility]-Spine b/l hip injections-bursa/tendon.HE SI (sacroiliac) joint inflammation 02/22/23 [facility] spine: SI JOINT INJECTION b/l. Echocardiogram findings abnormal, without diagnosis WNL LV, (EF 58%), 03/2022 ([facility]).. post PE. / WNL LV size/functn (EF 55%), 12/2021 ([facility]) .. s/p pericardial effusion. Abscess Resolved, surgery, 12/2021 Right hand paresthesia Right arm pain At risk for osteoporosis Smoking > 10 yrs, Prednisone (high-dose), PPI, Menopause @ 34yo. (Hx blood clots.. heparin, 1998, near ) Vision loss, right eye Esophagitis with gastritis Piriformis syndrome of right side Right upper extremity numbness Pain and Tenderness, possible nerve entrapment with numbness .. 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 states if she eats is when she feels this and is at night if she has eaten. Hyperlipidemia (02/21/13) Nephrotic syndrome (06/17/85) Palpitations (07/15/16) Chest pain at rest Awakened with heaviness, waited x hours (has had it before), but finally went to ED .. 11/20/18 Pain of left hip (05/2018) Onset while stretching in bed, suddenly felt sharp pain ... hasn't gone away. Surprising left paraspinal tenderness along lumbar spine @ exam, 08/08/18. Vitamin D deficiency (12/23/16) rx 50,000/wk x ten wk, then 2000 IU daily Trigger finger, right middle finger (01/22/18) TMJ (temporomandibular joint disorder) (01/25/16) Sleep disturbances (03/01/13) Seasonal allergic rhinitis (02/21/13) Pseudogout of left wrist (01/22/18) Periumbilical abdominal pain (04/14/17) ? umbilical hernia vs adhesions PAF (paroxysmal atrial fibrillation) (05/08/15) only one confirmed episode 02/2015; ZIO patch neg; prefers not anticoagulate until A Fib recurs Osteoarthritis (03/05/13) recurrent R thumb (h/o Catrina inj 10/2012; h/o surg L hand 06/2006) Obesity (BMI 30-39.9) (08/11/11) Muscle cramp, nocturnal (12/27/13) gabapentin 100 prn effective Morbid obesity (08/20/15) BMI 42, post bariatric surg Migraine (02/21/13) Left foot pain (01/27/17) r/o Posteriur Tarsal Tunnel Syn; dr Velasquez, Dr. Aldana History of pulmonary embolism (01/01/16) Generalized osteoarthrosis (02/21/13) Arm pain, right (09/20/13) rotator cuff pain, persistent trigger finger R; neck pain; trapezious spasm; impingement syndrome Adenoma of large intestine (05/19/11) 05/2011 Kris Coffey colonoscopy, +tubular adenoma and +family h/o colon cancer (F); again adenoma 02/21/13 04/07/17 - tubulovillous adenoma, ascending colon, Dr Kaye Acute pain of left shoulder (10/18/17) No specific injury/trauma, pain with movement, abdiel ext rot/supination. Triceps tenderness. Intermittent fingertip numbness. Abdominal pain (04/22/13) not diverticulitis per CT 07/28/14; lower abd 07/2015 Abdominal aortic aneurysm 30 to 34 mm in diameter (07/19/14) 06/2014 3.14 cm, confirmed on CT; 07/2015 3.2cm US 04/21/17 stable 3.3 cm US. 11/2018 [Stable, 3.4CM]. De Quervain's tenosynovitis, right Osteoporosis Ca and Vit D suppl. Bisphosphonate Hx TBD. DJD, spine Reconfirmed on 07/2018 XR. Diverticulosis a. No diverticulitis Pain in joint, shoulder region a. rotator cuff pain Reactive airway disease a. worse in the spring GERD (gastroesophageal reflux disease) History of tobacco use a. quit in 1998, after roughly 30 pack years Osteoarthrosis, hand Morbid obesity a. Gastric bypass 1999 b. Multiple nutritional deficiencies, on supplements. c. S/p pannus excision Pyelonephritis (05/07/14) 1. secondary to obstruction Hydronephrosis (05/07/14) Nephrolithiasis (05/07/14) a. First episode - right side b. Right 3 mm ureterovesical junction stone Surgical History Posterior subcapsular age-related cataract of left eye Nuclear sclerotic cataract of left eye History of cataract surgery Posterior subcapsular age-related cataract, right eye Nuclear sclerotic cataract of right eye S/P bariatric surgery (06/16/00) [facility], pre surg wt 311 lbs History of bariatric surgery (05/19/00) Dr. Greene, [facility] pannus removal (04/02/03) [facility], 3 yr after bariatric surg Trigger Finger release (11/26/13) A-1 sumi Rt ring finger Repair of umbilical hernia (05/31/17) Dr Kaye Colonoscopy - MAC (04/18/23) Cholecystectomy (06/16/00) Dr Greene, [facility], along with Bariatric procedure Bariatric Surgery (06/16/00) Brenda-En-Y gastroplasty with cholecystectomy, Dr. Ami Greene, [facility] Arthroplasty (06/21/13) R ally Palomo H/O surgical procedure a. Gastric bypass 2000 b. Pannus excision c. Excision of Samson neuroma d. Cholecystectomy e. appendectomy f. right oophorectomy g. 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 Pets and animals: No Do you think of yourself as: straight/heterosexual Current gender identity: female What is your relationship status?: How often do you talk on the phone with friends or family?: three or more times per week How often do you get together with friends or relatives?: three or more times per week Panel score (0-1 are the most socially isolated patients): 2 What type of physical activity do you participate in: sedentary lifestyle Duration: < 15 minutes/day Frequency: 3-4 times per week Mayuri/Mosque: Judaism Seatbelt use: always Helmet use: No Drive intox or ride w/intox auto parts delivery driver: No Do you feel safe at home: Yes Do you feel safe in your relationship?: Yes Time Spent with Patient Time Spent with Patient: 45-69 minutes Time was spent: preparing to see the patient(eg.review tests), ordering medications,tests, procedures, referring, communicating with other health customer care team coach, indepentently interpreting results, counseling the patient and care coordination
== END 2023-07-28 16:58 | disposition home or self-care (01) ==
LOC: ER 20:12 → MS 21:51
PROVIDERS: Internal Medicine; Admitting Provider Family Medicine; Emergency Provider Emergency Medicine; PCP Student in an Organized Health Care Education/Training Program; Visit Provider Family Medicine
DX: I48.0 Paroxysmal atrial fibrillation (principal); R07.89 Other chest pain; I10 Essential (primary) hypertension; E86.0 Dehydration; Z79.899 Other long term (current) drug therapy; R79.1 Abnormal coagulation profile; I71.43 Infrarenal abdominal aortic aneurysm, without rupture; Z86.718 Personal history of other venous thrombosis and embolism; I73.9 Peripheral vascular disease, unspecified; D64.9 Anemia, unspecified; Z98.84 Bariatric surgery status
CPT/HCPCS: 00123; 36415; 71275; 80048; 80053; 85027; 93005; 96361; 96365; 96372; 96374; 99285; J1650; 71045; 83735; 83880; 84443; 84484; 85025; 85379; 93010; 93306; 93971; 99223; 99232; 99239; G0378; J3475

== ENCOUNTER → 2023-07-27 15:38 | Outpatient (BNVA) | payer MEDICARE, MEDICAID, SELFPAY | PROVIDERS: PCP Student in an Organized Health Care Education/Training Program; Referring Provider Student in an Organized Health Care Education/Training Program; Visit Provider Internal Medicine Interventional Cardiology | CPT/HCPCS: 99213 ==

== ENCOUNTER → 2023-08-08 04:28 | Outpatient (CLI) | payer MEDICARE, MEDICAID, SELFPAY ==
--- NOTE | 2023-08-08 10:04 | DI.US_ITS ---
Exam(s) US SOFT TISSUE EXTREMITY EXAM: US SOFT TISSUE EXTREMITY CLINICAL HISTORY: eval nodular mass,ganglion cyst finger of lt hand,m67.442. TECHNIQUE: Ultrasound was performed using standard protocol. COMPARISON: US US LOWER EXTREMITY VENOUS RT from 07/28/2023 FINDINGS: Images from ultrasound examination of the right 2nd-index finger area of concern submitted for interp retation. There is a small nodular density in this region on ultrasound which measures approximately 4 by 2 by 3 mm. Has a nonspecific appearance. Not associated with obvious tenosynovitis. IMPRESSION: Finding as above. Possible ganglion cyst. If clinically indicated further study with MRI can be per formed for added sensitivity and specificity. DATA REPOSITORY:
== END ==
PROVIDERS: PCP Student in an Organized Health Care Education/Training Program; Visit Provider Student in an Organized Health Care Education/Training Program
DX: M67.442 Ganglion, left hand (principal)
CPT/HCPCS: 76881

== ENCOUNTER 2023-08-11 13:56 | Outpatient (CLI) | payer MEDICARE, MEDICAID, SELFPAY ==
--- NOTE | 2023-08-11 13:45 | RT.EKG_ITS ---
APPROVED REPORT Exam: Resting ECG Reason for Exam: baseline Patient Location: O HR:67 bpm ECG Measurements Heart Rate 67 AXIS UT 159 P 51 QRSd 96 QRS -14 QT 403 T 39 QTc 426 Conclusion Sinus rhythm...normal P axis, V-rate 50- 99 Probable left atrial enlargement...P >50mS, <-0.10mV V1 Blocked PAC
== END 2023-08-11 13:57 | disposition home or self-care (01) ==
LOC: DI.CARD 13:57
PROVIDERS: PCP Student in an Organized Health Care Education/Training Program; Referring Provider Student in an Organized Health Care Education/Training Program; Visit Provider Internal Medicine Cardiovascular Disease
DX: I48.0 Paroxysmal atrial fibrillation (principal)
CPT/HCPCS: 93010

== ENCOUNTER → 2023-08-11 13:56 | Outpatient (BNVA) | payer MEDICARE, MEDICAID, SELFPAY | PROVIDERS: PCP Student in an Organized Health Care Education/Training Program; Referring Provider Student in an Organized Health Care Education/Training Program; Visit Provider Internal Medicine Cardiovascular Disease | DX: I48.0 Paroxysmal atrial fibrillation (principal) | CPT/HCPCS: 93005; 99214 ==

== ENCOUNTER 2023-08-11 14:25 | Outpatient (CLI) | payer MEDICARE, MEDICAID, SELFPAY | END 2023-08-11 14:26 | disposition home or self-care (01) | PROVIDERS: PCP Student in an Organized Health Care Education/Training Program; Visit Provider Student in an Organized Health Care Education/Training Program | DX: Z92.89 Personal history of other medical treatment; I24.89 Other forms of acute ischemic heart disease | CPT/HCPCS: 93005; 93246; 99214 ==

== ENCOUNTER 2023-08-31 09:42 | Outpatient (CLI) | payer MEDICARE, MEDICAID, SELFPAY ==
--- NOTE | 2023-08-31 09:54 | W.CARDEVENT ---
Date of service: 08/31/23 Time of Service: 09:54 Cardiac Event Recorder Referring Provider:: Brigette Eli Indications:: Paroxysmal atrial fibrillation Cardiac Event Note: This is a cardiac event monitor ordered for paroxysmal atrial fibrillation Patient was monitored for 9 days and 23 hours Predominant rhythm was sinus with an average heart rate of 72. Minimum was 41, maximum 110 There were rare ventricular ectopic beats. There were several ventricular couplets and triplets There were occasional atrial premature beats There is a 2% burden of atrial fibrillation. Longest episode lasted 2 hours and 15 minutes. Atrial fibrillation was asymptomatic There is no high-grade AV block or pauses greater than 3 seconds
== END 2023-08-31 09:43 ==
LOC: CARDOPNVT 09:42
PROVIDERS: PCP Student in an Organized Health Care Education/Training Program; Visit Provider Internal Medicine Cardiovascular Disease
DX: I48.0 Paroxysmal atrial fibrillation (principal); I49.1 Atrial premature depolarization; I49.3 Ventricular premature depolarization

== ENCOUNTER → 2023-09-14 04:43 | Outpatient (CLI) | payer MEDICARE, MEDICAID, SELFPAY ==
--- NOTE | 2023-09-14 06:00 | DI.US_ITS ---
Exam(s) US AAA DIAGNOSTIC EXAM: US AAA DIAGNOSTIC CLINICAL HISTORY: monitor for change (stable @ 4cm 2021->2022),AAA,i71.40 COMPARISON: US US AAA DIAGNOSTIC from 04/02/2021 US US AAA SCREENING from 01/11/[address] CHEST PE CTA from 07/28/2023 FINDINGS: Abdominal Aorta: Proximal: 2.3 x 2.4 cm Mid: 2.1 x 2.2 cm Distal: 3.7 x 3.6 cm Iliac's: Right: 2.5 x 2.2 cm Left: 1.5 x 1.5 cm Atherosclerosis is present. IMPRESSION: 1. Stable 3.7 x 3.6 cm distal abdominal aortic aneurysm. 2. Ectasia and aneurysmal dilatation of the iliac arteries. DATA REPOSITORY:
== END ==
PROVIDERS: PCP Student in an Organized Health Care Education/Training Program; Visit Provider Student in an Organized Health Care Education/Training Program
DX: I71.40 Abdominal aortic aneurysm, without rupture, unspecified (principal); I72.3 Aneurysm of iliac artery
CPT/HCPCS: 76775

== ENCOUNTER → 2023-09-21 13:48 | Outpatient (BNVA) | payer MEDICARE, MEDICAID, SELFPAY | PROVIDERS: PCP Student in an Organized Health Care Education/Training Program; Referring Provider Student in an Organized Health Care Education/Training Program; Visit Provider Student in an Organized Health Care Education/Training Program | DX: M67.442 Ganglion, left hand (principal) | CPT/HCPCS: 99213 ==

== ENCOUNTER 2023-09-27 06:05 | Day surgery (SDC) | payer MEDICARE, MEDICAID, SELFPAY ==
[2023-09-27 06:20] VITALS: BP 117/65; PULSE 59; RESP 16; TEMP 36.6; O2SAT 99
--- NOTE | 2023-09-27 07:09 | PDOC.DSDIS_ITS ---
Date of service: 09/27/23 Time of Service: 07:09 Discharge Plan Disposition Patient Disposition: Home Condition: Good Discharge Details Reason For Visit: Excision Cyst Finger Attending Provider: Chan Salas Primary Care Provider: Brigette Eli Home Meds and New Rx's Prescriptions: New acetaminophen 500 mg tablet 1,000 mg PO TID Qty: 90 0RF ibuprofen 600 mg tablet 600 mg PO TID PRN (Reason: pain) Qty: 90 0RF Continued (DME) wrist splints See Rx Instructions .Route .MEDSUPPLY Qty: 2 0RF Rx Instructions: Wear wrist splints when chopping food and overnight magnesium oxide 400 mg (241.3 mg magnesium) tablet 800 mg PO BID Qty: 360 3RF Rx Instructions: replace magnesium metoprolol succinate 25 mg tablet extended release 24 hr 50 mg PO DAILY Qty: 60 1RF Rx Instructions: trial increase to 50mg post hosp (afib) diclofenac sodium [Voltaren Arthritis Pain] 1 % gel 4 g topical QID Qty: 100 1RF Rx Instructions: apply to painful finger joints furosemide 20 mg tablet 20 mg PO BID apixaban 5 mg tablet 5 mg PO BID Qty: 180 3RF cholecalciferol (vitamin D3) [Vitamin D3] 50 mcg (2,000 unit) capsule 2,000 unit PO DAILY Qty: 90 3RF sumatriptan succinate 50 mg tablet See Rx Instructions PO .COMPLEX Qty: 9 3RF Rx Instructions: take 1 tab at onset of headache; if no relief may repeat 1 tab after at least 2 hrs; max = 4 tabs/24 hr PO (DME) Hearing Aids See Rx Instructions .Route .MEDSUPPLY Qty: 1 1RF Rx Instructions: As directed, for bilateral hearing loss.. Medically Necessary. IK High-Protein Nutritional Shake Liquid See Rx Instructions .ROUTE .COMPLEX Qty: 1422 3RF Rx Instructions: 1-2 drinks per day (est 6 oz each?) for pre-op!; famotidine [Heartburn Relief (famotidine)] 20 mg tablet 20 mg PO BID Qty: 180 3RF Patient Comments: Has been having issues with pharmacy 12/03/21 Rx Instructions: Continue for gastric pain cyclobenzaprine 10 mg tablet 10 mg PO HS PRN (Reason: muscle spasm ) Qty: 30 1RF Rx Instructions: Continue for muscle spasm (evening) Discharge Instructions Additional Instructions: Cyst Excision Discharge Instructions Activity: You should keep the hand elevated as much as possible for the first few days. You may use the other fingers as tolerated but avoid trying to do too much too soon. You may perform light activities with the splint in place. Dressing/Cast: You man remove the dressing after 48 hours. You may also get the incision wet after [address] a Band-Aid over the incision if desired. Medications: - You should take Tylenol and Ibuprofen for baseline pain control. - You may apply ice over the finger. Follow-up: 7-10 days Referrals: Chan Salas MD [ [facility] STAFF PHYSICIAN] - Activity:: Activity as Tolerated Remove Dressings/Wound Care:: 48 hours Shower/Bathe:: 48 hours Diet:: As Tolerated Discharge Orders Discharge Orders: Discharge Order (Routine); Ordered 09/27/23 Ordered By: Kt Singh DS: Diagnosis Discharge Diagnosis (1) Ganglion cyst of finger of left hand: Status: Acute
[2023-09-27] MEDS: Sodium Bicarbonate 50 MEQ/50 ML VIAL (07:35)
[2023-09-27] MEDS: Lidocaine 1% Multi-Dose W/EPI 1/100,000 50 ML VIAL (07:35)
--- NOTE | 2023-09-27 07:54 | ROE_ITS ---
Date of service: 09/27/23 Time of Service: 07:30 Operative Note Operative Note DATE OF PROCEDURE: 09/27/23 PRE-OP DIAGNOSIS: Painful Left Index Finger PIP Mass POST-OP DIAGNOSIS: other (Left Index Finger PIP Osteophyte and SYnovitis) PROCEDURE: PIP Joint Ostectomy (Removal of Symptomatic Osteophytes) and Synovectomy SURGEON: Chan Salas ANESTHESIA TYPE: Local By Surgeon Refer to Anesthesia Record ESTIMATED BLOOD LOSS: 5 PATHOLOGY: none sent COMPLICATIONS: None Patient was transported to: same day Patient's condition: stable Indications: I have seen Shauna in clinic for symptoms of a mass about the left index finger PIP joint, presumed to be a cyst associate with arthritis. The mass persisted and caused pain to direct contact and with use. The symptoms had not responded to conservative measures. I discussed excision with the patient. I reviewed the risks of the procedure to include, but not limited to, bleeding, infection, pain, stiffness, recurrence, damage to nerves or vessels. Despite these risks, the patient elected to proceed. Findings: There is no true cyst encountered at the PIP joint. There was prominent osteophytes about the dorsal ulnar aspect of the PIP joint both of the proximal phalanx and the middle phalanx. There was associated synovitis in this region with some effusion. A debridement of the synovitis was performed along with resection of the symptomatic osteophytes. Procedure Description: Shauna was greeted in the preoperative holding area where the correct side was identified and marked. The consent was reviewed with the patient and signed. All questions were answered. She was taken back to the operating room. The patient was placed into the supine position on the operating room table with the left arm on an arm board. All bony prominences were well padded. No prophylactic antibiotics were administered since this was a clean, elective hand surgical case. The left arm was then prepped with Chloraprep and draped in a standard fashion with stockinette and extremity drape. A timeout to confirm correct identity, side and site, procedure, allergies, anesthesia, and medical concerns was performed. A digital block was then performed using 1% lidocaine with epinephrine and buff ered with sodium bicarbonate. This was allowed time to set up completely and was tested before proceeding with the case. A slightly curved incision was made over the dosoulnar aspect of the PIP joint. The skin was incised sharply. Full-thickness flaps were then elevated to expose the capsule. Superficial nerves and vascular structures were retracted and the lateral band was identified and protected. The capsule was then incised over the mass with scissors. There was notable bogginess in this region and upon incising the capsule there was a coronado of some joint fluid. There is notable syn ovitis in this region associated with calcification osteophyte over the dorsal?ulnar aspect of the proximal phalanx as well as the middle phalanx. With a rongeur I did perform debridement of the synovitis as well as resected the symptomatic osteophytes from the dorsal?ulnar aspect. The lateral bands protected and arthrotomy was performed this region. The wound and the joint itself was irrigated. The skin was then closed using a #4-0 nylon in interrupted fashion. The finger was dressed with Xeroform, 4 x 4, conform dressing. The patient tolerated the procedure well and was returned to the Same Day Surgery area in a stable condition suffering no known complication.
== END 2023-09-27 08:12 | disposition home or self-care (01) ==
PROVIDERS: PCP Student in an Organized Health Care Education/Training Program; Visit Provider Student in an Organized Health Care Education/Training Program
PROC: (CPT 26160; principal; 2023-09-27 07:30)
DX: M25.742 Osteophyte, left hand (principal); M65.842 Other synovitis and tenosynovitis, left hand; M67.442 Ganglion, left hand; I10 Essential (primary) hypertension; D64.9 Anemia, unspecified; E66.01 Morbid (severe) obesity due to excess calories; Z68.41 Body mass index [BMI] 40.0-44.9, adult
CPT/HCPCS: 26160; J2004

== ENCOUNTER 2023-10-05 11:13 | Outpatient (CLI) | payer MEDICARE, MEDICAID, SELFPAY ==
--- NOTE | 2023-10-05 11:00 | RT.EKG_ITS ---
APPROVED REPORT Exam: Resting ECG Reason for Exam: Required for [facility] Patient Location: O HR:54 bpm ECG Measurements Heart Rate 54 AXIS CA 163 P 56 QRSd 99 QRS 5 QT 427 T 44 QTc 405 Conclusion Sinus rhythm...normal P axis, V-rate 50- 99 Left atrial enlargement...P, P'>60mS, <-0.15mV V1 Borderline low voltage, extremity leads...all extremity leads <0.6mV Otherwise normal ECG
== END 2023-10-05 11:14 | disposition home or self-care (01) ==
LOC: DI.KIM 11:15
PROVIDERS: PCP Student in an Organized Health Care Education/Training Program; Visit Provider Student in an Organized Health Care Education/Training Program
DX: Z01.810 Encounter for preprocedural cardiovascular examination (principal); I51.7 Cardiomegaly
CPT/HCPCS: 93010

== ENCOUNTER → 2023-10-09 14:32 | Outpatient (BNVA) | payer MEDICARE, MEDICAID, SELFPAY | PROVIDERS: PCP Student in an Organized Health Care Education/Training Program; Referring Provider Student in an Organized Health Care Education/Training Program; Visit Provider Student in an Organized Health Care Education/Training Program | DX: Z47.89 Encounter for other orthopedic aftercare (principal); M67.442 Ganglion, left hand ==

== ENCOUNTER → 2023-10-12 04:19 | Outpatient (CLI) | payer MEDICARE, MEDICAID, SELFPAY ==
--- NOTE | 2023-10-12 07:30 | DI.DEXA_ITS ---
Exam(s) XR DEXA BONE DENSITY W/WO ARYA EXAM: XR DEXA BONE DENSITY W/WO ARYA CLINICAL HISTORY: Hx 2 ht loss,screening for osteoporosis in postmenopausal woman,z78.0 TECHNIQUE: HoloInxero Horizon C densitometer analysis of left hip, lumbar spine and left forearm. Lat eral survey image of the thoracic and lumbar spine. COMPARISON: DX ARYA from 04/30/2008 CR XR DEXA BONE DENSITY W/WO ARYA from 05/07/2021 FINDINGS: Lateral view of the thoracic and lumbar spine shows no evidence of compression fractures. Bone mineral density measurements of the lumbar spine correspond to a total T-score of 2.5, in the no rmal range. This is not changed from 2020 represents a 2.6 percent decrease from 2007. Bone mineral density measurements of the left hip correspond to a total T-score of -0.9. This repre sents a 7.6 percent decrease from 2020 and 11.9 percent decrease from 2007. The femoral neck T-score is -1.5, in the osteopenic range.. Theleft forearm bone mineral density measurements correspond to a T-score of the distal 3rd of -3.7, in the osteoporotic range. This represents a 16 percent increase from 2020. The forearm was not an alyzed in 2007.. IMPRESSION: Osteoporosis of the forearm. Osteopenia of the hip. Normal bone density of the spine.
== END ==
PROVIDERS: PCP Student in an Organized Health Care Education/Training Program; Visit Provider Student in an Organized Health Care Education/Training Program
DX: Z78.0 Asymptomatic menopausal state (principal); Z13.820 Encounter for screening for osteoporosis; M85.89 Other specified disorders of bone density and structure, multiple sites
CPT/HCPCS: 36415; 77080; 80053; 85027; 83735

== ENCOUNTER 2023-10-12 05:48 | Outpatient (CLI) | payer MEDICARE, MEDICAID, SELFPAY ==
[2023-10-12 11:35] LABS: HGB 12.9 g/dL (11.2-15.7); MCH 31.3 pg (27.0-33.0); MCHC 33.9 % (32.0-36.0); MCV 92 fL (80-95); MPV 10.1 fL (8.0-11.0); Platelet Count 205 10^3/uL (130-400); RBC 4.12 10^6/uL (3.93-5.22); RDW 12.9 % (11.7-14.6); RDW-SD 43.7 fL; WBC 7.95 10^3/uL (4.4-10.8)
[2023-10-12 11:49] LABS: ALT 17 U/L (14-59); AST 12 U/L (15-37); Albumin 3.3 g/dL (3.4-5.0); Alkaline Phosphatase 100 U/L (46-116); Anion Gap 7.9 mmol/L (3-11); BUN 21 mg/dL (7-18); Bilirubin, Total 0.3 mg/dL (0.2-1.0); CO2 28.1 mmol/L (21.0-32.0); Calcium 8.5 mg/dL (8.5-10.1); Chloride 107 mmol/L (98-107); Estimated GFR 59.86 (mL/min/1.73m2); Glucose 73 mg/dL (74-106); Magnesium 1.7 mg/dL (1.8-2.4); Potassium 3.8 mmol/L (3.5-5.1); Sodium 143 mmol/L (136-145); Total Protein 6.6 g/dL (6.4-8.2)
== END 2023-10-12 05:49 | disposition home or self-care (01) ==
LOC: LBO 05:48
PROVIDERS: PCP Student in an Organized Health Care Education/Training Program; Referring Provider Student in an Organized Health Care Education/Training Program; Visit Provider Student in an Organized Health Care Education/Training Program
DX: I48.0 Paroxysmal atrial fibrillation (principal); Z92.89 Personal history of other medical treatment; Z79.01 Long term (current) use of anticoagulants; K29.01 Acute gastritis with bleeding; Z86.010 Personal history of colon polyps; D50.8 Other iron deficiency anemias; I10 Essential (primary) hypertension; Z91.89 Other specified personal risk factors, not elsewhere classified
CPT/HCPCS: 36415; 80053; 85027; 83735

== ENCOUNTER → 2023-11-09 13:22 | Outpatient (BNVA) | payer MEDICARE, MEDICAID, SELFPAY | PROVIDERS: PCP Student in an Organized Health Care Education/Training Program; Referring Provider Student in an Organized Health Care Education/Training Program; Visit Provider Internal Medicine Cardiovascular Disease | DX: I48.0 Paroxysmal atrial fibrillation (principal) | CPT/HCPCS: 99213 ==

== ENCOUNTER 2024-03-07 19:05 | Emergency (ER) | payer MEDICARE, MEDICAID, SELFPAY ==
[2024-03-07] VITALS (29 sets, daily range): BP systolic 91–217; BP diastolic 46–168; PULSE 47–192; RESP 14–38; O2SAT 92–100
--- NOTE | 2024-03-07 19:00 | RT.EKG_ITS ---
APPROVED REPORT Exam: Resting ECG Reason for Exam: chest pain Patient Location: E HR:186 bpm ECG Measurements Heart Rate [address] 72 P 0 QRSd 83 QRS 16 QT 233 T 224 QTc 412 Conclusion A flutter [address] depressions
[2024-03-07 19:32] LABS: Absolute Basophil Count 0.07 10^3/uL (0.0-0.2); Absolute Eosinophil Count 0.25 10^3/uL (0.0-0.7); Absolute Lymphocyte Count 4.55 10^3/uL (1.2-3.4); Absolute Monocyte Count 1.02 10^3/uL (0.1-0.8); Absolute Neutrophil Count 3.15 10^3/uL (1.2-6.7); Basophils % 0.8 %; Eosinophils % 2.8 %; HCT 41.7 % (36.0-46.0); HGB 13.8 g/dL (11.2-15.7); Lymphocytes % 50.3 %; MCH 30.4 pg (27.0-33.0); MCHC 33.1 % (32.0-36.0); MCV 92 fL (80-95); MPV 10.8 fL (8.0-11.0); Monocytes % 11.3 %; Neutrophils % 34.8 %; Platelet Count 186 10^3/uL (130-400); RBC 4.54 10^6/uL (3.93-5.22); RDW 12.8 % (11.7-14.6); RDW-SD 43.3 fL; WBC 9.04 10^3/uL (4.4-10.8)
[2024-03-07] MEDS: Aspirin 81 MG CHEW 324 MG CH (19:33)
[2024-03-07 19:52] LABS: ALT 13 U/L (14-59); AST 17 U/L (15-37); Albumin 3.7 g/dL (3.4-5.0); Alkaline Phosphatase 108 U/L (46-116); Anion Gap 11.2 mmol/L (3-11); BUN 26 mg/dL (7-18); Bilirubin, Total 0.41 mg/dL (0.2-1.0); CO2 24.8 mmol/L (21.0-32.0); CREATININE 1.2 mg/dL (0.55-1.02); Calcium 9.5 mg/dL (8.5-10.1); Chloride 102 mmol/L (98-107); Glucose 111 mg/dL (74-106); Magnesium 1.8 mg/dL (1.8-2.4); NT-proBNP 216 pg/mL (<300); Sodium 138 mmol/L (136-145); Total Protein 7.3 g/dL (6.4-8.2); Troponin I 10 ng/L (<or=51)
[2024-03-07] MEDS: Normal Saline 250 ML IV (20:13)
[2024-03-07] MEDS: Metoprolol 12.5 MG TAB PO (20:14)
[2024-03-07 20:52] LABS: Troponin I 9 ng/L (<or=51)
--- NOTE | 2024-03-07 23:04 | ED.GENADUL_ITS ---
Discharge Plan Disposition Patient Disposition: Home Condition: Stable Discharge Details Clinical Impression: Atrial fibrillation with rapid ventricular response Primary Care Provider: Brigette Eli ED Provider: Franco Tomlinson Home Meds and New Rx's Prescriptions: No Action (DME) wrist splints See Rx Instructions .Route .MEDSUPPLY Qty: 2 0RF Rx Instructions: Wear wrist splints when chopping food and overnight magnesium oxide 400 mg (241.3 mg magnesium) tablet 800 mg PO BID Qty: 360 3RF Rx Instructions: replace magnesium metoprolol succinate 25 mg tablet extended release 24 hr 50 mg PO DAILY Qty: 60 1RF Rx Instructions: trial increase to 50mg post hosp (afib) diclofenac sodium [Voltaren Arthritis Pain] 1 % gel 4 g topical QID Qty: 100 1RF Rx Instructions: apply to painful finger joints furosemide 20 mg tablet 20 mg PO BID apixaban 5 mg tablet 5 mg PO BID Qty: 180 3RF cholecalciferol (vitamin D3) [Vitamin D3] 50 mcg (2,000 unit) capsule 2,000 unit PO DAILY Qty: 90 3RF fluticasone propionate [Flonase Allergy Relief] 50 mcg/actuation spray,suspension 2 spray intranasal DAILY Qty: 16 12RF Rx Instructions: administer into each nostril High-Protein Nutritional Shake Liquid See Rx Instructions .ROUTE .COMPLEX Qty: 1422 3RF Rx Instructions: 1-2 drinks per day (est 6 oz each?) for pre-op!; famotidine [Heartburn Relief (famotidine)] 20 mg tablet 20 mg PO BID Qty: 180 3RF Patient Comments: Has been having issues with pharmacy 12/03/21 Rx Instructions: Continue for gastric pain sucralfate 1 gram tablet 1 g PO BID Qty: 20 1RF Rx Instructions: Trial slurry (mash tablet + water) for episodic reflux/heartburn cyclobenzaprine 10 mg tablet 10 mg PO HS PRN (Reason: muscle spasm ) Qty: 30 1RF Rx Instructions: Continue for muscle spasm (evening) sumatriptan succinate 50 mg tablet See Rx Instructions PO .COMPLEX Qty: 9 3RF Rx Instructions: take 1 tab at onset of headache; if no relief may repeat 1 tab after at least 2 hrs; max = 4 tabs/24 hr PO acetaminophen 500 mg tablet 1,000 mg PO TID Qty: 90 0RF ibuprofen 600 mg tablet 600 mg PO TID PRN (Reason: pain) Qty: 90 0RF Discharge Instructions Additional Instructions: Continue your daily medications as prescribed If you are having palpitations or increased heart rate, you may need to increase your metoprolol dose . Please follow-up with your PCP or with cardiology for reevaluation with any concerns Return to the emergency department with any chest pain, uncontrolled heart rate or difficulty breathing HPI General Date/Time Provider Initiated Documentation: 03/07/24 19:26 . Limitations to Documentation: no limitations . Information obtained by: patient . HPI Narrative: 73-year-old female with past medical history of A-fib, anticoagulated, presents for evaluation of palpitations and chest pressure that started 30 minutes ago. She states that she did take her evening dose of metoprolol. She states that earlier today she was over extending herself . She reports some chest tightness, but not significant chest pain. She states that she is feeling diaphoretic. Related Data Home Medications ?Medication ?Instructions ?Recorded ?Confirmed cholecalciferol (vitamin D3) 50 2,000 unit PO DAILY #90 caps 12/15/22 03/07/24 mcg (2,000 unit) capsule (Vitamin D3) wrist splints #2 ea 03/17/23 03/07/24 food supplemt, lactose-reduced See Rx Instructions .Route 06/25/23 03/07/24 (High-Protein Nutritional Shake .COMPLEX low protein; edema; preop oral liquid) needs #1,422 mL diclofenac sodium 1 % topical gel 4 g topical QID #100 grams 08/04/23 03/07/24 (Voltaren Arthritis Pain) magnesium oxide 400 mg (241.3 mg 800 mg (2 x 400 mg (241.3 mg 08/04/23 03/07/24 magnesium) tablet magnesium)) PO BID #360 tabs metoprolol succinate 25 mg 50 mg (2 x 25 mg) PO DAILY #60 tabs 08/04/23 03/07/24 tablet,extended release 24 hr apixaban 5 mg tablet 5 mg PO BID #180 tabs 08/11/23 03/07/24 furosemide 20 mg tablet 20 mg PO BID 08/11/23 03/07/24 famotidine 20 mg tablet (Heartburn 20 mg PO BID #180 tabs 09/06/23 03/07/24 Relief (famotidine)) acetaminophen 500 mg tablet 1,000 mg (2 x 500 mg) PO TID #90 09/27/23 03/07/24 tabs ibuprofen 600 mg tablet 600 mg PO TID PRN pain #90 tabs 09/27/23 03/07/24 sucralfate 1 gram tablet 1 g PO BID #20 tabs 10/04/23 03/07/24 cyclobenzaprine 10 mg tablet 10 mg PO HS PRN muscle spasm #30 11/08/23 03/07/24 tabs sumatriptan succinate 50 mg tablet See Rx Instructions PO .COMPLEX #9 02/05/24 03/07/24 tabs fluticasone propionate 50 2 spray intranasal DAILY #16 grams 02/07/24 03/07/24 mcg/actuation nasal spray,suspension (Flonase Allergy Relief) Previous Rx's ?Medication ?Instructions ?Recorded cholecalciferol (vitamin D3) 50 2,000 unit PO DAILY #90 caps 12/15/22 mcg (2,000 unit) capsule (Vitamin D3) wrist splints #2 ea 03/17/23 food supplemt, lactose-reduced See Rx Instructions .Route 06/25/23 (High-Protein Nutritional Shake .COMPLEX low protein; edema; preop oral liquid) needs #1,422 mL diclofenac sodium 1 % topical gel 4 g topical QID #100 grams 08/04/23 (Voltaren Arthritis Pain) magnesium oxide 400 mg (241.3 mg 800 mg (2 x 400 mg (241.3 mg 08/04/23 magnesium) tablet magnesium)) PO BID #360 tabs metoprolol succinate 25 mg 50 mg (2 x 25 mg) PO DAILY #60 tabs 08/04/23 tablet,extended release 24 hr apixaban 5 mg tablet 5 mg PO BID #180 tabs 08/11/23 famotidine 20 mg tablet (Heartburn 20 mg PO BID #180 tabs 09/06/23 Relief (famotidine)) acetaminophen 500 mg tablet 1,000 mg (2 x 500 mg) PO TID #90 09/27/23 tabs ibuprofen 600 mg tablet 600 mg PO TID PRN pain #90 tabs 09/27/23 sucralfate 1 gram tablet 1 g PO BID #20 tabs 10/04/23 cyclobenzaprine 10 mg tablet 10 mg PO HS PRN muscle spasm #30 11/08/23 tabs sumatriptan succinate 50 mg tablet See Rx Instructions PO .COMPLEX #9 02/05/24 tabs fluticasone propionate 50 2 spray intranasal DAILY #16 grams 02/07/24 mcg/actuation nasal spray,suspension (Flonase Allergy Relief) Allergies Allergy/AdvReac Type Severity Reaction Status Date / Time morphine Allergy Intermediate Itching Verified 03/07/24 19:16 codeine AdvReac Intermediate muscle Verified 03/07/24 19:16 spasms oxycodone HCl (From Percocet) AdvReac Intermediate muscle Verified 03/07/24 19:16 spasms, hard on stomach General Stated Complaint: Chest Pain AJITH: 2 Exam Narrative Exam Narrative: Review of Systems: All systems reviewed & are unremarkable except as noted in HPI and below Well-developed, Diaphoretic Tachycardic, regular, hypertensive Unlabored respiratory effort, clear bilaterally Nondistended abdomen Extremities w/o edema no focal neurologic deficits Course Vital Signs Vital signs: Vital Signs Pulse 186 H 03/07/24 19:07 Respiratory Rate 24 03/07/24 19:07 Blood Pressure 139/119 H 03/07/24 19:07 Pulse Oximetry 97 03/07/24 19:07 Pulse 60 03/07/24 20:48 Pulse 87 03/07/24 20:50 Respiratory Rate 19 03/07/24 20:50 Respiratory Effort Short of Breath 03/07/24 19:23 Respiratory Depth Normal 03/07/24 19:23 Respiratory Pattern Normal 03/07/24 19:23 Blood Pressure 105/47 L 03/07/24 20:48 Blood Pressure Mean 63 03/07/24 20:48 Pulse Oximetry 98 03/07/24 20:50 Oxygen Delivery Method Room Air 03/07/24 19:07 Oxygen Flow Rate 0 03/07/24 19:07 Pain Level 8 03/07/24 19:07 Lab/Test Results Lab/Test Results: Laboratory Tests Range/Units 03/07/24 03/07/24 03/07/24 19:15 20:20 22:26 WBC (4.4-10.8) 10^3/uL 9.04 RBC (3.93-5.22) 10^6/uL 4.54 Hgb (11.2-15.7) g/dL 13.8 Hct (36.0-46.0) % 41.7 MCV (80-95) fL 92 MCH (27.0-33.0) pg 30.4 MCHC (32.0-36.0) % 33.1 RDW (11.7-14.6) % 12.8 Plt Count (130-400) 10^3/uL 186 MPV (8.0-11.0) fL 10.8 Immature Gran % % 0.0 Neutrophils % % 34.8 Lymphocytes % % 50.3 Monocytes % % 11.3 Eosinophils % % 2.8 Basophils % % 0.8 Nucleated RBC % (0.0-0.3) % 0.0 Absolute Neutrophils (1.2-6.7) 10^3/uL 3.15 Absolute Lymphocytes (1.2-3.4) 10^3/uL 4.55 H Absolute Monocytes (0.1-0.8) 10^3/uL 1.02 H Absolute Eosinophils (0.0-0.7) 10^3/uL 0.25 Absolute Basophils (0.0-0.2) 10^3/uL 0.07 Sodium (136-145) mmol/L 138 Potassium (3.5-5.1) mmol/L 4.0 Chloride (98-107) mmol/L 102 Carbon Dioxide (21.0-32.0) mmol/L 24.8 Anion Gap (3-11) mmol/L 11.2 H BUN (7-18) mg/dL 26 H Creatinine (0.55-1.02) mg/dL 1.2 H Est GFR (CKD-EPI 2020) (mL/min/1.73m2) 47.80 Glucose (74-106) mg/dL 111 H Calcium (8.5-10.1) mg/dL 9.5 Magnesium (1.8-2.4) mg/dL 1.8 Total Bilirubin (0.2-1.0) mg/dL 0.41 AST (15-37) U/L 17 ALT (14-59) U/L 13 L Alkaline Phosphatase (46-116) U/L 108 Troponin I (<or=51) ng/L 10 9 Cancelled NT-Pro-B Natriuret Pep (<300) pg/mL 216 Total Protein (6.4-8.2) g/dL 7.3 Albumin (3.4-5.0) g/dL 3.7 Medical Decision Making Emergent evaluation of tacky dysrhythmia. Patient does have a history of paroxysmal A-fib. She is anticoagulated with Eliquis. She reports acute onset of symptoms 30 minutes ago. Given her history of atrial fibrillation, I do not feel that this is likely to be SVT. Will treat with diltiazem to try to rate control. Will evaluate lab work to investigate possible etiology dysrhythmia. After diltiazem, patient did have rate control achieved. His hemodynamically stable and her symptoms have resolved. Lab work reviewed. No leukocytosis. No anemia. Creatinine today 1.2 slightly above baseline. First troponin is 10, second troponin 9. No significant delta. She was given a second dose of her home oral metoprolol. I feel at this time she is stable for discharge home. I do recommend that she follow-up with cardiology or her PCP as needed. Patient observed on telemetry monitoring and has had continued present rate control. She reports complete resolution of her symptoms. At this I do feel she is stable for discharge home to follow-up with cardiology or her PCP. I do recommend that she monitor her symptoms and heart rate, if her heart rate remains elevated, she may need to increase her metoprolol dosing and this can be done in the outpatient setting. Return precautions advised. I think at this time she has been cleared from an ACS standpoint. She is now rate controlled and symptom-free. She is discharged in good condition. Quality:SDOH Health Related Social Needs: No Data to Display PFSH All Active Problems Atrial fibrillation with rapid ventricular response (Acute) Nasal congestion (Acute) Polyp of left nasal cavity (Acute) History of nasal polyp (Acute) Anticoagulant long-term use (Acute) Hx Eliquis (started/missed..started/discontinued by heme.. RE-started 07/2023 2' AFib) Ganglion cyst of finger of left hand (Acute) Index Finger S/P Excision: 09/27/2023 History of recent hospitalization (Acute) PAF (paroxysmal atrial fibrillation) (Acute 05/08/15) RE-STARTED! 2% burden per Card Event Recorder.. re-started on Eliquis. Hx confirmed episode, 02/2015 (ZIO patch neg) Edema (Acute) Tumor surgically unresectable (Acute) planning for colectomy ([facility]?) .. [place] [facility] [place] [ ] 10/2023 Hx of adenomatous colonic polyps (Acute) Arthritis (Acute) both hands, acute on chronic pain/inflammation (rt wrist/hands 2' chopping+) Bilateral hand pain (Chronic) XR (03/24/23) shows: ..osteopenic..No acute fracture.. [s/p] bilateral trapezial resection. Degenerative changes greatest at the scaphoid trapezoid joints bilaterally. No evidence of bony erosions. Abdominal aneurysm (Acute) MRI (08/2022): no change per visualized section. Per CT (2021): Fusiform infrarenal abdominal aortic aneurysm with maximum external diameter 4 cm again noted. Arterial megaly continues into the common iliac arteries which both exhibit diameters of 1.5 cm Lumbar radiculopathy (Acute) MRI (08/2022) shows: Degenerative disc changes and facet degenerative changes combine to produce moderate central canal stenosis at L3-4. [ ] awaiting [facility] [place]ine. Long Hx, acute on chronic Rt sided, 08/2021. ik MRI shows Spondylolisthesis of lumbosacral region (Acute) A. L4-5 B. L5-S1 Latest XR (07/2018) states pseudospondylolisthesis, no acute Fx/Sublux. Monitoring pain. Pain of back and right lower extremity (Acute) Improved since [facility] [place] Pain Mgmt Injections (fall 2022?).. Lumbar back pain with radiating pain from outer rt hip, into knee (~ L4 dermatome) Left foot pain (Acute) Acute on chronic: Dx as gout, cellulitis, possible osteomyelitis Acute deep vein thrombosis (DVT) of both lower extremities (Acute) 11/17/22 [facility] [place]c note Nail dystrophy (Acute) Pain, foot (Acute) CTS (carpal tunnel syndrome) (Acute) from [facility] [place] 08/17/22 note.HE Glomerulonephritis (Acute) from [facility] [place] 08/17/22 note.HE (Hx nephrotic syndrome)(Hx renal calculi)(Hx pyelo) Cervicalgia (Acute) Cervical radiculopathy (Acute) Muscle strain of right scapular region (Acute) Right wrist effusion (Acute) w/ bruising Ischemia of extremity (Acute) Claudication of lower extremity (Acute) Bilateral hearing loss (Acute ~07/2022) 08/09/22 Hearing Evaluation done [facility] Hearing loss (Acute) B/L . signing for hearing aids ([facility]) Skin lesion of back (Acute) mid-back, pruritic .. indented/suspicious.. Gastritis (Acute) perf gastric ulcer, 12/2021 .. greatly improved, 02/2023 (no gerd/gastritis pain) .. eats < 7pm Anemia (Chronic) 2' gastritis, gastric ulcer (perf!), 12/2021 .. Improved, 12/2022 Medical History Hypertension Traumatic hematoma of right hand resolved Osteomyelitis per MRI, but no Hx open wound .. > 1 month Right leg DVT with PE, post Hosp/Abd Surg .. Right foot pain instep is excruciating ,, cannot flatten Leg edema Rt and later Left foot (dorsum), w/o clear etiology .. Tubulovillous adenoma Hip pain 02/22/23 [facility] [place] b/l hip injections-bursa/tendon.HE SI (sacroiliac) joint inflammation 02/22/23 [facility] [place] spine: SI JOINT INJECTION b/l. Echocardiogram findings abnormal, without diagnosis LVEF 65% per 07/27/23 Echo WNL LV, (EF 58%), 03/2022 ([facility]).. post PE. / WNL LV size/functn (EF 55%), 12/2021 ([facility] [place] .. s/p pericardial effusion. Abscess Resolved, surgery, 12/2021 Right hand paresthesia Right arm pain At risk for osteoporosis Smoking > 10 yrs, Prednisone (high-dose), PPI, Menopause @ 34yo. (Hx blood clots.. heparin, 1998, near ) Vision loss, right eye Esophagitis with gastritis Piriformis syndrome of right side Right upper extremity numbness Pain and Tenderness, possible nerve entrapment with numbness .. 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 states if she eats is when she feels this and is at night if she has eaten. Hyperlipidemia (02/21/13) Nephrotic syndrome (06/17/85) Palpitations (07/15/16) Chest pain at rest Awakened with heaviness, waited x hours (has had it before), but finally went to ED .. 11/20/18 Pain of left hip (05/2018) Onset while stretching in bed, suddenly felt sharp pain ... hasn't gone away. Surprising left paraspinal tenderness along lumbar spine @ exam, 08/08/18. Vitamin D deficiency (12/23/16) rx 50,000/wk x ten wk, then 2000 IU daily Trigger finger, right middle finger (01/22/18) TMJ (temporomandibular joint disorder) (01/25/16) Sleep disturbances (03/01/13) Seasonal allergic rhinitis (02/21/13) Pseudogout of left wrist (01/22/18) Periumbilical abdominal pain (04/14/17) ? umbilical hernia vs adhesions Osteoarthritis (03/05/13) recurrent R thumb (h/o Catrina inj 10/2012; h/o surg L hand 06/2006) Obesity (BMI 30-39.9) (08/11/11) Muscle cramp, nocturnal (12/27/13) gabapentin 100 prn effective Morbid obesity (08/20/15) BMI 42, post bariatric surg Migraine (02/21/13) Left foot pain (01/27/17) r/o Posteriur Tarsal Tunnel Syn; dr Velasquez, Dr. Aldana History of pulmonary embolism (01/01/16) Generalized osteoarthrosis (02/21/13) Arm pain, right (09/20/13) rotator cuff pain, persistent trigger finger R; neck pain; trapezious spasm; impingement syndrome Adenoma of large intestine (05/19/11) 05/2011 Kris Coffey colonoscopy, +tubular adenoma and +family h/o colon cancer (F); again adenoma 02/21/13 04/07/17 - tubulovillous adenoma, ascending colon, Dr Kaye Acute pain of left shoulder (10/18/17) No specific injury/trauma, pain with movement, abdiel ext rot/supination. Triceps tenderness. Intermittent fingertip numbness. Abdominal pain (11/04/13) not diverticulitis per CT 07/28/14; lower abd 07/2015 Abdominal aortic aneurysm 30 to 34 mm in diameter (07/19/14) 06/2014 3.14 cm, confirmed on CT; 07/2015 3.2cm US 04/21/17 stable 3.3 cm US. 11/2018 [Stable, 3.4CM]. De Quervain's tenosynovitis, right Osteoporosis Ca and Vit D suppl. Bisphosphonate Hx TBD. DJD, spine Reconfirmed on 07/2018 XR. Diverticulosis a. No diverticulitis Pain in joint, shoulder region a. rotator cuff pain Reactive airway disease a. worse in the spring GERD (gastroesophageal reflux disease) History of tobacco use a. quit in 1998, after roughly 30 pack years Osteoarthrosis, hand Morbid obesity a. Gastric bypass 1999 b. Multiple nutritional deficiencies, on supplements. c. S/p pannus excision Pyelonephritis (05/07/14) 1. secondary to obstruction Hydronephrosis (05/07/14) Nephrolithiasis (05/07/14) a. First episode - right side b. Right 3 mm ureterovesical junction stone Surgical History S/P right hemicolectomy (~10/16/23) 10/19/23; From [facility] Note 10/16/23. R Hemicolectomy, surgeon resected an additional -10cm segment of proximal transverse colon to ensure an adequate margin as well as ensure the staple line was completely resected. A handsewn primary anastomosis was performed in 2 layers. Noted they restarted her anticoagulation post op.HE Hx of hand surgery left index finger, PIP mass (not quite an actual cyst), [place], 09/27/23 Posterior subcapsular age-related cataract of left eye Nuclear sclerotic cataract of left eye History of cataract surgery Posterior subcapsular age-related cataract, right eye Nuclear sclerotic cataract of right eye S/P bariatric surgery (06/16/00) [facility], pre surg wt 311 lbs History of bariatric surgery (05/19/00) Dr. Greene[facility] pannus removal (04/02/03) [facility], 3 yr after bariatric surg Trigger Finger release (11/26/13) A-1 sumi Rt ring finger Repair of umbilical hernia (05/31/17) Dr Kaye Colonoscopy - MAC (04/18/23) Cholecystectomy (06/16/00) Dr Greene, DAVID, along with Bariatric procedure Bariatric Surgery (06/16/00) Brenda-En-Y gastroplasty with cholecystectomy, KARISHMA Juárez Arthroplasty (06/21/13) R ally Palomo H/O surgical procedure a. Gastric bypass 2000 b. Pannus excision c. Excision of Samson neuroma d. Cholecystectomy e. appendectomy f. right oophorectomy g. 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 Pets and animals: No Do you think of yourself as: straight/heterosexual Current gender identity: female What is your relationship status?: How often do you talk on the phone with friends or family?: three or more times per week How often do you get together with friends or relatives?: three or more times per week Panel score (0-1 are the most socially isolated patients): 2 What type of physical activity do you participate in: sedentary lifestyle Duration: < 15 minutes/day Frequency: 3-4 times per week Mayuri/Mandaen: Confucianism Seatbelt use: always Helmet use: No 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
== END 2024-03-07 21:19 | disposition home or self-care (01) ==
PROVIDERS: Emergency Provider Emergency Medicine; PCP Student in an Organized Health Care Education/Training Program
DX: I48.91 Unspecified atrial fibrillation (principal); I10 Essential (primary) hypertension; E78.5 Hyperlipidemia, unspecified; Z86.718 Personal history of other venous thrombosis and embolism; Z98.84 Bariatric surgery status; Z79.01 Long term (current) use of anticoagulants; Z87.891 Personal history of nicotine dependence
CPT/HCPCS: 80053; 93005; 96360; 99284; 83735; 83880; 84484; 85025; 93010; J3490

== ENCOUNTER 2024-04-01 11:18 | Outpatient (CLI) | payer MEDICARE, MEDICAID, SELFPAY ==
--- NOTE | 2024-04-01 09:00 | DI.RAD_ITS ---
Exam(s) XR KNEE RT 3V AP,LAT,CARMELINA XR FEMUR RT EXAM: XR KNEE RT 3V AP,LAT,CARMELINA and XR femur RT CLINICAL HISTORY: eval joint space med swelling,rt knee pain, m25.561. TECHNIQUE: 2D digital imaging was performed of the right femur and knee. Seven views obtained. AP, lateral and PA tunnel views were obtained. COMPARISON: CR RIGHT KNEE COMPLETE from 08/28/2008 CR XR CHEST 2V PA LATERAL from 11/20/2018 CR,XR XR TIB/FIB RT from 11/27/2021 FINDINGS: BONES: No acute fracture is present. No bony destructive lesion is seen. JOINTS: There osteophytes seen at the posterior patella. Chondrocalcinosis is seen in the femoral ti bial joint. There is a tiny joint effusion. The hip is well maintained. SOFT TISSUE: Well corticated osseous densities are seen adjacent to the lateral femoral condyle which appear chronic. IMPRESSION: Arthrosis of the right knee as described above. DATA REPOSITORY: RADIATION DOSE DELIVERED:
== END 2024-04-01 11:38 ==
LOC: DI 11:18
PROVIDERS: PCP Student in an Organized Health Care Education/Training Program; Visit Provider Student in an Organized Health Care Education/Training Program
DX: M25.561 Pain in right knee (principal)
CPT/HCPCS: 73552; 73562

== ENCOUNTER → 2024-06-21 07:54 | Outpatient (BNVA) | payer MEDICARE, MEDICAID, SELFPAY | PROVIDERS: PCP Nurse Practitioner; Referring Provider Student in an Organized Health Care Education/Training Program | DX: M17.11 Unilateral primary osteoarthritis, right knee (principal) | CPT/HCPCS: 20610; 99213; J1010 ==

== ENCOUNTER 2024-08-15 02:07 | Outpatient (CLI) | payer MEDICARE, MEDICAID, SELFPAY ==
--- NOTE | 2024-08-15 07:30 | DI.MAMMO_ITS ---
Exam(s) MAMMO SCREENING EXAM: MAMMO SCREENING CLINICAL HISTORY: screening,z12.39 TECHNIQUE: Mammograms were interpreted according to the usual protocol including computer analysis w [employer] CAD system, tomosynthesis and C-view imaging. COMPARISON: 2016 through 2022 FINDINGS: The breasts are composed of scattered fibroglandular densities, Breast Density category B. No suspicious masses or suspicious microcalcifications are seen. No skin thickening or abnormal axillary lymph nodes are seen. There has been no significant change from prior exams. IMPRESSION: BI-RADS Category 1, Negative mammogram Yearly screening mammography is recommended. Breast Density - Category B, scattered fibroglandular densities. A negative radiographic report should not delay biopsy if a dominant or clinically suspicious mass is present. Up to ten percent of cancers are not identified on mammography. A negative report may reinforce clinical impression. Adenosis and dense breasts may obscure an underlying neoplasm. False positive reports average 6 to 10%. Patient will receive a letter notifying them of these results.
== END 2024-08-15 02:27 ==
LOC: DI 02:07
PROVIDERS: PCP Nurse Practitioner Family; Visit Provider Nurse Practitioner
DX: Z12.31 Encounter for screening mammogram for malignant neoplasm of breast (principal); R92.323 Mammographic fibroglandular density, bilateral breasts
CPT/HCPCS: 77063; 77067

== ENCOUNTER → 2024-11-14 10:54 | Outpatient (BNVA) | payer MEDICARE, MEDICAID, SELFPAY | PROVIDERS: PCP Nurse Practitioner Family; Visit Provider Internal Medicine Cardiovascular Disease | DX: I48.0 Paroxysmal atrial fibrillation (principal) | CPT/HCPCS: 99214 ==

== ENCOUNTER 2024-12-03 09:43 | Outpatient (CLI) | payer MEDICARE, MEDICAID, SELFPAY ==
--- NOTE | 2024-12-03 09:30 | RT.EKG_ITS ---
APPROVED REPORT Exam: Resting ECG Reason for Exam: Dizziness, low blood pressure Patient Location: O HR:57 bpm ECG Measurements Heart Rate 57 AXIS MD 154 P 44 QRSd 92 QRS 11 QT 420 T 41 QTc 409 Conclusion Sinus rhythm...normal P axis, V-rate 50- 99 Left atrial enlargement...P, P'>60mS, <-0.15mV V1 Borderline low voltage, extremity leads...all extremity leads <0.6mV Otherwise normal ECG
== END 2024-12-03 09:44 | disposition home or self-care (01) ==
LOC: DI.KIM 09:44
PROVIDERS: PCP Nurse Practitioner Family; Visit Provider Nurse Practitioner Family
DX: R42 Dizziness and giddiness (principal); I95.9 Hypotension, unspecified; I51.7 Cardiomegaly
CPT/HCPCS: 93010

== ENCOUNTER 2024-12-13 00:45 | Outpatient (CLI) | payer MEDICARE, MEDICAID, SELFPAY ==
[2024-12-13 14:21] LABS: Magnesium 1.9 mg/dL (1.8-2.4)
== END 2024-12-13 00:46 | disposition home or self-care (01) ==
LOC: LBO 00:46
PROVIDERS: Absent Provider Nurse Practitioner Family; PCP Nurse Practitioner Family; Referring Provider Nurse Practitioner Family; Visit Provider Nurse Practitioner Family
DX: Z79.899 Other long term (current) drug therapy (principal)
CPT/HCPCS: 36415; 83735

== ENCOUNTER 2025-03-11 00:46 | Outpatient (CLI) | payer MEDICARE, MEDICAID, SELFPAY ==
--- NOTE | 2025-03-11 06:00 | DI.RAD_ITS ---
Exam(s) XR FOOT RT COMPLETE EXAM: XR FOOT RT COMPLETE CLINICAL HISTORY: Right foot pain,M79.671. TECHNIQUE: 2D digital imaging was performed. Three views. COMPARISON: CR,XR XR FOOT LT COMPLETE from 01/01/2022 MR MR LOWER EXTREMITY LT WO/W from 02/11/2022 FINDINGS: BONES: No acute fracture is present. No bony destructive lesion is seen. The bones appear osteopenic. Plantar calcaneal spur. JOINTS: No dislocation present. Narrowing and mild spurring at the navicular cuneiform joints. SOFT TISSUE: Calcification in Achilles tendon IMPRESSION: Mild degenerative changes and heel spur. DATA REPOSITORY: RADIATION DOSE DELIVERED:
== END 2025-03-11 01:06 ==
PROVIDERS: PCP Nurse Practitioner Family; Visit Provider Podiatrist
DX: M79.671 Pain in right foot (principal)
CPT/HCPCS: 73630

== ENCOUNTER → 2025-04-15 13:16 | Outpatient (BNVA) | payer MEDICARE, MEDICAID, SELFPAY | PROVIDERS: PCP Nurse Practitioner Family; Referring Provider Nurse Practitioner Family; Visit Provider Podiatrist | DX: M79.671 Pain in right foot (principal); M79.672 Pain in left foot; S90.31XA Contusion of right foot, initial encounter; R20.2 Paresthesia of skin; I83.93 Asymptomatic varicose veins of bilateral lower extremities | CPT/HCPCS: 99213 ==

== ENCOUNTER → 2025-05-02 02:59 | Outpatient (CLI) | payer MEDICARE, MEDICAID, SELFPAY ==
--- NOTE | 2025-05-02 07:15 | DI.MRI_ITS ---
Exam(s) MR LOWER EXTREMITY RT WO/W EXAM: MR LOWER EXTREMITY RT WO/W CLINICAL HISTORY: PLantar subcutaneous lesion,blue color,painful,VASCULAR MALFORMATION TECHNIQUE: Multiplanar multisequence MRI was performed on 1.5 zule[address]ka unit with both pre and post contrast infused sequences Intravenous contrast administered was 20 mL Dotarem. COMPARISON: None FINDINGS: SKIN/SUBCUTANEOUS: On the plantar aspect of the foot there is a well-defined subcutaneous T1 hypoechoic nodule which corresponds to her clinically visible finding and which measures 6 x 7 x 5 mm. On STIR imaging this is centrally hypoechoic and peripherally hyperechoic. Following contrast injection it exhibits peripheral enhancement and remains centrally hypo intense. There is no significant abnormal diffusion-type enhancement in the surrounding subcutaneous fat and this ill- defined lesion is confined the subcutaneous fat layer, not reaching the deep fascia level. More anteriorly there is no evidence of interdigital Samson's neuroma. BONES/JOINTS: No evidence of fracture nor bone contusion. No joint effusion evident. There is no evidence of para-articular ganglion. There are some subarticular degenerative changes in the midfoot, specifically at the articulation between the distal navicular and cuneiform XXXX. There is also some degenerative change at the 3rd tarsometatarsal joint. LISFRANC JOINT: Intact ligament and joint. SINUS TARSI: There is some abnormal fat signal in this space and what may be a sinus tarsi ganglion cyst, somewhat difficult to evaluate as this was not completely included in the field of view. MUSCULOTENDINOUS STRUCTURES: No tendon tears nor tenosynovitis evident. IMPRESSION: 1. On plantar surface of foot there is a well-defined 0.6 x 0.7 x 0.5 millimeter centrally hypointense and peripherally hyper intense and peripherally enhancing lesion which corresponds to this patient's of visible-palpable finding at this location. This benign appearing well-defined lesion is confined to the dermis and subcutaneous layer and does not reach the deeper tissue layer, appearing independent of the underlying deep fascial on all sequences. It is not imbedded in the plantar fascia. 2. Other findings as above consistent with some midfoot degenerative changes and some fluid within the sinus tarsi. DATA REPOSITORY:
[2025-05-02] MEDS: Gadoterate meglumine 20 ML SYRINGE IVP (12:35)
[2025-05-02] MEDS: Normal Saline Flush 10 ML SYR IVP (12:37)
== END ==
LOC: DI 02:59
PROVIDERS: PCP Nurse Practitioner Family; Visit Provider Podiatrist
DX: Q27.9 Congenital malformation of peripheral vascular system, unspecified (principal); T14.8XXA Other injury of unspecified body region, initial encounter; S90.851A Superficial foreign body, right foot, initial encounter; M79.671 Pain in right foot
CPT/HCPCS: 73720